=== PATIENT | female | born 1995 | race Caucasian/White ===

== ENCOUNTER 2018-03-15 16:51 | Emergency (ER) | payer OTHER, BC, SELFPAY ==
[2018-03-15 16:51] VITALS: BP 141/78; PULSE 107; RESP 16; TEMP 37.1; O2SAT 97; BMI 26.6
--- NOTE | 2018-03-15 17:18 | ED.DCSUM_ITS ---
- ER Visit Summary Date of Service: 03/15/18 Chief Complaint: Right hand injury History of Present Illness: The patient is a 22 F presenting with right hand injury. Patient states she dropped a paint can on her right hand. This occurred 1 hour prior to arrival. She took ibuprofen at home. She complains of right hand pain. Denies other injury. She is left-handed. Physical Examination: Vitals are stable. Patient is afebrile. Alert no acute distress. HEENT exam is unremarkable. Lungs are clear and equal bilaterally. Heart is regular rate and rhythm. Extremities right hand diffuse tenderness with ecchymosis to the second and third digit. Active full range of motion. Wrist is nontender. Normal cap refill. Skin is warm and dry. No focal neurologic deficit. Remainder of exam is unremarkable. Emergency Department Course and Treatment: Patient is given an ice pack. X-ray of the right hand shows no acute process. She is advised to ice and elevate. Advised to continue NSAIDs for pain. She is put in an aluminum foam splint. Advised return to ED if worsening complaints. Advised follow-up with primary care physician. Disposition: Discharge home Impression: Right hand contusion This note was generated with [employer] dictation software. It may contain incorrect words, spelling, and punctuation that were not noted in review of the chart prior to signing ED Disposition - Plan for ED Patient: Chief Complaint: Upper Extremity Injury Referrals: Skyler Patino MD [Primary Care Provider] -
--- NOTE | 2018-03-15 17:25 | RAD_ITS ---
STUDY: X-RAY - RIGHT HAND REASON FOR EXAM: Female, 22 years old. Trauma TECHNIQUE: 3 view(s) of the hand. COMPARISON: None. FINDINGS: Normal radiocarpal articulation. Normal distal radioulnar joint. Normal visualized carpal bones. Normal carpal articulations Normal carpometacarpal articulation of the thumb. Normal second through fifth carpometacarpal joints. Normal metacarpi. Normal metacarpophalangeal joint of the thumb. Normal interphalangeal joint of the thumb. Normal proximal and distal phalanges of the thumb. Normal metacarpophalangeal joints of the second through fifth fingers. Normal proximal and distal interphalangeal joints of the second through fifth fingers. Normal phalanges of the second through fifth fingers. The soft tissue structures are unremarkable. RAD/Hand Min 3 Views IMPRESSION: Normal x-ray examination of the hand. Electronically Signed: Claude Garcia MD at 17:39 EDT , Service support ,
--- NOTE | 2018-03-15 17:52 | ED.DEP ---
ED Disposition - Plan for ED Patient: Chief Complaint: Upper Extremity Injury Instructions: ED Contusion Upper Ext Referrals: Skyler Patino MD [Primary Care Provider] -
[2018-03-15 18:02] VITALS: BP 114/68; PULSE 72; RESP 18
== END 2018-03-15 18:03 | disposition home or self-care (01) ==
LOC: ED 17:25
PROVIDERS: Emergency Provider Emergency Medicine; Family Provider Family Medicine; PCP Family Medicine
DX: S60.021A Contusion of right index finger without damage to nail, initial encounter (principal); S60.031A Contusion of right middle finger without damage to nail, initial encounter; Z87.891 Personal history of nicotine dependence; Z79.899 Other long term (current) drug therapy; W20.8XXA Other cause of strike by thrown, projected or falling object, initial encounter; Y93.89 Activity, other specified; Y92.009 Unspecified place in unspecified non-institutional (private) residence as the place of occurrence of the external cause; Y99.8 Other external cause status
CPT/HCPCS: 73130; 99283

== ENCOUNTER 2018-04-09 01:59 | Emergency (ER) | payer OTHER, BC, SELFPAY ==
[2018-04-09 02:00] VITALS: BP 129/77; PULSE 100; RESP 16; TEMP 36.6; O2SAT 97; BMI 27.5
--- NOTE | 2018-04-09 02:18 | ED.VISSUMM ---
- ER Visit Summary Date of Service: 04/09/18 Chief Complaint: [] Foot laceration History of Present Illness: The patient is a 22 F [] complaining of multiple linear superficial foot lacerations after inadvertently stepping on a Satinder ornament that shattered. Patient denies the feeling of embedded foreign body however she is unsure at this time. She does admit to alcohol consumption prior to arrival. She is tearful. Does report a history of degenerative disc disease, bipolar disease, anxiety. Physical Examination: [] Afebrile, vital signs stable. 22-year-old female no acute distress. Examination of the right foot reveals multiple long linear superficial lacerations (partial-thickness) to the plantar surface. Several small glasslike foreign bodies consistent with reported history of a Satinder ornament. Neurovascularly intact distally to the affected extremity. Test Results: [] None. Emergency Department Course and Treatment: [] Foot has multiple superficial lacerations however no large or deep lacerations. There were several small glasslike flecks of remnant Satinder ornament that were irrigated away with saline and Shur-Clens. Additional 6 or 7 small pieces were removed with a forceps. Patient tolerated the procedure well. I do not feel that an x-ray was warranted as all these wounds are very superficial. Patient was instructed to clean the area and keep an eye on for possible infection. She will be given a prescription of Keflex to prevent infection for the next several days. She was placed in the bacitracin dressing and a postop shoe instructed to have follow-up with the PCP in the next 3-4 days. Tetanus was updated in the emergency department. Treatment Plan: [] Follow-up with PCP. Outpatient antibiotics. Disposition: [] Discharge, stable. Impression: [] Post superficial partial-thickness foot lacerations, right foot Tetanus update This note was generated with [employer] dictation software. It may contain incorrect words, spelling, and punctuation that were not noted in review of the chart prior to signing ED Disposition - Plan for ED Patient: Chief Complaint: Laceration Referrals: Skyler Patino MD [Primary Care Provider] -
--- NOTE | 2018-04-09 02:21 | ED.DEP ---
ED Disposition - Plan for ED Patient: Disposition: Home or Assisted Living Chief Complaint: Laceration Instructions: ED Laceration Small Superf No Sutr Referrals: Skyler Patino MD [Primary Care Provider] -
[2018-04-09] MEDS: Diphth,Pertuss(Acell),Tet Vac 0.5 ML Vial IM (02:24)
== END 2018-04-09 02:43 | disposition home or self-care (01) ==
PROVIDERS: Emergency Provider Emergency Medicine; Family Provider Family Medicine; PCP Family Medicine
DX: S91.311A Laceration without foreign body, right foot, initial encounter (principal); Z23 Encounter for immunization; F31.9 Bipolar disorder, unspecified; F41.9 Anxiety disorder, unspecified; Z79.899 Other long term (current) drug therapy; W25.XXXA Contact with sharp glass, initial encounter; W45.8XXA Other foreign body or object entering through skin, initial encounter; Y93.01 Activity, walking, marching and hiking; Y92.89 Other specified places as the place of occurrence of the external cause; Y99.8 Other external cause status
CPT/HCPCS: 90471; 90715; 99283

== ENCOUNTER 2018-04-10 11:14 | Emergency (ER) | payer OTHER, BC, SELFPAY ==
[2018-04-10 11:15] VITALS: BP 122/74; PULSE 104; RESP 16; TEMP 37.1; O2SAT 97; BMI 27.5
--- NOTE | 2018-04-10 11:50 | RAD_ITS ---
STUDY: X-RAY - LEFT TIBIA AND FIBULA REASON FOR EXAM: Female, 22 years old. Trauma, pain TECHNIQUE: 2 view(s) of the tibia and fibula were obtained. COMPARISON: Left foot films, same date FINDINGS: Normal visualized tibia. Normal visualized fibula. There is no demonstrated acute fracture. The soft tissue structures are unremarkable. RAD/Tibia & Fibula 2 Views IMPRESSION: Normal x-ray examination of the tibia and fibula. Electronically Signed: Ismael Medley DO at 12:47 EDT Tel , Service support ,
--- NOTE | 2018-04-10 11:50 | RAD_ITS ---
STUDY: X-RAY - LEFT FOOT CLINICAL: Female, 22 years old. Trauma, pain TECHNIQUE: 3 view(s) of the foot. COMPARISON: Left tibia/fibular films, same date FINDINGS: Normal talus, calcaneus, and tarsal bones. Normal visualized subtalar, talonavicular, calcaneocuboid, tarsal and tarsometatarsal articulations. Normal metatarsi. Normal metatarsophalangeal joint of the great toe. Normal tibial and fibular sesamoid bones. Normal interphalangeal joint of the great toe. Normal phalanges of the great toe. Normal second through fifth metatarsophalangeal joints. Normal interphalangeal joints and phalanges of the lesser toes. The soft tissue structures are unremarkable. There is no demonstrated fracture. RAD/Foot min 3 Views IMPRESSION: Normal x-ray examination of the foot. Electronically Signed: Ismael Medley DO at 12:45 EDT Tel , Service support ,
--- NOTE | 2018-04-10 12:58 | ED.DCSUM_ITS ---
- ER Visit Summary Date of Service: 04/10/18 Chief Complaint: Left foot and ankle pain History of Present Illness: The patient is a 22 F who was seen here early yesterday morning for lacerations to the bottom of her right foot after stepping on glass. The wounds were cleansed and dressed. Patient states because she was not able to walk well on her right foot she lost her balance and fell yesterday injuring her left foot and lower leg. She is reportedly seen at [facility] where x-rays were negative. She was given an ankle stirrup splint, Naprosyn, and Sizerock. She was written off work for a week. Patient states the swelling and bruising seemed to be worse and she wanted another opinion as she is concerned it may be broken. Physical Examination: Vital signs are unremarkable. Patient sitting upright in bed no acute distress. Lower extremity examination was scattered bruising of the left lower leg and foot. There is diffuse tenderness. There is mild edema noted only. There are strong distal pulses and normal cap refill. There is no tenderness over the upper leg or hip. The wounds on the bottom of the right foot are clean with no sign of infection. Test Results: Left foot and tib-fib x-rays are obtained and normal per my read. Emergency Department Course and Treatment: Patient is continue the medications as previously prescribed. Shamar wrap is provided along with crutches. She is to continue the Aircast. Treatment Plan: [] Disposition: Discharge Impression: Left foot and ankle sprain This note was generated with [employer] dictation software. It may contain incorrect words, spelling, and punctuation that were not noted in review of the chart prior to signing ED Disposition - Plan for ED Patient: Disposition: Home or Assisted Living Chief Complaint: Lower Extremity Injury Instructions: ED Sprain Ankle W X Ray, ED Sprain Foot Referrals: Skyler Patino MD [Primary Care Provider] - 1 Week if not improving
--- NOTE | 2018-04-10 12:58 | ED.DEP ---
ED Disposition - Plan for ED Patient: Disposition: Home or Assisted Living Chief Complaint: Lower Extremity Injury Instructions: ED Sprain Foot, ED Sprain Ankle W X Ray Referrals: Skyler Patnio MD [Primary Care Provider] - 1 Week if not improving
[2018-04-10 13:15] VITALS: PULSE 97; RESP 16; O2SAT 98
== END 2018-04-10 13:17 | disposition home or self-care (01) ==
PROVIDERS: Emergency Provider Emergency Medicine; Family Provider Family Medicine; PCP Family Medicine
DX: S93.602A Unspecified sprain of left foot, initial encounter (principal); S93.402A Sprain of unspecified ligament of left ankle, initial encounter; F31.9 Bipolar disorder, unspecified; M54.5 Low back pain; Z79.891 Long term (current) use of opiate analgesic; Z79.899 Other long term (current) drug therapy; W18.30XA Fall on same level, unspecified, initial encounter; Y93.89 Activity, other specified; Y92.89 Other specified places as the place of occurrence of the external cause; Y99.8 Other external cause status
CPT/HCPCS: 73590; 73630; 99283

== ENCOUNTER 2018-04-13 20:55 | Emergency (ER) | payer OTHER, BC, SELFPAY ==
[2018-04-13 20:56] VITALS: BP 141/87; PULSE 140; RESP 20; TEMP 36.7; O2SAT 95; BMI 28.3
--- NOTE | 2018-04-13 21:06 | RAD_ITS ---
STUDY: X-RAY - LEFT FOOT CLINICAL: Female, 22 years old. Pain, injury TECHNIQUE: 3 view(s) of the foot. COMPARISON: 04/13/2018 FINDINGS: Normal talus, calcaneus, and tarsal bones. Normal visualized subtalar, talonavicular, calcaneocuboid, tarsal and tarsometatarsal articulations. Normal metatarsi. Normal metatarsophalangeal joint of the great toe. Normal tibial and fibular sesamoid bones. Normal interphalangeal joint of the great toe. Normal phalanges of the great toe. Normal second through fifth metatarsophalangeal joints. Normal interphalangeal joints and phalanges of the lesser toes. The soft tissue structures are unremarkable. RAD/Foot min 3 Views IMPRESSION: Normal x-ray examination of the foot. Electronically Signed: Babak Ralph MD at 21:41 EDT Tel , Service support ,
--- NOTE | 2018-04-13 21:06 | RAD_ITS ---
STUDY: X-RAY - LEFT ANKLE REASON FOR EXAM: Female, 22 years old. Pain, injury TECHNIQUE: 3 view(s) of the ankle. COMPARISON: None. FINDINGS: Normal visualized distal tibia and fibula. Normal medial and lateral malleoli. Normal tibiotalar articulation and ankle mortise. Normal visualized talus and calcaneus. The visualized subtalar, talonavicular, calcaneocuboid and tarsal articulations are normal. The soft tissue structures are unremarkable. RAD/Ankle min 3 Views IMPRESSION: Normal x-ray examination of the ankle. Electronically Signed: Babka Ralph MD at 21:37 EDT Tel , Service support ,
--- NOTE | 2018-04-13 21:51 | ED.VISSUMM ---
- ER Visit Summary Date of Service: 04/13/18 Chief Complaint: [Fall and injury to left foot and ankle] History of Present Illness: The patient is a 22 F [presents to the emergency department with complaint of a fall today ?2. Patient states she initially fell 4 days ago injuring her left foot and ankle and was seen at [facility] where she had x-rays which did not show any fractures. Patient then the following day came to was her hospital had what sounds like repeat x-rays which did not show any fractures. Patient was given a prescription for Alexandria for pain as well as crutches and a walking boot. Patient states that she has had a hard time walking with her crutches and today she was going down the steps with her crutches and fell reinjuring her foot and ankle. Patient cannot put any weight on it. Patient denies loss of consciousness. She denies any neck pain, chest pain, or abdominal pain.] Physical Examination: [HEENT-PERRLA, EOMI. Cranial nerves II through XII grossly intact. TMs clear. Mucous membranes moist. No adenopathy. No C-spine tenderness on palpation Cardiovascular-regular rate and rhythm without murmur or ectopy Lungs-clear to auscultation, chest wall stable without crepitus or subcu emphysema Abdomen-normoactive bowel sounds, soft, nontender, no rebound or rigidity, no peritoneal signs. Extremities-intact ?4, normal range of motion, normal pulses. Left leg-patient has diffuse soft tissue swelling about the left ankle and foot. Patient has ecchymosis and bruising noted. She has diffuse tenderness about the foot and ankle. Patient does not have any pain at the fibular head. Ileus tendon is intact she has a normal Mustafa's test. Test Results: [X-rays of the left foot and ankle obtained showed no fractures.] Emergency Department Course and Treatment: [] Treatment Plan: [Patient to continue with her crutches and her walking boot. Patient has Alexandria at home for pain Disposition: [Discharged home in stable condition.] Impression: [Fall Left foot and ankle sprain This note was generated with [employer] dictation software. It may contain incorrect words, spelling, and punctuation that were not noted in review of the chart prior to signing ED Disposition - Plan for ED Patient: Chief Complaint: Lower Extremity Injury Referrals: Skyler Patino MD [Primary Care Provider] -
--- NOTE | 2018-04-13 21:54 | ED.DCSUM_ITS ---
- ER Visit Summary Date of Service: 04/13/18 Chief Complaint: [Fall and injury to left foot and ankle] History of Present Illness: The patient is a 22 F [presents to the emergency department with complaint of a fall today ?2. Patient states she initially fell 4 days ago injuring her left foot and ankle and was seen at [facility] where she had x-rays which did not show any fractures. Patient then the following day came to was her hospital had what sounds like repeat x-rays which did not show any fractures. Patient was given a prescription for Bernard for pain as well as crutches and a walking boot. Patient states that she has had a hard time walking with her crutches and today she was going down the steps with her crutches and fell reinjuring her foot and ankle. Patient cannot put any weight on it. Patient denies loss of consciousness. She denies any neck pain, chest pain, or abdominal pain.] Physical Examination: [HEENT-PERRLA, EOMI. Cranial nerves II through XII grossly intact. TMs clear. Mucous membranes moist. No adenopathy. No C- spine tenderness on palpation Cardiovascular-regular rate and rhythm without murmur or ectopy Lungs-clear to auscultation, chest wall stable without crepitus or subcu emphysema Abdomen-normoactive bowel sounds, soft, nontender, no rebound or rigidity, no peritoneal signs. Extremities-intact ?4, normal range of motion, normal pulses. Left leg-patient has diffuse soft tissue swelling about the left ankle and foot. Patient has ecchymosis and bruising noted. She has diffuse tenderness about the foot and ankle. Patient does not have any pain at the fibular head. Ileus tendon is intact she has a normal Mustafa's test. Test Results: [X-rays of the left foot and ankle obtained showed no fractures.] Emergency Department Course and Treatment: [] Treatment Plan: [Patient to continue with her crutches and her walking boot. Patient has Bernard at home for pain Disposition: [Discharged home in stable condition.] Impression: [Fall Left foot and ankle sprain This note was generated with [employer] dictation software. It may contain incorrect words, spelling, and punctuation that were not noted in review of the chart prior to signing ED Disposition - Plan for ED Patient: Chief Complaint: Lower Extremity Injury Referrals: Skyler Patino MD [Primary Care Provider] -
--- NOTE | 2018-04-13 21:54 | ED.DEP ---
ED Disposition - Plan for ED Patient: Chief Complaint: Lower Extremity Injury Instructions: ED Sprain Foot, ED Sprain Ankle W X Ray Referrals: Skyler Patino MD [Primary Care Provider] - 3-5 Days
[2018-04-13 22:09] VITALS: PULSE 108; RESP 18; O2SAT 99
--- NOTE | 2018-04-13 22:10 | ED.RN ---
REVIEWED D/C INSTRUCTIONS, FOLLOW UP CARE, AND S/S THAT WOULD WARRANT A RETURN TO THE ED WITH PT. PT VERBALIZED AN UNDERSTANDING AND DENIES FURTHER QUESTIONS FOR THIS RN. PT SKIN P/W/D, RESP EVEN AND UNLABORED, PT A&O X 3, NO DISTRESS NOTED. PT AMBULATED OUT OF ED, GAIT STEADY.
== END 2018-04-13 22:11 | disposition home or self-care (01) ==
PROVIDERS: Emergency Provider Emergency Medicine; Family Provider Family Medicine; PCP Family Medicine
DX: S93.602A Unspecified sprain of left foot, initial encounter (principal); S93.402A Sprain of unspecified ligament of left ankle, initial encounter; W19.XXXA Unspecified fall, initial encounter; Y93.9 Activity, unspecified; Y92.9 Unspecified place or not applicable; F41.9 Anxiety disorder, unspecified; Z79.899 Other long term (current) drug therapy; Z72.0 Tobacco use
CPT/HCPCS: 73610; 73630; 99282

== ENCOUNTER 2018-08-02 00:35 | Emergency (ER) | payer OTHER, BC, SELFPAY ==
[2018-08-02 00:37] VITALS: BP 129/81; PULSE 95; RESP 17; TEMP 36.6; O2SAT 96; BMI 26.6
--- NOTE | 2018-08-02 00:47 | RAD_ITS ---
STUDY: X-RAY - LEFT FOOT CLINICAL: Female, 22 years old. Fifth metatarsal pain. TECHNIQUE: 3 view(s) of the foot. COMPARISON: None. FINDINGS: Normal talus, calcaneus, and tarsal bones. Normal visualized subtalar, talonavicular, calcaneocuboid, tarsal and tarsometatarsal articulations. Normal metatarsi. Normal metatarsophalangeal joint of the great toe. Normal tibial and fibular sesamoid bones. Normal interphalangeal joint of the great toe. Normal phalanges of the great toe. Normal second through fifth metatarsophalangeal joints. Normal interphalangeal joints and phalanges of the lesser toes. The soft tissue structures are unremarkable. RAD/Foot min 3 Views IMPRESSION: Normal x-ray examination of the foot. Electronically Signed: Ramu Shepard MD at 1:53 EDT Tel , Service support ,
--- NOTE | 2018-08-02 00:47 | RAD_ITS ---
STUDY: X-RAY - LEFT ANKLE REASON FOR EXAM: Female, 22 years old. Status post fall. Pain in the lateral malleolar region and fifth metatarsal region. TECHNIQUE: 3 view(s) of the ankle. COMPARISON: X-Ray Ankle 04/13/2018. FINDINGS: Normal visualized distal tibia and fibula. Normal medial and lateral malleoli. Normal tibiotalar articulation and ankle mortise. Normal visualized talus and calcaneus. The visualized subtalar, talonavicular, calcaneocuboid and tarsal articulations are normal. The soft tissue structures are unremarkable. RAD/Ankle min 3 Views IMPRESSION: Normal x-ray examination of the ankle. Electronically Signed: Nba Nuno MD at 2:15 EDT , Service support ,
--- NOTE | 2018-08-02 01:26 | ED.DCSUM_ITS ---
- ER Visit Summary Date of Service: 08/02/18 Chief Complaint: Left ankle injury History of Present Illness: The patient is a 22 F presenting for evaluation secondary to left ankle injury. Patient reports that prior to presentation she suffered a plantar inversion injury of the left ankle. She denies hitting her head or loss consciousness. She was able to bear weight, she denies any weakness paresthesias associated with this. Pain is mainly over the lateral portion of her ankle. She denies any other injuries. Physical Examination: Physical exam unremarkable except for examination of the lower extremity. There is no proximal fibular head tenderness. There is lateral malleolar swelling with tenderness in this area. No medial malleolar swelling. Normal range of motion of the foot and toes. Normal distal pulses. Patient does have some pain over the fifth metatarsal head and the dorsal midfoot. Normal sensation. Test Results: Radiographs of the foot and ankle by my personal review are negative Emergency Department Course and Treatment: Patient presented for evaluation secondary to a ankle injury. X-rays are negative. Patient was recommended on conservative treatment with rest ice elevation and compression. She was provided with an Shamar wrap. Disposition: Discharge Impression: 1. Left ankle sprain This note was generated with [employer] dictation software. It may contain incorrect words, spelling, and punctuation that were not noted in review of the chart prior to signing ED Disposition - Plan for ED Patient: Disposition: Home or Assisted Living Chief Complaint: Lower Extremity Injury Diagnosis: Left ankle sprain Instructions: ED Sprain Ankle No X Ray Prescriptions: Naproxen [Naprosyn] 500 mg PO BID PRN #20 tab Referrals: Skyler Patino MD [Primary Care Provider] - As Needed
== END 2018-08-02 01:39 | disposition home or self-care (01) ==
PROVIDERS: Emergency Provider Emergency Medicine; Family Provider Family Medicine; PCP Family Medicine
DX: S93.402A Sprain of unspecified ligament of left ankle, initial encounter (principal); Z79.899 Other long term (current) drug therapy; X50.1XXA Overexertion from prolonged static or awkward postures, initial encounter; Y93.89 Activity, other specified; Y92.89 Other specified places as the place of occurrence of the external cause; Y99.8 Other external cause status
CPT/HCPCS: 73610; 73630; 99282

== ENCOUNTER 2018-09-07 14:18 | Emergency (ER) | payer OTHER, BC, SELFPAY ==
[2018-09-07 14:19] VITALS: BP 114/73; PULSE 114; RESP 16; TEMP 36.8; O2SAT 98; BMI 25.7
--- NOTE | 2018-09-07 15:04 | EKG12_ITS ---
Test Reason : Blood Pressure : / mmHG Vent. Rate : 076 BPM Atrial Rate : 076 BPM P-R Int : 166 ms QRS Dur : 084 ms QT Int : 388 ms P-R-T Axes : 034 051 035 degrees QTc Int : 436 ms Normal sinus rhythm Normal ECG Confirmed by ANJUM ANAND ([id number]), non linear editor HARI LOCO ([id number]) on 09/12/2018 8:58:55 AM Referred By: JANAE Confirmed By:ANJUM ANAND
[2018-09-07 15:39] LABS: Bacteria 0 SEEN /hpf (None Seen)
[2018-09-07 15:45] LABS: Color, Urine Yellow (Yellow); Glucose, Dipstick Normal (Normal); Ketone-Dipstick 50 mg/dl (Negative); Leukocyte Esterase-Dipstick 25 /ul (Negative); Nitrite-Dipstick Negative (Negative); Occult Blood-Urine 50 /ul (Negative); Protein-Dipstick 30 mg/dl (Negative); Specific Gravity, Urine 1.015 (1.002-1.030); Urine Clarity Sl. Cloudy (Clear); Urine Urobilinogen 4 mg/dl (Normal); Urine pH 6.5 (5.0 - 8.0)
[2018-09-07 15:49] LABS: Absolute Lymphocyte Count 1.09 X10^3/ul (0.83-4.51); Absolute Neutrophil Count 4.5 X10^3/uL (2.0-7.7); Basophil# 0.01 X10^3/uL; Basophil% 0.2 % (0-1); Lymphocyte # 1.09 X10^3/ul (4.0); Lymphocyte % 18.6 % (19-41); Mean Corp Hgb Conc 33.3 g/gl (32-36); Mean Corpuscular Hgb 31.3 pg (27.0-32.0); Mean Corpuscular Volume 93.8 fL (81-99); Mean Platelet Vol. 9.5 fl (6.2-12.0); Monocyte# 0.29 X10^3/uL; Monocyte% 4.9 % (0-10); Neutrophil # 4.47 X10^3/uL (2.7-7.7); Neutrophil % 76.3 % (47-70); Platelet Count 245 K/mm3 (150-450); RBC Distribution Width SD 43.7 fl (35.1-43.9); Red Blood Count 4.48 M/mm3 (4.2-5.4); White Blood Count 5.9 K/mm3 (4.4-11.0)
[2018-09-07 15:56] LABS: POSITIVE COUNT NO; POSITIVE DIFFERENTIAL NO; POSITIVE MORPHOLOGY NO
[2018-09-07 15:58] LABS: Amphetamine Urine VISTA NEGATIVE (<1000 ng/mL); Barbiturate Urine VISTA NEGATIVE (< 200 ng/mL); Benzodiazepine Urine VISTA POSITIVE (< 200 ng/mL); Cocaine Urine VISTA NEGATIVE (< 300 ng/mL); Ecstacy Urine VISTA NEGATIVE (< 500 ng/mL); Methadone Urine VISTA NEGATIVE (< 300 ng/mL); PCP Urine VISTA NEGATIVE (< 25 ng/mL); THC Urine VISTA POSITIVE (< 50 ng/mL); Vista UDS pH Range 6
[2018-09-07 16:11] LABS: AST(SGOT) 13 U/L (15-37); Alanine Aminotransfer ALT/SGPT 25 U/L (13-56); Albumin, Serum 3.8 g/dL (3.2-5.0); Alkaline Phosphatase 69 U/L (45-117); Anion Gap 5 (5-15); BUN 11 mg/dL (7-18); BUN/Creat Ratio 16.3 RATIO (10-20); Calcium,Total 8.7 mg/dL (8.5-10.1); Chloride 107 mmol/L (98-107); Creatinine, Serum 0.68 mg/dL (0.55-1.02); EST Glomerular Filtration Rate 114 mL/min (>60); Est Glom Filt Rate - Afr Amer 138 mL/min (>60); Globulin 3.7 g/dL (2.2-4.2); Glucose 96 mg/dL (74-106); Potassium 3.9 mmol/L (3.5-5.1); Protein, Total 7.5 g/dL (6.4-8.2); Sodium Level 139 mmol/L (136-145); Thyroid Stim Hormone (TSH) 0.08 uIU/mL (0.358-3.74); Urine Bilirubin Dipstick 1 mg/dL (Negative)
[2018-09-07 16:17] LABS: Pregnancy, Serum, hCG Quali. NEGATIVE Negative (0-9 Nonpreg)
[2018-09-07 16:20] LABS: Mucous, Urine 3+ /hpf (<or=2+); Red Blood Cells-Urine 0-5 SEEN /hpf (0-5); Squamous Epithelial Cells - UA 0-5 SEEN /hpf (5-10); White Blood Cells 0-5 SEEN /hpf (0-5)
[2018-09-07 16:21] LABS: Hyaline Cast 0-5 SEEN /lpf (0-5)
[2018-09-07 16:26] LABS: Alcohol, Blood (Medical)-Serum < 3.0 mg/dL
--- NOTE | 2018-09-07 16:29 | ED.DCSUM_ITS ---
- ER Visit Summary Date of Service: 09/07/18 Chief Complaint: Bipolar and suicidal thoughts History of Present Illness: The patient is a 22 F who states that her insurance is not covering her Latuda. She states that she is taking her other medications but the Latuda is her primary bipolar medicine. She states that she is feeling very manic and is has been experiencing some very low lows. She states that she has been in bed for the past 3 days and was developing some suicidal thoughts. 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 She lost her job and took a Percocet that a friend had given her. She denies any other use since then. Physical Examination: Afebrile vital signs are stable Gen: Well-nourished well-developed Head: Normocephalic atraumatic Eyes: Perrl EOMI ENT: TMs clear no rhinorrhea moist mucous membranes Neck: Supple no lymphadenopathy no JVD nontender CVS: Regular rate rhythm no murmurs normal S1-S2 Respiratory: No distress clear to auscultation bilaterally chest nontender Abdomen: Soft nontender nondistended normal bowel sounds no masses Back: Nontender Extremity: Nontender no edema Skin: Normal color no rash Neuro: alert orientated ?3 CN II-XII intact normal strength sensation reflexes g ait cerebellar Psych: Times a rather inappropriate affect and that she smiles really odd times. She does have some pressured speech and seems mildly internally stimulated. Test Results: Tox screen showed opiates THC and benzodiazepines. TSH is 0.08. EKG sinus at a rate of 76. Emergency Department Course and Treatment: Patient was cleared for crisis. They will be up to evaluate the patient and help us make final disposition. Impression: 1. Bipolar disorder This note was generated with [employer] dictation software. It may contain incorrect words, spelling, and punctuation that were not noted in review of the chart prior to signing ED Disposition - Plan for ED Patient: Chief Complaint: Suicidal Referrals: Skyler Patino MD [Primary Care Provider] -
--- NOTE | 2018-09-07 16:30 | ED.RN ---
CRISIS NOTIFIED PT IS HERE; SPOKE WITH DIAZ
[2018-09-07 17:18] VITALS: BP 116/74; PULSE 115; RESP 16; O2SAT 99
[2018-09-07] MEDS: LORazepam 1 MG Tablet PO (17:49)
[2018-09-07 20:00] VITALS: BP 118/76; PULSE 87; RESP 15; O2SAT 99
[2018-09-07 21:10] VITALS: BP 120/76; PULSE 78; RESP 17; O2SAT 98
--- NOTE | 2018-09-07 21:10 | ED.DEP ---
ED Disposition - Plan for ED Patient: Chief Complaint: Suicidal Instructions: ED Depression Referrals: Skyler Patino MD [Primary Care Provider] - Counseling,Center [GROUP OF PHYSICIANS] -
== END 2018-09-07 21:28 | disposition home or self-care (01) ==
LOC: ED 15:08
PROVIDERS: Emergency Provider Emergency Medicine; Family Provider Family Medicine; PCP Family Medicine
DX: F31.9 Bipolar disorder, unspecified (principal); Z79.899 Other long term (current) drug therapy; Z72.0 Tobacco use
CPT/HCPCS: 80053; 80307; 80320; 81001; 84443; 84703; 85025; 93005; 99285; G0480

== ENCOUNTER 2018-12-19 17:47 | Emergency (ER) | payer OTHER, BC, SELFPAY ==
[2018-12-19 17:48] VITALS: BP 149/82; PULSE 113; RESP 18; TEMP 36.8; O2SAT 98; BMI 28.8
== END 2018-12-19 18:46 | disposition left against medical advice (07) ==
LOC: ED 19:33
PROVIDERS: Emergency Provider Emergency Medicine; Family Provider Family Medicine; PCP Family Medicine
DX: O46.91 Antepartum hemorrhage, unspecified, first trimester (principal); Z3A.01 Less than 8 weeks gestation of pregnancy

== ENCOUNTER 2019-01-19 16:09 | Emergency (ER) | payer OTHER, BC, SELFPAY ==
[2019-01-19 16:10] VITALS: BP 162/84; PULSE 108; RESP 16; TEMP 36.2; O2SAT 99; BMI 28.8
--- NOTE | 2019-01-19 16:20 | ED.RN ---
pt and friend ambulate without difficulty out of department after being here 10 minutes. we're checking out and going to [facility]. we aren't waiting
== END 2019-01-19 17:06 | disposition left against medical advice (07) ==
PROVIDERS: Emergency Provider Emergency Medicine; Family Provider Family Medicine; PCP Family Medicine
DX: R11.2 Nausea with vomiting, unspecified (principal)

== ENCOUNTER 2019-01-26 11:00 | Outpatient (CLI) | payer BC, MEDICAID, SELFPAY ==
[2019-01-26 11:37] VITALS: BMI 28.2
[2019-01-26 12:19] LABS: Hematocrit 42.2 % (37-47); Hemoglobin 13.8 g/dl (12.0-15.0); Mean Corp Hgb Conc 32.7 g/gl (32-36); Mean Corpuscular Hgb 30.3 pg (27.0-32.0); Mean Corpuscular Volume 92.5 fL (81-99); Mean Platelet Vol. 9.4 fl (6.2-12.0); Platelet Count 299 K/mm3 (150-450); RBC Distribution Width SD 43.1 fl (35.1-43.9); Red Blood Count 4.56 M/mm3 (4.2-5.4); White Blood Count 13.4 K/mm3 (4.4-11.0)
[2019-01-26 12:21] LABS: Scan Indicated on CBC? Y/N NO
[2019-01-26] MEDS: Famotidine 20mg IV Push Syringe Q24 300 MG IV (12:48)
[2019-01-26 12:59] LABS: ALB/GLOB Ratio 1.1 RATIO (0.9-2.4); AST(SGOT) 13 U/L (15-37); Alanine Aminotransfer ALT/SGPT 24 U/L (13-56); Albumin, Serum 3.9 g/dL (3.2-5.0); Alkaline Phosphatase 57 U/L (45-117); Amylase 65 U/L (25-115); Anion Gap 7 (5-15); BUN 6 mg/dL (7-18); BUN/Creat Ratio 9.7 RATIO (10-20); Chloride 106 mmol/L (98-107); Creatinine, Serum 0.62 mg/dL (0.55-1.02); EST Glomerular Filtration Rate 126 mL/min (>60); Est Glom Filt Rate - Afr Amer 153 mL/min (>60); Estimated Creatinine Clearance 141.14 ml/min; Globulin 3.7 g/dL (2.2-4.2); Glucose 103 mg/dL (74-106); Lipase 62 U/L (73-393); Potassium 3.4 mmol/L (3.5-5.1); Protein, Total 7.6 g/dL (6.4-8.2); Sodium Level 136 mmol/L (136-145); Thyroid Stim Hormone (TSH) 0.15 uIU/mL (0.358-3.74)
[2019-01-26] MEDS: Ondansetron 4 MG/2 ML Vial 8 MG IV (13:00)
[2019-01-26] MEDS: Metoclopramide 10 MG/2 ML Vial IV ×2 (13:08→18:21)
[2019-01-26] MEDS: proCHLORPERazine 10 MG/2 ML Vial IV (16:25)
--- NOTE | 2019-01-26 18:18 | PCM.HP.OB ---
History Date of Admission: 01/26/19 History of this : This is a 23 year-old, G1 @ 11 weeks gestational age presents for hyperemesis. Patient admits she had been smoking marijuana up until about a week and a half ago and that had been helping her nausea. After she stopped that, her nausea and vomiting got progressively worse. She has been in the emergency room twice now for IV fluids. She states she was in [facility] yesterday and got 2 L of fluid, and some antiemetics. She felt better, but then she began vomiting in the car on the way home. She has more than 2 emesis an hour with some dry heaving. Had a 4 pound weight loss during the . She denies any diarrhea or sick contacts. She has had no fevers or chills but she does get some sweats when she has emesis. Morning she presented to the office stating she thrown up more than 20 times already this morning. She had dry heaving and emesis of small amount of fluids in the office during my assessment of her. She denies any vaginal bleeding. She has been taking Phenergan and vitamin B6 at home without improvement of her symptoms. She denies any discrete heartburn. Allergies erythromycin ethylsuccinate [From Pediazole] Allergy (Verified 01/26/19 11:38) Hives sulfisoxazole acetyl [From Pediazole] Allergy (Verified 01/26/19 11:38) Hives Home Medications: Home Medications Aripiprazole [Abilify Maintena] 400 mg IM 01/26/19 Vit No.130/Iron/Folic [ Tablet] 1 each PO 01/26/19 Smoking Status: Current every day smoker Alcohol: None Substance Use Type: Marijuana Number of Fetus(es): 1 Heart Tracin bpm in the office History Past Pregnancies: Past Pregnancies Delivery Date Name GA/Weeks Outcome Route Weight Infant Gender Labor Length Anesthesia Delivery Location Provider FOB Review of Systems Constitutional: Reports: Malaise, Weight Change, Fatigue. Denies: Anorexia, Chills, Fever Eyes: Denies: Blurred vision HEENT: Reports: Head Aches. Denies: Difficulty Swallowing Cardiovascular: Denies: Chest Pain Respiratory: Denies: Cough, Shortness of breath at rest Gastrointestinal: Reports: Abdominal Pain - b/c of nausea only, Vomiting - many times a day. Denies: Diarrhea, Hematemesis, Hematochezia, Nausea Genitourinary: Denies: Dysuria Gynecological: Denies: Breast symptoms, Vaginal bleeding, Vaginal discharge Musculoskeletal: Denies: Joint swelling Skin: Denies: Rash Neurological: Denies: Blurred vision, Slurred speech, Difficulty swallowing Physical Exam General: Cooperative, - - appears ill, pale, dry heaving HEENT: Normocephalic Cardiovascular: Regular rate, Regular Rhythm Lungs: Clear to auscultation, Normal air movement Abdomen: Soft, Non Tender, Non-Distended Extremities:: No edema, Other - skin- dry, no rashes, decreased turgor Assessment/Plan This is a 23 year-old, @ 11 w 1 d w/ hyperemesis, failed outpatient therapy, for 3rd round of IVF Patient is currently sitting up in bed and stating she feels much better and is somewhat hungry. Will advance her to a regular diet, and encouraged her to eat bland, light diet. Trial of po meds. Will send home on regimen of zofran, pepcid and reglan. Decrease IVF now. If she tolerates a regular diet, can consider sending her home later tonight. However, would also be reasonable to keep her and see how she tolerates the oral antiemetics before we send her home. Next step might be considering home IV hydration and/or an antiemetic pump.
[2019-01-26] MEDS: Ondansetron 4 MG/2 ML Vial IV (18:21)
--- NOTE | 2019-01-26 19:03 | PCM.DC ---
- Discharge Diagnoses Current Active Problems: hyperemesis gravidarum without metabolic disturbance 11 weeks high risk primigravida You will use the following diet at home:: Other - eat light, bland food, small meals. Drink your fluids between your meals Your food should be the consistency of: Regular Your liquids should be the consistency of: Regular/Thin Discharge Activity: No Restrictions Return to work on:: 01/29/19 Call your doctor if you observe: Fever of 101 or Higher, - - Persistent nausea or vomiting, increased weight loss, or any other concerns. Allergies/Adverse Reactions: Allergies erythromycin ethylsuccinate [From Pediazole] Allergy (Verified 01/26/19 11:38) Hives sulfisoxazole acetyl [From Pediazole] Allergy (Verified 01/26/19 11:38) Hives Medications to take at Discharge Famotidine [Pepcid] 40 mg PO DAILY #30 tablet 01/26/19 Metoclopramide [Reglan] 10 mg PO TID #90 tablet 01/26/19 Ondansetron [Zofran] 8 mg PO Q8H PRN PRN #90 tablet 01/26/19 RX: Aripiprazole [Abilify Maintena] 400 mg IM 01/26/19 RX: Vit No.130/Iron/Folic [ Tablet] 1 each PO 01/26/19 The following prescriptions were given: Ondansetron [Zofran] 8 mg PO Q8H PRN PRN #90 tablet PRN Reason: Nausea Famotidine [Pepcid] 40 mg PO DAILY #30 tablet Metoclopramide [Reglan] 10 mg PO TID #90 tablet Primary Care Physician: Skyler Patino MD [Primary Care Provider] - Test Results: Test results from this visit will be discussed in further detail at your follow-up appointment, if applicable. Please Follow Up With: Carin Govea MD - [phone] When: In our office within 1-2 weeks, as scheduled, or as needed.
--- NOTE | 2019-01-26 19:06 | DCINST_ITS ---
- Discharge Diagnoses Current Active Problems: hyperemesis gravidarum without metabolic disturbance 11 weeks high risk primigravida You will use the following diet at home:: Other - eat light, bland food, small meals. Drink your fluids between your meals Your food should be the consistency of: Regular Your liquids should be the consistency of: Regular/Thin Discharge Activity: No Restrictions Return to work on:: 01/29/19 Call your doctor if you observe: Fever of 101 or Higher, - - Persistent nausea or vomiting, increased weight loss, or any other concerns. Allergies/Adverse Reactions: Allergies erythromycin ethylsuccinate [From Pediazole] Allergy (Verified 01/26/19 11:38) Hives sulfisoxazole acetyl [From Pediazole] Allergy (Verified 01/26/19 11:38) Hives Medications to take at Discharge Famotidine [Pepcid] 40 mg PO DAILY #30 tablet 01/26/19 Metoclopramide [Reglan] 10 mg PO TID #90 tablet 01/26/19 Ondansetron [Zofran] 8 mg PO Q8H PRN PRN #90 tablet 01/26/19 RX: Aripiprazole [Abilify Maintena] 400 mg IM 01/26/19 RX: Vit No.130/Iron/Folic [ Tablet] 1 each PO 01/26/19 The following prescriptions were given: Ondansetron [Zofran] 8 mg PO Q8H PRN PRN #90 tablet PRN Reason: Nausea Famotidine [Pepcid] 40 mg PO DAILY #30 tablet Metoclopramide [Reglan] 10 mg PO TID #90 tablet Primary Care Physician: Skyler Patino MD [Primary Care Provider] - Test Results: Test results from this visit will be discussed in further detail at your follow- up appointment, if applicable. Please Follow Up With: Carin Govea MD - [phone] When: In our office within 1-2 weeks, as scheduled, or as needed.
[2019-01-26] MEDS: Famotidine 20 MG Tablet PO (21:34)
[2019-01-27] MEDS: Ondansetron 8 MG Tablet PO (01:50)
[2019-01-27] MEDS: Metoclopramide 10 MG Tablet PO (06:42)
== END 2019-01-27 06:50 | disposition home or self-care (01) ==
LOC: WPOUT 11:08 → WP 11:08
PROVIDERS: Family Provider Family Medicine; PCP Family Medicine; Referring Provider Obstetrics & Gynecology; Visit Provider Obstetrics & Gynecology
DX: O21.0 Mild hyperemesis gravidarum (principal); Z3A.11 11 weeks gestation of pregnancy
CPT/HCPCS: 96365; 96366; 96375; 36415; 80053; 82150; 83690; 84443; 85027; 99218; G0378; J2405; J3490

== ENCOUNTER 2019-03-13 09:00 | Emergency (ER) | payer BC, MEDICAID, SELFPAY ==
[2019-03-13 09:01] VITALS: BP 139/89; PULSE 95; RESP 18; TEMP 36.6; O2SAT 100; BMI 28.8
--- NOTE | 2019-03-13 09:20 | ED.DCSUM_ITS ---
History of Present Illness Chief Complaint: Nausea/Vomiting Informant: Patient Onset: Yesterday Narrative: Nausea vomiting since 11 PM last night. G1, P0 17 weeks gestation followed by Dr[address] Govea, denies any abdominal pain. No urinary symptoms. No abnormal vaginal discharge or bleeding. States with retching irritation felt throat irritation, there is small streak of blood. No fevers. She states she has been sick throughout this recently put on a regimen of Phenergan and Zofran rotating every 3 hours. Next appointment is tomorrow. Last seen was a week ago in the office. Reports was admitted a month ago with similar symptoms. Half pack per day smoker. Denies alcohol or any recreational drug use. Prior similar symptoms: Yes Past Medical History - Allergies and Home Meds Allergies/Adverse Reactions: Allergies erythromycin ethylsuccinate [From Pediazole] Allergy (Verified 03/13/19 09:03) Hives sulfisoxazole acetyl [From Pediazole] Allergy (Verified 03/13/19 09:03) Hives Primary Care Physician: Skyler Patino MD [Primary Care Provider] - Smoking Status: Current every day smoker Review of Systems All systems negative except as indicated General: Denies: Chills, Fever, Sweats Eyes: Denies: Visual changes - bilaterally, Diplopia ENT: Denies: Rhinorrhea, Sore throat Cardiovascular: Denies: Chest pain, Palpitations Respiratory: Reports: - Gastrointestinal: Reports: Nausea, Vomiting Genitourinary: Denies: Dysuria, Hematuria, Frequency Musculoskeletal: Denies: Back pain, Extremity Pain Skin: Denies: Rash, Wounds Neurological: Denies: Headache, Weakness, Numbness Physical Exam Vital Signs/Narrative: Vital Signs Temp Pulse Resp BP Pulse Ox 03/13/19 09:01 97.9 F 95 18 139/89 H 100 Inital Vital Signs reviewed: Yes General: Well nourished, Well developed, No Acute Distress Head: Normocephalic, Atraumatic Eyes: Perrl, EOMI ENT: Dry mucous membranes Neck: Supple, Nontender Cardiovascular: Regular rate, Regular rhythm, No murmurs Respiratory: No distress, CTA bilaterally, Chest nontender Abdomen: Soft, Nontender, Nondistended, Normal bowel sounds Back: Nontender, Normal Inspection Extremities: Nontender, No edema Skin: Normal color, No rash Neurological: Alert, Oriented x3, Cranial nerves II-XII grossly intact, Normal Strength, Normal Sensation Psychological: Normal affect, Normal Mood Diagnostic/Tx/Re-eval Abnormal Lab Results 03/13/19 03/13/19 09:25 09:40 Sodium 137 Potassium 3.7 Chloride 108 H Carbon Dioxide 23.0 Anion Gap 6 BUN 6 L Creatinine 0.57 Estim Creat Clear Calc 153.52 Est GFR (MDRD) Af Amer 168 Est GFR (MDRD) Non-Af 139 BUN/Creatinine Ratio 10.5 Glucose 95 Calcium 8.8 Urine Color Yellow Urine Clarity Sl. Cloudy Urine pH 8.0 Ur Specific [place] 1.015 Urine Protein 30 H Urine Glucose (UA) Normal Urine Ketones 5 H Urine Occult Blood Negative Urine Nitrite Negative Urine Bilirubin Negative Urine Urobilinogen 1 H Ur Leukocyte Esterase 100 H Urine RBC 0 SEEN Urine WBC 0-5 SEEN Ur Squamous Epith Cells 0-5 SEEN Urine Bacteria 2+ Urine Mucus 2+ - Medical Decision Making Vital signs stable, bedside ultrasound notes intrauterine heart tones of 146, positive motion. Patient dry mucosal membranes. Concerns for hyperemesis gravidarum, 2 L of fluids ordered. IV Phenergan. Will check electrolytes and urine. 1010: Electrolytes normal. Urinary return small leukocytes and bacteria along with 5 ketones. She is asymptomatic urine, will send for culture. She is 1 L of fluids in, she is feeling better. Will finish a second liter of fluids, will plan on oral challenge. 1148: Patient feeling better tolerating oral fluids. Patient has Phenergan and Zofran at home. She will keep her follow-up tomorrow with OB. ED Disposition - Plan for ED Patient: Disposition: Home or Assisted Living Diagnosis: Hyperemesis gravidarum Instructions: Severe Morning Sickness (Hyperemesis Gravidarum) Referrals: Skyler Patino MD [Primary Care Provider] - Additional Instructions: Keep appointment with OB tomorrow. Try to stop smoking.
[2019-03-13] MEDS: proMETHazine 25 MG/ML Syringe 12.5 MG IV (09:30)
[2019-03-13] MEDS: 0.9% Normal Saline 1,000 ML 1000 ML IV ×2 (09:30→09:36)
[2019-03-13 09:47] LABS: Red Blood Cells-Urine 0 SEEN /hpf (0-5)
[2019-03-13 09:49] LABS: Anion Gap 6 (5-15); BUN 6 mg/dL (7-18); BUN/Creat Ratio 10.5 RATIO (10-20); Calcium,Total 8.8 mg/dL (8.5-10.1); Chloride 108 mmol/L (98-107); Creatinine, Serum 0.57 mg/dL (0.55-1.02); EST Glomerular Filtration Rate 139 mL/min (>60); Est Glom Filt Rate - Afr Amer 168 mL/min (>60); Estimated Creatinine Clearance 153.52 ml/min; Glucose 95 mg/dL (74-106); Potassium 3.7 mmol/L (3.5-5.1); Sodium Level 137 mmol/L (136-145)
[2019-03-13 09:58] LABS: Color, Urine Yellow (Yellow); Glucose, Dipstick Normal (Normal); Ketone-Dipstick 5 mg/dl (Negative); Leukocyte Esterase-Dipstick 100 /ul (Negative); Nitrite-Dipstick Negative (Negative); Occult Blood-Urine Negative /ul (Negative); Protein-Dipstick 30 mg/dl (Negative); Specific Gravity, Urine 1.015 (1.002-1.030); Urine Bilirubin Dipstick Negative (Negative); Urine Clarity Sl. Cloudy (Clear); Urine Urobilinogen 1 mg/dl (Normal)
[2019-03-13 10:05] LABS: Bacteria 2+ /hpf (None Seen); Mucous, Urine 2+ /hpf (<or=2+); Squamous Epithelial Cells - UA 0-5 SEEN /hpf (5-10); White Blood Cells 0-5 SEEN /hpf (0-5)
[2019-03-13] MEDS: Acetaminophen 500 MG Tablet 1000 MG PO (10:45)
[2019-03-13 11:24] VITALS: RESP 18
[2019-03-13 13:24] VITALS: RESP 18
== END 2019-03-13 13:15 | disposition home or self-care (01) ==
PROVIDERS: Emergency Provider Emergency Medicine; Family Provider Family Medicine; PCP Family Medicine
DX: O21.0 Mild hyperemesis gravidarum (principal); O99.332 Smoking (tobacco) complicating pregnancy, second trimester; Z3A.17 17 weeks gestation of pregnancy
CPT/HCPCS: 80048; 81001; 87077; 87086; 87088; 87186; 96361; 96374; 99284; J7030

== ENCOUNTER 2019-06-03 03:08 | Outpatient (CLI) | payer BC, MEDICAID, SELFPAY ==
[2019-06-03 03:37] VITALS: BMI 30.4
[2019-06-03 04:04] LABS: Mucous, Urine 0 SEEN /hpf (<or=2+)
[2019-06-03 04:15] LABS: Glucose, Dipstick Normal (Normal); Leukocyte Esterase-Dipstick 100 /ul (Negative); Nitrite-Dipstick Negative (Negative); Occult Blood-Urine Negative /ul (Negative); Protein-Dipstick 15 mg/dl (Negative); Urine Bilirubin Dipstick Negative (Negative); Urine Urobilinogen Normal (Normal)
[2019-06-03] MEDS: Ondansetron 4 MG/2 ML Vial IV (04:33)
[2019-06-03] MEDS: Lactated Ringers 1,000 ML 999 ML IV (04:33)
[2019-06-03 04:40] LABS: Color, Urine Yellow (Yellow); Urine Clarity Sl Cldy (Clear)
[2019-06-03 04:42] LABS: Ketone-Dipstick 150 mg/dl (Negative); Red Blood Cells-Urine 0-5 SEEN /hpf (0-5); Squamous Epithelial Cells - UA 5-10 SEEN /hpf (5-10); White Blood Cells 5-10 SEEN /hpf (0-5)
[2019-06-03 04:43] LABS: Bacteria 1+ /hpf (None Seen)
[2019-06-03 05:04] LABS: Hematocrit 36.8 % (37-47); Hemoglobin 12.7 g/dL (12.0-15.0); Mean Corp Hgb Conc 34.5 g/dL (32-36); Mean Corpuscular Hgb 31.9 pg (27.0-32.0); Mean Corpuscular Volume 92.5 fL (81-99); Mean Platelet Vol. 9.7 fl (6.2-12.0); Platelet Count 250 K/mm3 (150-450); RBC Distribution Width CV 13.7 % (11.6-14.6); RBC Distribution Width SD 46.5 fl (35.1-43.9); Red Blood Count 3.98 M/mm3 (4.2-5.4)
[2019-06-03 05:05] LABS: ALB/GLOB Ratio 0.7 RATIO (0.9-2.4); AST(SGOT) 17 U/L (15-37); Alanine Aminotransfer ALT/SGPT 30 U/L (13-56); Albumin, Serum 2.9 g/dL (3.2-5.0); Alkaline Phosphatase 107 U/L (45-117); Amylase 81 U/L (25-115); Anion Gap 13 (5-15); BUN 6 mg/dL (7-18); Calcium,Total 8.9 mg/dL (8.5-10.1); Chloride 105 mmol/L (98-107); Creatinine, Serum 0.54 mg/dL (0.55-1.02); EST Glomerular Filtration Rate 146 mL/min (>60); Est Glom Filt Rate - Afr Amer 176 mL/min (>60); Estimated Creatinine Clearance 162.05 ml/min; Globulin 4.1 g/dL (2.2-4.2); Glucose 88 mg/dL (74-106); Lipase 70 U/L (73-393); Potassium 3.2 mmol/L (3.5-5.1); Sodium Level 140 mmol/L (136-145)
[2019-06-03] MEDS: hydrOXYzine PAM 25 MG Capsule 50 MG PO (05:06)
[2019-06-03] MEDS: Lactated Ringers 500 ML 999 ML IV (05:55)
[2019-06-03] MEDS: Metoclopramide 10 MG/2 ML Vial 5 MG IV (06:21)
--- NOTE | 2019-06-03 17:25 | OB.TRI.NOTE ---
- Problem List (1) Nausea and vomiting during Status: Acute (2) Hyperemesis complicating , antepartum Status: Acute History of Present Illness Was patient seen by the physician?: No Reason For Visit: GLENDA Date of Service: 06/03/19 Final ANSHUL: 08/16/19 Gestational age: 29 Weeks and 3 Days History of Present Illness: 23 year old female presented to L&D with complaint of nausea and emesis x 15 times today. Went to [facility] gave and did take her Zofran pump. Started to have nausea with frequent emesis, has not kept much food down in the last 24 hrs. No contractions, vaginal bleeding, or leakage of fluid. Allergies erythromycin ethylsuccinate [From Pediazole] Allergy (Verified 06/03/19 03:40) Hives sulfisoxazole acetyl [From Pediazole] Allergy (Verified 06/03/19 03:40) Hives Laboratory Studies: Laboratory Tests 06/03/19 06/03/19 06/03/19 Range/Units 04:34 04:34 03:19 WBC 15.0 H (4.4-11.0) K/mm3 RBC 3.98 L (4.2-5.4) M/mm3 Hgb 12.7 (12.0-15.0) g/dL Hct 36.8 L (37-47) % MCV 92.5 (81-99) fL MCH 31.9 (27.0-32.0) pg MCHC 34.5 (32-36) g/dL RDW Std Deviation 46.5 H (35.1-43.9) fl RDW Coeff of Georges 13.7 (11.6-14.6) % Plt Count 250 (150-450) K/mm3 MPV 9.7 (6.2-12.0) fl Sodium 140 (136-145) mmol/L Potassium 3.2 L (3.5-5.1) mmol/L Chloride 105 (98-107) mmol/L Carbon Dioxide 22.0 (21.0-32.0) mmol/L Anion Gap 13 (5-15) BUN 6 L (7-18) mg/dL Creatinine 0.54 L (0.55-1.02) mg/dL Estim Creat Clear Calc 162.05 ml/min Est GFR (MDRD) Af Amer 176 (>60) mL/min Est GFR (MDRD) Non-Af 146 (>60) mL/min BUN/Creatinine Ratio 11.0 (10-20) RATIO Glucose 88 (74-106) mg/dL Calcium 8.9 (8.5-10.1) mg/dL Total Bilirubin 0.50 (0.20-1.00) mg/dL AST 17 (15-37) U/L ALT 30 (13-56) U/L Alkaline Phosphatase 107 (45-117) U/L Total Protein 7.0 (6.4-8.2) g/dL Albumin 2.9 L (3.2-5.0) g/dL Globulin 4.1 (2.2-4.2) g/dL Albumin/Globulin Ratio 0.7 L (0.9-2.4) RATIO Amylase 81 (25-115) U/L Lipase 70 L (73-393) U/L Urine Color Yellow (Yellow) Urine Clarity Sl Cldy (Clear) Urine pH 6.0 (5.0 - 8.0) Ur Specific [place] 1.020 (1.002-1.030) Urine Protein 15 H (Negative) mg/dl Urine Glucose (UA) Normal (Normal) mg/dl Urine Ketones 150 H (Negative) mg/dl Urine Occult Blood Negative (Negative) /ul Urine Nitrite Negative (Negative) Urine Bilirubin Negative (Negative) mg/dL Urine Urobilinogen Normal (Normal) mg/dl Ur Leukocyte Esterase 100 H (Negative) /ul Urine RBC 0-5 SEEN (0-5) /hpf Urine WBC 5-10 SEEN (0-5) /hpf Ur Squamous Epith Cells 5-10 SEEN (5-10) /hpf Urine Bacteria 1+ (None Seen) /hpf Urine Mucus 0 SEEN (<or=2+) /hpf NST - FHR Rate Baby A Baseline: 125 Variability:: Moderate Accelerations:: 15 x 15 Decelerations:: Variable NST Reactive:: Yes Uterine Activity:: Irregular Impression/Plan A:Hyperemesis Hypokalemia P: 1) CBC, CMP, amylase and lipase 2) Urine culture to be sent 3) Potassium 3.2. K Dur 40meq PO once 4) UA with elevated ketones. 2 Liters LR IV bolus 3) Zofran 4mg IVP and Reglan 5mg IVP for nausea 4) NST reactive 5) Stable upon discharge, nausea resolved, requesting to be discharge per nursing staff. To follow up outpatient this week.
== END 2019-06-03 07:45 | disposition home or self-care (01) ==
LOC: WPOUT 03:35 → WP 06-04 15:33
PROVIDERS: Advanced Practice Midwife; Family Provider Family Medicine; PCP Family Medicine; Referring Provider Obstetrics & Gynecology; Visit Provider Obstetrics & Gynecology
DX: O21.1 Hyperemesis gravidarum with metabolic disturbance (principal); Z3A.29 29 weeks gestation of pregnancy
CPT/HCPCS: 96361; 96374; 96375; 36415; 59025; 59050; 80053; 81001; 82150; 83690; 85027; 87086; 87088; 94760; 99218; J7120; G0378; J2405

== ENCOUNTER 2019-07-17 17:45 | Outpatient (CLI) | payer BC, MEDICAID, SELFPAY ==
[2019-07-17 18:25] VITALS: BMI 31.7
[2019-07-17 18:35] LABS: Absolute Lymphocyte Count 1.68 X10^3/uL (0.83-4.51); Absolute Neutrophil Count 8.3 X10^3/uL (2.0-7.7); Basophil# 0.02 X10^3/uL; Basophil% 0.2 % (0-1); Eosinophil# 0.13 X10^3/uL; Eosinophils% 1.2 % (0-5); Hematocrit 38.5 % (37-47); Hemoglobin 13.3 g/dL (12.0-15.0); Lymphocyte # 1.68 X10^3/ul (4.0); Lymphocyte % 15.3 % (19-41); Mean Corp Hgb Conc 34.5 g/dL (32-36); Mean Corpuscular Volume 92.8 fL (81-99); Mean Platelet Vol. 9.4 fl (6.2-12.0); Monocyte# 0.74 X10^3/uL; Monocyte% 6.8 % (0-10); NRBC Flagged by Analyzer 0 % (0-5); Neutrophil # 8.33 X10^3/uL (2.7-7.7); Platelet Count 257 K/mm3 (150-450); RBC Distribution Width CV 14.1 % (11.6-14.6); RBC Distribution Width SD 47.8 fl (35.1-43.9); Red Blood Count 4.15 M/mm3 (4.2-5.4)
[2019-07-17 18:46] LABS: Prothrombin Time (Protime)PT. 12.5 SECONDS (11.7-14.9)
[2019-07-17 18:47] LABS: Partial Thromboplast Time 28.7 Seconds (24.1-36.2)
[2019-07-17 18:51] LABS: AST(SGOT) 25 U/L (15-37); Alanine Aminotransfer ALT/SGPT 60 U/L (13-56); Creatinine, Serum 0.56 mg/dL (0.55-1.02); EST Glomerular Filtration Rate 142 mL/min (>60); Est Glom Filt Rate - Afr Amer 172 mL/min (>60); Estimated Creatinine Clearance 156.26 ml/min; Uric Acid 5.1 mg/dL (2.6-6.0)
[2019-07-17 19:03] LABS: AST(SGOT) 26 U/L (15-37); Alanine Aminotransfer ALT/SGPT 60 U/L (13-56); Albumin, Serum 2.7 g/dL (3.2-5.0); Alkaline Phosphatase 185 U/L (45-117); Bilirubin, Direct 0.17 mg/dL (0.00-0.30); Globulin 4.3 g/dL (2.2-4.2)
[2019-07-17 19:06] LABS: Protein, Urine (Random) 41.9 mg/dL (<11.9); Protein:Creat Ratio 197 mg/g CRE (0-200)
[2019-07-17] MEDS: Ursodiol 250 MG Tablet PO (20:07)
--- NOTE | 2019-07-20 21:47 | OB.TRI.NOTE ---
History of Present Illness Reason For Visit: R/O CHOLESTASTIS Date of Service: 07/20/19 Final ANSHUL: 08/16/19 Gestational age: 36 Weeks and 1 Days Allergies erythromycin ethylsuccinate [From Pediazole] Allergy (Verified 06/03/19 03:40) Hives sulfisoxazole acetyl [From Pediazole] Allergy (Verified 07/17/19 18:30) Hives as a baby Laboratory Studies: Laboratory Tests 07/17/19 07/17/19 07/17/19 Range/Units 18:15 18:15 18:15 WBC 11.0 (4.4-11.0) K/mm3 RBC 4.15 L (4.2-5.4) M/mm3 Hgb 13.3 (12.0-15.0) g/dL Hct 38.5 (37-47) % MCV 92.8 (81-99) fL MCH 32.0 (27.0-32.0) pg MCHC 34.5 (32-36) g/dL RDW Std Deviation 47.8 H (35.1-43.9) fl RDW Coeff of Georges 14.1 (11.6-14.6) % Plt Count 257 (150-450) K/mm3 MPV 9.4 (6.2-12.0) fl Immature Gran % (Auto) 0.500 (0.0-0.9) % Neut % (Auto) 76.0 H (47-70) % Lymph % (Auto) 15.3 L (19-41) % [place] % (Auto) 6.8 (0-10) % Eos % (Auto) 1.2 (0-5) % Baso % (Auto) 0.2 (0-1) % Absolute Neuts (auto) 8.3 H (2.0-7.7) X10^3/uL Absolute Lymphs (auto) 1.68 (0.83-4.51) X10^3/uL Nucleated RBC % 0 (0-5) % PT (11.7-14.9) SECONDS INR APTT (24.1-36.2) Seconds Creatinine 0.56 (0.55-1.02) mg/dL Estim Creat Clear Calc 156.26 ml/min Est GFR (MDRD) Af Amer 172 (>60) mL/min Est GFR (MDRD) Non-Af 142 (>60) mL/min Uric Acid 5.1 (2.6-6.0) mg/dL Total Bilirubin 0.40 (0.20-1.00) mg/dL Direct Bilirubin 0.17 (0.00-0.30) mg/dL AST 26 25 (15-37) U/L ALT 60 H 60 H (13-56) U/L Alkaline Phosphatase 185 H (45-117) U/L Total Protein 7.0 (6.4-8.2) g/dL Albumin 2.7 L (3.2-5.0) g/dL Globulin 4.3 H (2.2-4.2) g/dL U Random Total Protein (<11.9) mg/dL Urine Creatinine (NO RANGE EST.) mg/dL Protein/Creatinin Ratio (0-200) mg/g CRE 07/17/19 07/17/19 Range/Units 18:15 18:15 WBC (4.4-11.0) K/mm3 RBC (4.2-5.4) M/mm3 Hgb (12.0-15.0) g/dL Hct (37-47) % MCV (81-99) fL MCH (27.0-32.0) pg MCHC (32-36) g/dL RDW Std Deviation (35.1-43.9) fl RDW Coeff of Georges (11.6-14.6) % Plt Count (150-450) K/mm3 MPV (6.2-12.0) fl Immature Gran % (Auto) (0.0-0.9) % Neut % (Auto) (47-70) % Lymph % (Auto) (19-41) % [place] % (Auto) (0-10) % Eos % (Auto) (0-5) % Baso % (Auto) (0-1) % Absolute Neuts (auto) (2.0-7.7) X10^3/uL Absolute Lymphs (auto) (0.83-4.51) X10^3/uL Nucleated RBC % (0-5) % PT 12.5 (11.7-14.9) SECONDS INR 1.0 APTT 28.7 (24.1-36.2) Seconds Creatinine (0.55-1.02) mg/dL Estim Creat Clear Calc ml/min Est GFR (MDRD) Af Amer (>60) mL/min Est GFR (MDRD) Non-Af (>60) mL/min Uric Acid (2.6-6.0) mg/dL Total Bilirubin (0.20-1.00) mg/dL Direct Bilirubin (0.00-0.30) mg/dL AST (15-37) U/L ALT (13-56) U/L Alkaline Phosphatase (45-117) U/L Total Protein (6.4-8.2) g/dL Albumin (3.2-5.0) g/dL Globulin (2.2-4.2) g/dL U Random Total Protein 41.9 H (<11.9) mg/dL Urine Creatinine 213.00 (NO RANGE EST.) mg/dL Protein/Creatinin Ratio 197 (0-200) mg/g CRE NST - FHR Rate Baby A Baseline: 125 Variability:: Moderate Accelerations:: 15 x 15 Decelerations:: None Uterine Activity:: Irregular Impression/Plan Reactive NST for elevated LFT's in . AST & ALT improved
== END 2019-07-17 20:10 | disposition home or self-care (01) ==
LOC: WPOUT 17:52 → WP 17:53
PROVIDERS: Family Provider Family Medicine; PCP Family Medicine; Visit Provider Obstetrics & Gynecology
DX: O26.893 Other specified pregnancy related conditions, third trimester (principal); R79.89 Other specified abnormal findings of blood chemistry; Z3A.36 36 weeks gestation of pregnancy
CPT/HCPCS: 59025; 59050; 80076; 82565; 82570; 84156; 84450; 84460; 84550; 85025; 85610; 85730; 99218; G0378

== ENCOUNTER 2019-08-03 18:58 | Inpatient (IN) | payer BC, MEDICAID, SELFPAY ==
[2019-08-03] MEDS: 0.9% Normal Saline 100 ML IV.SOLN. IY (19:28)
[2019-08-03 19:35] VITALS: BMI 33.1
[2019-08-03] MEDS: Lactated Ringers 1,000 ML 50 ML IV (20:02)
[2019-08-03 20:23] LABS: Absolute Lymphocyte Count 1.94 X10^3/uL (0.83-4.51); Absolute Neutrophil Count 10.2 X10^3/uL (2.0-7.7); Basophil# 0.03 X10^3/uL; Basophil% 0.2 % (0-1); Eosinophil# 0.08 X10^3/uL; Eosinophils% 0.6 % (0-5); Hematocrit 37.3 % (37-47); Hemoglobin 12.7 g/dL (12.0-15.0); Lymphocyte # 1.94 X10^3/ul (4.0); Lymphocyte % 14.7 % (19-41); Mean Corpuscular Hgb 31.8 pg (27.0-32.0); Mean Corpuscular Volume 93.3 fL (81-99); Monocyte# 0.84 X10^3/uL; Monocyte% 6.4 % (0-10); NRBC Flagged by Analyzer 0 % (0-5); Neutrophil # 10.24 X10^3/uL (2.7-7.7); Neutrophil % 77.4 % (47-70); Platelet Count 234 K/mm3 (150-450); RBC Distribution Width CV 13.9 % (11.6-14.6); RBC Distribution Width SD 47.7 fl (35.1-43.9); White Blood Count 13.2 K/mm3 (4.4-11.0)
[2019-08-03 20:39] LABS: ALB/GLOB Ratio 0.6 RATIO (0.9-2.4); AST(SGOT) 24 U/L (15-37); Alanine Aminotransfer ALT/SGPT 47 U/L (13-56); Albumin, Serum 2.6 g/dL (3.2-5.0); Alkaline Phosphatase 193 U/L (45-117); Anion Gap 7 (5-15); BUN 10 mg/dL (7-18); Calcium,Total 8.6 mg/dL (8.5-10.1); Chloride 109 mmol/L (98-107); Creatinine, Serum 0.59 mg/dL (0.55-1.02); EST Glomerular Filtration Rate 133 mL/min (>60); Est Glom Filt Rate - Afr Amer 160 mL/min (>60); Estimated Creatinine Clearance 148.32 ml/min; Globulin 4.4 g/dL (2.2-4.2); Glucose 85 mg/dL (74-106); Potassium 3.8 mmol/L (3.5-5.1); Sodium Level 137 mmol/L (136-145)
[2019-08-03 21:52] LABS: ALB/GLOB Ratio 0.6 RATIO (0.9-2.4); Globulin 4.2 g/dL (2.2-4.2); Protein, Total 6.8 g/dL (6.4-8.2)
[2019-08-03 22:24] LABS: Amphetamine Urine VISTA NEGATIVE (<1000 ng/mL); Barbiturate Urine VISTA NEGATIVE (< 200 ng/mL); Benzodiazepine Urine VISTA NEGATIVE (< 200 ng/mL); Cocaine Urine VISTA NEGATIVE (< 300 ng/mL); Ecstacy Urine VISTA NEGATIVE (< 500 ng/mL); Methadone Urine VISTA NEGATIVE (< 300 ng/mL); PCP Urine VISTA NEGATIVE (< 25 ng/mL); THC Urine VISTA POSITIVE (< 50 ng/mL); Vista UDS pH Range 6
[2019-08-04] MEDS: Nalbuphine 10 MG/ML Ampul IV ×2 (01:56→05:37)
[2019-08-04] MEDS: Oxytocin 30 units/NS 500 ml 30 UNITS/500 ML IV.SOLN IV (02:00)
[2019-08-04] MEDS: Lactated Ringers 500 ML 999 ML IV (05:35)
[2019-08-04] MEDS: Ondansetron 4 MG/2 ML Vial IV ×2 (05:41→12:00)
[2019-08-04] MEDS: fentaNYL-bupivacaine (epidural) 100 ML BAG EPIDURAL ×2 (07:09→11:23)
[2019-08-04] MEDS: Lactated Ringers 1,000 ML 200 ML IV ×2 (09:21→14:54)
--- NOTE | 2019-08-04 10:02 | PCM.HP.OB ---
History Date of Admission: 01/26/19 Final ANSHUL: 08/16/19 Final ANSHUL Source: [place] <20 weeks Gestational age: 38 Weeks and 2 Days History of this : Gary is a 23-year-old 1 para 0 who is at 38-1/7 weeks gestation upon admission, 38-2/7 weeks gestation today admitted for induction of labor due to mild cholestasis of . She is had some diffuse itching for several weeks, she had some elevated liver enzymes last week. This week her bile acids came back elevated. Itching has been persistent, not significantly worsening. She denies any vaginal bleeding or leaking of fluid. She is had good movement. She had a difficult with negative , back and pelvic pain, and history of bipolar and she had been off her medications. Addition, she is been using marijuana during the despite counseling to stop this. She is smoked cigarettes throughout the as well. Allergies erythromycin ethylsuccinate [From Pediazole] Allergy (Verified 08/03/19 19:41) Hives sulfisoxazole acetyl [From Pediazole] Allergy (Verified 08/03/19 19:41) Hives as a baby Home Medications: Home Medications Vit No.130/Iron/Folic [ Tablet] 1 each PO DAILY 01/26/19 Ondansetron [Zofran] 06/03/19 Oxcarbazepine [Trileptal] 600 mg PO BID 06/03/19 busPIRone [Buspar] 15 mg PO BID 06/03/19 Hydroxyzine Pamoate [Vistaril] 50 mg PO TID PRN PRN 08/03/19 Ursodiol 300 mg PO TID 08/03/19 Smoking Status: Current every day smoker Alcohol: None Substance Use Type: Marijuana Number of Fetus(es): 1 History Past Pregnancies: Past Pregnancies Delivery Date Name GA/Weeks Outcome Route Weight Gender Labor Length Anesthesia Delivery Location Provider FOB Expected Delivery Method: Spontaneous Vaginal Review of Systems Constitutional: Reports: Fatigue. Denies: Chills, Fever, Night Sweats Eyes: Denies: Blurred vision, Double vision HEENT: Denies: Head Aches Cardiovascular: Denies: Chest Pain Respiratory: Denies: Cough, Shortness of Breath Genitourinary: Denies: Dysuria Skin: Reports: Pruritis. 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 Risk benefits alternatives to induction of labor versus expectant management for mild cholestasis were discussed with the patient, questions were answered to her satisfaction she desires induction. Will initiate Casiano and Pitocin induction, artificial rupture membranes if needed. Patient may have epidural, Nubain or nitrous oxide as needed for pain control. Patient has a history of tobacco use and is requesting a nicotine patch. Estimated weight is less than 4500 g clinically, pelvis clinically adequate to expect vaginal delivery. Seizure note: Last night at approximately 1930, Casiano was placed over the stylette into the internal cervical loss and inflated to 30 cc in the usual sterile fashion. Placemen over internal loss was confirmed. Patient and fetus tolerated the procedure well.
[2019-08-04] MEDS: Oxytocin 30 units/NS 500 ml 30 UNITS/500 ML IV.SOLN 334 UNITS IV (16:19)
--- NOTE | 2019-08-04 16:37 | PCM.OPRPT ---
Vaginal Delivery Maternal Presentation: Medically Indicated Induction Method of Induction: Pitocin, Casiano Bulb, Amniotomy Medical Reason for Induction: - - Cholestasis of Amniotic Membrane Rupture Type: Artificial Amniotic Fluid Description: Clear Final ANSHUL: 08/16/19 Final ANSHUL Source: US <20 weeks Gestational age: 38 Weeks and 2 Days Date of Procedure: 08/04/19 Pre-Operative Diagnosis: labor Post-Operative Diagnosis: same Surgery/ Procedure Performed: Spontaneous Vaginal Delivery Type of Anesthesia: Epidural Description of Procedure: A vigorous male was delivered VILMA over intact perineum. The remainder the infant was delivered with maternal pushing and gentle traction only in less than 15 seconds. The Pitocin infusion was initiated for active management of the third stage. The cord was clamped and cut after 1 minute. The infant was attended to by the waiting nursing staff. The placenta was delivered spontaneously and intact. The cervix and vagina were intact. Sponge and needle counts were correct. A vaginal sweep was completed by me. Presentation: VILMA Placental Delivery Description: Spontaneous Placenta Disposition: [facility] Cord Vessel Description: 3 Vessels Cord Entanglement: None Estimated Blood Loss: 300 Infant A gender: Male - Nicola (1 minute): 8 (5 minute): 9 Episiotomy Description: None Laceration: None Medications given after delivery: IV Pitocin Complications: None
[2019-08-04 21:10] VITALS: BP 125/65; PULSE 115; RESP 16; TEMP 36.9; O2SAT 97
[2019-08-04] MEDS: busPIRone 15 MG TABLET PO (22:04)
[2019-08-04] MEDS: OXcarbazepine 300 MG Tablet 600 MG PO (22:04)
[2019-08-04] MEDS: Naproxen 250 MG Tablet 500 MG PO (23:03)
[2019-08-05 00:13] VITALS: BP 122/60; PULSE 105; RESP 16; TEMP 36.6
[2019-08-05 05:05] VITALS: BP 115/66; PULSE 86; RESP 16; TEMP 36.6
[2019-08-05 07:59] VITALS: BP 129/76; PULSE 91; RESP 16; TEMP 36.1; O2SAT 99
[2019-08-05] MEDS: Naproxen 250 MG Tablet 500 MG PO ×2 (08:38→17:05)
[2019-08-05] MEDS: busPIRone 15 MG TABLET PO ×2 (08:38→21:41)
[2019-08-05] MEDS: OXcarbazepine 300 MG Tablet 600 MG PO ×2 (08:39→21:42)
--- NOTE | 2019-08-05 09:30 | PCM.PN.OB ---
Subjective: Pain well controlled. Average lochia. Patient is tearful, feeling very overwhelmed and tired from the breast-feeding. Did not sleep much last night. Wants to stop smoking, but is getting very frustrated and anxious. - Physical Exam General: Alert, Cooperative, - - upset, tearful Vital Signs Temp Pulse Resp BP Pulse Ox 97.0 F L 91 16 129/76 H 99 08/05/19 07:59 08/05/19 07:59 08/05/19 07:59 08/05/19 07:59 08/05/19 07:59 Oxygen Delivery Method Room Air Weight: 98.883 kg Body Mass Index (BMI) 33.1 Intake and Output for Last 24 Hours 08/03/19 08/04/19 08/05/19 23:59 23:59 23:59 Intake Total 4286.43 / 4286.43 Output Total 2600 / 2600 Balance 1686.43 / 1686.43 Medical Necessity - Tobacco Use Smoking Status: Current every day smoker Assessment/Plan All Active Problems Nausea and vomiting during (Acute) Hyperemesis complicating , antepartum (Acute) day #1 status post vaginal delivery. She is working on breast-feeding. Is feeling somewhat overwhelmed and very fatigued, discussed with her importance of rest. Discussed with her that if she feels she needs to rest, it may be in the best interest of her and the to give a bottle occasionally, in order to promote longer-term breast-feeding, rather than get overwhelmed and frustrated and stopped breast-feeding completely. May need to have a huddle today with to discuss this. Offered nicotine patch, will write prescription for this, but patient is feeling that she may start smoking again. Discontinue nicotine patches start smoking. Social service consult is ordered due to history of bipolar disorder.
--- NOTE | 2019-08-05 09:40 | NURSING ---
PATIENT ADMITTED VAPING IN ROOM OVERNIGHT AFTER A VAPING DEVICE WAS FOUND IN ROOM. HOSPITAL POLICY REVIEWED AND PATIENT AGREED TO OBSTAIN FROM CONTINUED USE. PATIENT STATES WHILE CRYING, IS SO MUCH HARDER THAN I THOUGHT IT WOULD BE. I'M SO TIRED AND STRESSED. CAN I BOTTLE FEED AND BREASTFEED? EDUCATION AND DISCUSSION PROVIDED ABOUT [facility]. PRIMARY PHYSICIAN AND PEDIATRICAN AWARE.
[2019-08-05 12:35] VITALS: BP 123/65; PULSE 87; RESP 16; TEMP 36.4; O2SAT 98
[2019-08-05 17:09] VITALS: BP 130/75; PULSE 84; RESP 16; TEMP 36.2; O2SAT 98
--- NOTE | 2019-08-05 17:30 | NURSING ---
DR. AGUIRRE IN ROOM TO DISCUSS INFANT'S TACHYPNEA, LOW BLOOD GLUCOSE, JITTERY BEHAVIOR, AND UPDATED FEEDING PLAN.
[2019-08-05] MEDS: hydrOXYzine PAM 25 MG Capsule 50 MG PO (18:03)
[2019-08-05 19:50] VITALS: BP 128/73; PULSE 85; RESP 17; TEMP 36.2
[2019-08-06 02:00] VITALS: BP 110/63; PULSE 96; RESP 17; TEMP 36.7
[2019-08-06 09:03] VITALS: BP 120/77; PULSE 86; RESP 24; TEMP 36.2; O2SAT 98
--- NOTE | 2019-08-06 09:03 | PCM.PN.OB ---
Subjective: Doing well per patient and nursing staff. Ambulating and taking PO without difficulty. VOiding and passing flatus. Denies any chest pain, SOB, leg pain. Denies any increased vaginal bleeding or clots. Feeling decreased anxiety today, using nicotine patch. Planning D/C home today. - Physical Exam General: Alert, Oriented x3, Cooperative HEENT: Atraumatic, Normocephalic Neck: Trachea Midline Lungs: Clear to auscultation, Normal air movement, No rhonchi, No wheeze Cardiovascular: Regular rate, Regular Rhythm, No murmurs Abdomen: Bowel Sounds Present, Non Tender, Gravid Extremities: No edema Neurological: Deep Tendon Reflexes 2+/4 and Symmetrical Psych/Mental Status: Normal Affect, Appropriate Vital Signs Temp Pulse Resp BP Pulse Ox 98.0 F 96 17 110/63 98 08/06/19 02:00 08/06/19 02:00 08/06/19 02:00 08/06/19 02:00 08/05/19 17:09 Oxygen Delivery Method Room Air Weight: 218 lb Body Mass Index (BMI) 33.1 Intake and Output for Last 24 Hours 08/04/19 08/05/19 08/06/19 23:59 23:59 23:59 Intake Total 4286.43 / 4286.43 Output Total 2600 / 2600 Balance 1686.43 / 1686.43 Medical Necessity - Tobacco Use Smoking Status: Current every day smoker Assessment/Plan All Active Problems Nausea and vomiting during (Acute) Hyperemesis complicating , antepartum (Acute) A:PPD #2 P: 1) Routine discharge instructions reviewed. D/C home today 2) Follow up in 2 weeks and 6 weeks. 3) Rx for Nicotine patch. 4) Has appt with psychiatry in one month for anxiety. Ok to continue buspar and vistaril at this time.
--- NOTE | 2019-08-06 09:07 | DCINST_ITS ---
Discharge Diet: No Restrictions Discharge Activity: Return to Normal Activity, May not drive while taking narcotic pain medications., May Shower, May Take a Tub Bath May resume sexual activity in: 4-6 weeks Additional Activity Instructions:: Nothing in the vagina for 4-6 weeks. You may return to work/school in 6 weeks. Call your doctor if your incision/area has: Continuous Slow Oozing, Sudden Increased Bleeding, Increased Pain/ Swelling, Increased Redness, Foul Smelling Discharge Call your doctor if you observe: Fever of 101 or Higher, Inability to urinate, Inability to have a bowel movement, Using more than one pad per hour, Shortness of breath, Chest pain, Increased palpitations (irregular heartbeat), Calf discomfort Additional Instructions: If you experience any of the following, contact your healthcare provider. * Bleeding that soaks a pad every hour for 2 hours * Fever 100.4 or higher * Unrelieved incision or abdominal pain * Swelling, redness, discharge or bleeding from your incision or episiotomy site * Your incision begins to separate * Problems urinating (including inability to urinate or burning while urinating). * Visual changes * Severe headache * Flu-like symptoms * Pain or redness in one of both of your breasts * Pain, warmth, tenderness or swelling in your legs, especially the calf area * Frequent nausea and vomiting * Symptoms of depression or anxiety If you experience any of the following, call 911 or go to the nearest Emergency Room. * Chest pain * Problems breathing * Seizure activity * Partial or complete paralysis of a body part, slurred speech, weakness or drooping of the face, or a sudden inability to walk or hold your balance Allergies/Adverse Reactions: Allergies erythromycin ethylsuccinate [From Pediazole] Allergy (Verified 08/03/19 19:41) Hives sulfisoxazole acetyl [From Pediazole] Allergy (Verified 08/03/19 19:41) Hives as a baby Medications to take at Discharge Vit No.130/Iron/Folic [ Tablet] 1 each PO DAILY 01/26/19 Oxcarbazepine [Trileptal] 600 mg PO BID 06/03/19 busPIRone [Buspar] 15 mg PO BID 06/03/19 Hydroxyzine Pamoate [Vistaril] 50 mg PO TID PRN PRN 08/03/19 Nicotine [Nicoderm] 14 mg TRANSDERM. DAILY #14 patch 08/06/19 The following prescriptions were given: Nicotine [Nicoderm] 14 mg TRANSDERM. DAILY #14 patch Transmission Status: Received by [id number] Please Follow Up With: Carin Govea MD When: Call to make an appointment with your doctor in 2 weeks and 6 weeks. Primary Care Physician: Skyler Patino MD [Primary Care Provider] - Test Results: Test results from this visit will be discussed in further detail at your follow- up appointment, if applicable.
[2019-08-06] MEDS: OXcarbazepine 300 MG Tablet 600 MG PO (10:07)
[2019-08-06] MEDS: hydrOXYzine PAM 25 MG Capsule 50 MG PO (10:07)
[2019-08-06] MEDS: busPIRone 15 MG TABLET PO (10:08)
--- NOTE | 2019-08-06 14:20 | CASEMGMT ---
ocial Work Assessment Labor and Delivery Unit Date of Referral: 08/05/2019 Time of Referral: 02410; 2147 Referred By: Dr. Estefania Govea; Dr. Annabella Ferrari Date of Intervention: 08/06/2019 Time of Intervention: 1419 Reason for Referral: mental health and substance abuse History obtained from: medical record, mother of baby (MOB) Pauly Tsai, and father of baby (FOB) Attila Ly. *At this personal lines underwriter's request, FOB did leave partway through conversation to allow for some private 1:1 conversation with MOB* Household composition: MOB and FOB live with MOB's great aunt Loreto (age is in the 80's). Intent for baby to live in this home. MOB reports home situation is safe and adequate. Patient's parent/guardian status: MOB is age 24 and FOB age 29 with baby Nicola Ly the first child for both. MOB and FOB report to be involved with each other for the last 1.5 years. unplanned but accepted per MOB and FOB. MOB denies any form of abuse in this relationship. MOB reports she is the one to become more irritated and pick at things, that FOB has learned to walk away from MOB when MOB is in a mood. Medical History: MOB is G1, P0 to 1 after delivering Nicola. care started at 6 weeks gestation and regular thereafter. Chart indicates MOB with half of hearing loss gone by the age of [age] years old. Baby born weighing 7 pounds 5 ounces. Apgars 8 and 9 at 1 and 5 minutes of life. Educational Status: MOB has an associates degree in massotherapy. MOB is able to read, write, and to understand what is read. 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 FOB works at [employer] first shift. Infant Supplies: Report to have crib, bassinet, clothes, diapers, wipes, bottles for baby. Still need to purchase formula but FOB reports ability to do so and plan to go to [place]. Childcare/Caregiver(s): MOB, FOB and family members if MOB returns to work. Transportation: Both parents drive, no reported issues with transportation. Programs/Agencies Involved: MOB has food and medical through [facility]. Has WIC. Active with [facility] for medication management, sees Stone Esparza. Agrees to [facility] referral. Children Services/Legal Issues: No reports of legal or children services history. Behavioral Health Issues: Mental Health History: MOB has history of Bipolar disorder diagnosed at the age of 13. Chart indicates MOB with history of self injury by cutting, last time in 2016. MOB reports has had thoughts of suicide in the past, that when MOB gets upset, often the MOB's first thought is about dying and suicide. MOB reports thoughts are fleeting, no plan or intent, that usually MOB just distracts herself and pushes forward, talks to support system. MOB reports her family and psychiatric provider are fully aware that this is happens. MOB reports since has not had any thoughts of suicide and that having a baby has given MOB more of a meaning, as well as a reason not to dwell on negative thinking patterns. MOB reports at the age of 16 overdosed on antibiotics, told her mother and sought out help. No other attempts at suicide since that one time at the age of 16. MOB does endorse having some anxiety during . MOB reports was prescribed Trileptal, BuSpar, and Vistaril during . MOB reports to cope by talking to support system, music, coloring and drawing. Substance Use History: MOB used marijuana during this , reportedly to help MOB with hyperemesis as this was the only thing helping MOB keep food down and give an appetite. MOB reports the marijuana sometimes helped with anxiety, and at other times fed into the anxiety. Last reported use was on 08-02-19. No reports of alcohol or other illicit substances during this . MOB does endorse history of substance abuse however (Adderall, Percocet, and methamphetamines) for which MOB went to [facility] in [place], [facility] in [place] for IOP, and also to [facility] in [place] for 45 days. MOB reports came back from [place] in August 2018. MOB attended AA/NA meetings for awhile. No longer in any type of drug or alcohol treatment or 12 step program. Family History: MOB's father and a paternal grandfather with history of alcohol abuse. MOB's mother with history of bipolar disorder. Drug Screens: Maternal drugs screens positive for marijuana on 12.21.2018, 05.31.2019, and at time of delivery 9.20.2019. Baby's urine drug screen positive for marijuana and meconium is pending. Family/Social Stressors: Unplanned but accepted , living in great aunts home and while this is a positive, the family indicates this housing could change should the aunt pass away, that then the family will need to find a place to live on their own. Maternal mental health with mood lability during (24 week visit noted that MOB was struggling with mood and anxiety). Maternal substance use of marijuana during , and then reported sobriety from other illicit drugs for about a year (August 2018). MOB voicing worry and concern bout children services involvement and fear that could lose her baby for marijuana usage. Support Systems: FOB, MOB's mom, sister, and other family members. FOB's family lives out of state. MOB reports to feel support system is adequate. Depression/Shaken Baby/Safe Sleeping : Educated MOB and FOB to depression, anxiety, psychosis; risk factors for such, importance of treatment and open communication. Discussed safe sleeping and shaken baby prevention, with importance of setting baby down and walking away for a few minutes should parents become overwhelmed or irritated. ASSESSMENT: Met with MOB and FOB together. Both cooperative and pleasant. FOB agreeable to leave room at the end to allow some one on one time with MOB. MOB appearing open about mental health and substance use history in front of FOB. Both seemed relaxed with each other, being able to comment on the other person's input. Both respectful of each other. MOB cried intermittently during social work visit, but MOB reports the crying has been a frequent thing for MOB since delivery. Mood anxious, eye contact normal. MOB reports to feel good about the baby, to feel connected and looking forward to going home. MOB admits that breast feeding was stressing the MOB, and MOB is leaning to going with formula feeding at home. MOB and FOB report to have baby supplies, stable housing, and support from MOB's family. MOB reports to have a psychiatric appointment in August to assess for issues and evaluate medication regiment. MOB reports intent to stay on psychiatric medications prescribed. MOB reporting intent to abstain from marijuana usage moving forward, as well as plan to continue abstaining from tobacco. MOB voiced concern about children services involvement, worry about children services taking baby away for marijuana. Supportive listening and encouragement given to MOB. Talked with MOB about importance of being honest and working cooperatively with children services. Educated that children services goal is to help parents to have the right resources and support to be able to care for baby safely. MOB and FOB accepting of [facility] referral for additional community support. Safe Plan of Care for related to substance use: MOB reports plan to abstain from marijuana unsafe, as well as any other illicit drug usage. PLAN: MOB and baby to discharge home today. [facility] referral to be made. [facility] Children Services referral to be made due to substance exposed . Information on [facility] housing give, [facility] brochure, general [facility] resources lists, and depression packet given. Will monitor for meconium drug screen results. No other services requested or indicated. -AUDRA Yanes, FOREST RANGER TECHNICIAN
[2019-08-06 14:30] VITALS: BP 129/79; PULSE 104; TEMP 36.3; O2SAT 98
--- NOTE | 2019-08-06 16:36 | CASEMGMT ---
Social Work Labor and Delivery Unit Referral to Karey Mayers at [facility] due to substance exposed infant. Reported maternal and drug screen results. Other risk factors reviewed including maternal mental health. Reported mother of baby (MOB) agreement to [facility] referral. Case will be screened in for investigation. Referral to [facility] via the [facility]'s secure web based referral system this date. Will be monitoring for meconium drug screen results. No other services requested or indicated. Refer to previous social work documentation for details of social work interventions. -HUDSON Yanes, PARI MUTUEL TICKET CASHIER
== END 2019-08-06 16:15 | disposition home or self-care (01) | DRG 805 ==
PROVIDERS: Admitting Provider Obstetrics & Gynecology; Family Provider Family Medicine; PCP Family Medicine; Visit Provider Obstetrics & Gynecology
DX: O26.62 Liver and biliary tract disorders in childbirth (principal); K83.1 Obstruction of bile duct; Z37.0 Single live birth; O99.324 Drug use complicating childbirth; O99.334 Smoking (tobacco) complicating childbirth; F17.210 Nicotine dependence, cigarettes, uncomplicated; F12.90 Cannabis use, unspecified, uncomplicated; Z3A.38 38 weeks gestation of pregnancy; F31.9 Bipolar disorder, unspecified
CPT/HCPCS: 59025; 59050; 80053; 80307; 82248; 84156; 85025; 86850; 86900; 86901; 99218; J7120; G0378; J2405

== ENCOUNTER 2019-10-25 11:01 | Day surgery (SDC) | payer BC, MEDICAID, SELFPAY ==
--- NOTE | 2019-10-16 13:57 | PCM.HP.BLA ---
History and Physical Date of Admission: 10/25/19 HPI: The patient is a 23 year old female presenting for pre-operative visit. She is scheduled for?Hysteroscopy D&C, Mirena insertion, for?AUB, thickened endometrium on?10/25/19. ??Procedure discussed along with risks, benefits and complications. ?Other alternatives discussed for management. Consent form signed??Yes.? PAST MEDICAL HISTORY PAST MEDICAL HISTORY Diagnosis Date ? Bipolar 1 disorder (HCC) ? ? Depression ? ? Hx of degenerative disc disease ? ? PMH - PAST MEDICAL HISTORY OF 07/06/2000 ? Color Vision - Normal ? ? PAST SURGICAL HISTORY PAST SURGICAL HISTORY Procedure Laterality Date ? NONE ? CURRENT MEDICATIONS Current Outpatient Medications Medication Sig Dispense Refill ? ARIPiprazole (ABILIFY) 10 mg tablet TAKE 1 2 (ONE HALF) TABLET BY MOUTH ONCE DAILY FOR 4 DAYS THEN 1 TAB DAILY FOR 10 DAYS THEN 1 1 2 (ONE & ONE HALF) TABS DAILY ? 0 ? lithium carbonate (ESKALITH) 300 mg capsule Take 300 mg by mouth twice daily. ? 0 ? norgestimate 0.25 mg-ethinyl estradiol 35 mcg (SPRINTEC) 0.25-35 mg-mcg per tablet Take 1 tablet by mouth once daily. 1 Package 11 ? OXcarbazepine (TRILEPTAL) 300 mg tablet Take 1 tablet by mouth twice daily. ? ? ? busPIRone (BUSPAR) 15 mg tablet Take 1 tablet by mouth twice daily. ? ? ? No current facility-administered medications for this visit.? ? ALLERGIES:?Pediazole [Erythromycin-Sulfisoxazole]; Effexor [Venlafaxine] ? PERSONAL HISTORY:? SOCIAL HISTORY Social History ? Tobacco Use ? Smoking status: Current Every Day Smoker ? ? Packs/day: 0.50 ? ? Years: 10.00 ? ? Pack years: 5.00 ? ? Types: Cigarettes ? Smokeless tobacco: Never Used Substance Use Topics ? Alcohol use: No ? Drug use: No ? FAMILY HISTORY:? FAMILY HISTORY FAMILY HISTORY Problem Relation Age of Onset ? Cancer Other ?Paternal side ? Alcohol/Drug Other ?Father and Paternal Grandfather ? Hypertension Other ?Maternal side ? Diabetes Other ?Maternal side ? Emphysema Other ?Maternal side ? Asthma Other ?Maternal side ? other (depression) Other ?Maternal side ? Heart Other ?Maternal side ? other (bipolar) Other ?mother ? other (depression) Other ?maternal side ? Depression Mother ?Bipolar ? Osteoporosis Mother ? ? other (sleep apnea) Mother ? ? other (scoliosis) Mother ? ? other (dental issues) Father ? ? Heart Attack Maternal Grandmother ? ? Heart Attack Maternal Grandfather ? ? No Known Problems Paternal Grandmother ? ? Stroke Paternal Grandfather ? ? REVIEW OF SYMPTOMS: GENERAL: denies fevers or chills ENDOCRINOLOGY: has not been on steroids Cardiology : denies palpitations or chest pain Respiratory: denies SOB or cough Hematology: denies history of prolonged bleeding or easy bruising or VTE Allergy: Denies history of personal or family history of allergy to anesthesia ? ? PHYSICAL EXAMINATION: ? VITALS:?not currently . ? GENERAL:??The patient is well nourished, well hydrated in no acute distress. ?, The patient is oriented to time, place, and person. NECK:?Supple. No lynphadenopathy, normal thyroid, no thyromegaly. LUNGS:?Clear to auscultation bilaterally. no wheezes, rhonchi or rales HEART:?Regular rate and rhythm, Normal heart sounds and No murmurs or gallops ? IMPRESSION:?AUB, contraception- desires mirena insertion, thickened endometrium ? PLAN:???The risks/benefits/alternatives and personal involved for the planned?Hysteroscopy with dilation and curettage and Mirena insertion?were reviewed with the patient. Her questions were answered to her satisfaction and she desires to proceed. ?Consent was signed. ?I reviewed with her postop instructions and expectations. ? ? I have reviewed and updated past medical and surgical history, medications and allergies?
[2019-10-25 11:28] LABS: Hematocrit 41.3 % (37-47); Hemoglobin 13.4 g/dL (12.0-15.0); Mean Corp Hgb Conc 32.4 g/dL (32-36); Mean Corpuscular Hgb 30.3 pg (27.0-32.0); Mean Corpuscular Volume 93.4 fL (81-99); Platelet Count 269 K/mm3 (150-450); RBC Distribution Width CV 13.5 % (11.6-14.6); RBC Distribution Width SD 46.3 fl (35.1-43.9); Red Blood Count 4.42 M/mm3 (4.2-5.4); White Blood Count 6.5 K/mm3 (4.4-11.0)
[2019-10-25] MEDS: Acetaminophen 500 MG Tablet 1000 MG PO (11:46)
[2019-10-25] MEDS: Doxycycline 100 MG CAPSULE PO (11:46)
[2019-10-25 11:49] VITALS: BP 115/67; PULSE 80; RESP 16; TEMP 36.5; O2SAT 100; BMI 30.2
[2019-10-25 11:51] LABS: Internal QC Validated? YES +Cl - CLEAR BKGD; Pregnancy, Urine Negative Negative
[2019-10-25] MEDS: Lactated Ringers 1,000 ML 100 ML IV (12:00)
[2019-10-25] MEDS: Ketorolac 30 MG/ML Syringe IV (12:19)
--- NOTE | 2019-10-25 12:40 | EMB_PTH ---
PATIENT: FLORIAN BURCIAGA LOC: [facility] U#:[id number] AGE/SX: 23/F ROOM: RE10/25/[address]: Dr. Carin Govea MD : 1995 BED: DIS: 10/25/2019 SPEC #: [id number] RECD: 10/25/19 14:25 STATUS: FANG JAIME #: [id number] TIFFANIE: 10/25/19 12:[address]: Carin Govea DEPT: SURGICAL PATHOLOGY RECD BY: Gema Love ENTERED: 10/26/19 09:19 SP TYPE: ENDOM BX/C ZO DR: Dr. Skyler Patino MD Tissues: Endometrium, NOS Procedures: Surgery Specimen Level IV HEADER OPERATION: Hysteroscopy, dilation and curettage, placement of Mirena PRE-OP DIAGNOSIS: Abnormal uterine bleeding, thickened endometrium, desires Mirena insertion TISSUE SUBMITTED: Endometrial curettings MICROSCOPIC DIAGNOSIS Endometrial curettings: Secretory endometrium. Fragments of hyalinized tissue with focal calcification, hyalinized and infarcted villi, consistent with retained products of conception. MARIA ESTHER:leila 10/29/19 COMMENT Correlation with clinical findings and appropriate follow up are necessary. Case has been reviewed in consultation with Dr. Doyle who concurs with the above diagnosis. IDC:AM MICROSCOPIC DESCRIPTION Slides are reviewed. GROSS DESCRIPTION Received in fixative is one container labeled with the patient's name and designated endometrial curettings. The specimen consists of multiple irregular fragments of light to dark colón soft tissue that in aggregate measure 5.5 x 2.5 x 0.2 cm. The specimen is totally submitted in two cassettes. / AM:leila 10/26/19 TC:5 CPT: 08615
--- NOTE | 2019-10-25 13:37 | OP.PCM_ITS ---
Report of Operation Date of Procedure: 10/25/19 Pre-Operative Diagnosis: abnormal uterine bleeding, thickened endometrium, IUD insertion Post-Operative Diagnosis: same Surgery/Procedure Performed:: Hysteroscopy, dilation and curettage, with insertion of Mirena intrauterine system Description of Surgical Findings:: Thickened heterogeneous debris in the endometrium, both tubal ostia were noted. Normal appearing cervix and vagina public records officer: alfredo patel Type of Anesthesia:: MAC Anesthesiologist: Marco Antonio Thomas Special Medications: none Specimen's removed: endometrial curettings Drains: none Estimated Blood Loss (mL): 20 Fluids Replaced: 400 cc LR Description of Procedure: The patient was taken to the OR where she was prepped and draped in dorsal lithotomy position. The weighted speculum was placed in the vagina and the anterior lip of the cervix was grasped with a single-tooth tenaculum. A paracervical block was administered with 1% lidocaine with 1-100,000 epinephrine solution. The cervix was dilated serially with Hegar dilators. The 5mm hysteroscope was placed into the uterine cavity and the above findings were noted. Bilateral tubal ostia were identified. The hysteroscope was removed. A gentle sharp curettage was done of the uterine cavity. Moderate amount of heterogeneous debris was removed. Scope was replaced, and ragged normal-appearing endometrium consistent with post D&C was n oted. No other focal abnormalities were present. The instruments were removed from the vagina. The specimen was handed off and sent to pathology. All sponge and needle counts were correct. Vaginal sweep was performed by me. The patient was awakened and taken to the recovery room in stable condition. Hysteroscopic ins: 300cc normal saline Hysteroscopic outs:200cc Findings: Endometrial cavity: Polyps or fibroids noted, heterogeneous debris Cervix: Normal Vagina: Normal Grafts/Implants Used: none - Complications none - Admit VTE Documentation VTE Present on Admission: No VTE Mechan Device Prophylaxis: SCD's VTE Pharm Prophylaxis ordered?: No Reason prophylaxis not ordered:: Procedure Not Indicated
--- NOTE | 2019-10-25 13:37 | PCM.DC.D&C ---
Discharge Diet: No Restrictions Discharge Activity: Return to Normal Activity, May Shower, May Take a Tub Bath - in 2 weeks. Allergies/Adverse Reactions: Allergies erythromycin ethylsuccinate [From Pediazole] Allergy (Verified 10/23/19 13:42) Hives sulfisoxazole acetyl [From Pediazole] Allergy (Verified 10/23/19 13:42) Hives as a baby Medications to take at Discharge Oxcarbazepine [Trileptal] 600 mg PO BID 06/03/19 busPIRone [Buspar] 15 mg PO BID 06/03/19 Hydroxyzine Pamoate [Vistaril] 50 mg PO TID PRN PRN 08/03/19 Aripiprazole [Abilify Maintena] 1 injectable SUBCUT QMONTH 10/23/19 Ibuprofen [Motrin] 600 mg PO Q6H PRN #60 tab 10/25/19 The following prescriptions were given: Ibuprofen [Motrin] 600 mg PO Q6H PRN #60 tab PRN Reason: Pain Transmission Status: Pending to [facility] Primary Care Physician: Skyler Patino MD [Primary Care Provider] - Test Results: Test results from this visit will be discussed in further detail at your follow-up appointment, if applicable. Please Follow Up With: Carin Govea MD - [phone] When: 4-6 weeks or as needed
[2019-10-25 13:40] VITALS: BP 115/67; BP 82/66; PULSE 73; RESP 16; TEMP 36.5; O2SAT 100
[2019-10-25 13:45] VITALS: BP 111/71; BP 115/67; PULSE 77; RESP 16; O2SAT 100
[2019-10-25 13:50] VITALS: BP 115/67; PULSE 73; RESP 16; O2SAT 100
[2019-10-25 13:55] VITALS: BP 109/75; BP 115/67; PULSE 72; RESP 16; TEMP 36.7; O2SAT 100
[2019-10-25] MEDS: HYDROcodone Bitartrate/Apap 5/325 Tablet PO (14:20)
[2019-10-25 14:52] VITALS: BP 115/67
== END 2019-10-25 14:58 | disposition home or self-care (01) ==
LOC: SDC 11:03 → AC 11:04
PROVIDERS: Family Provider Family Medicine; PCP Family Medicine; Referring Provider Obstetrics & Gynecology; Visit Provider Obstetrics & Gynecology
PROC: 0UDB8ZZ Extraction of Endometrium, Via Natural or Artificial Opening Endoscopic (ICD-10-PCS; CPT 58558; principal; 2019-10-25 12:30)
DX: N93.9 Abnormal uterine and vaginal bleeding, unspecified (principal); F31.9 Bipolar disorder, unspecified; F17.210 Nicotine dependence, cigarettes, uncomplicated; Z79.899 Other long term (current) drug therapy
CPT/HCPCS: 58300; 58558; 81025; 85027; 88305; J7120

== ENCOUNTER 2020-01-25 18:18 | Emergency (ER) | payer BC, MEDICAID, SELFPAY ==
[2020-01-25 18:19] VITALS: BP 144/77; PULSE 122; RESP 20; O2SAT 97
[2020-01-25 18:20] VITALS: BP 144/77; PULSE 122; RESP 20; TEMP 36.8; O2SAT 97; BMI 34.1
--- NOTE | 2020-01-25 18:32 | ED.VIS.INJ ---
History of Present Illness Chief Complaint: Laceration Detail of Chief Complaint: Tip left index finger Informant: Patient Onset: Hours - Prior to arrival Mechanism/Context: Incised Quality of Pain: - - Presently no discomfort Location: Tip left index finger under the nail Current Severity: Patient has her finger bandaged. The bandage is removed. There is no active bleeding. There is evidence of a laceration. There is no pain. Worsened by: Initial injury Relieved by: Not applicable Associated Symptoms: Negative for: Parasthesias, Weakness, Loss of function Narrative: Patient is a 24-year-old [id number] woman who was reaching into a drawer. She sustained a laceration tip of the left index finger near the nailbed under her nail. She denies paresthesia, anesthesia motors. She denies loss of function. Her last tetanus was 5 months ago. Prior similar symptoms: No Recent Illness/Hospitalization: No - Past Medical History (1) Nausea and vomiting during Status: Acute Past Medical History - Allergies and Home Meds Allergies/Adverse Reactions: Allergies erythromycin ethylsuccinate [From Pediazole] Allergy (Verified 01/25/20 18:19) Hives sulfisoxazole acetyl [From Pediazole] Allergy (Verified 01/25/20 18:19) Hives as a baby Primary Care Physician: Skyler Patino MD [Primary Care Provider] - Prior records reviewed: Yes Lives: Spouse/ Significant Other, With Family Smoking Status: Current every day smoker Alcohol: None Drugs: None Review of Systems General: Denies: Chills, Fever Musculoskeletal: Denies: Myalgias, Arthralgias, Neck pain, Back pain, Swelling, Extremity Pain Skin: Reports: Wounds. Denies: Rash Neurological: Denies: Weakness, Parasthesia, Numbness Hematologic: Denies: Easy bruising, Easy bleeding Physical Exam Vital Signs/Narrative: Vital Signs Temp Pulse Resp BP Pulse Ox 01/25/20 18: 98.2 F 122 H 20 H 144/77 H 97 01/25/20 18:19 122 H 20 H 144/77 H 97 Inital Vital Signs reviewed: Yes General: Well nourished, Well developed Head: Normocephalic, Atraumatic Eyes: Perrl, EOMI. Negative for: Pale conjunctiva, Scleral icterus Cardiovascular: Regular rate, Regular rhythm Respiratory: No distress Extremeties: There is a laceration which is 6 mm in length that is at the edge of the distal left index finger nailbed under the nail. There is no active bleeding. Cap refill is normal. Sensation is normal. The extensor indices tendon is intact. Flexor maxim is intact. Neurological: Alert, Oriented x3, Normal Strength, Normal Sensation Psychological: Normal affect - Glascow Coma Scale Eye Opening: Spontaneous Motor: Obeys Commands Verbal: Oriented Coma Scale Total: 15 Diagnostic/Tx/Re-eval - Medical Decision Making She was told since the laceration is less than a centimeter there is no active bleeding repair is not indicated. She was informed to repair the injury if it require repair would entail removing the nail. In light of the fact that it is only 5 at most 6 mm in length without active bleeding conservative treatment was undertaken. ED Disposition - Plan for ED Patient: Disposition: Home or Assisted Living Diagnosis: Laceration of index finger of left hand without complication Instructions: LACERATION, Small/superficial, Not sutured Referrals: Skyler Patino MD [Primary Care Provider] - As Needed
== END 2020-01-25 19:00 | disposition home or self-care (01) ==
LOC: ED 18:43
PROVIDERS: Emergency Provider Emergency Medicine; PCP Family Medicine
DX: S61.211A Laceration without foreign body of left index finger without damage to nail, initial encounter (principal); Y28.9XXA Contact with unspecified sharp object, undetermined intent, initial encounter; Y93.89 Activity, other specified; Y92.029 Unspecified place in mobile home as the place of occurrence of the external cause; Y99.8 Other external cause status
CPT/HCPCS: 99282

== ENCOUNTER 2020-05-26 17:36 | Emergency (ER) | payer BC, MEDICAID, SELFPAY ==
[2020-05-26 17:39] VITALS: BP 147/78; PULSE 89; RESP 18; TEMP 36.8; O2SAT 99; BMI 32.5
--- NOTE | 2020-05-26 18:16 | ED.VIS.GEN ---
History of Present Illness Chief Complaint: Nausea/Vomiting Onset: Month(s) - 1 Narrative: 24-year-old female presents with nausea and vomiting x1 month. She states is been intermittent but over the last 5 days it has been worse. The last time she can remember being this nauseous is when she was . She had a Mirena out in April. She is sexually active and does not use protection. Her last menstrual period was May 03. She does not have any vaginal discharge. Denies dysuria. She does states she feels dehydrated. She does admit to smoking marijuana weekly. Denies abdominal pain. She denies diarrhea or constipation. Not had a fever. Prior similar symptoms: Yes Past Medical History - Allergies and Home Meds Allergies/Adverse Reactions: Allergies erythromycin ethylsuccinate [From Pediazole] Allergy (Verified 01/25/20 18:19) Hives sulfisoxazole acetyl [From Pediazole] Allergy (Verified 01/25/20 18:19) Hives as a baby venlafaxine [From Effexor] Adverse Reaction (Verified 05/26/20 17:39) NEEDS FOLLOW-UP headaches Primary Care Physician: Skyler Patino MD [Primary Care Provider] - Prior records reviewed: Yes Smoking Status: Current every day smoker Alcohol: None Drugs: Marijuana Review of Systems General: Denies: Chills, Fever Eyes: Denies: Visual changes - bilaterally, Diplopia ENT: Denies: Rhinorrhea, Sore throat Cardiovascular: Denies: Chest pain, Palpitations Respiratory: Denies: Dyspnea, Cough, Dyspnea on exertion Gastrointestinal: Reports: Nausea, Vomiting. Denies: Abdominal pain, Diarrhea, Constipation Genitourinary: Denies: Dysuria Musculoskeletal: Denies: Myalgias, Arthralgias Skin: Denies: Rash Neurological: Denies: Headache Endocrine: Denies: Polyuria, Polydipsia Physical Exam Vital Signs/Narrative: Vital Signs Temp Pulse Resp BP Pulse Ox 05/26/20 17:39 98.3 F 89 18 147/78 H 99 Inital Vital Signs reviewed: Yes General: Well nourished, Well developed, No Acute Distress Head: Normocephalic Eyes: Perrl, EOMI ENT: Moist mucous membranes Cardiovascular: Regular rate, Regular rhythm Respiratory: No distress, CTA bilaterally Abdomen: Soft, Nontender, Nondistended, Normal bowel sounds Extremities: Nontender Skin: Normal color, No rash, Diaphoresis, Pallor Neurological: Alert, Oriented x3 Psychological: Normal affect ED Disposition - Plan for ED Patient: Disposition: Home or Assisted Living Diagnosis: Vomiting Instructions: ED Nausea Vomiting Adult Prescriptions: Ondansetron [Zofran Odt] 4 mg PO Q8H PRN PRN #10 tab PRN Reason: Nausea Prescription Printed Referrals: Skyler Patino MD [Primary Care Provider] -
[2020-05-26] MEDS: Ondansetron 4 MG/2 ML Vial IV (19:00)
[2020-05-26] MEDS: 0.9% Normal Saline 1,000 ML 1000 ML IV (19:00)
[2020-05-26 19:22] LABS: Absolute Lymphocyte Count 2.24 X10^3/uL (0.83-4.51); Absolute Neutrophil Count 4.1 X10^3/uL (2.0-7.7); Basophil# 0.03 X10^3/uL; Basophil% 0.4 % (0-1); Eosinophils% 1.4 % (0-5); Hematocrit 43.3 % (37-47); Hemoglobin 14.3 g/dL (12.0-15.0); Lymphocyte # 2.24 X10^3/ul (4.0); Lymphocyte % 31.4 % (19-41); Mean Corpuscular Hgb 29.8 pg (27.0-32.0); Mean Corpuscular Volume 90.2 fL (81-99); Mean Platelet Vol. 9.6 fl (6.2-12.0); Monocyte# 0.63 X10^3/uL; Monocyte% 8.8 % (0-10); NRBC Flagged by Analyzer 0 % (0-5); Neutrophil # 4.12 X10^3/uL (2.7-7.7); Neutrophil % 57.9 % (47-70); Platelet Count 346 K/mm3 (150-450); RBC Distribution Width CV 13.3 % (11.6-14.6); RBC Distribution Width SD 43.9 fl (35.1-43.9); White Blood Count 7.1 K/mm3 (4.4-11.0)
[2020-05-26 19:41] LABS: Bacteria 0 SEEN /hpf (None Seen); Mucous, Urine 0 SEEN /hpf (<or=2+); White Blood Cells 0 SEEN /hpf (0-5)
[2020-05-26 19:50] LABS: Anion Gap 6 (5-15); BUN 7 mg/dL (7-18); BUN/Creat Ratio 8.7 RATIO (10-20); Calcium,Total 8.5 mg/dL (8.5-10.1); Chloride 99 mmol/L (98-107); Creatinine, Serum 0.81 mg/dL (0.55-1.02); EST Glomerular Filtration Rate 91 mL/min (>60); Est Glom Filt Rate - Afr Amer 111 mL/min (>60); Glucose 77 mg/dL (74-106); Potassium 4.6 mmol/L (3.5-5.1); Sodium Level 135 mmol/L (136-145)
[2020-05-26 20:34] VITALS: RESP 18
[2020-05-26 20:50] LABS: Internal QC Validated? YES +Cl - CLEAR BKGD; Pregnancy, Urine Negative Negative
[2020-05-26 21:01] LABS: Red Blood Cells-Urine 0-5 SEEN /hpf (0-5); Squamous Epithelial Cells - UA 0-5 SEEN /hpf (5-10)
[2020-05-26 21:04] LABS: Color, Urine Yellow (Yellow); Glucose, Dipstick Normal (Normal); Ketone-Dipstick 5 mg/dl (Negative); Leukocyte Esterase-Dipstick 25 /ul (Negative); Nitrite-Dipstick Negative (Negative); Occult Blood-Urine Negative /ul (Negative); Protein-Dipstick Negative (Negative); Urine Bilirubin Dipstick Negative (Negative); Urine Clarity Clear (Clear); Urine Urobilinogen Normal (Normal)
[2020-05-26 21:21] VITALS: RESP 18
== END 2020-05-26 21:22 | disposition home or self-care (01) ==
PROVIDERS: Emergency Provider Student in an Organized Health Care Education/Training Program; PCP Family Medicine
DX: R11.2 Nausea with vomiting, unspecified (principal); F17.200 Nicotine dependence, unspecified, uncomplicated
CPT/HCPCS: 80048; 81001; 81025; 85025; 96361; 96374; 99283; J7030; A4216; J2405

== ENCOUNTER 2020-06-12 19:42 | Emergency (ER) | payer OTHER, BC, MEDICAID, SELFPAY ==
[2020-06-12 19:42] VITALS: BP 140/97; PULSE 116; RESP 18; TEMP 36.3; O2SAT 97; BMI 33.4
--- NOTE | 2020-06-12 19:55 | RAD_ITS ---
STUDY: X-RAY - RIGHT HAND REASON FOR EXAM: Female, 24 years old. PT HURT HER R HAND ON RAILING BY SWINGING HER ARMS TECHNIQUE: 3 view(s) of the hand. COMPARISON: 03/15/18. FINDINGS: No acute fracture, dislocation or osseous destruction. No significant joint space narrowing. No significant productive changes. No significant soft tissue swelling. IMPRESSION: Normal x-ray examination of the hand. Electronically Signed: Al Gonzáles, at 20:25 EDT Tel , Service support , RAD/Hand Min 3 Views
--- NOTE | 2020-06-12 20:41 | ED.VISSUMM ---
- ER Visit Summary Date of Service: 06/12/20 Chief Complaint: Right hand pain History of Present Illness: The patient is a [address] Patino. She is left-hand dominant. She reports that she hit the back of her right hand on a guardrail as she was swinging her arms. States that she has a sharp pain is 8 out of 10 at worst and 6 out of 10 currently. Is worsened by making a fist. She relieved by rest. She has not taken anything for pain. She denies any paresthesias distally. Physical Examination: Vitals: Stable. Afebrile. General: Well-nourished and well-developed. Head: Normocephalic atraumatic. Neck: Supple, no lymphadenopathy. No JVD. Nontender. Cardiovascular: Regular rate and rhythm. No murmurs. Respiratory: No respiratory distress. Clear to auscultation bilaterally. Abdominal: Soft, nontender, nondistended, normal bowel sounds. No guarding, rebound, or peritoneal signs. Back: Nontender. Extremities: Over the back of her right hand over the fourth and fifth distal metacarpals there is soft tissue swelling and contusion. Is mildly tender to palpation. She is neuro vas intact distally. Skin: Normal color, no rash. Neurologic: Alert and oriented ?3. Cranial nerves II through XII are intact. Normal strength and sensation. Psych: Normal affect. Test Results: Right hand x-ray shows no acute disease. Emergency Department Course and Treatment: Patient was treated with ibuprofen. Treatment Plan: Patient will be discharged with symptomatic care. Use Tylenol and/or ibuprofen for pain. Ice the area. Follow-up with [facility] in 1 week for another exam. Return to the emergency department for any worsening symptoms. Disposition: To home in improved and stable condition. Impression: 1. Right hand contusion. This note was generated with [employer] dictation software. It may contain incorrect words, spelling, and punctuation that were not noted in review of the chart prior to signing ED Disposition - Plan for ED Patient: Disposition: Home or Assisted Living Instructions: ED HAND CONTUSION Referrals: Keren Rubio [GROUP OF PHYSICIANS] - 1 Week
[2020-06-12 21:15] VITALS: RESP 18
== END 2020-06-12 21:15 | disposition home or self-care (01) ==
LOC: ED 20:20
PROVIDERS: Emergency Provider Emergency Medicine; PCP Family Medicine
DX: S60.221A Contusion of right hand, initial encounter (principal); Z72.0 Tobacco use; W22.09XA Striking against other stationary object, initial encounter; Y93.89 Activity, other specified; Y92.89 Other specified places as the place of occurrence of the external cause; Y99.8 Other external cause status
CPT/HCPCS: 73130; 99282

== ENCOUNTER 2020-09-26 19:33 | Emergency (ER) | payer BC, MEDICAID, SELFPAY ==
[2020-09-26 19:34] VITALS: BP 158/91; PULSE 98; RESP 16; TEMP 36.6; O2SAT 98; BMI 31.9
--- NOTE | 2020-09-26 20:14 | ED.DCSUM_ITS ---
History of Present Illness Informant: Patient Narrative: Patient is G2, P1 at approximately [address] Govea from [facility]. She tells me her first she had to have a Zofran pump. She states for the past 3 days she has not been able to keep anything down. She has tried Zofran and Phenergan. She presents at 2000 hrs on Tuesday stating that she had talked to the office a couple days ago I prescribed Zofran and advised that if she was not able to tolerate p.o. he come to emergency. She has not been in contact with them today. <Gary Arnold - Last Filed: 09/26/20 21:54> <Hal Roldan - Last Filed: 09/27/20 02:39> Chief Complaint: Nausea/Vomiting Past Medical History Past Medical History: - - Hyperemesis gravidarum Surgical History: noncontributory Smoking Status: Current every day smoker <Gary Arnold - Last Filed: 09/26/20 21:54> <Hla Rodlan - Last Filed: 09/27/20 02:39> - Allergies and Home Meds Allergies/Adverse Reactions: Allergies erythromycin ethylsuccinate [From Pediazole] Allergy (Verified 09/26/20 19:35) Hives sulfisoxazole acetyl [From Pediazole] Allergy (Verified 09/26/20 19:35) Hives as a baby venlafaxine [From Effexor] Adverse Reaction (Verified 09/26/20 19:35) NEEDS FOLLOW-UP headaches Primary Care Physician: Carin Govea MD [STAFF PHYSICIAN] - Keep Ran appointment Review of Systems General: Denies: Chills, Fever, Sweats Eyes: Denies: Visual changes - bilaterally, Diplopia ENT: Denies: Rhinorrhea, Sore throat Cardiovascular: Denies: Chest pain, Palpitations Respiratory: Denies: Dyspnea, Cough, Dyspnea on exertion Gastrointestinal: Reports: Nausea, Vomiting. Denies: Abdominal pain, Diarrhea, Melena, Hematochezia Genitourinary: Denies: Dysuria, Hematuria, Frequency Musculoskeletal: Denies: Back pain, Extremity Pain Skin: Denies: Rash, Wounds Neurological: Denies: Headache, Weakness, Numbness <Gary Arnold - Last Filed: 09/26/20 21:54> Physical Exam Vital Signs/Narrative: Vital Signs Temp Pulse Resp BP Pulse Ox 09/26/20 19:34 97.8 F 98 16 158/91 H 98 Inital Vital Signs reviewed: Yes General: Well nourished, Well developed, No Acute Distress Head: Normocephalic, Atraumatic Eyes: Perrl, EOMI ENT: Moist mucous membranes, No rhinorrhea Neck: Supple, Nontender Cardiovascular: Regular rate, Regular rhythm, No murmurs Respiratory: No distress, CTA bilaterally, Chest nontender Abdomen: Soft, Nontender, Nondistended, Normal bowel sounds Back: Nontender, Normal Inspection Extremities: Nontender, No edema Skin: Normal color, No rash Neurological: Alert, Oriented x3, Cranial nerves II-XII grossly intact, Normal Strength, Normal Sensation Psychological: Normal affect, Normal Mood <Gary Arnold - Last Filed: 09/26/20 21:54> Vital Signs/Narrative: Vital Signs Temp Pulse Resp BP Pulse Ox 09/26/20 22:00 16 09/26/20 19:34 97.8 F 98 16 158/91 H 98 <JamarHal - Last Filed: 09/27/20 02:39> Diagnostic/Tx/Re-eval - Medical Decision Making Patient will receive 2 L of IV fluids and Phenergan. Urinalysis was obtained. Urinalysis is extremely dark. Patient was vomiting through the first liter and Phenergan so we gave her Reglan. Care the patient will be checked out to the oncoming physician for final disposition. <Gary Arnold - Last Filed: 09/26/20 21:54> Laboratory Results 09/26/20 20:28 Urine Color Yellow Urine Clarity Cloudy Urine pH 6.5 Ur Specific [place] 1.015 Urine Protein 30 H Urine Glucose (UA) Normal Urine Ketones 50 H Urine Occult Blood Negative Urine Nitrite Negative Urine Bilirubin 1 H Urine Urobilinogen 4 H Ur Leukocyte Esterase 25 H Urine RBC 0 SEEN Urine WBC 0-5 SEEN Ur Squamous Epith Cells 0-5 SEEN Urine Bacteria 1+ Hyaline Casts 0-5 SEEN Urine Mucus 2+ - Medical Decision Making Independent history physical was performed. Patient presents with nausea and vomiting. She is first trimester . Urine was remarked for 1+ bacteria without pyuria and negative nitrites. Because she is culture was sent. She did receive a gram of Rocephin. Clinically patient is dehydrated. Vital signs are noted. She was treated with antiemetic. She passed p.o. challenge. [facility]-going instructions and follow-up. <Hal Roldan - Last Filed: 09/27/20 02:39> ED Disposition <Gary Arnold - Last Filed: 09/26/20 21:54> <Hal Roldan - Last Filed: 09/27/20 02:39> - Plan for ED Patient: Disposition: Home or Assisted Living Diagnosis: Nausea and vomiting during Instructions: ED Preg Morning Sickness Referrals: Carin Govea MD [STAFF PHYSICIAN] - Keep Ran appointment
[2020-09-26] MEDS: 0.9% Normal Saline 1,000 ML 1000 ML IV ×2 (20:26→21:34)
[2020-09-26] MEDS: proMETHazine 25 MG/ML Syringe 12.5 MG IV (20:26)
[2020-09-26 20:51] LABS: Red Blood Cells-Urine 0 SEEN /hpf (0-5)
[2020-09-26 20:54] LABS: Color, Urine Yellow (Yellow); Glucose, Dipstick Normal (Normal); Ketone-Dipstick 50 mg/dl (Negative); Leukocyte Esterase-Dipstick 25 /ul (Negative); Nitrite-Dipstick Negative (Negative); Occult Blood-Urine Negative /ul (Negative); Protein-Dipstick 30 mg/dl (Negative); Specific Gravity, Urine 1.015 (1.002-1.030); Urine Clarity Cloudy (Clear); Urine Urobilinogen 4 mg/dl (Normal); Urine pH 6.5 (5.0 - 8.0)
[2020-09-26 21:27] LABS: Urine Bilirubin Dipstick 1 mg/dL (Negative)
[2020-09-26 21:29] LABS: Hyaline Cast 0-5 SEEN /lpf (0-5); Mucous, Urine 2+ /hpf (<or=2+)
[2020-09-26 21:36] LABS: Bacteria 1+ /hpf (None Seen); Squamous Epithelial Cells - UA 0-5 SEEN /hpf (5-10)
[2020-09-26 21:37] LABS: White Blood Cells 0-5 SEEN /hpf (0-5)
[2020-09-26 22:00] VITALS: RESP 16
[2020-09-26] MEDS: Metoclopramide 10 MG/2 ML Vial IV (22:00)
[2020-09-26 23:20] VITALS: BP 140/73; PULSE 81; RESP 16
== END 2020-09-26 23:21 | disposition home or self-care (01) ==
PROVIDERS: Emergency Provider Emergency Medicine; PCP Family Medicine
DX: O21.9 Vomiting of pregnancy, unspecified (principal); O99.331 Smoking (tobacco) complicating pregnancy, first trimester; F17.200 Nicotine dependence, unspecified, uncomplicated; Z3A.09 9 weeks gestation of pregnancy
CPT/HCPCS: 81001; 96361; 96374; 96375; 99283; J7030

== ENCOUNTER 2020-11-07 12:20 | Observation (INO) | payer BC, MEDICAID, SELFPAY ==
[2020-11-07 12:20] VITALS: BP 132/80; PULSE 81; RESP 16; TEMP 36.4; O2SAT 100; BMI 32.8
[2020-11-07] MEDS: Ondansetron 4 MG/2 ML Vial IV ×2 (12:41→16:26)
[2020-11-07] MEDS: 0.9% Normal Saline 1,000 ML 1000 ML IV (12:41)
--- NOTE | 2020-11-07 12:41 | ED.VIS.GEN ---
History of Present Illness Chief Complaint: Nausea/Vomiting Informant: Patient Onset: Weeks Maximum Severity: Mild Narrative: Patient presents with vomiting throughout the 15-week course of her , she is G2, P1 had similar problems with first she ultimately ended up on a Zofran pump that also had limited utility She indicates has had persistent vomiting with spite the use of home Zofran and other meds. She has no head neck chest or abdominal pain no vaginal bleeding, she has had an ultrasound that shows single live IUP she has no urinary history no GI history she indicates she basically has no vomiting problems all except when she is She indicates has been treated multiple times in multiple facilities for the above when outpatient management fails and she indicates that a D10 solution works the best, she has no known history of diabetes, no coronavirus exposures She has persistent intractable vomiting no other complaints Past Medical History - Allergies and Home Meds Allergies/Adverse Reactions: Allergies erythromycin ethylsuccinate [From Pediazole] Allergy (Verified 11/07/20 12:22) Hives sulfisoxazole acetyl [From Pediazole] Allergy (Verified 11/07/20 12:22) Hives as a baby venlafaxine [From Effexor] Adverse Reaction (Verified 11/07/20 12:22) NEEDS FOLLOW-UP headaches Primary Care Physician: Skyler Patino MD [Primary Care Provider] - Past Medical History: - - related vomiting Surgical History: noncontributory Smoking Status: Current every day smoker Review of Systems General: Denies: Chills, Fever, Sweats Eyes: Denies: Visual changes - bilaterally, Diplopia ENT: Denies: Rhinorrhea, Sore throat Cardiovascular: Denies: Chest pain, Palpitations Respiratory: Denies: Dyspnea, Cough, Dyspnea on exertion Gastrointestinal: Reports: Vomiting. Denies: Abdominal pain, Nausea, Diarrhea, Melena, Hematochezia Genitourinary: Denies: Dysuria, Hematuria, Frequency Musculoskeletal: Denies: Back pain, Extremity Pain Skin: Denies: Rash, Wounds Neurological: Denies: Headache, Weakness, Numbness Physical Exam Vital Signs/Narrative: Vital Signs Temp Pulse Resp BP Pulse Ox 11/07/20 12:20 97.5 F L 81 16 132/80 H 100 General: Well nourished, Well developed, No Acute Distress Head: Normocephalic, Atraumatic Eyes: Perrl, EOMI ENT: Moist mucous membranes, No rhinorrhea Neck: Supple, Nontender Cardiovascular: Regular rate, Regular rhythm, No murmurs Respiratory: No distress, CTA bilaterally, Chest nontender Abdomen: Soft, Nontender, Nondistended, Normal bowel sounds Back: Nontender, Normal Inspection Extremities: Nontender, No edema Skin: Normal color, No rash Neurological: Alert, Oriented x3, Cranial nerves II-XII grossly intact, Normal Strength, Normal Sensation Psychological: Normal affect, Normal Mood Diagnostic/Tx/Re-eval - Medical Decision Making She has vomiting of stomach content here no blood her vital signs are unremarkable she is generally no distress her abdomen soft and nontender she denies vaginal bleeding or discharge the rest of her exam is unremarkable She does report that the only thing that helped with this vomiting syndrome during her last was from marijuana which she would require on her own she has not used that recently given all the above will begin management IV fluids will provide her some D10 since indicates itself in the past and proceed from there she is followed by Dr. Govea of [facility] Patient's ED screening evaluation is generally unremarkable her UA does show signs of ketosis specific gravity 1020, she has received IV fluids here the D10 that she requested she is feeling better, she has taken ice chips here we discussed inpatient versus outpatient management she is feeling better she wants to try to go home she would like to follow through outpatient providers and she will discuss further management options with him including a Zofran pump and she understands need to force fluids and return for change in symptoms she has all of her home meds readily available to her Home stable Impression final related vomiting, ED Disposition - Plan for ED Patient: Diagnosis: Hyperemesis complicating , antepartum Instructions: ED Hyperemesis Gravidarum Referrals: Skyler Patino MD [Primary Care Provider] -
[2020-11-07] MEDS: Dextrose 10%-Water 250 ML 40 ML IV (12:56)
[2020-11-07 12:57] LABS: Absolute Lymphocyte Count 0.88 X10^3/uL (0.83-4.51); Absolute Neutrophil Count 9.2 X10^3/uL (2.0-7.7); Basophil# 0.02 X10^3/uL; Basophil% 0.2 % (0-1); Eosinophil# 0.01 X10^3/uL; Eosinophils% 0.1 % (0-5); Hematocrit 44.3 % (37-47); Hemoglobin 14.8 g/dL (12.0-15.0); Lymphocyte # 0.88 X10^3/ul (4.0); Lymphocyte % 8.3 % (19-41); Mean Corp Hgb Conc 33.4 g/dL (32-36); Mean Corpuscular Hgb 30.3 pg (27.0-32.0); Mean Corpuscular Volume 90.6 fL (81-99); Mean Platelet Vol. 9.7 fl (6.2-12.0); Monocyte# 0.31 X10^3/uL; Monocyte% 2.9 % (0-10); NRBC Flagged by Analyzer 0 % (0-5); Neutrophil # 9.21 X10^3/uL (2.7-7.7); Platelet Count 315 K/mm3 (150-450); RBC Distribution Width CV 13.2 % (11.6-14.6); RBC Distribution Width SD 43.8 fl (35.1-43.9); Red Blood Count 4.89 M/mm3 (4.2-5.4); White Blood Count 10.6 K/mm3 (4.4-11.0)
[2020-11-07 13:07] LABS: ALB/GLOB Ratio 0.9 RATIO (0.9-2.4); AST(SGOT) 19 U/L (15-37); Alanine Aminotransfer ALT/SGPT 22 U/L (13-56); Albumin, Serum 3.6 g/dL (3.2-5.0); Alkaline Phosphatase 80 U/L (45-117); Anion Gap 10 (5-15); BUN 6 mg/dL (7-18); BUN/Creat Ratio 11.3 RATIO (10-20); Chloride 108 mmol/L (98-107); Creatinine, Serum 0.53 mg/dL (0.55-1.02); EST Glomerular Filtration Rate 149 mL/min (>60); Est Glom Filt Rate - Afr Amer 180 mL/min (>60); Estimated Creatinine Clearance 162.26 ml/min; Globulin 4.2 g/dL (2.2-4.2); Glucose 112 mg/dL (74-106); Potassium 3.7 mmol/L (3.5-5.1); Protein, Total 7.8 g/dL (6.4-8.2); Sodium Level 138 mmol/L (136-145)
[2020-11-07 13:49] LABS: Color, Urine Yellow (Yellow); Glucose, Dipstick Normal (Normal); Leukocyte Esterase-Dipstick 25 /ul (Negative); Mucous, Urine 0 SEEN /hpf (<or=2+); Nitrite-Dipstick Negative (Negative); Occult Blood-Urine Negative /ul (Negative); Protein-Dipstick 30 mg/dl (Negative); Red Blood Cells-Urine 0 SEEN /hpf (0-5); Specific Gravity, Urine 1.025 (1.002-1.030); Urine Bilirubin Dipstick Negative (Negative); Urine Clarity Sl. Cloudy (Clear); Urine Urobilinogen 1 mg/dl (Normal)
[2020-11-07] MEDS: proMETHazine 25 MG/ML Syringe 12.5 MG IV (13:52)
[2020-11-07 13:55] LABS: Ketone-Dipstick 150 mg/dl (Negative)
[2020-11-07 14:03] LABS: Amorphous Sediment 1+; Bacteria 1+ /hpf (None Seen); Squamous Epithelial Cells - UA 0-5 SEEN /hpf (5-10); White Blood Cells 0-5 SEEN /hpf (0-5)
[2020-11-07] MEDS: 0.9% Normal Saline 1,000 ML 999 ML IV (14:13)
[2020-11-07] MEDS: Metoclopramide 10 MG/2 ML Vial 5 MG IV (15:37)
[2020-11-07] MEDS: DiphenhydrAMINE 50 MG/ML Syringe 12.5 MG IV (15:37)
[2020-11-07 15:42] VITALS: BP 142/80; PULSE 89; RESP 17; O2SAT 99
[2020-11-07 18:33] VITALS: BP 131/75; PULSE 91; RESP 18; TEMP 36.4; O2SAT 98
[2020-11-07 18:53] VITALS: BMI 31.9
[2020-11-07 19:21] VITALS: BP 149/68; PULSE 80; TEMP 37.4; O2SAT 100
[2020-11-07] MEDS: 0.9% Saline Lock 10 ML Syringe IV (19:31)
[2020-11-07] MEDS: proCHLORPERazine 10 MG/2 ML Vial IV (19:31)
--- NOTE | 2020-11-07 22:06 | NURSING ---
Pt decided to leaving AMA. Dr. Govea notified. Pt signed [place] consent [id number]. IV out. Waiting for ride
--- NOTE | 2020-11-07 22:10 | NURSING ---
Pt left unit AMA
--- NOTE | 2020-11-10 07:16 | OB.TRI.HP_ITS ---
History of Present Illness Date of Service: 11/07/20 Was patient seen by the physician?: No Reason For Visit: HYPEREMESIS Date of Service: 11/07/20 Final ANSHUL Source: US <20 weeks Gestational age: 15 weeks Allergies erythromycin ethylsuccinate [From Pediazole] Allergy (Verified 11/07/20 12:22) Hives sulfisoxazole acetyl [From Pediazole] Allergy (Verified 11/07/20 12:22) Hives as a baby venlafaxine [From Effexor] Adverse Reaction (Verified 11/07/20 12:22) NEEDS FOLLOW-UP headaches Laboratory Studies: Laboratory Tests 11/07/20 11/07/20 11/07/20 Range/Units 13:35 12:30 12:30 WBC 10.6 (4.4-11.0) K/mm3 RBC 4.89 (4.2-5.4) M/mm3 Hgb 14.8 (12.0-15.0) g/dL Hct 44.3 (37-47) % MCV 90.6 (81-99) fL MCH 30.3 (27.0-32.0) pg MCHC 33.4 (32-36) g/dL RDW Std Deviation 43.8 (35.1-43.9) fl RDW Coeff of Georges 13.2 (11.6-14.6) % Plt Count 315 (150-450) K/mm3 MPV 9.7 (6.2-12.0) fl Immature Gran % (Auto) 1.500 H (0.0-0.9) % Neut % (Auto) 87.0 H (47-70) % Lymph % (Auto) 8.3 L (19-41) % [place] % (Auto) 2.9 (0-10) % Eos % (Auto) 0.1 (0-5) % Baso % (Auto) 0.2 (0-1) % Absolute Neuts (auto) 9.2 H (2.0-7.7) X10^3/uL Absolute Lymphs (auto) 0.88 (0.83-4.51) X10^3/uL Nucleated RBC % 0 (0-5) % Sodium 138 (136-145) mmol/L Potassium 3.7 (3.5-5.1) mmol/L Chloride 108 H (98-107) mmol/L Carbon Dioxide 20.0 L (21.0-32.0) mmol/L Anion Gap 10 (5-15) BUN 6 L (7-18) mg/dL Creatinine 0.53 L (0.55-1.02) mg/dL Estim Creat Clear Calc 162.26 ml/min Est GFR (MDRD) Af Amer 180 (>60) mL/min Est GFR (MDRD) Non-Af 149 (>60) mL/min BUN/Creatinine Ratio 11.3 (10-20) RATIO Glucose 112 H (74-106) mg/dL Calcium 9.0 (8.5-10.1) mg/dL Total Bilirubin 0.50 (0.20-1.00) mg/dL AST 19 (15-37) U/L ALT 22 (13-56) U/L Alkaline Phosphatase 80 (45-117) U/L Total Protein 7.8 (6.4-8.2) g/dL Albumin 3.6 (3.2-5.0) g/dL Globulin 4.2 (2.2-4.2) g/dL Albumin/Globulin Ratio 0.9 (0.9-2.4) RATIO Urine Color Yellow (Yellow) Urine Clarity Sl. Cloudy (Clear) Urine pH 6.0 (5.0 - 8.0) Ur Specific [place] 1.025 (1.002-1.030) Urine Protein 30 H (Negative) mg/dl Urine Glucose (UA) Normal (Normal) mg/dl Urine Ketones 150 H (Negative) mg/dl Urine Occult Blood Negative (Negative) /ul Urine Nitrite Negative (Negative) Urine Bilirubin Negative (Negative) mg/dL Urine Urobilinogen 1 H (Normal) mg/dl Ur Leukocyte Esterase 25 H (Negative) /ul Urine RBC 0 SEEN (0-5) /hpf Urine WBC 0-5 SEEN (0-5) /hpf Ur Squamous Epith Cells 0-5 SEEN (5-10) /hpf Amorphous Sediment 1+ Urine Bacteria 1+ (None Seen) /hpf Urine Mucus 0 SEEN (<or=2+) /hpf Physical Exam Vitals: Vital Signs Temp Pulse Resp BP Pulse Ox 99.3 F H 80 18 149/68 H 100 11/07/20 19:21 11/07/20 19:21 11/07/20 18:33 11/07/20 19:21 11/07/20 19:21 Impression/Plan 25 YOF direct admitted for 23 hr obs for hyperemesis in a multigravida without metabolic disturbances. After IVF in ED was still having emesis. was brought to L&D for continued IV anitemetics and hydration. Before she was evaluated by me she left against medical advice. Return if needed.
== END 2020-11-07 22:10 | disposition home or self-care (01) ==
LOC: ED 12:48 → WP 21:45
PROVIDERS: Admitting Provider Obstetrics & Gynecology; Emergency Provider Emergency Medicine; PCP Family Medicine; Visit Provider Obstetrics & Gynecology
DX: O21.0 Mild hyperemesis gravidarum (principal); Z3A.15 15 weeks gestation of pregnancy; O99.332 Smoking (tobacco) complicating pregnancy, second trimester; F17.200 Nicotine dependence, unspecified, uncomplicated
CPT/HCPCS: 96361; 96374; 96375; 96376; 80053; 81001; 85025; 87086; 87088; 99284; J7030; A4216; J2405

== ENCOUNTER 2021-01-01 16:03 | Emergency (ER) | payer MEDICAID, SELFPAY ==
[2021-01-01 16:04] VITALS: BP 128/64; PULSE 92; RESP 15; TEMP 36; O2SAT 96
--- NOTE | 2021-01-01 16:27 | ED.VIS.GEN ---
History of Present Illness Chief Complaint: Nausea/Vomiting Informant: Patient Narrative: 25-year-old female 22 weeks (G2, P1) patient of Dr. Govea's presents with nausea and vomiting. She states that her Zofran pump does not seem to be functioning normally. She is also been taking Reglan and Phenergan. She states over the past several days her nausea vomiting seems to be worse so she was concerned about hydration status. She denies any other symptoms. Past Medical History - Allergies and Home Meds Allergies/Adverse Reactions: Allergies erythromycin ethylsuccinate [From Pediazole] Allergy (Verified 01/01/21 16:06) Hives sulfisoxazole acetyl [From Pediazole] Allergy (Verified 01/01/21 16:06) Hives as a baby venlafaxine [From Effexor] Adverse Reaction (Verified 01/01/21 16:06) NEEDS FOLLOW-UP headaches Primary Care Physician: Carin Govea MD [STAFF PHYSICIAN] - Keep Ran appointment Past Medical History: - - Hyperemesis gravidarum Surgical History: noncontributory Lives: With Family Smoking Status: Current every day smoker Drugs: None Review of Systems General: Denies: Chills, Fever, Sweats Eyes: Denies: Visual changes - bilaterally, Diplopia ENT: Denies: Rhinorrhea, Sore throat Cardiovascular: Denies: Chest pain, Palpitations Respiratory: Denies: Dyspnea, Cough, Dyspnea on exertion Gastrointestinal: Reports: Nausea, Vomiting. Denies: Abdominal pain, Diarrhea, Melena, Hematochezia Genitourinary: Denies: Dysuria, Hematuria, Frequency Musculoskeletal: Denies: Back pain, Extremity Pain Skin: Denies: Rash, Wounds Neurological: Denies: Headache, Weakness, Numbness Physical Exam Vital Signs/Narrative: Vital Signs Temp Pulse Resp BP Pulse Ox 01/01/21 16:04 96.8 F L 92 15 128/64 H 96 Inital Vital Signs reviewed: Yes General: Well nourished, Well developed, No Acute Distress Head: Normocephalic, Atraumatic Eyes: Perrl, EOMI ENT: Moist mucous membranes, No rhinorrhea Neck: Supple, Nontender Cardiovascular: Regular rate, Regular rhythm, No murmurs Respiratory: No distress, CTA bilaterally, Chest nontender Abdomen: Soft, Nontender, Nondistended, Normal bowel sounds Back: Nontender, Normal Inspection Extremities: Nontender, No edema Skin: Normal color, No rash Neurological: Alert, Oriented x3, Cranial nerves II-XII grossly intact, Normal Strength, Normal Sensation Psychological: Normal affect, Normal Mood Diagnostic/Tx/Re-eval Laboratory Last Values Urine Color Yellow (Yellow) 01/01/21 18:34 Urine Clarity Clear (Clear) 01/01/21 18:34 Urine pH 7.0 (5.0 - 8.0) 01/01/21 18:34 Ur Specific [place] 1.010 (1.002-1.030) 01/01/21 18:34 Urine Protein Negative mg/dl (Negative) 01/01/21 18:34 Urine Glucose (UA) Normal mg/dl (Normal) 01/01/21 18:34 Urine Ketones 150 mg/dl (Negative) H 01/01/21 18:34 Urine Occult Blood Negative /ul (Negative) 01/01/21 18:34 Urine Nitrite Negative (Negative) 01/01/21 18:34 Urine Bilirubin Negative mg/dL (Negative) 01/01/21 18:34 Urine Urobilinogen Normal mg/dl (Normal) 01/01/21 18:34 Ur Leukocyte Esterase 25 /ul (Negative) H 01/01/21 18:34 Urine RBC 0 SEEN /hpf (0-5) 01/01/21 18:34 Urine WBC 0 SEEN /hpf (0-5) 18 18:34 Ur Squamous Epith Cells 0-5 SEEN /hpf (5-10) 01/01/21 18:34 Urine Bacteria 0 SEEN /hpf (None Seen) 01/01/21 18:34 Urine Mucus 0 SEEN /hpf (<or=2+) 01/01/21 18:34 - Medical Decision Making Received IV fluids and Zofran. Urinalysis was obtained. Should not required redosing with Phenergan. She is feeling better. heart tones show heart rate 154. Patient to be discharged home following up with her doctors. ED Disposition - Plan for ED Patient: Disposition: Home or Assisted Living Diagnosis: Hyperemesis gravidarum Instructions: ED Hyperemesis Gravidarum Referrals: Carin Govea MD [STAFF PHYSICIAN] - Keep Ran appointment
[2021-01-01] MEDS: Ondansetron 4 MG/2 ML Vial IV (17:25)
[2021-01-01 18:38] LABS: Bacteria 0 SEEN /hpf (None Seen); Mucous, Urine 0 SEEN /hpf (<or=2+); Red Blood Cells-Urine 0 SEEN /hpf (0-5); White Blood Cells 0 SEEN /hpf (0-5)
[2021-01-01 18:41] LABS: Color, Urine Yellow (Yellow); Glucose, Dipstick Normal (Normal); Leukocyte Esterase-Dipstick 25 /ul (Negative); Nitrite-Dipstick Negative (Negative); Occult Blood-Urine Negative /ul (Negative); Protein-Dipstick Negative (Negative); Urine Bilirubin Dipstick Negative (Negative); Urine Clarity Clear (Clear); Urine Urobilinogen Normal (Normal)
[2021-01-01 18:42] LABS: Ketone-Dipstick 150 mg/dl (Negative)
[2021-01-01 18:46] LABS: Squamous Epithelial Cells - UA 0-5 SEEN /hpf (5-10)
[2021-01-01 19:10] VITALS: BP 135/81; PULSE 89; RESP 18; O2SAT 98
[2021-01-01] MEDS: proMETHazine 25 MG/ML Syringe 12.5 MG IV (19:18)
== END 2021-01-01 20:20 | disposition home or self-care (01) ==
PROVIDERS: Emergency Provider Emergency Medicine; PCP Family Medicine
DX: O21.0 Mild hyperemesis gravidarum (principal); O99.332 Smoking (tobacco) complicating pregnancy, second trimester; F17.200 Nicotine dependence, unspecified, uncomplicated; Z3A.22 22 weeks gestation of pregnancy; Z79.899 Other long term (current) drug therapy
CPT/HCPCS: 81001; 96361; 96374; 96375; 99284; J7030; A4216; J2405

== ENCOUNTER 2021-04-28 16:32 | Emergency (ER) | payer MEDICAID, SELFPAY ==
[2021-04-28 16:32] VITALS: PULSE 103; RESP 17; TEMP 36.5; O2SAT 100; BMI 26.5
--- NOTE | 2021-04-28 16:52 | EKG12_ITS ---
Test Reason : Blood Pressure : / mmHG Vent. Rate : 073 BPM Atrial Rate : 073 BPM P-R Int : 188 ms QRS Dur : 086 ms QT Int : 398 ms P-R-T Axes : 038 041 042 degrees QTc Int : 438 ms Normal sinus rhythm Normal ECG Confirmed by KENDRICK ALVAREZ, MAEGAN ([id number]), video editor DORITA SIMPSON ([id number]) on 04/30/2021 10:07:13 AM Referred By: NICOLASA Confirmed By:MAEGAN MARKS MD
--- NOTE | 2021-04-28 17:01 | EDS_ITS ---
HPI History of Present Illness Chief Complaint: Overdose Narrative Narrative: 25-year-old female suffering from depression after giving 2 weeks ago. She states that she took 19 Lyrica over the last 24 hours but states she was just trying to treat her depression and she has denying that she is suicidal or homicidal. Apparently while she was sleeping the father of her children came home and saw that she had taken too many of her Lyrica and flushed the rest down the toilet. He is not currently present. She states that she has not any of her other medications more than she is supposed to. She is on baclofen, buspirone, lithium, sertraline, Lyrica, trazodone, oxychlorosene. Patient complains of feeling jittery and depressed. She does state that the father has the children. [facility] Medical History Post depression Home Medications ondansetron 4 mg PO Q8H PRN PRN #10 tab 05/26/20 [Rx Last Taken Unknown] vit 25-peff-nusiv-dha 1 tab PO DAILY 09/26/20 [History Last Taken Unknown] famotidine 20 mg PO TID 11/07/20 [History Last Taken Unknown] baclofen 10 mg PO BID 04/28/21 [History Last Taken Unknown] buspirone 10 mg PO TID 04/28/21 [History Last Taken Unknown] doxepin 25 - 50 mg PO QHS PRN PRN 04/28/21 [History Last Taken Unknown] lithium carbonate 300 mg PO DAILY 04/28/21 [History Last Taken Unknown] lithium carbonate 600 mg PO QHS 04/28/21 [History Last Taken Unknown] oxcarbazepine 600 mg PO BID 04/28/21 [History Last Taken Unknown] pregabalin 150 mg PO BID 04/28/21 [History Last Taken Unknown] sertraline 50 mg PO DAILY 04/28/21 [History Last Taken Unknown] trazodone 50 - 100 mg PO QHS PRN PRN 04/28/21 [History Last Taken Unknown] Allergy/AdvReac Type Severity Reaction Status Date / Time erythromycin ethylsuccinate Allergy Hives Verified 04/28/21 16:40 [From Pediazole] sulfisoxazole acetyl Allergy Hives Verified 04/28/21 16:40 [From Pediazole] venlafaxine [From Effexor] AdvReac NEEDS Verified 04/28/21 16:40 FOLLOW-UP Social History Smoking Status: Current every day smoker tobacco type: cigarettes ROS ROS ED Constitutional Constitutional ED: Reports other Details: Feeling jittery ; Denies chills, fever(s) or sweats Eyes Eyes: Denies blurry vision or change in vision ENT ENT ED: Denies ear pain, rhinorrhea or sore throat Cardiovascular Cardiovascular: Reports racing heartbeat; Denies chest pain or palpitations Respiratory/Chest Respiratory/Chest: Denies cough, dyspnea or sputum Gastrointestinal Gastrointestinal: Denies abdominal pain, constipation, diarrhea or vomiting Genitourinary Genitourinary ED: Denies dysuria, hematuria or urinary frequency Musculoskeletal Musculoskeletal: Denies arthralgias, myalgias or neck pain Integumentary Denies abscess, Abrasions or rash Neurologic Neurologic: Denies headache(s), paresthesias or weakness Psychiatric Psychiatric: Reports depression; Denies anxiety, suicidal ideation or suicidal thoughts Endocrine Endocrinology: Denies polydipsia or polyuria EXAM Physical Exam Const Vital Signs: 04/28/21 16:32 04/28/21 19:20 04/28/21 20:02 Temperature 97.7 F L Temperature Source Temporal Pulse Rate 103 H 68 67 Respiratory Rate 17 19 H 20 H Blood Pressure 128/82 H Blood Pressure Mean 97 Pulse Ox 100 97 99 Oxygen Delivery Method Room Air Room Air Room Air 04/28/21 22:24 04/28/21 23:07 Temperature 97.8 F Temperature Source Temporal Pulse Rate 72 76 Respiratory Rate 16 19 H Blood Pressure 130/85 H 120/73 Blood Pressure Mean 100 88 Pulse Ox 97 99 Oxygen Delivery Method Room Air Room Air Positive well nourished General Appearance ED: NAD; Negative for pallor HEENT Reports moist mucous membranes atraumatic Eyes PERRL and EOMs intact bilaterally General Eye ED: Negative for pale conjunctiva or scleral icterus Lymph Lymphatic: no lymphadenopathy noted and lymphadenopathy Resp normal respiratory effort and clear to auscultation bilaterally Cardio regular rhythm Rate: tachycardic GI soft to palpation, non-tender and non-distended Neuro oriented x3 Sensorium / Orientation: alert Psych mental status grossly normal Mood & Affect: depressed and tearful Skin General Skin Exam: Negative for jaundice or pallor Lesions: no lesions Rashes: no rashes MDM MDM MDM Narrative Medical decision making narrative: Patient presents after taking 19 Lyrica 150 mg over the last 24 hours in order to treat her severe depression. She states that she is not suicidal and does not want to hurt herself or anyone else. Other than feeling depressed and a little jittery she states she otherwise feels fine. Patient was discussed with poison control who recommended watching her for at least 4 hours. They did not recommend giving her any charcoal. Patient has a slight leukocytosis at 13.2 but otherwise her lab work is unremarkable. Salicylates and acetaminophen levels are low. EtOH is 4.0. Urine drug screen is positive for cannabinoids. [place] level is normal. EKG as interpreted by myself is sinus rhythm at 73 bpm without signs of ischemic change. Rapid Covid is negative. Patient's test is positive however she just gave 2 weeks ago and this is positive. patient was seen by social work therapist who was in agreement with me that the patient needs to be pink slipped due to her severe depression and overdose even though she is denying suicidal ideation she has at risk. Her children are safe with their father. Patient is medically cleared at this time. Patient will be admitted to [facility]. Impression: 1. Lyrica overdose 2. depression Lab Data Labs: Laboratory Results - last 24 hr 04/28/21 04/28/21 04/28/21 17:54 17:54 17:54 WBC 13.2 H RBC 4.09 L Hgb 12.1 Hct 37.5 MCV 91.7 MCH 29.6 MCHC 32.3 RDW Std Deviation 46.3 H RDW Coeff of Georges 13.7 Plt Count 458 H MPV 8.5 Immature Gran % (Auto) 0.500 Neut % (Auto) 80.2 H Lymph % (Auto) 15.3 L [place] % (Auto) 3.0 Eos % (Auto) 0.5 Baso % (Auto) 0.5 Absolute Neuts (auto) 10.6 H Absolute Lymphs (auto) 2.02 Nucleated RBC % 0 Sodium 141 Potassium 3.7 Chloride 109 H Carbon Dioxide 25.0 Anion Gap 7 BUN 15 Creatinine 0.67 Estim Creat Clear Calc 128.36 Est GFR (MDRD) Af Amer 136 Est GFR (MDRD) Non-Af 112 BUN/Creatinine Ratio 22.3 H Glucose 89 Calcium 8.8 Serum , Qual Urine Color Urine Clarity Urine pH Ur Specific Anna Urine Protein Urine Glucose (UA) Urine Ketones Urine Occult Blood Urine Nitrite Urine Bilirubin Urine Urobilinogen Ur Leukocyte Esterase Urine RBC Urine WBC Ur Squamous Epith Cells Urine Bacteria Urine Mucus Salicylates 3.8 Urine Opiates Screen Urine Methadone Screen Acetaminophen < 2.0 L Ur Barbiturates Screen Ur Phencyclidine Scrn Ur Amphetamines Screen U Methamphetamin-MDMA U Benzodiazepines Scrn [place] Urine Cocaine Screen U Cannabinoids Screen Ur Drug Screen Comment Ethyl Alcohol 4.0 04/28/21 04/28/21 04/28/21 17:54 17:54 18:05 WBC RBC Hgb Hct MCV MCH MCHC RDW Std Deviation RDW Coeff of Georges Plt Count MPV Immature Gran % (Auto) Neut % (Auto) Lymph % (Auto) [place] % (Auto) Eos % (Auto) Baso % (Auto) Absolute Neuts (auto) Absolute Lymphs (auto) Nucleated RBC % Sodium Potassium Chloride Carbon Dioxide Anion Gap BUN Creatinine Estim Creat Clear Calc Est GFR (MDRD) Af Amer Est GFR (MDRD) Non-Af BUN/Creatinine Ratio Glucose Calcium Serum , Qual POSITIVE H Urine Color Urine Clarity Urine pH Ur Specific Anna Urine Protein Urine Glucose (UA) Urine Ketones Urine Occult Blood Urine Nitrite Urine Bilirubin Urine Urobilinogen Ur Leukocyte Esterase Urine RBC Urine WBC Ur Squamous Epith Cells Urine Bacteria Urine Mucus Salicylates Urine Opiates Screen NEGATIVE Urine Methadone Screen NEGATIVE Acetaminophen Ur Barbiturates Screen NEGATIVE Ur Phencyclidine Scrn NEGATIVE Ur Amphetamines Screen NEGATIVE U Methamphetamin-MDMA NEGATIVE U Benzodiazepines Scrn NEGATIVE [place] 0.60 Urine Cocaine Screen NEGATIVE U Cannabinoids Screen POSITIVE H Ur Drug Screen Comment Ethyl Alcohol 04/28/21 23:20 WBC RBC Hgb Hct MCV MCH MCHC RDW Std Deviation RDW Coeff of Georges Plt Count MPV Immature Gran % (Auto) Neut % (Auto) Lymph % (Auto) [place] % (Auto) Eos % (Auto) Baso % (Auto) Absolute Neuts (auto) Absolute Lymphs (auto) Nucleated RBC % Sodium Potassium Chloride Carbon Dioxide Anion Gap BUN Creatinine Estim Creat Clear Calc Est GFR (MDRD) Af Amer Est GFR (MDRD) Non-Af BUN/Creatinine Ratio Glucose Calcium Serum , Qual Urine Color Yellow Urine Clarity Clear Urine pH 6.5 Ur Specific Anna 1.020 Urine Protein 15 H Urine Glucose (UA) Normal Urine Ketones Negative Urine Occult Blood 150 H Urine Nitrite Negative Urine Bilirubin Negative Urine Urobilinogen Normal Ur Leukocyte Esterase 100 H Urine RBC 5-10 SEEN Urine WBC 5-10 SEEN Ur Squamous Epith Cells 5-10 SEEN Urine Bacteria 0 SEEN Urine Mucus 0 SEEN Salicylates Urine Opiates Screen Urine Methadone Screen Acetaminophen Ur Barbiturates Screen Ur Phencyclidine Scrn Ur Amphetamines Screen U Methamphetamin-MDMA U Benzodiazepines Scrn [place] Urine Cocaine Screen U Cannabinoids Screen Ur Drug Screen Comment Ethyl Alcohol Discharge Plan Triage Chief Complaint: Overdose ED Provider: Martin Telles Dx/Rx/DC Orders Prescriptions: No Action ondansetron 4 MG tablet 4 mg PO Q8H PRN PRN (Reason: Nausea) Qty: 10 RF: 0 vit [id number]-byjgj-dha 1 EACH capsule 1 tab PO DAILY RF: 0 famotidine 20 MG tablet 20 mg PO TID RF: 0 trazodone 50 mg Tablet 50 - 100 mg PO QHS PRN PRN (Reason: Insomnia) RF: 0 doxepin 25 mg Capsule 25 - 50 mg PO QHS PRN PRN (Reason: Insomnia) RF: 0 baclofen 20 mg Tablet 10 mg PO BID RF: 0 lithium carbonate 300 mg Capsule 300 mg PO DAILY RF: 0 buspirone 10 mg Tablet 10 mg PO TID RF: 0 oxcarbazepine 600 mg Tablet 600 mg PO BID RF: 0 lithium carbonate 300 mg Tablet 600 mg PO QHS RF: 0 sertraline 50 mg Tablet 50 mg PO DAILY RF: 0 pregabalin 150 mg Capsule 150 mg PO BID RF: 0 Primary Care Provider: Skyler Patino
--- NOTE | 2021-04-28 17:15 | CM.ED ---
SOCIAL WORK ASSESSMENT Referral Source: Dr. Telles Reason for Consult: Overdose, depression Chief Compliant: Patient presents by squad. Reported patient with overdose on Lyrica. Patient reports had taken 19-20 Lyrica over 24 hours to stop my depression. Patient 2 weeks . Patient with history of depression and per mother who is present in room, patient with history of suicide attempts in the past. Marital/Social History: Single Living Situation: Home with 2 children, Nicola 2 years old and Larry 2 weeks old. Father of children and his mother are home with children. Support/Resources: [facility], [facility] History: None Employment History: unemployed Mental Health Treatment/History: Depression, Anxiety. Patient is treated with medication. Triggers/Stressors: Per significant other/Father of children, he and patient have been in argument due to patient's substance use. Substance Abuse History: Patient with history of substance abuse. Mother reports patient has been abusing Kratom. Risk to Self/Others: Suicidal- Patient denies any suicidal ideation and was not trying to harm self, I just wanted my depression to go away. Homicidal- Patient denies any homicidal ideation. Mental Status Exam: Orientation- A&Ox3 Memory: fair Appearance/General Behavior: disheveled Mood/Affect: depressed, outbursts of crying, anxious Communication Pattern: responds to questions Thought Process: preoccupied- patient crying out for her children and wanting to speak with significant otherSohan General Intellectual Functioning: Average Judgement: poor Insight: lacks insight Assessment: Met with patient and patient's mother in room. Introduced role and reason for referral. Patient crying throughout assessment. Patient reports took 19-20 Lyrica over the last 24 hours to stop my depression. Patient denies suicidal ideation. Patient reports history of depression with first child. Patient reports history of substance abuse and reports use of Kratom while . Collateral information from patient's mother and significant other, Sohan. Per patient's mother, patient with history of suicide attempt in the past. Patient with history of substance abuse and has been to rehab in the past. Mother reports patient was using Kratom while and believes patient has been actively using again. Mother believes patient would benefit from inpatient psych hospitalization. Spoke with patient's significant other, Sohan via phone call. Per Sohan, patient has been sleeping last 2 days and not assisting with children. Sohan reports patient with history of mental health and substance abuse. Sohan reports Children Services involvement and spoke with [facility] worker. Sohan reports patient has been dealing with depression. Sohan states patient's substance abuse has been an issue in their relationship and spoke with patient about this last evening. Plan: Referral to inpatient psych D. Estuardo, KARAN, CORPORATE ETHICS OFFICER
[2021-04-28 18:05] LABS: Absolute Lymphocyte Count 2.02 X10^3/uL (0.83-4.51); Absolute Neutrophil Count 10.6 X10^3/uL (2.0-7.7); Basophil# 0.07 X10^3/uL; Basophil% 0.5 % (0-1); Eosinophil# 0.06 X10^3/uL; Eosinophils% 0.5 % (0-5); Hematocrit 37.5 % (37-47); Hemoglobin 12.1 g/dL (12.0-15.0); Lymphocyte # 2.02 X10^3/ul (0.83-4.51); Lymphocyte % 15.3 % (19-41); Mean Corp Hgb Conc 32.3 g/dL (32-36); Mean Corpuscular Hgb 29.6 pg (27.0-32.0); Mean Corpuscular Volume 91.7 fL (81-99); Mean Platelet Vol. 8.5 fl (6.2-12.0); Monocyte# 0.39 X10^3/uL; NRBC Flagged by Analyzer 0 % (0-5); Neutrophil % 80.2 % (47-70); Platelet Count 458 K/mm3 (150-450); RBC Distribution Width CV 13.7 % (11.6-14.6); RBC Distribution Width SD 46.3 fl (35.1-43.9); Red Blood Count 4.09 M/mm3 (4.2-5.4); White Blood Count 13.2 K/mm3 (4.4-11.0)
[2021-04-28 18:18] LABS: Anion Gap 7 (5-15); BUN 15 mg/dL (7-18); BUN/Creat Ratio 22.3 RATIO (10-20); Calcium,Total 8.8 mg/dL (8.5-10.1); Chloride 109 mmol/L (98-107); Creatinine, Serum 0.67 mg/dL (0.55-1.02); EST Glomerular Filtration Rate 112 mL/min (>60); Est Glom Filt Rate - Afr Amer 136 mL/min (>60); Estimated Creatinine Clearance 128.36 ml/min; Glucose 89 mg/dL (74-106); Potassium 3.7 mmol/L (3.5-5.1); Sodium Level 141 mmol/L (136-145)
[2021-04-28 18:25] LABS: Internal QC Validated? YES +Cl - CLEAR BKGD
[2021-04-28 18:26] LABS: Pregnancy, Serum, hCG Quali. POSITIVE Negative
[2021-04-28 18:27] LABS: Amphetamine Urine VISTA NEGATIVE (<1000 ng/mL); Barbiturate Urine VISTA NEGATIVE (< 200 ng/mL); Benzodiazepine Urine VISTA NEGATIVE (< 200 ng/mL); Cocaine Urine VISTA NEGATIVE (< 300 ng/mL); Ecstacy Urine VISTA NEGATIVE (< 500 ng/mL); Methadone Urine VISTA NEGATIVE (< 300 ng/mL); PCP Urine VISTA NEGATIVE (< 25 ng/mL); THC Urine VISTA POSITIVE (< 50 ng/mL); Vista UDS pH Range 6
--- NOTE | 2021-04-28 18:30 | CM.ED ---
SOCIAL WORK Per Dr. Telles, spoke with Poison Control. Patient to be observed for 4-6 hours. Robby Marte, EXPLORATION ENGINEER, BAND SAW RUNNER
--- NOTE | 2021-04-28 19:18 | CM.ED ---
SOCIAL WORK Spoke with [facility] worker, Yeison Aceves. Updated on patient's status and plan for inpatient psych hospitalization. Yeison reports will follow up tomorrow. Children are safe and cared for by their father-Attila Ly and his mother. Robby Marte, INDEPENDENT LIVING ADVISOR, AREA CLEANER
[2021-04-28 19:20] VITALS: PULSE 68; RESP 19; O2SAT 97
[2021-04-28 19:32] LABS: Acetaminophen (Tylenol) Level < 2.0 ug/mL (10.0-30.0); Salicylate 3.8 mg/dL (2.8-20.0)
[2021-04-28 20:02] VITALS: BP 128/82; PULSE 67; RESP 20; O2SAT 99
--- NOTE | 2021-04-28 20:57 | CM.ED ---
SOCIAL WORK Call to [facility] [place], no beds available. Call to [facility], no beds available. Call to [facility], no beds available. Call to [facility], informed do have beds available, will review referral. Referral faxed at this time. Robby Marte, CLOUD AUTOMATION TESTER, SALES TRAINER
[2021-04-28 22:24] VITALS: BP 130/85; PULSE 72; RESP 16; O2SAT 97
[2021-04-28 23:07] VITALS: BP 120/73; PULSE 76; RESP 19; TEMP 36.6; O2SAT 99
[2021-04-28 23:26] LABS: Bacteria 0 SEEN /hpf (None Seen); Color, Urine Yellow (Yellow); Glucose, Dipstick Normal (Normal); Ketone-Dipstick Negative (Negative); Leukocyte Esterase-Dipstick 100 /ul (Negative); Mucous, Urine 0 SEEN /hpf (<or=2+); Nitrite-Dipstick Negative (Negative); Occult Blood-Urine 150 /ul (Negative); Protein-Dipstick 15 mg/dl (Negative); Urine Bilirubin Dipstick Negative (Negative); Urine Clarity Clear (Clear); Urine Urobilinogen Normal (Normal); Urine pH 6.5 (5.0 - 8.0)
--- NOTE | 2021-04-28 23:36 | CM.ED ---
SOCIAL WORK Patient accepted to [facility] by Dr. Moody to [address] [place] [address]. Nurse to call report to [phone]. License Inspector to set up transport. Robby Marte, INTERNATIONAL MARKETING EXECUTIVE, BUILD TECHNICIAN
[2021-04-28 23:38] LABS: Red Blood Cells-Urine 5-10 SEEN /hpf (0-5); Squamous Epithelial Cells - UA 5-10 SEEN /hpf (5-10); White Blood Cells 5-10 SEEN /hpf (0-5)
--- NOTE | 2021-04-28 23:39 | CM.ED ---
SOCIAL WORK Received permission from patient to update motherSheron on transfer to [facility].
[2021-04-29 00:01] VITALS: BP 117/63; PULSE 82; RESP 16; O2SAT 98
--- NOTE | 2021-04-29 00:02 | ED.RN ---
I have called [phone] 4 times and they are having phone issues and cannot take report. The dental secretary tried to pass along my number for a nurse to call me back but no one called back so I called again and they said they will have another floor call me and take report for this patient
[2021-04-29 01:39] VITALS: RESP 17
[2021-04-29 02:39] VITALS: RESP 15
== END 2021-04-29 03:49 ==
PROVIDERS: Emergency Provider Student in an Organized Health Care Education/Training Program; PCP Family Medicine
DX: O9A.23 Injury, poisoning and certain other consequences of external causes complicating the puerperium (principal); T42.6X2A Poisoning by other antiepileptic and sedative-hypnotic drugs, intentional self-harm, initial encounter; F53.0 Postpartum depression; F17.210 Nicotine dependence, cigarettes, uncomplicated; Z79.899 Other long term (current) drug therapy
CPT/HCPCS: 80048; 80178; 80307; 80329; 81001; 82077; 84703; 85025; 87426; 93005; 96360; 99285; J7030; A4216; G0480

== ENCOUNTER 2021-07-20 10:28 | Emergency (ER) | payer MEDICAID, SELFPAY ==
[2021-07-20 10:29] VITALS: BP 114/66; PULSE 93; RESP 18; TEMP 37.1; O2SAT 95; BMI 30.3
--- NOTE | 2021-07-20 10:45 | EDS_ITS ---
HPI History of Present Illness Chief Complaint: Lower Extremity Injury Informant: patient Narrative Narrative: 25-year-old female states that she fell asleep on the couch last night. At 6 AM she got up to go to sleep in the bed and when she took her first step she felt several cracks and pain in the lateral right ankle. She states that when she got up around 8 she had a lot of swelling laterally. She notes painful plantar flexion and dorsiflexion cleared [facility] Medical History Post depression Home Medications ondansetron 4 mg PO Q8H PRN PRN #10 tab 05/26/20 [Rx Last Taken Unknown] vit 11-icbo-[id number]-dha 1 tab PO DAILY 09/26/20 [History Last Taken Unkno wn] famotidine 20 mg PO TID 11/07/20 [History Last Taken Unknown] baclofen 10 mg PO BID 04/28/21 [History Last Taken Unknown] buspirone 10 mg PO TID 04/28/21 [History Last Taken Unknown] doxepin 25 - 50 mg PO QHS PRN PRN 04/28/21 [History Last Taken Unknown] lithium carbonate 300 mg PO DAILY 04/28/21 [History Last Taken Unknown] lithium carbonate 600 mg PO QHS 04/28/21 [History Last Taken Unknown] oxcarbazepine 600 mg PO BID 04/28/21 [History Last Taken Unknown] pregabalin 150 mg PO BID 04/28/21 [History Last Taken Unknown] sertraline 50 mg PO DAILY 04/28/21 [History Last Taken Unknown] trazodone 50 - 100 mg PO QHS PRN PRN 04/28/21 [History Last Taken Unknown] Allergy/AdvReac Type Severity Reaction Status Date / Time erythromycin ethylsuccinate Allergy Hives Verified 07/20/21 10:33 [From Pediazole] sulfisoxazole acetyl Allergy Hives Verified 07/20/21 10:33 [From Pediazole] venlafaxine [From Effexor] AdvReac NEEDS Verified 07/20/21 10:33 FOLLOW-UP Social History (Updated 07/20/21 @ 10:[address] Gary Arnold DO) Smoking Status: Current every day smoker tobacco type: cigarettes substance use type: does not use ROS ROS ED Constitutional Constitutional ED: Denies chills or weight loss Eyes Eyes: Denies change in vision or diplopia ENT ENT ED: Denies ear pain, rhinorrhea or sore throat Cardiovascular Cardiovascular: Denies chest pain, orthopnea, palpitations or racing heartbeat Respiratory/Chest Respiratory/Chest: Denies cough, dyspnea or orthopnea Gastrointestinal Gastrointestinal: Denies abdominal pain, diarrhea, nausea or vomiting Genitourinary Genitourinary ED: Denies dysuria, hematuria or urinary frequency Musculoskeletal Musculoskeletal: Reports other Details: Right ankle pain ; Denies arthralgias or myalgias Integumentary Denies abscess or rash Neurologic Neurologic: Denies headache(s) or weakness Psychiatric Psychiatric: Denies anxiety, depression, suicidal ideation or suicidal thoughts Endocrine Endocrinology: Denies polydipsia, polyphagia or polyuria Allergic/Immunologic Allergic/Immunologic ED: Denies mouth swelling, tongue swelling or urticaria EXAM Physical Exam Const Vital Signs: 07/20/21 10:29 Temperature 98.7 F Temperature Source Temporal Pulse Rate 93 Respiratory Rate 18 Blood Pressure 114/66 Blood Pressure Mean 82 Pulse Ox 95 Oxygen Delivery Method Room Air Positive well nourished and well developed General Appearance ED: well developed HEENT Reports normocephalic, head/scalp atraumatic and moist mucous membranes Eyes PERRL and EOMs intact bilaterally Neck no lymphadenopathy, supple and no JVD Resp normal respiratory effort and clear to auscultation bilaterally Cardio regular rate, regular rhythm and no murmurs GI normal to inspection, nondistended, normoactive bowel sounds and non-tender Palpation: soft Back/Spine no CVA tenderness and normal ROM Extremity full ROM Extremity Narrative: Patient has swelling over the lateral malleolus. There is associated tenderness. No fibular head tenderness. No fifth metatarsal pain. No medial or posterior malleoli or pain. Painful dorsi and plantar flexion against resistance. General Extremety ED: Negative for edema General Extremity: Negative for edema Neuro oriented x3 and CN's II-XII intact bilaterally Sensorium / Orientation: alert Motor Exam: strength 5/5 throughout Psych mental status grossly normal Mood & Affect: Negative for depressed or tearful Skin no rashes or lesions noted and no wounds MDM MDM MDM Narrative Medical decision making narrative: My interpretation of plain films of the right ankle is no acute fracture. Soft tissue swelling noted. Patient will be treated with an Aircast ice and ibuprofen. Follow-up 10 to 14 days if not improved return if worsening or concerns Discharge Plan Triage Chief Complaint: Lower Extremity Injury ED Provider: Gary Arnold Dx/Rx/DC Orders Clinical Impression: Right ankle sprain Instructions: ED Ankle Sprain (Adult) Prescriptions: No Action ondansetron 4 MG tablet 4 mg PO Q8H PRN PRN (Reason: Nausea) Qty: 10 RF: 0 vit 17-ynvc-kjryj-dha 1 EACH capsule 1 tab PO DAILY RF: 0 famotidine 20 MG tablet 20 mg PO TID RF: 0 trazodone 50 mg Tablet 50 - 100 mg PO QHS PRN PRN (Reason: Insomnia) RF: 0 doxepin 25 mg Capsule 25 - 50 mg PO QHS PRN PRN (Reason: Insomnia) RF: 0 baclofen 20 mg Tablet 10 mg PO BID RF: 0 lithium carbonate 300 mg Capsule 300 mg PO DAILY RF: 0 buspirone 10 mg Tablet 10 mg PO TID RF: 0 oxcarbazepine 600 mg Tablet 600 mg PO BID RF: 0 lithium carbonate 300 mg Tablet 600 mg PO QHS RF: 0 sertraline 50 mg Tablet 50 mg PO DAILY RF: 0 pregabalin 150 mg Capsule 150 mg PO BID RF: 0 Primary Care Provider: Skyler Patino Referrals: Skyler Patino MD [Primary Care Provider] - 10-14 Days if not better Disposition Disposition: Home, Self Care
--- NOTE | 2021-07-20 10:45 | RAD_ITS ---
EXAM: XR RIGHT ANKLE COMPLETE, 3 OR MORE VIEWS : 1995 CLINICAL INDICATION: injury TECHNIQUE: Frontal, lateral and oblique views of the right ankle. This report was created using bookjam report generation technology. COMPARISON: None. FINDINGS: BONES/JOINTS: Unremarkable. No acute fracture. No subluxation. Normal alignment. Preservation of the joint space. No sclerotic or destructive changes observed. SOFT TISSUES: There is soft tissue swelling over the lateral malleolus. No radiopaque foreign body. RAD/Ankle min 3 Views IMPRESSION: Soft tissue swelling with no osseous abnormalities. at 1121 Reported and signed by: Sanford Cedeno MD Electronically Signed: Sanford Cedeno MD at 11:20 EDT Tel , Service support ,
== END 2021-07-20 11:42 | disposition home or self-care (01) ==
LOC: ED 11:16
PROVIDERS: Emergency Provider Emergency Medicine; PCP Family Medicine
DX: S93.401A Sprain of unspecified ligament of right ankle, initial encounter (principal); F17.210 Nicotine dependence, cigarettes, uncomplicated; X58.XXXA Exposure to other specified factors, initial encounter; Y93.84 Activity, sleeping; Y92.008 Other place in unspecified non-institutional (private) residence as the place of occurrence of the external cause; Y99.8 Other external cause status
CPT/HCPCS: 73610; 99282

== ENCOUNTER 2021-12-09 03:23 | Emergency (ER) | payer MEDICAID, SELFPAY ==
[2021-12-09 03:24] VITALS: BP 140/91; PULSE 67; RESP 18; TEMP 36.6; O2SAT 100; BMI 30.2
[2021-12-09] MEDS: Ondansetron 4 MG/2 ML Vial IV ×2 (03:54→05:01)
[2021-12-09] MEDS: 0.9% Normal Saline 1,000 ML 999 ML IV ×2 (03:54→05:01)
[2021-12-09 03:58] LABS: Absolute Lymphocyte Count 1.58 X10^3/uL (0.83-4.51); Basophil# 0.05 X10^3/uL; Basophil% 0.3 % (0-1); Eosinophil# 0.04 X10^3/uL; Eosinophils% 0.3 % (0-5); Hematocrit 43.8 % (37-47); Hemoglobin 14.3 g/dL (12.0-15.0); Lymphocyte # 1.58 X10^3/ul (0.83-4.51); Mean Corp Hgb Conc 32.6 g/dL (32-36); Mean Corpuscular Hgb 28.9 pg (27.0-32.0); Mean Corpuscular Volume 88.5 fL (81-99); Mean Platelet Vol. 9.2 fl (6.2-12.0); Monocyte# 0.65 X10^3/uL; Monocyte% 4.5 % (0-10); NRBC Flagged by Analyzer 0 % (0-5); Neutrophil # 12.03 X10^3/uL (2.7-7.7); Neutrophil % 83.5 % (47-70); Platelet Count 351 K/mm3 (150-450); RBC Distribution Width CV 14.4 % (11.6-14.6); RBC Distribution Width SD 46.1 fl (35.1-43.9); Red Blood Count 4.95 M/mm3 (4.2-5.4); White Blood Count 14.4 K/mm3 (4.4-11.0)
[2021-12-09 04:15] LABS: Internal QC Validated? YES +Cl - CLEAR BKGD; Pregnancy, Serum, hCG Quali. NEGATIVE Negative
--- NOTE | 2021-12-09 04:21 | EDS_ITS ---
HPI History of Present Illness Chief Complaint: Nausea/Vomiting/Diarrhea Narrative Narrative: Patient is a 26-year-old female who states she has had approximately 5 days of nausea vomiting and loose stool. She states her 2 children were sick with similar symptoms prior to her symptoms beginning. She states that her children were tested for Covid as well as RSV and influenza and were negative. She reports her children are now better but she has continued to have symptoms. She states that she has a sensitive stomach and had to have a Zofran pump with . She states she took a home test which was negative but has continued to have bouts of vomiting and secondary to this presents to the hospital for evaluation [facility] Medical History Addiction to drug Alcohol addiction Degenerative disc disease Post depression Sinus tachycardia Home Medications ondansetron 4 mg PO Q8H PRN PRN #10 tab 05/26/20 [Rx Last Taken Unknown] vit 84-ayky-pzvdy-dha 1 tab PO DAILY 09/26/20 [History Last Taken Unknown] famotidine 20 mg PO TID 11/07/20 [History Last Taken Unknown] baclofen 10 mg PO BID 04/28/21 [History Last Taken Unknown] buspirone 10 mg PO TID 04/28/21 [History Last Taken Unknown] doxepin 25 - 50 mg PO QHS PRN PRN 04/28/21 [History Last Taken Unknown] lithium carbonate 300 mg PO DAILY 04/28/21 [History Last Taken Unknown] lithium carbonate 600 mg PO QHS 04/28/21 [History Last Taken Unknown] oxcarbazepine 600 mg PO BID 04/28/21 [History Last Taken Unknown] pregabalin 150 mg PO BID 04/28/21 [History Last Taken Unknown] sertraline 50 mg PO DAILY 04/28/21 [History Last Taken Unknown] trazodone 50 - 100 mg PO QHS PRN PRN 04/28/21 [History Last Taken Unknown] promethazine 25 mg PO TID PRN 7 Days #21 tab 12/09/21 [Rx Last Taken Unknown] Allergy/AdvReac Type Severity Reaction Status Date / Time erythromycin ethylsuccinate Allergy Hives Verified 12/09/21 03:26 [From Pediazole] sulfisoxazole acetyl Allergy Hives Verified 12/09/21 03:26 [From Pediazole] venlafaxine [From Effexor] AdvReac NEEDS Verified 12/09/21 03:26 FOLLOW-UP Social History (Updated 07/20/21 @ 10:[address] Gary Arnold, DO) Smoking Status: Current every day smoker tobacco type: cigarettes and e- cigarettes substance use type: does not use ROS ROS ED Constitutional Constitutional ED: Denies chills or fever(s) ENT ENT ED: Reports sore throat Cardiovascular Cardiovascular: Denies chest pain Respiratory/Chest Respiratory/Chest: Denies cough or dyspnea Gastrointestinal Gastrointestinal: Reports abdominal pain, diarrhea, nausea and vomiting Genitourinary Genitourinary ED: Denies dysuria Musculoskeletal Musculoskeletal: Reports myalgias Integumentary Denies rash Neurologic Neurologic: Denies headache(s) Hematologic/Lymphatic Hematologic/Lymphatic: Denies easy bleeding or easy bruising EXAM Physical Exam Const Vital Signs: 12/09/21 03:24 Temperature 98 F Temperature Source Oral Pulse Rate 67 Respiratory Rate 18 Blood Pressure 140/91 H Blood Pressure Mean 107 Pulse Ox 100 Oxygen Delivery Method Room Air Positive well nourished and well developed General Appearance ED: well developed HEENT Reports dry mucous membranes Mouth ED: Yes dry mucous membranes Mouth: dry mucous membranes Eyes PERRL and EOMs intact bilaterally Neck supple Resp normal respiratory effort and clear to auscultation bilaterally Cardio regular rate and regular rhythm Rate: other Other Details: Radial pulses are +2-4 bilaterally are equal and symmetric GI non-distended GI Narrative: Abdomen is soft and nondistended with hyperactive bowel sounds. There is mild diffuse pain with palpation without voluntary guarding or rigidity. No pulsatile mass Palpation: soft Extremity normal to inspection Neuro oriented x3 and CN's II-XII intact bilaterally Sensorium / Orientation: alert Motor Exam: strength 5/5 throughout Psych mental status grossly normal Skin no rashes or lesions noted MDM MDM MDM Narrative Medical decision making narrative: Patient presented to the ER afebrile. Her abdomen is soft and nonsurgical and her constellation of symptoms are more viral nature. Moreover she reports her 2 children were sick with similar symptoms prior to her developing her symptoms. Therefore this time as she has had 4 to 5 days of nausea and vomiting there is concern for dehydration and acute kidney injury so elected to perform basic laboratory studies. We discussed a possible Covid swab based on her constellation of symptoms but as both of her children tested negative we did not perform the test. The patient's white count came back elevated at 14 but there was no left shift and she is afebrile and therefore I feel this is most likely stress response. Electrolytes showed slightly low potassium at 3.1 which is not clinically significant but otherwise no acute kidney injury or elevation to her liver enzymes or lipase. She was given 2 L of IV fluid 2 doses of Zofran and 1 dose of Phenergan and on ree valuation reported feeling better. We discussed that with her elevated white count we would not be wrong to perform a CT scan. However patient's abdomen remains soft and nonsurgical and she states that as she is feeling better she does not want the CT scan at this time. Therefore the patient will be placed on Phenergan which seems to have controlled her nausea vomiting better than Zofran and she will be discharged as she does not have severe electrolyte derangement or acute kidney injury changes. Patient states she is agreeable with this plan and agrees to return if her symptoms worsen for repeat work-up and possible CT scan Lab Data Attestation: I reviewed the patient's lab results. Labs: Laboratory Results - last 24 hr 12/09/21 12/09/21 12/09/21 03:30 03:30 04:00 WBC 14.4 H RBC 4.95 Hgb 14.3 Hct 43.8 MCV 88.5 MCH 28.9 MCHC 32.6 RDW Std Deviation 46.1 H RDW Coeff of Georges 14.4 Plt Count 351 MPV 9.2 Immature Gran % (Auto) 0.400 Neut % (Auto) 83.5 H Lymph % (Auto) 11.0 L [place] % (Auto) 4.5 Eos % (Auto) 0.3 Baso % (Auto) 0.3 Absolute Neuts (auto) 12.0 H Absolute Lymphs (auto) 1.58 Nucleated RBC % 0 Sodium 139 Potassium 3.1 L Chloride 110 H Carbon Dioxide 20.0 L Anion Gap 9 BUN 11 Creatinine 0.79 Estim Creat Clear Calc 107.90 Est GFR (MDRD) Af Amer 112 Est GFR (MDRD) Non-Af 92 BUN/Creatinine Ratio 13.9 Glucose 136 H Calcium 9.0 Total Bilirubin 0.50 Direct Bilirubin 0.12 AST 19 ALT 26 Alkaline Phosphatase 92 Total Protein 7.7 Albumin 4.0 Globulin 3.7 Lipase 49 L Serum , Qual NEGATIVE Discharge Plan Triage Chief Complaint: Nausea/Vomiting/Diarrhea ED Provider: Carson Lopez Dx/Rx/DC Orders Clinical Impression: Nausea & vomiting, Dehydration Instructions: ED Dehydration (Adult), ED Vomiting (Adult) Prescriptions: New promethazine 25 mg tablet 25 mg PO TID PRN (Reason: nausea and vomiting) 7 Days Qty: 21 RF: 0 No Action ondansetron 4 MG tablet 4 mg PO Q8H PRN PRN (Reason: Nausea) Qty: 10 RF: 0 vit 78-dgfq-mnxnh-dha 1 EACH capsule 1 tab PO DAILY RF: 0 famotidine 20 MG tablet 20 mg PO TID RF: 0 trazodone 50 mg Tablet 50 - 100 mg PO QHS PRN PRN (Reason: Insomnia) RF: 0 doxepin 25 mg Capsule 25 - 50 mg PO QHS PRN PRN (Reason: Insomnia) RF: 0 baclofen 20 mg Tablet 10 mg PO BID RF: 0 lithium carbonate 300 mg Capsule 300 mg PO DAILY RF: 0 buspirone 10 mg Tablet 10 mg PO TID RF: 0 oxcarbazepine 600 mg Tablet 600 mg PO BID RF: 0 lithium carbonate 300 mg Tablet 600 mg PO QHS RF: 0 sertraline 50 mg Tablet 50 mg PO DAILY RF: 0 pregabalin 150 mg Capsule 150 mg PO BID RF: 0 Primary Care Provider: Skyler Patino Referrals: Skyler Patino MD [Primary Care Provider] - Activity Restrictions/Additional Instructions: Please take your medication as directed to help control your nausea and vomiting and try to stay hydrated. Please return to the ER if you have any further concerns or worsening of symptoms Disposition Disposition: Home, Self Care
[2021-12-09 05:09] LABS: AST(SGOT) 19 U/L (15-37); Alanine Aminotransfer ALT/SGPT 26 U/L (13-56); Alkaline Phosphatase 92 U/L (45-117); Anion Gap 9 (5-15); BUN 11 mg/dL (7-18); BUN/Creat Ratio 13.9 RATIO (10-20); Bilirubin, Direct 0.12 mg/dL (0.00-0.30); Chloride 110 mmol/L (98-107); Creatinine, Serum 0.79 mg/dL (0.55-1.02); EST Glomerular Filtration Rate 92 mL/min (>60); Est Glom Filt Rate - Afr Amer 112 mL/min (>60); Globulin 3.7 g/dL (2.2-4.2); Glucose 136 mg/dL (74-106); Lipase 49 U/L (73-393); Potassium 3.1 mmol/L (3.5-5.1); Protein, Total 7.7 g/dL (6.4-8.2); Sodium Level 139 mmol/L (136-145)
[2021-12-09] MEDS: proMETHazine 25 MG/ML Syringe 12.5 MG IV (05:53)
[2021-12-09 06:39] VITALS: RESP 16; O2SAT 98
== END 2021-12-09 06:54 | disposition home or self-care (01) ==
PROVIDERS: Emergency Provider Emergency Medicine; PCP Family Medicine; Visit Provider Emergency Medicine
DX: R11.2 Nausea with vomiting, unspecified (principal); R19.7 Diarrhea, unspecified; E86.0 Dehydration; F17.210 Nicotine dependence, cigarettes, uncomplicated; F17.290 Nicotine dependence, other tobacco product, uncomplicated
CPT/HCPCS: 96374; 96375; 85025; 80048; 83690; 84703; 96376; 96361; 80076; J2405; J7030; A4216

== ENCOUNTER 2021-12-09 13:30 | Inpatient (IN) | payer MEDICAID, SELFPAY ==
[2021-12-09 13:31] VITALS: BP 148/74; PULSE 86; RESP 15; TEMP 36.2; O2SAT 99; BMI 28.8
--- NOTE | 2021-12-09 14:00 | EDS_ITS ---
HPI History of Present Illness Chief Complaint: Substance Abuse Informant: patient Narrative Narrative: Patient arrives here requesting detox from kratom. She states she has been using it for about a year. She uses in a concentrated liquid tablet formulation. She states she takes about 6 of these a day. She states that the recommended dose is only about 5 a day. When she stops using it she gets nausea vomiting diarrhea, increased anxiety, shakiness and mood swings. She is trying to get off of it herself but has had trouble. She also smokes marijuana. She states rarely does she drink alcohol. She used to use meth but has stopped. She does not use opiates. No benzodiazepines. She does not inject any drugs. Her last use was yesterday. She was seen here this morning for nausea vomiting diarrhea and her withdrawal symptoms. But she had talked to the physician who is here about her children having recent symptoms so they treated her with IV hydration and meds. She felt better. Blood work was done. She had slightly high white count but no fever. Her potassium was slightly low. She felt well and wanted to go home. She now states she does not think her symptoms are due to the same virus her children had. They were evidently negative for Covid. She thinks her symptoms are all withdrawal because they only come on when she stops using kratom. [facility] Medical History (Updated 12/09/21 @ 14:[address] Dahiana Arcos, DO) Addiction to drug Alcohol addiction Degenerative disc disease Encounter for IUD insertion Post depression Sinus tachycardia Home Medications baclofen 10 mg PO DAILY 12/09/21 [History Last Taken Unknown] buspirone 15 mg PO TID 12/09/21 [History Last Taken Unknown] divalproex 500 mg PO DAILY 12/09/21 [History Last Taken Unknown] fluoxetine 20 mg PO QHS 12/09/21 [History Last Taken Unknown] pregabalin 50 mg PO TID 12/09/21 [History Last Taken Unknown] quetiapine 25 mg PO BID 12/10/21 [History Last Taken Unknown] Allergy/AdvReac Type Severity Reaction Status Date / Time erythromycin ethylsuccinate Allergy Hives Verified 12/09/21 13:32 [From Pediazole] sulfisoxazole acetyl Allergy Hives Verified 12/09/21 13:32 [From Pediazole] venlafaxine [From Effexor] AdvReac NEEDS Verified 12/09/21 13:32 FOLLOW-UP Social History (Updated 12/09/21 @ 15:[address] Dahiana Arcos DO) Smoking Status: Current every day smoker tobacco type: cigarettes and e- cigarettes alcohol intake: never substance use type: marijuana, crack/cocaine, amphetamines and opiates ROS ROS ED Constitutional Constitutional ED: Reports chills; Denies fever(s) Eyes Eyes: Denies blurry vision ENT ENT ED: Denies rhinorrhea or sore throat Cardiovascular Cardiovascular: Reports palpitations; Denies chest pain Respiratory/Chest Respiratory/Chest: Denies cough or dyspnea Gastrointestinal Gastrointestinal: Reports diarrhea, nausea and vomiting Genitourinary Genitourinary ED: Denies dysuria Musculoskeletal Musculoskeletal: Reports myalgias Integumentary Denies rash Neurologic Neurologic: Denies headache(s), paresthesias or weakness Psychiatric Psychiatric: Reports anxiety Endocrine Endocrinology: Denies polydipsia or polyuria Allergic/Immunologic Allergic/Immunologic ED: Denies mouth swelling or urticaria EXAM Physical Exam Const Vital Signs: 12/09/21 13:31 Temperature 97.2 F L Temperature Source Temporal Pulse Rate 86 Respiratory Rate 15 Blood Pressure 148/74 H Blood Pressure Mean 98 Pulse Ox 99 Oxygen Delivery Method Room Air Positive well nourished and well developed General Appearance ED: well developed; Negative for cyanotic HEENT Reports moist mucous membranes Eyes General Eye ED: Negative for pale conjunctiva or scleral icterus Neck no JVD Resp normal respiratory effort and clear to auscultation bilaterally Effort and Inspection: Negative for pain with movement Auscultation: Negative for rales, rhonchi or wheezes Cardio regular rate and regular rhythm GI normal to inspection, nondistended, normoactive bowel sounds, non-tender and non-distended Palpation: soft Back/Spine no CVA tenderness Extremity General Extremety ED: Negative for edema or tenderness General Extremity: Negative for edema Neuro Sensorium / Orientation: alert Psych Psych Narrative: Patient seems anxious. She is cooperative. She speaks quickly with pressured speech. No real flight of ideas. Not suicidal or homicidal. Skin no rashes or lesions noted MDM MDM MDM Narrative Medical decision making narrative: I discussed case with the hospitalist. She had discussed case with detox physician. Plan will be to bring the patient in. We will give a small dose of Subutex here recommended through detox. I will repeat some of the electrolytes as she did have low potassium this morning. We will get her some fluids. We will also add a lithium level which she is on this. Patient will be admitted. Discharge Plan Dx/Rx/DC Orders Clinical Impression: Desire for detoxification, Nausea vomiting and diarrhea Disposition Disposition: Acute Care Hospital [facility]
--- NOTE | 2021-12-09 14:06 | NURSING ---
DR KARI TAPIA
--- NOTE | 2021-12-09 14:15 | NURSING ---
MED SURG KARI MAXWELL DETOX, NAUSEA, VOMITING, DIARHEA
[2021-12-09] MEDS: 0.9% Normal Saline 1,000 ML 1000 ML IV (14:31)
--- NOTE | 2021-12-09 14:45 | PCM.HP.STD ---
HPI - General General Date of Admission: 12/09/21 Date of Service: 12/09/21 Chief Complaint: Opiate detox HPI Narrative FLORIAN BURCIAGA, is a 26 F who presented to the emergency department [facility] on 12/09/2021 with request for detox from [facility]. She reports that she has been using a substance for approximately 1 year and takes a concentrated liquid tablet formulation. She uses about 6 of them daily with the recommended dose being about 5 daily. She states when she stops using them she gets nausea, vomiting, and diarrhea with increased anxiety, tremulousness and mood swings. She states she is been trying to get off of it herself but has had trouble and that is why she presented to the emergency department. She also smokes marijuana and states she has used meth and cocaine in the past. She denies any other opiates or benzodiazepine use. She denies any alcohol use and has never injected any drugs. Her last Kratom use was yesterday. She presented earlier this morning for similar symptoms of nausea and vomiting and thought initially that it was related to a gastroenteritis but upon reflecting further she thinks it is probably withdrawal. Last evening she was treated with IV fluids and some antiemetics and felt better and therefore wanted to go home. In the emergency department her vital signs are unremarkable. Her CBC from last evening shows a mildly elevated white count at 14.4 with a slight left shift but was otherwise unremarkable. She had a mild hypokalemia with potassium of 3.1. Repeat labs from today are pending. Her liver enzymes were unremarkable. A lipase was obtained both last night and this afternoon with last night's value being 49 and this afternoon's value pending. A serum test was performed and was negative. It is documented on her initial MAR that she utilizes lithium at home the prescribed medication but states that she ran out a long time ago and has not been taking this regularly. In the emergency department she was given 150 mg of Ultram after the case was discussed with Dr. Bean for recommendations for detox and request for admission was made. [facility] Medical History (Updated 12/09/21 @ 14:[address] Dahiana Arcos, DO) Addiction to drug Alcohol addiction Degenerative disc disease Encounter for IUD insertion Post depression Sinus tachycardia Home Medications ondansetron 4 mg PO Q8H PRN PRN #10 tab 07/13/20 [Rx Last Taken Unknown] vit 58-vziz-[id number]-dha 1 tab PO DAILY 09/26/20 [History Last Taken Unknown] famotidine 20 mg PO TID 11/07/20 [History Last Taken Unknown] baclofen 10 mg PO BID 04/28/21 [History Last Taken Unknown] buspirone 10 mg PO TID 04/28/21 [History Last Taken Unknown] doxepin 25 - 50 mg PO QHS PRN PRN 04/28/21 [History Last Taken Unknown] lithium carbonate 300 mg PO DAILY 04/28/21 [History Last Taken Unknown] lithium carbonate 600 mg PO QHS 04/28/21 [History Last Taken Unknown] oxcarbazepine 600 mg PO BID 04/28/21 [History Last Taken Unknown] pregabalin 150 mg PO BID 04/28/21 [History Last Taken Unknown] sertraline 50 mg PO DAILY 04/28/21 [History Last Taken Unknown] trazodone 50 - 100 mg PO QHS PRN PRN 04/28/21 [History Last Taken Unknown] promethazine 25 mg PO TID PRN 7 Days #21 tab 12/09/21 [Rx Last Taken Unknown] Allergy/AdvReac Type Severity Reaction Status Date / Time erythromycin ethylsuccinate Allergy Hives Verified 12/09/21 13:32 [From Pediazole] sulfisoxazole acetyl Allergy Hives Verified 12/09/21 13:32 [From Pediazole] venlafaxine [From Effexor] AdvReac NEEDS Verified 12/09/21 13:32 FOLLOW-UP no significant family history Social History (Updated 12/09/21 @ 15:[address] Dahiana Arcos, DO) Smoking Status: Current every day smoker tobacco type: cigarettes and e-cigarettes alcohol intake: never substance use type: marijuana, crack/cocaine, amphetamines and opiates ROS Constitutional Constitutional: Reports fatigue and malaise; Denies anorexia, change in weight, chills, fever(s), night sweats, weakness or other Eyes Eyes: Denies blurry vision, change in eye color, change in vision, discharge from eye(s), double vision, erythema, eye pain, loss of vision or other ENT HEENT: Reports nasal discharge; Denies abnormal hearing, dysphagia, ear pain, epistaxis, headache(s), hearing loss, nasal congestion, post nasal drip, sinus pressure, sore throat or other Cardiovascular Cardiovascular: Denies chest pain, claudication, dyspnea on exertion, edema, lightheadedness, orthopnea, palpitations, paroxysmal nocturnal dyspnea, rapid heart rate, syncope or other Respiratory/Chest Respiratory/Chest: Denies cough, dyspnea, excessive phlegm production, hemoptysis, productive cough, shortness of breath at rest, shortness of breath with exertion, wheezing or other Gastrointestinal Gastrointestinal: Reports diarrhea, nausea and vomiting; Denies abdominal pain, coffee ground emesis, constipation, dyspepsia, hematemesis, hematochezia, loose stools, melena or other Genitourinary Genitourinary: Denies burning urination, difficulty urinating, dysuria, hematuria, nocturia, urinary frequency, urinary hesitancy, urinary incontinence, urinary urgency or other Musculoskeletal Musculoskeletal: Reports arthralgias and myalgias; Denies back pain, joint pain, joint stiffness, joint swelling, neck pain or other Neurologic Neurologic: Denies abnormal gait, abnormal speech, confusion, disequilibrium, dizziness, focal weakness, headache(s), numbness, paresthesias, seizure-like activity, seizures, syncope, tingling, tremor(s) or other Psychiatric Psychiatric: Reports anxiety and depression; Denies homicidal ideation or suicidal ideation Endocrine Endocrinology: Denies change in body appearance, cold intolerance, excessive sweating, heat intolerance, polydipsia, polyuria or other Hematologic/Lymphatic Hematologic/Lymphatic: Denies anemia, easy bleeding, easy bruising, lymphadenopathy or other Allergic/Immunologic Allergic/Immunologic: Denies rhinitis, hives, eczemia, asthma or other Vital Signs Vital Signs Vital Signs: 12/09/21 13:31 Temperature 97.2 F L Temperature Source Temporal Pulse Rate 86 Respiratory Rate 15 Blood Pressure 148/74 H Blood Pressure Mean 98 Pulse Ox 99 Oxygen Delivery Method Room Air Weight Weight: 86.183 kg Body Mass Index (BMI) 28.8 Physical Exam Const alert, oriented x3, average body habitus, healthy appearing and well nourished Constitutional Narrative: Anxious appearing young white female sitting up in bed, nontoxic, pleasant General Appearance: cooperative HEENT normocephalic, head/scalp atraumatic, hearing grossly normal bilaterally and moist oral mucous membranes Resp normal respiratory effort, no retractions, no use of accessory muscles and clear to auscultation bilaterally Auscultation: Negative for crackles, rales, rhonchi or wheezes Cardio regular rate, regular rhythm, S1 normal heart sound, S2 normal heart sound, no murmurs, no rub, no gallops, no clicks and no JVD GI normal to inspection, nondistended, normoactive bowel sounds, soft to palpation, non-tender and non-distended; Negative for hepatosplenomegaly Extremity no clubbing, cyanosis or edema Peripheral Pulses: Yes pulses 2+ throughout Skin no rashes or lesions noted, no wounds, skin turgor normal, no jaundice, no petechiae and no mottling Skin Narrative: Tattoos but no track bass noted Neuro oriented x3, CN's II-XII intact bilaterally, moves all extremities and no focal motor deficits Sensorium / Orientation: awake and alert Speech: speech normal Motor Exam: strength 5/5 throughout Psych Mood & Affect: anxious Results Lab / Micro Data Attestation: I reviewed the patient's lab results. Result Diagrams: 12/09/21 14:25 12/09/21 14:25 Assessment & Plan Assessment/Plan (1) Hypokalemia: (2) Polysubstance (excluding opioids) dependence: (3) Desire for detoxification: (4) Nausea vomiting and diarrhea: PLAN: Acute opiate -Patient uses Kratom regularly -Has detoxed in the past -Discussed case with Dr. Bean and she recommended initially buprenorphine taper at lower doses but the pharmacy is unable to split the tablets from 2 mg to 1 mg and therefore she recommended an Ultram taper -Ultram 150 mg every 6 hours x24 hours, Ultram 100 mg every 8 hours x24 hours, Ultram 50 mg every 12 hours x24 hours with the likelihood of heavy as needed medication needed -First dose of 150 mg was given the emergency department -Opiate support medications ordered -180 consultation Nausea and vomiting/diarrhea -Suspect related to withdrawal -States she has been getting the symptoms regularly when she stops taking Kratom -As needed medications available -Ultram taper as above -IV fluids -As needed Zofran -Compazine available IV for breakthrough Hypokalemia -Potassium was 3.1 early this morning -Repeat lab is pending -We will order replacement if patient remains hypokalemic on repeat lab to be given later this evening when her nausea is hopefully under better control -Patient would like to avoid IV replacement if possible Anxiety/depression -Patient states she was on lithium but is no longer taking this and has not in a while -Continue home baseline medications Tobacco abuse -Patient admits to smoking approximately 1 pack/day and vapes in between -Nicotine replacement ordered -Recommend cessation DVT prophylaxis -Low risk -Early ambulation protocol CODE STATUS -Full code Charges/Coding Visit Charges Inpatient E&M: 32186 Init Hosp L2
--- NOTE | 2021-12-09 14:52 | CM.ED ---
Social Work Telephone call to One[employer]Marlin Brandt. Marlin updated on patient admission to RAMP program. Marcy Maza MSW, [place]
[2021-12-09] MEDS: traMADol 50 MG Tablet 150 MG PO ×3 (14:53→23:26)
[2021-12-09 14:55] VITALS: BP 120/60; PULSE 67; RESP 16; TEMP 36.6; O2SAT 98
[2021-12-09 15:24] VITALS: BMI 29.6
[2021-12-09 15:44] VITALS: BP 120/80; PULSE 58; RESP 18; TEMP 36.7; O2SAT 100
[2021-12-09 15:48] LABS: Anion Gap 10 (5-15); BUN 10 mg/dL (7-18); BUN/Creat Ratio 16.2 RATIO (10-20); Calcium,Total 9.3 mg/dL (8.5-10.1); Chloride 106 mmol/L (98-107); Creatinine, Serum 0.62 mg/dL (0.55-1.02); EST Glomerular Filtration Rate 123 mL/min (>60); Est Glom Filt Rate - Afr Amer 149 mL/min (>60); Estimated Creatinine Clearance 137.49 ml/min; Glucose 120 mg/dL (74-106); Lipase 38 U/L (73-393); Potassium 3.2 mmol/L (3.5-5.1); Sodium Level 140 mmol/L (136-145)
[2021-12-09 15:59] LABS: Lithium < 0.20 mmol/L (0.60-1.20)
[2021-12-09] MEDS: Lactated Ringers 1,000 ML 100 ML IV (16:03)
[2021-12-09] MEDS: cloNIDine HCl 0.1 MG Tablet PO (16:22)
[2021-12-09] MEDS: Methocarbamol 750 MG Tablet 1500 MG PO (16:22)
[2021-12-09] MEDS: Dicyclomine 10 MG Capsule 20 MG PO (16:22)
[2021-12-09] MEDS: Gabapentin 300 MG Capsule PO (16:22)
[2021-12-09] MEDS: proMETHazine 25 MG Tablet PO (16:22)
--- NOTE | 2021-12-09 17:30 | CM.ED ---
Social Work Called by triage to come to front end manager as CPS is here and wanted to speak with this vp digital marketing social media and crm. This vp digital marketing social media and crm met with workers, Jazz Randle and Maranda Escobar of [facility]. Jazz and Maranda handing this vp digital marketing social media and crm paper work and request for this paperwork to be given to patient as we have custody and this patient may or may not be in the RAMP program at the hospital. It was stated to this vp digital marketing social media and crm that she already knows, she refers to patient. This vp digital marketing social media and crm noting that paperwork does have patient information and name on it. This vp digital marketing social media and crm met with patient in room. Patient remembering this vp digital marketing social media and crm from prior interaction today. This vp digital marketing social media and crm inquired about children services. Patient states I know all about it. Patient reports to have made a report to children services when patient came to ED today as I didn't want their father getting them, he is not a good man. This vp digital marketing social media and crm provided patient with documents stating that [facility] now have custody of patients' children. Patient thanked this vp digital marketing social media and crm and has no further questions. Patient with pleasant and engaged affect throughout conversation. Marcy RUSSO, HU[place]ON
[2021-12-09] MEDS: QUEtiapine 25 MG Tablet PO (17:36)
[2021-12-09] MEDS: Potassium Chloride Oral Tablet 20 MEQ 60 MEQ PO (17:41)
[2021-12-09 20:39] VITALS: BP 126/75; PULSE 71; RESP 18; TEMP 37.4; O2SAT 100
[2021-12-09] MEDS: FLUoxetine 20 MG Capsule PO (20:47)
[2021-12-09] MEDS: busPIRone 5 MG Tablet 10 MG PO (20:48)
[2021-12-09] MEDS: Baclofen 10 MG Tablet PO (20:49)
[2021-12-09] MEDS: Famotidine 20 MG Tablet PO (20:49)
[2021-12-09] MEDS: hydrOXYzine PAM 25 MG Capsule 50 MG PO (21:04)
[2021-12-09] MEDS: Pregabalin 75 MG Capsule 150 MG PO (21:04)
[2021-12-09] MEDS: traZODone 100 MG Tablet PO (23:14)
[2021-12-10 00:30] VITALS: BP 119/72; PULSE 73; RESP 18; TEMP 36.5
[2021-12-10] MEDS: Methocarbamol 750 MG Tablet 1500 MG PO (03:01)
[2021-12-10] MEDS: Gabapentin 300 MG Capsule PO ×3 (03:22→23:59)
[2021-12-10] MEDS: cloNIDine HCl 0.1 MG Tablet PO ×3 (03:22→19:58)
[2021-12-10] MEDS: hydrOXYzine PAM 25 MG Capsule 50 MG PO ×3 (04:16→17:20)
[2021-12-10 04:30] VITALS: BP 121/75; PULSE 71; RESP 18; TEMP 36.9; O2SAT 97
[2021-12-10] MEDS: Famotidine 20 MG Tablet PO ×3 (06:08→21:24)
[2021-12-10] MEDS: traMADol 50 MG Tablet 150 MG PO ×3 (06:08→17:19)
[2021-12-10] MEDS: busPIRone 5 MG Tablet 10 MG PO ×3 (06:09→21:24)
[2021-12-10 06:53] LABS: AST(SGOT) 12 U/L (15-37); Alanine Aminotransfer ALT/SGPT 20 U/L (13-56); Albumin, Serum 3.2 g/dL (3.2-5.0); Alkaline Phosphatase 73 U/L (45-117); Anion Gap 5 (5-15); BUN 8 mg/dL (7-18); BUN/Creat Ratio 12.4 RATIO (10-20); Calcium,Total 8.4 mg/dL (8.5-10.1); Chloride 109 mmol/L (98-107); Creatinine, Serum 0.64 mg/dL (0.55-1.02); EST Glomerular Filtration Rate 117 mL/min (>60); Est Glom Filt Rate - Afr Amer 142 mL/min (>60); Estimated Creatinine Clearance 133.19 ml/min; Globulin 3.2 g/dL (2.2-4.2); Glucose 90 mg/dL (74-106); Magnesium 2.2 mg/dL (1.6-2.6); Potassium 3.5 mmol/L (3.5-5.1); Protein, Total 6.4 g/dL (6.4-8.2); Sodium Level 138 mmol/L (136-145)
--- NOTE | 2021-12-10 07:32 | PCM.PN.HOSP ---
Subjective Subjective Follow-up for substance use disorder. Patient takes Kratom for about 1 year which is kind of herbal pill which Opioid Receptors. She States She Feels Very Talkative, High Energy Mood Absenting. She Takes 6 of Them Daily. Symptoms of anxiety tenuousness nausea aches and pain is better Objective Data Objective Data Vital Signs: Vital Signs Temp Pulse Resp BP Pulse Ox 98.4 F 71 18 121/75 H 97 12/10/21 04:30 12/10/21 04:30 12/10/21 04:30 12/10/21 04:30 12/10/21 04:30 Oxygen Flow Rate (L/min) 99 Oxygen Delivery Method Room Air Weight: 195 lb Body Mass Index (BMI) 29.6 Intake & Output: Intake and Output for Last 24 Hours 12/08/21 12/09/21 12/10/21 23:59 23:59 23:59 Intake Total 1595 / 1815 1020 / 1020 Balance 1595 / 1815 1020 / 1020 Lab / Micro Data Result Diagrams: 12/10/21 05:33 12/10/21 05:33 Labs: Laboratory Results - last 24 hr 12/09/21 14:25: Sodium 140, Potassium 3.2 L, Chloride 106, Carbon Dioxide 24.0, Anion Gap 10, BUN 10, Creatinine 0.62, Estim Creat Clear Calc 137.49, Est GFR (MDRD) Af Amer 149, Est GFR (MDRD) Non-Af 123, BUN/Creatinine Ratio 16.2, Glucose 120 H, Calcium 9.3, Lipase 38 L 12/09/21 14:25: [place] < 0.20 L 12/10/21 05:33: Sodium 138, Potassium 3.5, Chloride 109 H, Carbon Dioxide 24.0, Anion Gap 5, BUN 8, Creatinine 0.64, Estim Creat Clear Calc 133.19, Est GFR (MDRD) Af Amer 142, Est GFR (MDRD) Non-Af 117, BUN/Creatinine Ratio 12.4, Glucose 90, Calcium 8.4 L, Magnesium 2.2, Total Bilirubin 0.60, AST 12 L, ALT 20, Alkaline Phosphatase 73, Total Protein 6.4, Albumin 3.2, Globulin 3.2, Albumin/Globulin Ratio 1.0 Physical Exam Narrative General: Alert, Oriented x3, Cooperative HEENT: Atraumatic, PERRLA, EOMI, Normocephalic Oral: No Gingival or Mucosal Lesions/ Ulcerations Neck: Supple, No JVD, Negative Carotid Bruits Lungs: Air entry equal in bilateral lung bases. No crepitation/rhonchi Cardiovascular: Regular rate, Regular Rhythm, Normal S1, Normal S2, No murmurs Abdomen: Bowel Sounds Present, Soft, Non Tender, Non-Distended : No renal angle tenderness. No suprapubic tenderness. Extremities: No edema, Capillary Refill Less than 3 Seconds Skin: No rashes, No breakdown Musculoskeletal: No Tenderness to Palpation of Joints or Extremities Neurological: Cranial nerves II-XII grossly intact, DTR 2+/4 and Symmetrical, Neuro grossly intact Psych/Mental Status: Talkative.Hyperactive Assessment & Plan Assessment/Plan (1) Hypokalemia: (2) Polysubstance (excluding opioids) dependence: (3) Desire for detoxification: (4) Nausea vomiting and diarrhea: PLAN: Acute substance use withdrawal from Kratom with history of chronic use dependence and tolerance: [facility] discussion with Dr. Bean. She recommended Ultram taper 150 mg with 6-hour for 24 hours, 100 mg 8 hours for 24 hours, 50 mg every 12 hours x24 hours. Other adjunctive medications on opioid withdrawal with a started on as per needed basis. 180 consolidation Nausea and vomiting/diarrhea due to suspect related to withdrawal on symptomatic management with Zofran and Compazine as needed Hypokalemia: Potassium getting replaced. Monitor labs. Replete K3.5. Serum magnesium 2.2. Serum phosphorus 2.6. Anxiety/depression -Patient states she was on lithium but is no longer taking this and has not in a while -Continue home baseline medications Tobacco abuse -Patient admits to smoking approximately 1 pack/day and vapes in between continuously. On nicotine replacement. Nicotine gum as needed added. Advised quitting cigarettes and vaping. DVT prophylaxis -Low risk -Early ambulation protocol CODE STATUS -Full code Charges/Coding Visit Charges Inpatient E&M: 86221 Subs Hosp L2
[2021-12-10 08:05] LABS: Phosphorus 2.6 mg/dL (2.5-4.9)
[2021-12-10 08:30] VITALS: BP 112/66; PULSE 76; RESP 18; TEMP 37; O2SAT 97
[2021-12-10] MEDS: Potassium Chloride Oral Tablet 20 MEQ 40 MEQ PO (09:06)
[2021-12-10] MEDS: Prenatal Vits Tablet 1 TABLET PO (09:07)
[2021-12-10] MEDS: Baclofen 10 MG Tablet PO ×2 (09:07→21:24)
[2021-12-10] MEDS: Divalproex (ER) 500 MG Tablet PO (09:07)
[2021-12-10] MEDS: QUEtiapine 25 MG Tablet PO ×2 (09:07→21:24)
[2021-12-10] MEDS: Pregabalin 75 MG Capsule 150 MG PO ×2 (09:07→21:24)
[2021-12-10] MEDS: Nicotine Polacrilex 2 MG GUM PO ×6 (10:09→23:54)
--- NOTE | 2021-12-10 10:30 | PCS.PANDOC ---
PANDEMIC DOCUMENTATION INITIATED: Date: 06/29/2021 Time: 190
--- NOTE | 2021-12-10 14:14 | ADDICTION ---
This remote mortgage underwriter met with PT to conduct ASAM, MSE, DUDIT assessments and to plan for d/c. PT A+Ox4 and participated actively. All assessments completed and placed in PT's chart. PT plans to f/u with [facility] in [place], [place] for follow-up treatment services. [facility] will provide transportation post d/c from [facility].
--- NOTE | 2021-12-10 15:06 | ADDICTION ---
[facility] will be picking pT up 12/11/21 at 10:30 am.
[2021-12-10] MEDS: proMETHazine 25 MG/ML Syringe 12.5 MG IM (15:17)
[2021-12-10 15:25] VITALS: BP 125/69; PULSE 74; RESP 16; TEMP 37.4; O2SAT 99
[2021-12-10 19:50] VITALS: BP 118/68; PULSE 60; RESP 16; TEMP 36.9; O2SAT 99
[2021-12-10] MEDS: FLUoxetine 20 MG Capsule PO (21:24)
[2021-12-10] MEDS: traMADol 50 MG Tablet 100 MG PO (23:54)
[2021-12-11 02:35] VITALS: BP 114/55; PULSE 71; RESP 16; TEMP 36.6; O2SAT 98
[2021-12-11] MEDS: Nicotine Polacrilex 2 MG GUM PO ×2 (02:35→09:04)
[2021-12-11] MEDS: hydrOXYzine PAM 25 MG Capsule 50 MG PO (05:38)
[2021-12-11] MEDS: traMADol 50 MG Tablet 100 MG PO (05:39)
[2021-12-11] MEDS: Famotidine 20 MG Tablet PO (05:39)
[2021-12-11] MEDS: busPIRone 5 MG Tablet 10 MG PO (05:39)
[2021-12-11] MEDS: Potassium Chloride Oral Tablet 20 MEQ 40 MEQ PO (08:57)
[2021-12-11] MEDS: Divalproex (ER) 500 MG Tablet PO (08:58)
[2021-12-11] MEDS: Baclofen 10 MG Tablet PO (08:58)
[2021-12-11] MEDS: Prenatal Vits Tablet 1 TABLET PO (08:58)
[2021-12-11 09:00] VITALS: BP 128/79; PULSE 74; RESP 16; TEMP 36.6; O2SAT 100
[2021-12-11] MEDS: QUEtiapine 25 MG Tablet PO (09:03)
[2021-12-11] MEDS: Pregabalin 75 MG Capsule 150 MG PO (09:03)
--- NOTE | 2021-12-11 09:26 | PCM.DC ---
Discharge Instructions Diet Discharge Diet: No restrictions Activity Discharge Activity: May Not Drive Dressing / Incision Call your doctor if you observe: Fever of 101 or Higher and Change in Color Follow Up Care Test Results: Test results from this visit will be discussed in further detail at your follow-up appointment, if applicable. Discharge Plan Admission Admit Date/Time: 12/09/21 14:10 Primary Reason for Your Visit: Acute opioid withdrawal Attending Provider: Wenceslao Salomon Primary Care Provider: Skyler Patino Discharge Orders/Prescriptions Prescriptions: Continued divalproex 500 mg tablet extended release 24 hr 500 mg PO DAILY RF: 0 fluoxetine 20 mg capsule 20 mg PO QHS RF: 0 baclofen 10 mg tablet 10 mg PO DAILY RF: 0 buspirone 10 mg tablet 15 mg PO TID RF: 0 pregabalin 50 mg capsule 50 mg PO TID RF: 0 quetiapine 25 mg tablet 25 mg PO BID RF: 0 Referrals / Follow Up: Skyler Patino MD [Primary Care Provider] - Disposition Disposition (needs filled in before D/C Order can be placed): Home, Self Care
--- NOTE | 2021-12-11 09:30 | PCM.DC.SUM ---
Providers Date of Admission: 12/09/21 Date of Discharge: 12/11/21 Primary Care Physician: Dr. Skyler Patino MD Reason For Visit: KRATOM WITHDRAWAL (OPIATE) Diagnosis Discharge Diagnosis (1) Hypokalemia: Status: Acute Code(s): E87.6 - Hypokalemia (2) Polysubstance (excluding opioids) dependence: Status: Acute Code(s): F19.20 - Other psychoactive substance dependence, uncomplicated (3) Desire for detoxification: Status: Acute (4) Nausea vomiting and diarrhea: Status: Acute Code(s): R11.2 - Nausea with vomiting, unspecified; R19.7 - Diarrhea, unspecified Medications at Discharge Home Medications baclofen 10 mg PO DAILY 12/09/21 buspirone 15 mg PO TID 12/09/21 divalproex 500 mg PO DAILY 12/09/21 fluoxetine 20 mg PO QHS 12/09/21 pregabalin 50 mg PO TID 12/09/21 quetiapine 25 mg PO BID 12/10/21 Hospital Course Summary of Care Provided Hospital Course: This 26-year-old patient on kratom for about 1 year which is kind of herbal pill which Opioid Receptors admitted with acute opioid withdrawal syndrome. She States She Feels Very Talkative, High Energy Mood Absenting. She Takes 6 of Them Daily. Symptoms of anxiety tenuousness nausea aches and pain is better Acute substance use withdrawal from Kratom with history of chronic use dependence and tolerance: Patient is being admitted to [facility] floor after discussion with Dr. Bean. She recommended Ultram taper 150 mg with 6-hour for 24 hours, 100 mg 8 hours for 24 hours, 50 mg every 12 hours x24 hours. Other adjunctive medications on opioid withdrawal with a started on as per needed basis. 180 consolidation Nausea and vomiting/diarrhea due to suspect related to withdrawal on symptomatic management with Zofran and Compazine as needed. Patient had 1 dose of 12.5 mg IM Phenergan yesterday for severe anxiety attack and her anxiety was relieved. She is going to inpatient rehab today. Hypokalemia: Potassium getting replaced. Monitor labs. Replete K3.5. Serum magnesium 2.2. Serum phosphorus 2.6. Anxiety/depression -Patient states she was on lithium but is no longer taking this and has not in a while -Continue home baseline medications Tobacco abuse -Patient admits to smoking approximately 1 pack/day and vapes in between continuously. On nicotine replacement. Nicotine gum as needed added. Advised quitting cigarettes and vaping. DVT prophylaxis -Low risk -Early ambulation protocol CODE STATUS -Full code Discharge medication reconciliation done. Discharge follow-up instructions completed. Discharge process discussed with the patient and all questions were answered to patient's satisfaction. Total time spent, exact 35 minutes on discharge meds reconciliation, examination, coordination of care with nurses and ancillary staff, review of imaging and blood test and discussion with the patient on follow-up instructions Physical Exam Narrative The patient had severe anxiety attack in afternoon yesterday and required Phenergan IM. Patient did well and had good sleep. She still has anxiety attacks intermittently. Going for inpatient rehab. General: Alert, Oriented x3, Cooperative HEENT: Atraumatic, PERRLA, EOMI, Normocephalic Oral: No Gingival or Mucosal Lesions/ Ulcerations Neck: Supple, No JVD, Negative Carotid Bruits Lungs: Air entry equal in bilateral lung bases. No crepitation/rhonchi Cardiovascular: Regular rate, Regular Rhythm, Normal S1, Normal S2, No murmurs Abdomen: Bowel Sounds Present, Soft, Non Tender, Non-Distended : No renal angle tenderness. No suprapubic tenderness. Extremities: No edema, Capillary Refill Less than 3 Seconds Skin: No rashes, No breakdown Musculoskeletal: No Tenderness to Palpation of Joints or Extremities Neurological: Cranial nerves II-XII grossly intact, DTR 2+/4 and Symmetrical, Neuro grossly intact Psych/Mental Status: Mood appropriate. Weight / BMI Weight Weight: 195 lb Body Mass Index (BMI) 29.6 ABG / Lab / Microbiology Data Result Diagrams: 12/10/21 05:33 12/10/21 05:33 D/C Instructions Discharge Diet: No restrictions Call your doctor if you observe: Fever of 101 or Higher and Change in Color Meaningful Use Info Meaningful Use Diagnoses (Choose all that apply): None applicable Discharge Plan Admission Admit Date/Time: 12/09/21 14:10 Primary Reason for Your Visit: Acute opioid withdrawal Attending Provider: Wenceslao Salomon Primary Care Provider: Skyler Patino Discharge Orders/Prescriptions Prescriptions: Continued divalproex 500 mg tablet extended release 24 hr 500 mg PO DAILY RF: 0 fluoxetine 20 mg capsule 20 mg PO QHS RF: 0 baclofen 10 mg tablet 10 mg PO DAILY RF: 0 buspirone 10 mg tablet 15 mg PO TID RF: 0 pregabalin 50 mg capsule 50 mg PO TID RF: 0 quetiapine 25 mg tablet 25 mg PO BID RF: 0 Referrals / Follow Up: Skyler Patino MD [Primary Care Provider] - Disposition Disposition (needs filled in before D/C Order can be placed): Home, Self Care Charges/Coding Visit Charges Inpatient E&M: 97884 Disch Hosp
[2021-12-11] MEDS: Gabapentin 300 MG Capsule PO (10:09)
[2021-12-11] MEDS: cloNIDine HCl 0.1 MG Tablet PO (10:09)
== END 2021-12-11 10:49 | disposition home or self-care (01) | DRG 773 ==
LOC: ED 14:15 → MS3 15:01
PROVIDERS: Admitting Provider Internal Medicine; Emergency Provider Emergency Medicine; PCP Family Medicine; Visit Provider Internal Medicine
DX: F11.23 Opioid dependence with withdrawal (principal); E87.6 Hypokalemia; R11.2 Nausea with vomiting, unspecified; F17.210 Nicotine dependence, cigarettes, uncomplicated; R19.7 Diarrhea, unspecified; F41.9 Anxiety disorder, unspecified; F32.A Depression, unspecified; Z79.899 Other long term (current) drug therapy
CPT/HCPCS: 36415; 80048; 80053; 80076; 80178; 83690; 83735; 84100; 84703; 85025; 96361; 96374; 96375; 96376; 99251; 99282; 99284; J7030; J7120; A4216; G0463; J2405

== ENCOUNTER 2022-04-25 15:56 | Emergency (ER) | payer MEDICAID, SELFPAY ==
[2022-04-25 15:56] VITALS: BP 105/92; PULSE 102; RESP 16; TEMP 37.2; O2SAT 95; BMI 28.8
--- NOTE | 2022-04-25 16:10 | EDS_ITS ---
HPI HPI - Psych History of Present Illness Chief Complaint: Suicidal Informant: patient Onset/Context/Timing Onset: Days Timing: Continuous Current Severity: Moderate Maximum Severity: Moderate Associated Symptoms Associated Symptoms - Psych: Positive for Depressed, Suicidal Thoughts, Visual Hallucinations and Auditory Hallucinations Specific plan (suicidal thought): Attempted overdose yesterday. Narrative Narrative: 26-year-old female history of bipolar disorder. States she has been having both visual and auditory hallucinations. She is hearing voices. She said her grandfather's talking to her. She is seeing kids playing. Yesterday she tried to overdose on what she believes was 50 Benadryl. Denies any Tylenol or ibuprofen overdose. She had a history of drug abuse in the past has gone through detox in the past. She has had no recent psychiatric admissions. Prior similar symptoms: Yes Recent Illness/Hospitalization: No PFSH PFSH Medical History Addiction to drug Alcohol addiction Bipolar disorder Degenerative disc disease Desire for detoxification Encounter for IUD insertion Polysubstance (excluding opioids) dependence Post depression Sinus tachycardia Home Medications baclofen 10 mg PO DAILY 12/09/21 [History Last Taken Unknown] buspirone 15 mg PO TID 12/09/21 [History Last Taken Unknown] divalproex 500 mg PO BID 12/09/21 [History Last Taken Unknown] fluoxetine 40 mg PO QHS 12/09/21 [History Last Taken Unknown] quetiapine 100 mg PO DAILY 12/10/21 [History Last Taken Unknown] naltrexone microspheres [Vivitrol] 380 mg IM QMONTH 04/25/22 [History Last Taken Unknown] Allergy/AdvReac Type Severity Reaction Status Date / Time erythromycin ethylsuccinate Allergy Hives Verified 04/25/22 16:00 [From Pediazole] sulfisoxazole acetyl Allergy Hives Verified 04/25/22 16:00 [From Pediazole] venlafaxine [From Effexor] AdvReac NEEDS Verified 04/25/22 16:00 FOLLOW-UP Social History Smoking Status: Current every day smoker tobacco type: cigarettes and e- cigarettes alcohol intake: never substance use type: marijuana, crack/cocaine, amphetamines and opiates ROS ROS ED ROS Narrative Denies recent illness. Review of Systems ROS Unobtainable: Denies due to encephalopathy Constitutional Constitutional ED: Denies fever(s) Eyes Eyes: Denies change in vision ENT ENT ED: Denies ear pain Cardiovascular Cardiovascular: Denies chest pain Respiratory/Chest Respiratory/Chest: Denies dyspnea Gastrointestinal Gastrointestinal: Denies abdominal pain Genitourinary Genitourinary ED: Denies dysuria Musculoskeletal Musculoskeletal: Denies myalgias Integumentary Denies rash Neurologic Neurologic: Denies headache(s) Psychiatric Psychiatric: Denies depression Endocrine Endocrinology: Denies polyuria Hematologic/Lymphatic Hematologic/Lymphatic: Denies easy bruising Allergic/Immunologic Allergic/Immunologic ED: Denies urticaria EXAM Physical Exam Narrative Exam Narrative: 22-year-old female no acute distress. Vital signs are stable afebrile. H EENT exam unremarkable. Neck nontender no lymphadenopathy. Lungs clear to auscultation bilaterally. Heart regular rhythm no murmur. Abdomen soft nontender normal bowel sounds no peritoneal signs. Moving all 4 extremities. Calves are nontender without edema or cords. Neurologically patient is awake and alert with no focal motor deficits. There is no signs of IV drug track bass. There is no self-inflicted wounds. Const Vital Signs: 04/25/22 15:56 Temperature 99.0 F Temperature Source Temporal Pulse Rate 102 H Respiratory Rate 16 Blood Pressure 105/92 H Blood Pressure Mean 96 Pulse Ox 95 Oxygen Delivery Method Room Air Positive well nourished and well developed; Negative for cachectic, contractures or unkempt General Appearance ED: well developed and NAD; Negative for unkempt, cachectic, contractures or pallor Nutritional Appearance: Negative for cachectic HEENT Reports moist mucous membranes normocephalic and atraumatic; Negative for trauma or tenderness Eyes PERRL and EOMs intact bilaterally Neck no lymphadenopathy, supple and no JVD General: Negative for tenderness Resp normal respiratory effort and clear to auscultation bilaterally Auscultation: Negative for rales, rhonchi or wheezes Cardio S1 normal heart sound, S2 normal heart sound and no murmurs Rate: regular rate Rhythm: regular rhythm GI non-tender, non-distended and no masses Auscultation: normoactive bowel sounds Palpation: soft; Negative for tender or guarding Back/Spine no CVA tenderness General Back: Negative for CVA tenderness Cervical Spine: Negative for cervical spine tenderness Thoracic Spine / Upper Back: Negative for thoracic spinal tenderness Extremity normal to inspection General Extremety ED: Negative for edema or tenderness General Extremity: Negative for edema Neuro oriented x3 Sensorium / Orientation: alert, oriented to person, oriented to place and oriented to time; Negative for orientation impaired, confused, lethargic or stuporous Motor Exam: strength 5/5 throughout Psych mental status grossly normal, thought process normal, cooperative, speech normal and activity/motor behavior normal; Negative for denies hallucinations or denies suicidal ideation Appearance: Negative for unkempt Attitude: calm and engaged Activity / Motor Behavior: appropriate eye contact; Negative for restless or mannerisms Speech: normal speech, No incoherent and No excessive Skin General Skin Exam: Negative for jaundice or pallor Lesions: no lesions Rashes: no rashes MDM MDM MDM Narrative Medical decision making narrative: 26-year-old female with a history of bipolar having both visual and auditory hallucinations and attempted overdose yesterday. She will go through an ED mental health evaluation with the appropriate screening labs. And I believe she will need admission to a psychiatric facility. Currently she is calm and cooperative. Repeat exam unchanged at 5:08 PM. Awaiting crisis evaluation. Lab Data Attestation: I reviewed the patient's lab results. Lab results narrative: CBC shows a white count 8. H&H 12.39. Platelets 297. Chemistry normal gap of 5 normal BUN creatinine. Glucose 118. Alcohol negative. test negative. Tox screen negative. Bruising Labs: Laboratory Results - last 24 hr 04/25/22 04/25/22 04/25/22 16:30 16:30 16:30 WBC 8.8 RBC 4.23 Hgb 12.8 Hct 39.1 MCV 92.4 MCH 30.3 MCHC 32.7 RDW Std Deviation 44.6 H RDW Coeff of Georges 13.2 Plt Count 297 MPV 9.5 Immature Gran % (Auto) 0.200 Neut % (Auto) 70.4 H Lymph % (Auto) 18.7 L Crockett % (Auto) 8.7 Eos % (Auto) 1.7 Baso % (Auto) 0.3 Absolute Neuts (auto) 6.2 Absolute Lymphs (auto) 1.64 Nucleated RBC % 0 Sodium 141 Potassium 3.7 Chloride 109 H Carbon Dioxide 27.0 Anion Gap 5 BUN 15 Creatinine 0.83 Estim Creat Clear Calc 102.70 Est GFR (MDRD) Af Amer 106 Est GFR (MDRD) Non-Af 87 BUN/Creatinine Ratio 18.1 Glucose 118 H Calcium 8.9 Serum , Qual Ur Drug Screen Comment Ethyl Alcohol < 3.0 04/25/22 04/25/22 16:30 16:45 WBC RBC Hgb Hct MCV MCH MCHC RDW Std Deviation RDW Coeff of Georges Plt Count MPV Immature Gran % (Auto) Neut % (Auto) Lymph % (Auto) Crockett % (Auto) Eos % (Auto) Baso % (Auto) Absolute Neuts (auto) Absolute Lymphs (auto) Nucleated RBC % Sodium Potassium Chloride Carbon Dioxide Anion Gap BUN Creatinine Estim Creat Clear Calc Est GFR (MDRD) Af Amer Est GFR (MDRD) Non-Af BUN/Creatinine Ratio Glucose Calcium Serum , Qual NEGATIVE Ur Drug Screen Comment Ethyl Alcohol Discharge Plan Triage Chief Complaint: Suicidal ED Provider: Jabier Melara Dx/Rx/DC Orders Clinical Impression: Depression with suicidal ideation, Suicide attempt by drug overdose, Hx of bipolar disorder, History of drug abuse, Hallucinations, visual Prescriptions: No Action divalproex 500 mg tablet extended release 24 hr 500 mg PO BID RF: 0 fluoxetine 20 mg capsule 40 mg PO QHS RF: 0 baclofen 10 mg tablet 10 mg PO DAILY RF: 0 buspirone 10 mg tablet 15 mg PO TID RF: 0 quetiapine 25 mg tablet 100 mg PO DAILY RF: 0 Vivitrol 380 mg Suspension,Extended Rel Recon 380 mg IM QMONTH RF: 0 Primary Care Provider: Skyler Patino Referrals: Skyler Patino MD [Primary Care Provider] - Disposition Disposition: Home, Self Care
[2022-04-25 16:37] LABS: Absolute Lymphocyte Count 1.64 X10^3/uL (0.83-4.51); Absolute Neutrophil Count 6.2 X10^3/uL (2.0-7.7); Basophil# 0.03 X10^3/uL; Basophil% 0.3 % (0-1); Eosinophil# 0.15 X10^3/uL; Eosinophils% 1.7 % (0-5); Hematocrit 39.1 % (37-47); Hemoglobin 12.8 g/dL (12.0-15.0); Lymphocyte # 1.64 X10^3/ul (0.83-4.51); Lymphocyte % 18.7 % (19-41); Mean Corp Hgb Conc 32.7 g/dL (32-36); Mean Corpuscular Hgb 30.3 pg (27.0-32.0); Mean Corpuscular Volume 92.4 fL (81-99); Mean Platelet Vol. 9.5 fl (6.2-12.0); Monocyte# 0.76 X10^3/uL; Monocyte% 8.7 % (0-10); NRBC Flagged by Analyzer 0 % (0-5); Neutrophil # 6.15 X10^3/uL (2.7-7.7); Neutrophil % 70.4 % (47-70); Platelet Count 297 K/mm3 (150-450); RBC Distribution Width CV 13.2 % (11.6-14.6); RBC Distribution Width SD 44.6 fl (35.1-43.9); Red Blood Count 4.23 M/mm3 (4.2-5.4); White Blood Count 8.8 K/mm3 (4.4-11.0)
[2022-04-25 16:42] LABS: Internal QC Validated? YES +Cl - CLEAR BKGD
[2022-04-25 16:48] LABS: Pregnancy, Serum, hCG Quali. NEGATIVE Negative
[2022-04-25 16:49] LABS: Alcohol, Blood (Medical)-Serum < 3.0 mg/dL
[2022-04-25 16:51] LABS: Anion Gap 5 (5-15); BUN 15 mg/dL (7-18); BUN/Creat Ratio 18.1 RATIO (10-20); Calcium,Total 8.9 mg/dL (8.5-10.1); Chloride 109 mmol/L (98-107); Creatinine, Serum 0.83 mg/dL (0.55-1.02); EST Glomerular Filtration Rate 87 mL/min (>60); Est Glom Filt Rate - Afr Amer 106 mL/min (>60); Glucose 118 mg/dL (74-106); Potassium 3.7 mmol/L (3.5-5.1); Sodium Level 141 mmol/L (136-145)
[2022-04-25 17:15] VITALS: RESP 15
[2022-04-25 17:15] LABS: Amphetamine Urine VISTA NEGATIVE (<1000 ng/mL); Barbiturate Urine VISTA NEGATIVE (< 200 ng/mL); Benzodiazepine Urine VISTA NEGATIVE (< 200 ng/mL); Cocaine Urine VISTA NEGATIVE (< 300 ng/mL); Ecstacy Urine VISTA NEGATIVE (< 500 ng/mL); Methadone Urine VISTA NEGATIVE (< 300 ng/mL); PCP Urine VISTA NEGATIVE (< 25 ng/mL); THC Urine VISTA NEGATIVE (< 50 ng/mL); Vista UDS pH Range 6
[2022-04-25 17:24] LABS: Acetaminophen (Tylenol) Level < 2.0 ug/mL (10.0-30.0)
--- NOTE | 2022-04-25 17:29 | NURSING ---
CALLED CRISIS. [facility] WILL BE OVER
--- NOTE | 2022-04-25 18:15 | NURSING ---
HARLEY, CRISIS, HERE
[2022-04-25 20:17] VITALS: BP 117/78; PULSE 90; RESP 13; O2SAT 98
--- NOTE | 2022-04-25 20:46 | ED.RN ---
FAXED PATIENTS PAPER WORK TO [facility] AND [facility] WITH [facility] PRESENT FROM CRISIS
[2022-04-25 21:40] VITALS: RESP 14
[2022-04-25 22:50] VITALS: BP 125/76; PULSE 91; RESP 15; O2SAT 98
--- NOTE | 2022-04-25 22:52 | ED.RN ---
report attempted to courtney echeverria. she was in the middle of her med pass and requested to call back. call back number and eta for transport given. no call back at this time. kitty schreiber rn [id number]
== END 2022-04-25 22:52 ==
PROVIDERS: Emergency Provider Emergency Medicine; PCP Family Medicine; Visit Provider Emergency Medicine
DX: T45.0X2A Poisoning by antiallergic and antiemetic drugs, intentional self-harm, initial encounter (principal); F15.10 Other stimulant abuse, uncomplicated; F11.10 Opioid abuse, uncomplicated; F14.10 Cocaine abuse, uncomplicated; F31.9 Bipolar disorder, unspecified; R44.1 Visual hallucinations; R44.0 Auditory hallucinations; F12.10 Cannabis abuse, uncomplicated; F17.210 Nicotine dependence, cigarettes, uncomplicated; F17.290 Nicotine dependence, other tobacco product, uncomplicated
CPT/HCPCS: 80048; 80307; 80329; 82077; 84703; 85025; 87811; 99285; A4216; G0480

== ENCOUNTER 2022-09-10 21:55 | Observation (INO) | payer MEDICAID, SELFPAY ==
[2022-09-10 21:56] VITALS: BP 157/98; PULSE 153; RESP 20; TEMP 36.3; O2SAT 100; BMI 31.8
--- NOTE | 2022-09-10 22:11 | EX.ED.SAOD ---
HPI History of Present Illness Chief Complaint: Substance Abuse Narrative Narrative: 26-year-old female presenting requesting detox. She states she does not do narcotics or methamphetamine. She states she has a history of use of these things but has been abstaining. She states he is on Vivitrol and does not drink alcohol. She does report that for 4 to 5 weeks she has been taking 100 tabs of 25 mg Benadryl daily. She takes 4-5 stackers with these. She states it makes her feel like she is on methamphetamine. Patient also reports that she did recently take her aunts Valium and reports taking about 15 of these yesterday. Patient states that she has been talking with this Lyrica 50 mg which is prescribed to her however she is taken about 5 of these over the last 3 days. She is in alternating gabapentin 300 mg with these that she stole from her aunt. She states there was 90 in the bottle and she has taken all of these as well. She reports speaking to somebody from the hospital who told her to come in for detox. She is not sure of the name. [facility] Medical History Addiction to drug Alcohol addiction Bipolar disorder Degenerative disc disease Desire for detoxification Encounter for IUD insertion Polysubstance (excluding opioids) dependence Post depression Sinus tachycardia Home Medications baclofen 10 mg tablet 10 mg PO DAILY Check with primary doctor 12/09/21 [History Last Taken Unknown] buspirone 10 mg tablet 15 mg PO TID Check with primary doctor 12/09/21 [History Last Taken Unknown] divalproex 500 mg tablet,extended release 24 hr 500 mg PO BID Check with primary doctor 12/09/21 [History Last Taken Unknown] fluoxetine 20 mg capsule 40 mg PO QHS Check with primary doctor 12/09/21 [History Last Taken Unknown] quetiapine 25 mg tablet 100 mg PO DAILY anxiety 12/10/21 [History Last Taken Unknown] naltrexone microspheres 380 mg intramuscular suspension,extended release (Vivitrol) 380 mg IM QMONTH 04/25/22 [History Last Taken Unknown] Allergy/AdvReac Type Severity Reaction Status Date / Time erythromycin ethylsuccinate Allergy Hives Verified 04/25/22 16:00 [From Pediazole] sulfisoxazole acetyl Allergy Hives Verified 04/25/22 16:00 [From Pediazole] venlafaxine [From Effexor] AdvReac NEEDS Verified 04/25/22 16:00 FOLLOW-UP Family History (Updated 09/10/22 @ 23:[address] Tee Mack DO) Other Drug abuse Social History Smoking Status: Current every day smoker tobacco type: cigarettes and e-cigarettes alcohol intake: never substance use type: marijuana, crack/cocaine, amphetamines and opiates ROS ROS ED Constitutional Constitutional ED: Denies chills or fever(s) Eyes Eyes: Denies change in vision ENT ENT ED: Denies rhinorrhea or sore throat Cardiovascular Cardiovascular: Reports palpitations; Denies chest pain Respiratory/Chest Respiratory/Chest: Denies cough or dyspnea Gastrointestinal Gastrointestinal: Denies abdominal pain, nausea or vomiting Genitourinary Genitourinary ED: Denies dysuria Musculoskeletal Musculoskeletal: Denies arthralgias Integumentary Denies abscess or Abrasions Neurologic Neurologic: Denies headache(s) or paresthesias Psychiatric Psychiatric: Reports anxiety EXAM Physical Exam Const Vital Signs: 09/10/22 21:56 09/10/22 21:56 Temperature 97.3 F L 97.3 F L Temperature Source Temporal Temporal Pulse Rate 153 H 153 H Respiratory Rate 20 H 20 H Blood Pressure 157/98 H 157/98 H Blood Pressure Mean 117 117 Pulse Ox 100 100 Oxygen Delivery Method Room Air Room Air Positive well nourished General Appearance ED: NAD; Negative for pallor HEENT Reports moist mucous membranes atraumatic and trauma Eyes PERRL and EOMs intact bilaterally General Eye ED: Negative for pale conjunctiva Neck no lymphadenopathy and supple Resp normal respiratory effort and clear to auscultation bilaterally Auscultation: Negative for rales, rhonchi or wheezes Cardio regular rhythm Rate: tachycardic GI Palpation: Negative for tender or guarding Neuro oriented x3 and CN's II-XII intact bilaterally Sensorium / Orientation: alert Motor Exam: strength 5/5 throughout Psych mental status grossly normal and thought process normal Skin General Skin Exam: Negative for jaundice or pallor MDM MDM MDM Narrative Medical decision making narrative: Patient presenting requesting detox from multiple medications which were described in the HPI. Significantly tachycardic at 153 on arrival. I obtained an EKG which shows a sinus tachycardia with a ventricular rate of 135 bpm without sign of ischemic change or dysrhythmia. CT interval 144 ms, QRS duration 82 ms, QTC 441 ms. Patient was ordered a liter of normal saline. Although she takes a significant amount of Benadryl reportedly she does not look like she has anticholinergic syndrome. Patient with significant history of drug abuse and urine drug screen will be ordered. Blood work is also ordered. I spoke with poison control who stated that there is no specific treatment except for monitoring. They felt that she could possibly be discharged after 8 hours postingestion at that point she would be cleared from the drug use standpoint however they did state that if she needed to be washed for symptomatic control especially since she has significant tachycardia that would not be unreasonable. They recommended checking salicylates and acetaminophen as well which was ordered. I discussed this with the hospitalist who felt it was reasonable to admit the patient for observation but also agreed there is no specific detox plan for her medication use/overuse. Patient will be admitted for observation. Thus far her liver function tests are normal. Renal function electrolytes are normal. EtOH negative. Urine drug screen positive for benzodiazepines which he admits to taking. Serum test is negative. The rest of her lab work to be followed on the medical floor. Impression: 1. Drug abuse 2. Tachycardia Lab Data Attestation: I reviewed the patient's lab results. Labs: Laboratory Results - last 24 hr 09/10/22 09/10/22 09/10/22 22:20 22:35 22:35 Sodium 138 Potassium 3.6 Chloride 105 Carbon Dioxide 26.0 Anion Gap 7 BUN 10 Creatinine 0.91 Estim Creat Clear Calc 93.68 Est GFR (MDRD) Af Amer 95 Est GFR (MDRD) Non-Af 78 BUN/Creatinine Ratio 11.0 Glucose 84 Calcium 9.6 Total Bilirubin 0.30 Direct Bilirubin 0.13 AST 22 ALT 53 Alkaline Phosphatase 75 Total Protein 7.9 Albumin 4.8 Globulin 3.1 Serum , Qual Urine Opiates Screen NEGATIVE Urine Methadone Screen NEGATIVE Ur Barbiturates Screen NEGATIVE Ur Phencyclidine Scrn NEGATIVE Ur Amphetamines Screen NEGATIVE MDMA (Ecstasy) Screen NEGATIVE U Benzodiazepines Scrn POSITIVE H Urine Cocaine Screen NEGATIVE U Cannabinoids Screen NEGATIVE Ur Drug Screen Comment Ethyl Alcohol 7.0 09/10/22 22:35 Sodium Potassium Chloride Carbon Dioxide Anion Gap BUN Creatinine Estim Creat Clear Calc Est GFR (MDRD) Af Amer Est GFR (MDRD) Non-Af BUN/Creatinine Ratio Glucose Calcium Total Bilirubin Direct Bilirubin AST ALT Alkaline Phosphatase Total Protein Albumin Globulin Serum , Qual NEGATIVE Urine Opiates Screen Urine Methadone Screen Ur Barbiturates Screen Ur Phencyclidine Scrn Ur Amphetamines Screen MDMA (Ecstasy) Screen U Benzodiazepines Scrn Urine Cocaine Screen U Cannabinoids Screen Ur Drug Screen Comment Ethyl Alcohol Discharge Plan Triage Chief Complaint: Substance Abuse ED Provider: Martin Telles Dx/Rx/DC Orders Prescriptions: No Action divalproex 500 mg tablet extended release 24 hr 500 mg PO BID fluoxetine 20 mg capsule 40 mg PO QHS baclofen 10 mg tablet 10 mg PO DAILY Label Comments: TAKE 1 TABLET BY MOUTH ONCE DAILY buspirone 10 mg tablet 15 mg PO TID Label Comments: 20 mg Oral Twice A Day quetiapine 25 mg tablet 100 mg PO DAILY Label Comments: TAKE 1 TABLET BY MOUTH TWICE DAILY NEEDED FOR ANXIETY OR AGGRESSION Vivitrol 380 mg Suspension,Extended Rel Recon 380 mg IM QMONTH Primary Care Provider: Skyler Patino Referrals: Skyler Patino MD [Primary Care Provider] -
--- NOTE | 2022-09-10 22:15 | EKG12_ITS ---
Test Reason : DYSRHYTHMIA Blood Pressure : / mmHG Vent. Rate : 135 BPM Atrial Rate : 135 BPM P-R Int : 144 ms QRS Dur : 082 ms QT Int : 294 ms P-R-T Axes : 066 041 005 degrees QTc Int : 441 ms Sinus tachycardia Otherwise normal ECG Confirmed by PATRICIA ALVAREZ, KESHAV ([id number]), supervising editor news reel CHAD RAMIREZ ([id number]) on 09/11/2022 9:27:34 AM Referred By: NICOLASA Confirmed By:KESHAV GOMEZ MD
[2022-09-10 22:59] LABS: Amphetamine Urine VISTA NEGATIVE (<1000 ng/mL); Barbiturate Urine VISTA NEGATIVE (< 200 ng/mL); Benzodiazepine Urine VISTA POSITIVE (< 200 ng/mL); Cocaine Urine VISTA NEGATIVE (< 300 ng/mL); Ecstacy Urine VISTA NEGATIVE (< 500 ng/mL); Methadone Urine VISTA NEGATIVE (< 300 ng/mL); PCP Urine VISTA NEGATIVE (< 25 ng/mL); THC Urine VISTA NEGATIVE (< 50 ng/mL); Vista UDS pH Range 4
[2022-09-10 23:00] LABS: Internal QC Validated? YES +Cl - CLEAR BKGD; Pregnancy, Serum, hCG Quali. NEGATIVE Negative
--- NOTE | 2022-09-10 23:03 | HP.PCM.HOS_ITS ---
[facility] - General General Date of Service: 09/10/22 Chief Complaint: Requesting treatment for drug abuse [facility] Narrative FLORIAN BURCIAGA, is a 26 F who presents Requesting treatment for drug abuse. Patient is not using narcotics, illicit substances or alcohol. She has, however, taking 100 tablets of 25 mg of diphenhydramine and also taking around 5 Stacker3 (basically caffeine pills). She uses combo to get her high as it feels like how she felt when she was using methamphetamines. She has been doing this combination for weeks now. She also reports taking her aunts Valium with a past few days and taking roughly 15 tablets. Previously, was not taking Valium before that. Had also been taking Lyrica about 5 tablets over the past few days and gabapentin that she took from her aunt. She was advised to come to the hospital because the amount of medications that she was taking and to see about facilitating a treatment program when she is medically ready for discharge. In the emergency room, patient was noted to be tachycardic in the 130s to 150s. Patient does feel palpitations but denies any chest pain. Just feels very anxious and overwhelmed at this time. [facility] Medical History Addiction to drug Alcohol addiction Bipolar disorder Degenerative disc disease Desire for detoxification Encounter for IUD insertion Polysubstance (excluding opioids) dependence Post depression Sinus tachycardia Home Medications baclofen 10 mg tablet 10 mg PO DAILY Check with primary doctor 12/09/21 [History Last Taken Unknown] buspirone 10 mg tablet 15 mg PO TID Check with primary doctor 12/09/21 [History Last Taken Unknown] divalproex 500 mg tablet,extended release 24 hr 500 mg PO BID Check with primary doctor 12/09/21 [History Last Taken Unknown] fluoxetine 20 mg capsule 40 mg PO QHS Check with primary doctor 12/09/21 [History Last Taken Unknown] quetiapine 25 mg tablet 100 mg PO DAILY anxiety 12/10/21 [History Last Taken Unknown] naltrexone microspheres 380 mg intramuscular suspension,extended release (Vivitrol) 380 mg IM QMONTH 04/25/22 [History Last Taken Unknown] Allergy/AdvReac Type Severity Reaction Status Date / Time erythromycin ethylsuccinate Allergy Hives Verified 04/25/22 16:00 [From Pediazole] sulfisoxazole acetyl Allergy Hives Verified 04/25/22 16:00 [From Pediazole] venlafaxine [From Effexor] AdvReac NEEDS Verified 04/25/22 16:00 FOLLOW-UP Family History (Updated 09/10/22 @ 23:[address] Tee Mack, ) Other Drug abuse Social History Smoking Status: Current every day smoker tobacco type: cigarettes and e- cigarettes alcohol intake: never substance use type: marijuana, crack/cocaine, amphetamines and opiates ROS ROS Narrative No chest pain. No shortness of breath. All review of systems were negative except as mentioned above in the history of present illness and the other review of systems. Vital Signs Vital Signs Vital Signs: 09/10/22 21:56 09/10/22 21:56 Temperature 36.3 C L 36.3 C L Temperature Source Temporal Temporal Pulse Rate 153 H 153 H Respiratory Rate 20 H 20 H Blood Pressure 157/98 H 157/98 H Blood Pressure Mean 117 117 Pulse Ox 100 100 Oxygen Delivery Method Room Air Room Air Weight Weight: 95.1 kg Body Mass Index (BMI) 31.8 Physical Exam Const alert and no apparent distress HEENT normocephalic, head/scalp atraumatic, hearing grossly normal bilaterally and moist oral mucous membranes Eyes PERRL Resp normal respiratory effort, no retractions, no use of accessory muscles and clear to auscultation bilaterally Cardio Cardio Narrative: Tachycardic. Irregular. No murmurs gallops or rubs GI normal to inspection, nondistended, normoactive bowel sounds, soft to palpation, non-tender and non-distended Extremity normal to inspection Neuro moves all extremities Psych affect normal Results Lab / Micro Data Result Diagrams: 09/10/22 22:35 09/10/22 22:35 Labs: Laboratory Results - last 24 hr 09/10/22 22:20: Urine Opiates Screen NEGATIVE, Urine Methadone Screen NEGATIVE, Ur Barbiturates Screen NEGATIVE, Ur Phencyclidine Scrn NEGATIVE, Ur Amphetamines Screen NEGATIVE, MDMA (Ecstasy) Screen NEGATIVE, U Benzodiazepines Scrn POSITIVE H, Urine Cocaine Screen NEGATIVE, U Cannabinoids Screen NEGATIVE, Ur Drug Screen Comment 09/10/22 22:35: Serum , Qual NEGATIVE Assessment & Plan Assessment/Plan (1) Drug abuse: PLAN: Patient is stable and will unlikely go through acute drug withdrawal with her use of diphenhydramine and caffeine. Though she may develop caffeine headaches withdrawal. If she does experience caffeine withdrawal headaches neck be treated with acetaminophen. If she does have any current side effects of diphenhydramine withdrawal could be urticaria and if she does develop that then I would recommend not treating her with diphenhydramine but with prednisone. Jackson Yanes from [facility] called while I was in the room and I actually spoke with her. She said that Nicolás will see her tomorrow and work on getting a residential program for her. The patient is medically ready she could potentially go to a residential program as early as tomorrow. Appears the patient has impulse issues with her using large quantities of legal medications but also stealing from her aunt. I feel that residential program would be the most appropriate for her to maintain sobriety. (2) Tachycardia: PLAN: I do not feel the patient has anticholinergic poisoning despite the large quantities of diphenhydramine that she uses. I do not feel that physical Kimberli is necessary at this point. Though I do feel her tachycardia is probably all attributable to the copious amounts of diphenhydramine but also large quantities of caffeine that she is taking, too. Plan for now, is supportive management with IV fluids and monitor her on telemetry. PLAN: Plan Bipolar disorder: Continue with divalproex. Quetiapine has been previously been discontinued VTE prophylaxis: Not indicated given current observation status. Charges/Coding Visit Charges OBSV E&M: 74097 Initial observation care L3
[2022-09-10 23:06] LABS: AST(SGOT) 22 U/L (15-37); Alanine Aminotransfer ALT/SGPT 53 U/L (13-56); Albumin, Serum 4.8 g/dL (3.2-5.0); Alkaline Phosphatase 75 U/L (45-117); Anion Gap 7 (5-15); BUN 10 mg/dL (7-18); Bilirubin, Direct 0.13 mg/dL (0.00-0.30); Calcium,Total 9.6 mg/dL (8.5-10.1); Chloride 105 mmol/L (98-107); Creatinine, Serum 0.91 mg/dL (0.55-1.02); EST Glomerular Filtration Rate 78 mL/min (>60); Est Glom Filt Rate - Afr Amer 95 mL/min (>60); Estimated Creatinine Clearance 93.68 ml/min; Globulin 3.1 g/dL (2.2-4.2); Glucose 84 mg/dL (74-106); Potassium 3.6 mmol/L (3.5-5.1); Protein, Total 7.9 g/dL (6.4-8.2); Sodium Level 138 mmol/L (136-145)
[2022-09-10 23:15] LABS: Valproic Acid (Depakene) Level < 3 ug/mL (50-100)
[2022-09-10 23:16] VITALS: BP 135/70; PULSE 119; RESP 16; TEMP 36.8; O2SAT 100
[2022-09-10 23:22] LABS: Absolute Lymphocyte Count 1.95 X10^3/uL (0.83-4.51); Absolute Neutrophil Count 9.4 X10^3/uL (2.0-7.7); Basophil# 0.05 X10^3/uL; Basophil% 0.4 % (0-1); Eosinophil# 0.01 X10^3/uL; Eosinophils% 0.1 % (0-5); Hematocrit 39.7 % (37-47); Hemoglobin 13.4 g/dL (12.0-15.0); Lymphocyte # 1.95 X10^3/ul (0.83-4.51); Lymphocyte % 15.6 % (19-41); Mean Corp Hgb Conc 33.8 g/dL (32-36); Mean Corpuscular Hgb 30.5 pg (27.0-32.0); Mean Corpuscular Volume 90.4 fL (81-99); Monocyte# 0.97 X10^3/uL; Monocyte% 7.7 % (0-10); NRBC Flagged by Analyzer 0 % (0-5); Neutrophil # 9.42 X10^3/uL (2.7-7.7); Neutrophil % 75.2 % (47-70); Platelet Count 310 K/mm3 (150-450); RBC Distribution Width CV 13.4 % (11.6-14.6); RBC Distribution Width SD 44.3 fl (35.1-43.9); Red Blood Count 4.39 M/mm3 (4.2-5.4); White Blood Count 12.5 K/mm3 (4.4-11.0)
[2022-09-10 23:36] LABS: Acetaminophen (Tylenol) Level < 2.0 ug/mL (10.0-30.0); Salicylate < 1.7 mg/dL (2.8-20.0)
[2022-09-11] VITALS (7 sets, daily range): BP systolic 102–136; BP diastolic 54–85; PULSE 80–109; RESP 16–18; TEMP 36.5–36.8; O2SAT 96–100; BMI 31.3
[2022-09-11] MEDS: 0.9% Normal Saline 1,000 ML 200 ML IV ×2 (00:23→05:17)
[2022-09-11] MEDS: 0.9% Saline Lock 10 ML Syringe IV (00:25)
[2022-09-11] MEDS: MELATONIN 3 MG TABLET PO (02:12)
[2022-09-11] MEDS: busPIRone 15 MG TABLET PO (05:24)
[2022-09-11] MEDS: Divalproex (ER) 500 MG Tablet PO (11:18)
[2022-09-11] MEDS: Propranolol 40 MG Tablet PO (11:18)
[2022-09-11] MEDS: FLU VACC QS2022-23(6MOS UP)/PF 60 MCG/0.5 ML SYRINGE IM (11:19)
--- NOTE | 2022-09-11 12:00 | ADDICTION ---
This SW met with the client to complete assessments and discuss her reasons for admission and her discharge plans. She admits she was using substances out of control, despite being engaged in outpatient [facility] treatment. She is living in an environment with limited accountability and is requesting residential treatment again. The plan now would be to get her back to residential at [facility].
--- NOTE | 2022-09-11 12:06 | DS.PCM_ITS ---
Providers Date of Admission: 09/10/22 Date of Discharge: 09/11/22 Primary Care Physician: Dr. Skyler Pation MD Reason For Visit: TACHYCARDIA, DRUG ABUSE Diagnosis Discharge Diagnosis (1) Drug abuse: Status: Acute Code(s): F19.10 - Other psychoactive substance abuse, uncomplicated (2) Tachycardia: Status: Acute Code(s): R00.0 - Tachycardia, unspecified Plan 1. Polydrug abuse #2 tachycardia-etiology unclear #3 bipolar disorder Medications at Discharge Home Medications buspirone 10 mg tablet 20 mg PO TID Check with primary doctor 12/09/21 divalproex 500 mg tablet,extended release 24 hr 1,000 mg PO QHS Check with primary doctor 12/09/21 naltrexone microspheres 380 mg intramuscular suspension,extended release (Vivitrol) 380 mg IM QMONTH 04/25/22 aripiprazole 20 mg tablet (Abilify) 20 mg PO QHS depression 09/10/22 hydroxyzine pamoate 50 mg capsule (Vistaril) 50 mg PO TID 09/10/22 prazosin 5 mg capsule 5 mg PO QHS 09/10/22 pregabalin 50 mg capsule (Lyrica) 50 mg PO TID 09/10/22 propranolol 40 mg tablet 40 mg PO BID 09/10/22 vortioxetine 10 mg tablet (Trintellix) 5 mg PO QHS bipolar 09/10/22 Hospital Course Operations None Procedures None Summary of Care Provided Minutes Spent on Discharge: 30 Hospital Course: 6-year-old white female was seen in the emergency room at [facility], she complained of polysubstance abuse-she stated she was taking approx imately 100 Benadryl 25 mg tablets per day because it made her high she also took some of her family members Valium's. Patient has a history of bipolar disorder and past history of drug abuse. 180 was contacted while the patient was in the emergency room, it was requested that she be placed into observation status for placement in an inpatient detox facility, patient was placed in observation status on MedSurg 3, she had been noted to be tachycardic in the emergency room but this resolved spontaneously. Patient was kept on her home medications. On 09/11/2022, patient was seen and examined: On examination she appeared in good health and spirits, she does not appear to be in any distress. Vital signs as documented. Skin warm and dry and without overt rashes. Neck without JVD, thyroid appears normal, trachea is midline, neck is supple. Lungs clear, normal air movement was noted. Heart exam notable for regular rhythm, normal sounds and absence of murmurs, rubs or gallops. Abdomen unremarkable and without evidence of organomegaly, masses, or abdominal aortic enlargement, bowel sounds are present in all 4 quadrants, no abdominal tenderness was noted. Extremities nonedematous, no cyanosis was noted, no clubbing was noted. Neuro: Cranial nerves II through XII are grossly intact, no focal motor deficits were noted, sensation to light touch and pinprick is intact, motor exam 5/5 t hroughout. Psych: Patient is alert and oriented x3, she does not appear anxious or depressed, she does not appear agitated. Patient appears stable for discharge on 09/11/2022, she was to go to an in patient detox program. Weight / BMI Weight Weight: 93.5 kg Body Mass Index (BMI) 31.3 ABG / Lab / Microbiology Data Result Diagrams: 09/10/22 22:35 09/10/22 22:35 Laboratory: Laboratory Results - last 24 hr 09/10/22 22:20: Urine Opiates Screen NEGATIVE, Urine Methadone Screen NEGATIVE, Ur Barbiturates Screen NEGATIVE, Ur Phencyclidine Scrn NEGATIVE, Ur Amphetamines Screen NEGATIVE, MDMA (Ecstasy) Screen NEGATIVE, U Benzodiazepines Scrn POSITIVE H, Urine Cocaine Screen NEGATIVE, U Cannabinoids Screen NEGATIVE, Ur Drug Screen Comment 09/10/22 22:35: WBC 12.5 H, RBC 4.39, Hgb 13.4, Hct 39.7, MCV 90.4, MCH 30.5, MCHC 33.8, RDW Std Deviation 44.3 H, RDW Coeff of Georges 13.4, Plt Count 310, MPV 9.0, Immature Gran % (Auto) 1.000 H, Neut % (Auto) 75.2 H, Lymph % (Auto) 15.6 L , [place] % (Auto) 7.7, Eos % (Auto) 0.1, Baso % (Auto) 0.4, Absolute Neuts (auto) 9.4 H, Absolute Lymphs (auto) 1.95, Nucleated RBC % 0 09/10/22 22:35: Sodium 138, Potassium 3.6, Chloride 105, Carbon Dioxide 26.0, An ion Gap 7, BUN 10, Creatinine 0.91, Estim Creat Clear Calc 93.68, Est GFR (MDRD) Af Amer 95, Est GFR (MDRD) Non-Af 78, BUN/Creatinine Ratio 11.0, Glucose 84, Calcium 9.6, Total Bilirubin 0.30, Direct Bilirubin 0.13, AST 22, ALT 53, Alkaline Phosphatase 75, Total Protein 7.9, Albumin 4.8, Globulin 3.1 09/10/22 22:35: Ethyl Alcohol 7.0 09/10/22 22:35: Serum , Qual NEGATIVE 09/10/22 22:35: Valproic Acid < 3 L 09/10/22 22:35: Salicylates < 1.7 L, Acetaminophen < 2.0 L D/C Instructions Discharge Diet: No restrictions Weight Bearing Status: Full weight bearing Meaningful Use Info Meaningful Use Diagnoses (Choose all that apply): None applicable Discharge Plan Admission Admit Date/Time: 09/10/22 22:58 Primary Reason for Your Visit: benadryl abuse Attending Provider: Glenn Madison Primary Care Provider: Skyler Patino Consulting Providers: Tee Mack ; Yue Walsh Instructions Additional Instructions / Restrictions: follow up with 180 Discharge Orders/Prescriptions Prescriptions: Continued divalproex 500 mg tablet extended release 24 hr 1,000 mg PO QHS buspirone 10 mg tablet 20 mg PO TID Label Comments: 20 mg Oral Twice A Day Vivitrol 380 mg Suspension,Extended Rel Recon 380 mg IM QMONTH hydroxyzine pamoate [Vistaril] 50 mg Capsule 50 mg PO TID prazosin 5 mg Capsule 5 mg PO QHS propranolol 40 mg Tablet 40 mg PO BID aripiprazole [Abilify] 20 mg tablet 20 mg PO QHS pregabalin [Lyrica] 50 mg Capsule 50 mg PO TID Trintellix 10 mg Tablet 5 mg PO QHS Rx Instructions: 5mg x3 nights, then take 10mg *Med recently prescribed, pt has not started taking yet Referrals / Follow Up: Skyler Patino MD [Primary Care Provider] - Disposition Disposition (needs filled in before D/C Order can be placed): Home, Self Care Charges/Coding Visit Charges OBSV E&M: 10786 Observation care discharge
--- NOTE | 2022-09-11 12:34 | ADDICTION ---
Pt. decided to go home first to pack belongings, spend time with children, and help her aunt set up food delivery before she admits to residential. She was advised of the risks of waiting but still only wanted to go home first. She was medically cleared to discharge around 12:30p and was requested to follow up with [facility] on 09/13/22 for residential admission.
== END 2022-09-11 12:52 | disposition home or self-care (01) ==
LOC: ED 22:39 → MS3 23:22
PROVIDERS: Emergency Provider Student in an Organized Health Care Education/Training Program; PCP Family Medicine; Visit Provider Internal Medicine
DX: F19.20 Other psychoactive substance dependence, uncomplicated (principal); F13.20 Sedative, hypnotic or anxiolytic dependence, uncomplicated; F10.21 Alcohol dependence, in remission; F11.21 Opioid dependence, in remission; F15.21 Other stimulant dependence, in remission; F31.9 Bipolar disorder, unspecified; R00.0 Tachycardia, unspecified; F12.90 Cannabis use, unspecified, uncomplicated; F17.290 Nicotine dependence, other tobacco product, uncomplicated; F17.210 Nicotine dependence, cigarettes, uncomplicated; Z79.899 Other long term (current) drug therapy; Z23 Encounter for immunization
CPT/HCPCS: 90686; 80048; 80076; 80164; 80307; 80329; 82077; 84703; 85025; 93005; 96360; 96361; 99218; 99284; J7030; A4216; G0378; G0480

== ENCOUNTER 2022-09-13 12:27 | Emergency (ER) | payer MEDICAID, SELFPAY ==
[2022-09-13 12:28] VITALS: BP 134/74; PULSE 132; RESP 16; TEMP 36.6; O2SAT 100; BMI 31.3
--- NOTE | 2022-09-13 13:31 | NURSING ---
Patient has counselor at [facility]. Pt states she uses meth but has not used in a while. Patient states she was not trying to kill herself. Patient states taking a bunch of Benadryl can induce a high similar to meth. I was trying to not feel anything. Patients counselor, Silvia at bedside stating patient needs to be medically cleared in ordered to be admitted back to [facility]. Patient is calm and cooperative at this time. Call light placed in reach. No further requests at this time.
--- NOTE | 2022-09-13 13:49 | EKG12_ITS ---
Test Reason : Blood Pressure : / mmHG Vent. Rate : 104 BPM Atrial Rate : 104 BPM P-R Int : 152 ms QRS Dur : 078 ms QT Int : 376 ms P-R-T Axes : 059 041 075 degrees QTc Int : 494 ms Sinus tachycardia Otherwise normal ECG Confirmed by PATRICIA ALVAREZ, KESHAV ([id number]), newspaper or periodical editor DORITA SIMPSON ([id number]) on 09/15/2022 9:25:12 AM Referred By: CLIFFORD Confirmed By:KESHAV GOMEZ MD
[2022-09-13 14:00] VITALS: RESP 18; O2SAT 99
[2022-09-13 14:02] LABS: Absolute Lymphocyte Count 1.41 X10^3/uL (0.83-4.51); Absolute Neutrophil Count 6.1 X10^3/uL (2.0-7.7); Basophil# 0.02 X10^3/uL; Basophil% 0.2 % (0-1); Eosinophil# 0.05 X10^3/uL; Eosinophils% 0.6 % (0-5); Hemoglobin 12.9 g/dL (12.0-15.0); Lymphocyte # 1.41 X10^3/ul (0.83-4.51); Lymphocyte % 17.4 % (19-41); Mean Corp Hgb Conc 33.1 g/dL (32-36); Mean Corpuscular Hgb 30.3 pg (27.0-32.0); Mean Corpuscular Volume 91.5 fL (81-99); Monocyte# 0.53 X10^3/uL; Monocyte% 6.6 % (0-10); NRBC Flagged by Analyzer 0 % (0-5); Neutrophil # 6.06 X10^3/uL (2.7-7.7); Platelet Count 259 K/mm3 (150-450); RBC Distribution Width CV 13.9 % (11.6-14.6); Red Blood Count 4.26 M/mm3 (4.2-5.4); White Blood Count 8.1 K/mm3 (4.4-11.0)
[2022-09-13 14:11] LABS: Bacteria 0 SEEN /hpf (None Seen); Mucous, Urine 0 SEEN /hpf (<or=2+); Red Blood Cells-Urine 0 SEEN /hpf (0-5)
[2022-09-13 14:13] LABS: Color, Urine Yellow (Yellow); Glucose, Dipstick Normal (Normal); Ketone-Dipstick 5 mg/dl (Negative); Leukocyte Esterase-Dipstick 25 /ul (Negative); Nitrite-Dipstick Negative (Negative); Occult Blood-Urine Negative /ul (Negative); Protein-Dipstick 15 mg/dl (Negative); Specific Gravity, Urine 1.025 (1.002-1.030); Urine Bilirubin Dipstick Negative (Negative); Urine Urobilinogen Normal (Normal)
[2022-09-13 14:15] LABS: Urine Clarity Clear (Clear)
[2022-09-13 14:16] LABS: Squamous Epithelial Cells - UA 0-5 SEEN /hpf (5-10); White Blood Cells 5-10 SEEN /hpf (0-5)
[2022-09-13 14:17] LABS: Internal QC Validated? YES +Cl - CLEAR BKGD; Pregnancy, Urine Negative Negative
[2022-09-13 14:20] LABS: ALB/GLOB Ratio 1.2 RATIO (0.9-2.4); AST(SGOT) 23 U/L (15-37); Alanine Aminotransfer ALT/SGPT 51 U/L (13-56); Alkaline Phosphatase 73 U/L (45-117); Anion Gap 5 (5-15); BUN 13 mg/dL (7-18); BUN/Creat Ratio 16.1 RATIO (10-20); Calcium,Total 8.6 mg/dL (8.5-10.1); Chloride 109 mmol/L (98-107); Creatinine, Serum 0.81 mg/dL (0.55-1.02); EST Glomerular Filtration Rate 90 mL/min (>60); Est Glom Filt Rate - Afr Amer 109 mL/min (>60); Estimated Creatinine Clearance 105.24 ml/min; Globulin 3.3 g/dL (2.2-4.2); Glucose 111 mg/dL (74-106); Potassium 3.9 mmol/L (3.5-5.1); Protein, Total 7.3 g/dL (6.4-8.2); Sodium Level 140 mmol/L (136-145)
--- NOTE | 2022-09-13 14:32 | EX.ED.DYSGE1 ---
HPI History of Present Illness Chief Complaint: Overdose Informant: patient Narrative Narrative: Patient presenting for medical clearance after an intentional overdose but not to harm herself. At 1030 this morning, several hours prior to evaluation, she took #12 diphenhydramine 25 mg tablets. 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 She has been in and out of residential rehab recently, and she admits that she talks herself into taking pills such as Benadryl because it is legal and will not be harmful to her. She used to take Benadryl daily in order to feel high because it makes her accelerated. She actually presented here in the past for detox because of this, but was denied it because it is not a physically dependent medication and/or dangerous to discontinue. She wants to go back into outpatient rehab today and presents with staff from [facility] to get medically cleared for this purpose. The only physical symptoms she has right now is feeling her heart beating fast. She denies any coingestants today. [facility] Medical History Addiction to drug Alcohol addiction Bipolar disorder Degenerative disc disease Desire for detoxification Encounter for IUD insertion Polysubstance (excluding opioids) dependence Post depression Sinus tachycardia Home Medications buspirone 10 mg tablet 20 mg PO TID Check with primary doctor 12/09/21 [History Last Taken Unknown] divalproex 500 mg tablet,extended release 24 hr 1,000 mg PO QHS Check with primary doctor 12/09/21 [History Last Taken Unknown] naltrexone microspheres 380 mg intramuscular suspension,extended release (Vivitrol) 380 mg IM QMONTH 04/25/22 [History Last Taken Unknown] aripiprazole 20 mg tablet (Abilify) 20 mg PO QHS depression 09/10/22 [History Last Taken Unknown] hydroxyzine pamoate 50 mg capsule (Vistaril) 50 mg PO TID 09/10/22 [History Last Taken Unknown] prazosin 5 mg capsule 5 mg PO QHS 09/10/22 [History Last Taken Unknown] pregabalin 50 mg capsule (Lyrica) 50 mg PO TID 09/10/22 [History Last Taken Unknown] propranolol 40 mg tablet 40 mg PO BID 09/10/22 [History Last Taken Unknown] vortioxetine 10 mg tablet (Trintellix) 5 mg PO QHS bipolar 09/10/22 [History Last Taken Unknown] Allergy/AdvReac Type Severity Reaction Status Date / Time erythromycin ethylsuccinate Allergy Hives Verified 09/13/22 12:27 [From Pediazole] sulfisoxazole acetyl Allergy Hives Verified 09/13/22 12:27 [From Pediazole] venlafaxine [From Effexor] AdvReac Headaches Verified 09/13/22 12:27 Family History (Updated 09/10/22 @ 23:[address] Tee Mack DO) Other Drug abuse Social History Smoking Status: Current every day smoker tobacco type: cigarettes and e-cigarettes alcohol intake: never substance use type: marijuana, crack/cocaine, amphetamines and opiates ROS ROS ED Constitutional Constitutional ED: Denies chills or fever(s) Eyes Eyes: Denies change in vision or diplopia ENT ENT ED: Denies rhinorrhea or sore throat Cardiovascular Cardiovascular: Reports racing heartbeat; Denies chest pain Respiratory/Chest Respiratory/Chest: Denies cough or dyspnea Gastrointestinal Gastrointestinal: Denies abdominal pain, diarrhea, nausea or vomiting Genitourinary Genitourinary ED: Denies dysuria or hematuria Musculoskeletal Musculoskeletal: Denies back pain or neck pain Integumentary Denies abscess or rash Neurologic Neurologic: Denies headache(s), paresthesias or weakness Psychiatric Psychiatric: Reports anxiety; Denies suicidal thoughts EXAM Physical Exam Const Vital Signs: 09/13/22 12:28 09/13/22 14:00 09/13/22 14:44 Temperature 97.8 F Temperature Source Temporal Pulse Rate 132 H 92 Respiratory Rate 16 18 14 Blood Pressure 134/74 H 122/75 H Blood Pressure Mean 94 90 Pulse Ox 100 99 98 Oxygen Delivery Method Room Air Room Air Room Air Positive well nourished and well developed General Appearance ED: well developed and NAD HEENT Reports moist mucous membranes normocephalic and atraumatic Eyes PERRL and EOMs intact bilaterally Neck full ROM and supple Resp normal respiratory effort and clear to auscultation bilaterally Cardio regular rate, regular rhythm and no murmurs Rate: tachycardic GI non-tender and non-distended Auscultation: normoactive bowel sounds Palpation: soft Back/Spine no CVA tenderness General Back: other FROM Extremity normal to inspection General Extremety ED: Negative for edema, pulses abnormal or tenderness General Extremity: Negative for edema or pulses abnormal Neuro oriented x3, CN's II-XII intact bilaterally and no sensory deficits noted Sensorium / Orientation: awake and alert Motor Exam: strength 5/5 throughout Psych mental status grossly normal Psych Narrative: Insightful. Reasonable and cooperative. No pressured speech. No suicidal or homicidal ideation. No hallucinations or delusions. Skin no rashes or lesions noted and no wounds MDM MDM MDM Narrative Medical decision making narrative: With observation, the patient's heart rate is come down to the 90s, her other vital signs are normal. She feels better. She took 300 mg of diphenhydramine, and I found no coingestants with ancillary testing. Discussed with poison control, they recommend no further observation or testing and are comfortable with her being discharged medically cleared, which I can to clear her from a full clinical standpoint as well. Lab Data Attestation: I reviewed the patient's lab results. Labs: Laboratory Results - last 24 hr 09/13/22 09/13/22 09/13/22 13:56 13:56 13:56 WBC 8.1 RBC 4.26 Hgb 12.9 Hct 39.0 MCV 91.5 MCH 30.3 MCHC 33.1 RDW Std Deviation 47.0 H RDW Coeff of Georges 13.9 Plt Count 259 MPV 9.0 Immature Gran % (Auto) 0.200 Neut % (Auto) 75.0 H Lymph % (Auto) 17.4 L [place] % (Auto) 6.6 Eos % (Auto) 0.6 Baso % (Auto) 0.2 Absolute Neuts (auto) 6.1 Absolute Lymphs (auto) 1.41 Nucleated RBC % 0 Sodium 140 Potassium 3.9 Chloride 109 H Carbon Dioxide 26.0 Anion Gap 5 BUN 13 Creatinine 0.81 Estim Creat Clear Calc 105.24 Est GFR (MDRD) Af Amer 109 Est GFR (MDRD) Non-Af 90 BUN/Creatinine Ratio 16.1 Glucose 111 H Calcium 8.6 Total Bilirubin 0.30 AST 23 ALT 51 Alkaline Phosphatase 73 Total Protein 7.3 Albumin 4.0 Globulin 3.3 Albumin/Globulin Ratio 1.2 Urine Color Urine Clarity Urine pH Ur Specific [place] Urine Protein Urine Glucose (UA) Urine Ketones Urine Occult Blood Urine Nitrite Urine Bilirubin Urine Urobilinogen Ur Leukocyte Esterase Urine RBC Urine WBC Ur Squamous Epith Cells Urine Bacteria Urine Mucus Urine Test Salicylates < 1.7 L Acetaminophen < 2.0 L Ur Drug Screen Comment Ethyl Alcohol 09/13/22 09/13/22 09/13/22 13:56 13:56 13:59 WBC RBC Hgb Hct MCV MCH MCHC RDW Std Deviation RDW Coeff of Georges Plt Count MPV Immature Gran % (Auto) Neut % (Auto) Lymph % (Auto) [place] % (Auto) Eos % (Auto) Baso % (Auto) Absolute Neuts (auto) Absolute Lymphs (auto) Nucleated RBC % Sodium Potassium Chloride Carbon Dioxide Anion Gap BUN Creatinine Estim Creat Clear Calc Est GFR (MDRD) Af Amer Est GFR (MDRD) Non-Af BUN/Creatinine Ratio Glucose Calcium Total Bilirubin AST ALT Alkaline Phosphatase Total Protein Albumin Globulin Albumin/Globulin Ratio Urine Color Yellow Urine Clarity Clear Urine pH 6.0 Ur Specific [place] 1.025 Urine Protein 15 H Urine Glucose (UA) Normal Urine Ketones 5 H Urine Occult Blood Negative Urine Nitrite Negative Urine Bilirubin Negative Urine Urobilinogen Normal Ur Leukocyte Esterase 25 H Urine RBC 0 SEEN Urine WBC 5-10 SEEN Ur Squamous Epith Cells 0-5 SEEN Urine Bacteria 0 SEEN Urine Mucus 0 SEEN Urine Test Negative Salicylates Acetaminophen Ur Drug Screen Comment Ethyl Alcohol < 3.0 Rhythm Strip Rhythm Strip: Sinus Tach Rate: 115 Ectopy: None EKG Initial EKG: Attestation: I personally reviewed and interpreted this EKG as follows: Interpretation: No Acute Injury Pattern and Sinus Tachycardia (104) Comments: Otherwise normal including intervals Discharge Plan Triage Chief Complaint: Overdose ED Provider: Elvis Tovar Dx/Rx/DC Orders Clinical Impression: Purposeful non-suicidal drug overdose, Drug abuse Instructions: ED Drug Abuse Prescriptions: No Action divalproex 500 mg tablet extended release 24 hr 1,000 mg PO QHS buspirone 10 mg tablet 20 mg PO TID Label Comments: 20 mg Oral Twice A Day Vivitrol 380 mg Suspension,Extended Rel Recon 380 mg IM QMONTH hydroxyzine pamoate [Vistaril] 50 mg Capsule 50 mg PO TID prazosin 5 mg Capsule 5 mg PO QHS propranolol 40 mg Tablet 40 mg PO BID aripiprazole [Abilify] 20 mg tablet 20 mg PO QHS pregabalin [Lyrica] 50 mg Capsule 50 mg PO TID Trintellix 10 mg Tablet 5 mg PO QHS Rx Instructions: 5mg x3 nights, then take 10mg *Med recently prescribed, pt has not started taking yet Primary Care Provider: Skyler Patino Referrals: Skyler Patino MD [Primary Care Provider] - [facility] [Non-Staff] - As soon as possible Disposition Disposition: Home, Self Care
--- NOTE | 2022-09-13 14:34 | CM.ED ---
SANGITA Note SANGITA met with patient and her peer support from [facility]. Patient gave verbal consent to speak to her in the presence of peer support. Patient confirmed that her plan is to [facility] Patient's children are safe with their father and he is appropriate to care for the children. Patient denied SI/HI and denied that taking the benedryl overdose was a suicide attempt. Patient was bright, reactive and engaging with this commercial real estate underwriter. SANGITA spoke to MD Tovar who indicated that this commercial real estate underwriter did not need to do MH assessment. Sheron ZHU
[2022-09-13 14:44] VITALS: BP 122/75; PULSE 92; RESP 14; O2SAT 98
[2022-09-13 14:50] LABS: Salicylate < 1.7 mg/dL (2.8-20.0)
[2022-09-13 14:51] LABS: Acetaminophen (Tylenol) Level < 2.0 ug/mL (10.0-30.0)
[2022-09-13 14:52] LABS: Alcohol, Blood (Medical)-Serum < 3.0 mg/dL
[2022-09-13 15:02] LABS: Amphetamine Urine VISTA NEGATIVE (<1000 ng/mL); Barbiturate Urine VISTA NEGATIVE (< 200 ng/mL); Benzodiazepine Urine VISTA POSITIVE (< 200 ng/mL); Cocaine Urine VISTA NEGATIVE (< 300 ng/mL); Ecstacy Urine VISTA NEGATIVE (< 500 ng/mL); Methadone Urine VISTA NEGATIVE (< 300 ng/mL); PCP Urine VISTA NEGATIVE (< 25 ng/mL); THC Urine VISTA NEGATIVE (< 50 ng/mL); Vista UDS pH Range 6
== END 2022-09-13 15:07 | disposition home or self-care (01) ==
PROVIDERS: Emergency Provider Emergency Medicine; PCP Family Medicine; Visit Provider Emergency Medicine
DX: T45.0X1A Poisoning by antiallergic and antiemetic drugs, accidental (unintentional), initial encounter (principal); F17.210 Nicotine dependence, cigarettes, uncomplicated; F17.290 Nicotine dependence, other tobacco product, uncomplicated; F41.9 Anxiety disorder, unspecified
CPT/HCPCS: 80053; 80307; 80329; 81001; 81025; 82077; 85025; 93005; 99283; G0480

== ENCOUNTER 2022-11-22 21:47 | Emergency (ER) | payer MEDICAID, SELFPAY ==
[2022-11-22 21:49] VITALS: BP 100/81; PULSE 95; RESP 18; TEMP 36.1; O2SAT 97; BMI 33.0
--- NOTE | 2022-11-22 22:43 | EDS_ITS ---
HPI History of Present Illness Chief Complaint: Substance Abuse Informant: patient Onset/Context/Timing Onset: Today Context: Gradual Onset (after ingesting drugs around 18 hrs [employer]) Timing: Continuous Quality: hallucinations Current Severity: Moderate Maximum Severity: Moderate Worsened by: nothing Relieved by: nothing Narrative Narrative: Patient presents for hallucinations. She states she will see something out of the corner of her eye that was a shadow but when she turns her head there is nothing there. Other times she hears somebody saying something to her in my own voice and then again she turns to see who it is and there is no one there. She states this is really contributing to her already-present anxiety. She admits to using substances about 4 AM this morning and has been having hallucinations ever since that. She states she believes it was a combination of diphenhydramine, baclofen, and hydroxyzine. These pills belonged to her and and were on her nightstand, she admits to taking them while she was sleeping. The rest of her aunts pills are locked up but she had access to these and states she is regretful and should have done it, she is currently in rehab in transition between residential which she just got out of, and outpatient therapy at [facility]. She states she saw the pills and this time the temptation to take them was too great, as a way to de-stress since yesterday she found out that she lost full custody of her children. She denies any suicidality or thoughts of suicidality even when she took the pills earlier today. She denies any recent physical symptoms such as dysuria, cough, dyspnea, GI symptoms, headache, vision change, focal neurologic deficits. States she feels very anxious especially due to the hallucinations which she is aware are not real. [facility] Medical History Addiction to drug Alcohol addiction Bipolar disorder Degenerative disc disease Desire for detoxification Encounter for IUD insertion Polysubstance (excluding opioids) dependence Post depression Sinus tachycardia Home Medications buspirone 10 mg tablet 20 mg PO TID Check with primary doctor 12/09/21 [History Last Taken Unknown] divalproex 500 mg tablet,extended release 24 hr 1,000 mg PO QHS Check with primary doctor 12/09/21 [History Last Taken Unknown] naltrexone microspheres 380 mg intramuscular suspension,extended release (Vivitrol) 380 mg IM QMONTH 04/25/22 [History Last Taken Unknown] aripiprazole 20 mg tablet (Abilify) 20 mg PO QHS depression 09/10/22 [History Last Taken Unknown] hydroxyzine pamoate 50 mg capsule (Vistaril) 50 mg PO TID 09/10/22 [History Last Taken Unknown] prazosin 5 mg capsule 5 mg PO QHS 09/10/22 [History Last Taken Unknown] pregabalin 50 mg capsule (Lyrica) 50 mg PO TID 09/10/22 [History Last Taken Unknown] propranolol 40 mg tablet 40 mg PO BID 09/10/22 [History Last Taken Unknown] vortioxetine 10 mg tablet (Trintellix) 5 mg PO QHS bipolar 09/10/22 [History Last Taken Unknown] Allergy/AdvReac Type Severity Reaction Status Date / Time erythromycin ethylsuccinate Allergy Hives Verified 11/22/22 23:46 [From Pediazole] sulfisoxazole acetyl Allergy Hives Verified 11/22/22 23:46 [From Pediazole] venlafaxine [From Effexor] AdvReac Headaches Verified 11/22/22 23:46 Family History (Updated 09/10/22 @ 23:[address] Tee Mack DO) Other Drug abuse Social History Smoking Status: Current every day smoker tobacco type: cigarettes and e-cigar ettes alcohol intake: never substance use type: marijuana, crack/cocaine, amphetamines and opiates ROS ROS ED Constitutional Constitutional ED: Denies chills or fever(s) Eyes Eyes: Denies change in vision or diplopia ENT ENT ED: Denies rhinorrhea or sore throat Cardiovascular Cardiovascular: Denies chest pain or palpitations Respiratory/Chest Respiratory/Chest: Denies cough or dyspnea Gastrointestinal Gastrointestinal: Denies abdominal pain, diarrhea, nausea or vomiting Genitourinary Genitourinary ED: Denies dysuria or hematuria Musculoskeletal Musculoskeletal: Denies back pain or neck pain Integumentary Denies abscess or rash Neurologic Neurologic: Denies headache(s), paresthesias or weakness Psychiatric Psychiatric: Reports as per HPI, anxiety and hallucinations; Denies suicidal ideation or suicidal thoughts EXAM Physical Exam Const Vital Signs: 11/22/22 21:49 11/23/22 01:00 Temperature 97 F L Temperature Source Temporal Pulse Rate 95 Respiratory Rate 18 16 Blood Pressure 100/81 H Blood Pressure Mean 87 Pulse Ox 97 Oxygen Delivery Method Room Air Positive well nourished and well developed General Appearance ED: well developed and NAD HEENT Reports moist mucous membranes normocephalic and atraumatic Eyes PERRL and EOMs intact bilaterally Neck full ROM and supple Resp normal respiratory effort and clear to auscultation bilaterally Cardio regular rate, regular rhythm and no murmurs GI non-tender and non-distended Auscultation: normoactive bowel sounds Palpation: soft Back/Spine no CVA tenderness General Back: other FROM Extremity normal to inspection General Extremety ED: Negative for edema, pulses abnormal or tenderness General Extremity: Negative for edema or pulses abnormal Neuro oriented x3, CN's II-XII intact bilaterally and no sensory deficits noted Sensorium / Orientation: awake and alert Motor Exam: strength 5/5 throughout Psych thought process normal, denies homicidal ideation and denies suicidal ideation Psych Narrative: mild psychomotor agitation Mood & Affect: anxious Skin no rashes or lesions noted and no wounds MDM MDM MDM Narrative Medical decision making narrative: Patient is insightful. At 1 point she turns her head and looks behind her as if she had a hallucination and then realizes that it is not reality. She admits that she has an addiction problem and is trying to be do by going to rehab, she currently has a safe place to stay her aunts house, however she admits that her aunt left some pills out of her locked boxes, making it easier for her to feel her addiction. She was interested in going to a retirement if available, however at the hour the patient presents which is late at night, we are not able to get her to any shelters, we checked. The plan is to give the patient an injection of Ativan to help calm her down and get some sleep which she has also been having trouble with, and observe her here until her aunt can pick her up, while simultaneously having a discussion with her and about locking up all pills while this patient is staying with her. Discussed with nursing. By the time nursing went to administer her Ativan, she no longer has psychomotor agitation and severe anxiety, but was snoring and sleeping. Therefore the medication was held. They discussed with multiple family members, all of them refused to come get her and refused to allow her to stay with them. Therefore, patient was placed in observation status at 2330 on 11/22/22, and will be allowed to sleep here tonight and let go in the morning when shelters are open. 11/23/22 0300: Patient woke up, she is ambulatory, she appears much better and feels much better and is without any objective hallucinating. She unfortunately is very upset to discover that none of her family will help her tonight. I advised the patient she was welcome to stay here until 7 AM when she could then get into the shelters, she understands that but wants to leave anyway and take her chances, we did tell her that the shelters typically do not allow new people in after a certain time. Patient wants to be discharged anyway, so discharge papers given. Discharge Plan Triage Chief Complaint: Substance Abuse ED Provider: Elvis Tovar Dx/Rx/DC Orders Clinical Impression: Drug induced hallucinations, Drug abuse Instructions: Addiction Recovery Counseling Prescriptions: No Action divalproex 500 mg tablet extended release 24 hr 1,000 mg PO QHS buspirone 10 mg tablet 20 mg PO TID Label Comments: 20 mg Oral Twice A Day Vivitrol 380 mg Suspension,Extended Rel Recon 380 mg IM QMONTH hydroxyzine pamoate [Vistaril] 50 mg Capsule 50 mg PO TID prazosin 5 mg Capsule 5 mg PO QHS propranolol 40 mg Tablet 40 mg PO BID aripiprazole [Abilify] 20 mg tablet 20 mg PO QHS pregabalin [Lyrica] 50 mg Capsule 50 mg PO TID Trintellix 10 mg Tablet 5 mg PO QHS Rx Instructions: 5mg x3 nights, then take 10mg *Med recently prescribed, pt has not started taking yet Primary Care Provider: Skyler Patino Referrals: Skyler Patino MD [Primary Care Provider] - [facility] [Non-Staff] - As soon as possible Disposition Disposition: Home, Self Care
--- NOTE | 2022-11-22 23:41 | ED.RN ---
AUNT COLLEEN IS NOT WILLING TO ALLOW PT TO COME TO HER HOUSE, STATES IT'S NOT A SAFE SITUATION ANYMORE WITH HER HERE. AUNT FURTHER STATES THAT MOTHER, SISTER AND SPOUSE ARE ALSO UNWILLING TO LET PT LIVE WITH THEM. UPDATED.
--- NOTE | 2022-11-22 23:48 | ED.RN ---
AUNT COLLEEN'S PHONE NUMBER [phone], MOTHER SHOULD BE PRIMARY CONTACT PER AUNT BUT IS HARD OF HEARING. OK TO CALL AUNT FOR TO GIVE UPDATES.
--- NOTE | 2022-11-23 00:14 | ED.RN ---
ATIVAN HELD AT THIS TIME, PT DROWSY, RESTING QUIETLY WITH NO SIGNS OF DISTRESS.
[2022-11-23 01:00] VITALS: RESP 16
== END 2022-11-23 03:08 | disposition home or self-care (01) ==
PROVIDERS: Emergency Provider Emergency Medicine; PCP Family Medicine; Visit Provider Emergency Medicine
DX: F19.151 Other psychoactive substance abuse with psychoactive substance-induced psychotic disorder with hallucinations (principal)
CPT/HCPCS: 99282

== ENCOUNTER 2024-02-01 10:14 | Emergency (ER) | payer MEDICAID, SELFPAY ==
[2024-02-01 10:15] VITALS: BP 131/87; PULSE 103; PULSE 117; RESP 16; TEMP 35.8; O2SAT 100; BMI 30.4
--- NOTE | 2024-02-01 10:23 | EDS_ITS ---
HPI History of Present Illness Chief Complaint: Nausea/Vomiting Informant: patient Onset/Context/Timing Onset: Yesterday Context: Sudden Onset Timing: Continuous and Waxes and wanes Quality: Cramping Location: Epigastric area Worsened by: Activity, eating Relieved by: Nothing Narrative Narrative: Patient presents with nausea and vomiting that began yesterday. Patient states that she started having nausea and vomiting while she was at work yesterday. Patient states it was her first day on her new job. Patient states that she still had nausea and vomiting today. Patient states she was having some blood streaks in her emesis. Patient states her emesis is mainly stomach contents. Patient denies any coffee-ground emesis. Patient is also admits to some diarrhea. Patient denies any melena or hematochezia. Patient states she has pain over her epigastric area. Patient describes it as cramping. Patient states it is worse with any attempts at eating and with activity. Patient states she took a dose of Phenergan that a friend gave her. Patient states she is starting to feel better. Patient does admit to smoking marijuana. [facility] Medical History Addiction to drug Alcohol addiction Bipolar disorder Degenerative disc disease Desire for detoxification Encounter for IUD insertion Polysubstance (excluding opioids) dependence Post depression Sinus tachycardia Home Medications buspirone 10 mg tablet 20 mg PO TID Check with primary doctor 12/09/21 [History Last Taken Unknown] divalproex 500 mg tablet,extended release 24 hr 1,000 mg PO QHS Check with primary doctor 12/09/21 [History Last Taken Unknown] naltrexone microspheres 380 mg intramuscular suspension,extended release (Vivitrol) 380 mg IM QMONTH 04/25/22 [History Last Taken Unknown] aripiprazole 20 mg tablet (Abilify) 20 mg PO QHS depression 09/10/22 [History Last Taken Unknown] hydroxyzine pamoate 50 mg capsule (Vistaril) 50 mg PO TID 09/10/22 [History Last Taken Unknown] prazosin 5 mg capsule 5 mg PO QHS 09/10/22 [History Last Taken Unknown] pregabalin 50 mg capsule (Lyrica) 50 mg PO TID 09/10/22 [History Last Taken Unknown] propranolol 40 mg tablet 40 mg PO BID 09/10/22 [History Last Taken Unknown] vortioxetine 10 mg tablet (Trintellix) 5 mg PO QHS bipolar 09/10/22 [History Last Taken Unknown] promethazine 25 mg rectal suppository (Promethegan) 25 mg RECTAL Q6H PRN PRN Nausea ##6 02/01/24 [Rx Last Taken Unknown] Allergy/AdvReac Type Severity Reaction Status Date / Time erythromycin ethylsuccinate Allergy Hives Verified 02/01/24 10:19 [From Pediazole] sulfisoxazole acetyl Allergy Hives Verified 02/01/24 10:19 [From Pediazole] venlafaxine [From Effexor] AdvReac Headaches Verified 02/01/24 10:19 Family History (Updated 09/10/22 @ 23:[address] Tee Mack DO) Other Drug abuse Social History Smoking Status: Current every day smoker tobacco type: cigarettes and e- cigarettes alcohol intake: never substance use type: marijuana, crack/cocaine, amphetamines and opiates ROS ROS ED Constitutional Constitutional ED: Reports sweats; Denies chills or fever(s) Eyes Eyes: Denies blurry vision or change in vision ENT ENT ED: Denies rhinorrhea or sore throat Cardiovascular Cardiovascular: Denies chest pain or palpitations Respiratory/Chest Respiratory/Chest: Denies cough or dyspnea Gastrointestinal Gastrointestinal: Reports abdominal pain, diarrhea, nausea and vomiting; Denies melena Genitourinary Genitourinary ED: Denies dysuria or hematuria Musculoskeletal Musculoskeletal: Denies back pain or neck pain Integumentary Denies abscess or rash Neurologic Neurologic: Denies headache(s) or weakness Psychiatric Psychiatric: Reports depression Allergic/Immunologic Allergic/Immunologic ED: Denies mouth swelling or urticaria EXAM Physical Exam Const Vital Signs: 02/01/24 10:15 02/01/24 10:15 02/01/24 12:15 Temperature 96.5 F L 96.5 F L 98.6 F Temperature Source Temporal Temporal Oral Pulse Rate 117 H 103 H 74 Respiratory Rate 16 16 14 Blood Pressure 131/87 H 131/87 H 120/87 H Blood Pressure Mean 101 101 98 Pulse Ox 100 100 98 Oxygen Delivery Method Room Air Room Air Room Air Positive well nourished and well developed General Appearance ED: well developed and NAD HEENT Reports moist mucous membranes Neck supple and no JVD Resp normal respiratory effort and clear to auscultation bilaterally Cardio regular rhythm Rate: tachycardic GI non-distended Palpation: soft and tender epigastric; Negative for guarding or rebound tenderness present Neuro oriented x3, CN's II-XII intact bilaterally and no sensory deficits noted Sensorium / Orientation: alert Motor Exam: strength 5/5 throughout MDM MDM MDM Narrative Medical decision making narrative: Differential diagnosis includes , gastroenteritis, viral illness, dehydration, urinary tract infection, pancreatitis, cholecystitis, cholelit hiasis, gastritis, peptic ulcer disease, and duodenal ulcer. CBC will be obtained to assess for leukocytosis and anemia. Comprehensive metabolic profile will be obtained to assess for electrolyte abnormality, hepatic function, and renal function. Lipase will be obtained to assess for pancreatitis. Urinalysis will be obtained to assess for urinary tract infection and hematuria. Serum hCG will be obtained to assess for . Lab Data Attestation: I reviewed the patient's lab results. Lab results narrative: CBC was reviewed and was within normal limits. Comprehensive metabolic profile was reviewed. Potassium was low at 2.9. The remainder is within normal limits. Lipase was reviewed and was normal at 21. Urinalysis was reviewed. There are positive nitrates. Leukocyte esterase was 100. There is 0-5 white blood cells. There are 0-5 epithelial cells. There is 3+ bacteria. Labs: Laboratory Results - last 24 hr 02/01/24 02/01/24 10:49 10:57 WBC 5.3 RBC 4.42 Hgb 13.5 Hct 39.3 MCV 88.9 MCH 30.5 MCHC 34.4 RDW Std Deviation 43.0 RDW Coeff of Georges 13.2 Plt Count 244 MPV 9.7 Immature Gran % (Auto) 0.200 Neut % (Auto) 65.7 Lymph % (Auto) 26.8 [place] % (Auto) 6.1 Eos % (Auto) 0.8 Baso % (Auto) 0.4 Absolute Neuts (auto) 3.5 Absolute Lymphs (auto) 1.41 Nucleated RBC % 0 Sodium 141 Potassium 2.9 L Chloride 110 H Carbon Dioxide 25.0 Anion Gap 6 BUN 8 Creatinine 0.74 Estim Creat Clear Calc 132.15 Est GFR (MDRD) Af Amer 120 Est GFR (MDRD) Non-Af 99 BUN/Creatinine Ratio 10.9 Glucose 103 Calcium 9.2 Total Bilirubin 0.40 AST 20 ALT 34 Alkaline Phosphatase 63 Total Protein 7.2 Albumin 4.0 Globulin 3.2 Albumin/Globulin Ratio 1.2 Lipase 21 Serum , Qual NEGATIVE Urine Color Yellow Urine Clarity Cloudy Urine pH 6.0 Ur Specific [place] 1.025 Urine Protein 30 H Urine Glucose (UA) Normal Urine Ketones 15 H Urine Occult Blood 25 H Urine Nitrite Positive H Urine Bilirubin 1 H Urine Urobilinogen 4 H Ur Leukocyte Esterase 100 H Urine RBC 0-5 SEEN Urine WBC 0-5 SEEN Ur Squamous Epith Cells 0-5 SEEN Urine Bacteria 3+ Urine Mucus 2+ Treatment and Re-Evaluation :: Patient was given IV fluids. Since the patient is not actively vomiting and she states she feels better after taking Phenergan, I do not feel she needs any further antiemetics at this time. Patient is feeling better on reevaluation. Patient was able to keep ice chips down. Patient was given a dose of oral potassium. Patient was also given a dose of IV potassium. Patient was instructed to follow-up with her primary care physician in 5 to 7 days. Patient was given a prescription for Phenergan suppositories. Patient was instructed to start with a bland diet and advance as tolerated. Patient understood and was agreeable with the plan. All questions were answered. Discharge Plan Triage Chief Complaint: Nausea/Vomiting ED Provider: Tee Page Dx/Rx/DC Orders Clinical Impression: Nausea and vomiting, Hypokalemia Instructions: ED Vomiting (Adult) Prescriptions: New promethazine [Promethegan] 25 mg suppository 25 mg RECTAL Q6H PRN PRN (Reason: Nausea) Qty: 6 0RF No Action divalproex 500 mg tablet extended release 24 hr 1,000 mg PO QHS buspirone 10 mg tablet 20 mg PO TID Patient Comments: 20 mg Oral Twice A Day Vivitrol 380 mg Suspension,Extended Rel Recon 380 mg IM QMONTH hydroxyzine pamoate [Vistaril] 50 mg Capsule 50 mg PO TID prazosin 5 mg Capsule 5 mg PO QHS propranolol 40 mg Tablet 40 mg PO BID aripiprazole [Abilify] 20 mg tablet 20 mg PO QHS pregabalin [Lyrica] 50 mg Capsule 50 mg PO TID Trintellix 10 mg Tablet 5 mg PO QHS Rx Instructions: 5mg x3 nights, then take 10mg *Med recently prescribed, pt has not started taking yet Primary Care Provider: Skyler Patino Referrals: Skyler Patino MD [Primary Care Provider] - 3-5 Days Disposition Disposition: Home, Self Care
[2024-02-01] MEDS: 0.9% Normal Saline (1000mL) 1,000 ML 1000 ML IV (10:49)
[2024-02-01 10:57] LABS: Absolute Lymphocyte Count 1.41 X10^3/uL (0.83-4.51); Absolute Neutrophil Count 3.5 X10^3/uL (2.0-7.7); Basophil# 0.02 X10^3/uL; Basophil% 0.4 % (0-1); Eosinophil# 0.04 X10^3/uL; Eosinophils% 0.8 % (0-5); Hematocrit 39.3 % (37-47); Hemoglobin 13.5 g/dL (12.0-15.0); Lymphocyte # 1.41 X10^3/ul (0.83-4.51); Lymphocyte % 26.8 % (19-41); Mean Corp Hgb Conc 34.4 g/dL (32-36); Mean Corpuscular Hgb 30.5 pg (27.0-32.0); Mean Corpuscular Volume 88.9 fL (81-99); Mean Platelet Vol. 9.7 fl (6.2-12.0); Monocyte# 0.32 X10^3/uL; Monocyte% 6.1 % (0-10); NRBC Flagged by Analyzer 0 % (0-5); Neutrophil # 3.47 X10^3/uL (2.7-7.7); Neutrophil % 65.7 % (47-70); Platelet Count 244 K/mm3 (150-450); RBC Distribution Width CV 13.2 % (11.6-14.6); Red Blood Count 4.42 M/mm3 (4.2-5.4); White Blood Count 5.3 K/mm3 (4.4-11.0)
[2024-02-01 11:05] LABS: Internal QC Validated? YES +Cl - CLEAR BKGD; Pregnancy, Serum, hCG Quali. NEGATIVE Negative
[2024-02-01 11:06] LABS: Record Kit Lot#, Serum Preg. HCG0000718086
[2024-02-01 11:08] LABS: Color, Urine Yellow (Yellow); Glucose, Dipstick Normal (Normal); Ketone-Dipstick 15 mg/dl (Negative); Leukocyte Esterase-Dipstick 100 /ul (Negative); Nitrite-Dipstick Positive (Negative); Occult Blood-Urine 25 /ul (Negative); Protein-Dipstick 30 mg/dl (Negative); Specific Gravity, Urine 1.025 (1.002-1.030); Urine Clarity Cloudy (Clear); Urine Urobilinogen 4 mg/dl (Normal)
[2024-02-01 11:09] LABS: Urine Bilirubin Dipstick 1 mg/dL (Negative)
[2024-02-01 11:13] LABS: ALB/GLOB Ratio 1.2 RATIO (0.9-2.4); AST(SGOT) 20 U/L (15-37); Alanine Aminotransfer ALT/SGPT 34 U/L (13-56); Alkaline Phosphatase 63 U/L (45-117); Anion Gap 6 (5-15); BUN 8 mg/dL (7-18); BUN/Creat Ratio 10.9 RATIO (10-20); Calcium,Total 9.2 mg/dL (8.5-10.1); Chloride 110 mmol/L (98-107); Creatinine, Serum 0.74 mg/dL (0.55-1.02); EST Glomerular Filtration Rate 99 mL/min (>60); Est Glom Filt Rate - Afr Amer 120 mL/min (>60); Estimated Creatinine Clearance 132.15 ml/min; Globulin 3.2 g/dL (2.2-4.2); Glucose 103 mg/dL (74-106); Lipase 21 U/L (13-75); Potassium 2.9 mmol/L (3.5-5.1); Protein, Total 7.2 g/dL (6.4-8.2); Sodium Level 141 mmol/L (136-145)
[2024-02-01 11:25] LABS: Bacteria 3+ /hpf (None Seen); Mucous, Urine 2+ /hpf (<or=2+); Red Blood Cells-Urine 0-5 SEEN /hpf (0-5); Squamous Epithelial Cells - UA 0-5 SEEN /hpf (5-10); White Blood Cells 0-5 SEEN /hpf (0-5)
[2024-02-01 12:15] VITALS: BP 120/87; PULSE 74; RESP 14; TEMP 37; O2SAT 98
[2024-02-01] MEDS: Potassium Chloride Oral Tablet 20 MEQ 40 MEQ PO (12:42)
[2024-02-01] MEDS: Potassium Chloride 10mEq/100mL 10 MEQ/100 ML IV.SOLN. 100 MEQ IV BOLUS (12:42)
[2024-02-01 13:45] VITALS: BP 117/8; PULSE 80; RESP 20; TEMP 36.6; O2SAT 99
== END 2024-02-01 13:46 | disposition home or self-care (01) ==
PROVIDERS: Emergency Provider Emergency Medicine; PCP Family Medicine; Visit Provider Emergency Medicine
DX: R11.2 Nausea with vomiting, unspecified (principal); E87.6 Hypokalemia; R19.7 Diarrhea, unspecified; F17.210 Nicotine dependence, cigarettes, uncomplicated; F17.290 Nicotine dependence, other tobacco product, uncomplicated; F32.A Depression, unspecified
CPT/HCPCS: 80053; 81001; 83690; 84703; 85025; 87086; 87088; 96361; 96365; 99283; J7030

== ENCOUNTER 2024-03-04 10:46 | Emergency (ER) | payer MEDICAID, SELFPAY ==
[2024-03-04 10:47] VITALS: BP 140/94; PULSE 94; RESP 16; TEMP 36.6; O2SAT 100; BMI 27.4
--- NOTE | 2024-03-04 11:24 | EX.ED.DYSGE1 ---
HPI <NICA Reeder - Last Filed: 03/04/24 14:29> History of Present Illness Chief Complaint: Nausea/Vomiting Narrative Narrative: 28-year-old female states she has recurrent vomiting issues. 2 days ago she used cocaine and drink alcohol for the first time in a while and states since then she has been nauseous and vomiting. She cannot keep down any fluids. She also has generalized abdominal pain. No bladder or bowel changes. She smokes marijuana daily. She has Zofran at home but it did not help. Due to the ongoing vomiting issues Dr. Segovia has referred her to GI but she has not been seen yet. She has no abdominal surgical history. PFSH <NICA Reeder - Last Filed: 03/04/24 14:29> [facility] Medical History Addiction to drug Alcohol addiction Bipolar disorder Degenerative disc disease Desire for detoxification Encounter for IUD insertion Polysubstance (excluding opioids) dependence Post depression Sinus tachycardia Home Medications buspirone 10 mg tablet 20 mg PO TID Check with primary doctor 12/09/21 [History Last Taken Unknown] divalproex 500 mg tablet,extended release 24 hr 1,000 mg PO QHS Check with primary doctor 12/09/21 [History Last Taken Unknown] naltrexone microspheres 380 mg intramuscular suspension,extended release (Vivitrol) 380 mg IM QMONTH 04/25/22 [History Last Taken Unknown] aripiprazole 20 mg tablet (Abilify) 20 mg PO QHS depression 09/10/22 [History Last Taken Unknown] hydroxyzine pamoate 50 mg capsule (Vistaril) 50 mg PO TID 09/10/22 [History Last Taken Unknown] prazosin 5 mg capsule 5 mg PO QHS 09/10/22 [History Last Taken Unknown] pregabalin 50 mg capsule (Lyrica) 50 mg PO TID 09/10/22 [History Last Taken Unknown] propranolol 40 mg tablet 40 mg PO BID 09/10/22 [History Last Taken Unknown] vortioxetine 10 mg tablet (Trintellix) 5 mg PO QHS bipolar 09/10/22 [History Last Taken Unknown] promethazine 25 mg rectal suppository (Promethegan) 25 mg RECTAL Q6H PRN PRN Nausea ##6 02/01/24 [Rx Last Taken Unknown] promethazine 25 mg rectal suppository 25 mg NJ Q6H PRN nausea and vomiting #12 ea 03/04/24 [Rx Last Taken Unknown] Allergy/AdvReac Type Severity Reaction Status Date / Time erythromycin ethylsuccinate Allergy Hives Verified 03/04/24 10:48 [From Pediazole] sulfisoxazole acetyl Allergy Hives Verified 03/04/24 10:48 [From Pediazole] venlafaxine [From Effexor] AdvReac Headaches Verified 03/04/24 10:48 Family History (Updated 09/10/22 @ 23:[address] Tee Mack, ) Other Drug abuse Social History Smoking Status: Current every day smoker tobacco type: cigarettes and e-cigarettes alcohol intake: never substance use type: marijuana, crack/cocaine, amphetamines and opiates ROS <NICA Reeder - Last Filed: 03/04/24 14:29> ROS ED ROS Narrative Constitutional: Negative for fever, chills, malaise. CVS: Negative for chest pain. Respiratory: Negative for shortness of breath. GI: Positive for abdominal pain, nausea, vomiting. Negative for hematemesis, melena, hematochezia. : Negative for dysuria. EXAM <NICA Reeder - Last Filed: 03/04/24 14:29> Physical Exam Narrative Exam Narrative: CONST: Patient sitting in no acute distress. EYES: Normal inspection. ENT: Normal inspection, dry mucous membranes. NECK: Normal inspection. RESP: No respiratory distress, CTAB. CVS: Regular rate and rhythm, no murmur, no gallop. ABD: Soft with generalized tenderness, no guarding or rebound, nondistended, no hepatosplenomegaly. SKIN: Color normal, no rash, warm, dry, intact. EXTREMITIES: Normal appearance, no pedal edema. NEURO: Alert and answering questions appropriately. PSYCH: Normal affect. Const Vital Signs: 03/04/24 10:47 03/04/24 12:46 Temperature 98 F 97.7 F L Temperature Source Temporal Temporal Pulse Rate 94 100 Respiratory Rate 16 17 Blood Pressure 140/94 H 114/68 Blood Pressure Mean 109 83 Pulse Ox 100 100 Oxygen Delivery Method Room Air Room Air <Dr. Elvis Tovar MD - Last Filed: 03/04/24 12:16> Physical Exam Const Vital Signs: 03/04/24 10:47 03/04/24 12:46 Temperature 98 F 97.7 F L Temperature Source Temporal Temporal Pulse Rate 94 100 Respiratory Rate 16 17 Blood Pressure 140/94 H 114/68 Blood Pressure Mean 109 83 Pulse Ox 100 100 Oxygen Delivery Method Room Air Room Air MDM <NICA Reeder - Last Filed: 03/04/24 14:29> [facility] Narrative Medical decision making narrative: Differential: Cannabis hyperemesis syndrome, GERD, PUD, pancreatitis, gallbladder etiology Patient presented with nausea vomiting and generalized abdominal pain x 2 days. History of daily marijuana use and some ongoing vomiting issues on Zofran at home. She appears well and nontoxic and is afebrile and hemodynamically stable. She has no clinical signs of dehydration. Abdomen is soft with generalized tenderness. CBC and CMP show no major abnormalities or SINA. test is negative. After IV fluids and Haldol she still complains of nausea although is not vomiting. She was treated with a dose of IV Zofran and then subsequently p.o. Phenergan. She is kept down a glass of water and cuate gael in the ED. She states he has Zofran ODT at home and would like another options I prescribed Phenergan suppositories as a backup. She will follow-up with her primary care doctor and she is supposed to arrange GI follow-up. She was discharged in stable condition. Lab Data Attestation: I reviewed the patient's lab results. Labs: Laboratory Results - last 24 hr 03/04/24 11:35 WBC 10.1 RBC 4.67 Hgb 14.4 Hct 42.2 MCV 90.4 MCH 30.8 MCHC 34.1 RDW Std Deviation 45.7 H RDW Coeff of Georges 13.6 Plt Count 321 MPV 9.9 Immature Gran % (Auto) 0.200 Neut % (Auto) 89.9 H Lymph % (Auto) 8.0 L Loving % (Auto) 1.8 Eos % (Auto) 0.0 Baso % (Auto) 0.1 Absolute Neuts (auto) 9.1 H Absolute Lymphs (auto) 0.81 L Nucleated RBC % 0 Sodium 138 Potassium 3.4 L Chloride 103 Carbon Dioxide 21.0 Anion Gap 14 BUN 10 Creatinine 0.60 Estim Creat Clear Calc 155.26 Est GFR (MDRD) Af Amer 151 Est GFR (MDRD) Non-Af 125 BUN/Creatinine Ratio 16.6 Glucose 128 H Calcium 9.6 Total Bilirubin 0.80 AST 19 ALT 26 Alkaline Phosphatase 77 Total Protein 8.1 Albumin 4.4 Globulin 3.7 Albumin/Globulin Ratio 1.2 Lipase 14 Serum , Qual NEGATIVE <Dr. Elvis Tovar MD - Last Filed: 03/04/24 12:16> [facility] Lab Data Labs: Laboratory Results - last 24 hr 03/04/24 11:35 WBC 10.1 RBC 4.67 Hgb 14.4 Hct 42.2 MCV 90.4 MCH 30.8 MCHC 34.1 RDW Std Deviation 45.7 H RDW Coeff of Georges 13.6 Plt Count 321 MPV 9.9 Immature Gran % (Auto) 0.200 Neut % (Auto) 89.9 H Lymph % (Auto) 8.0 L Loving % (Auto) 1.8 Eos % (Auto) 0.0 Baso % (Auto) 0.1 Absolute Neuts (auto) 9.1 H Absolute Lymphs (auto) 0.81 L Nucleated RBC % 0 Sodium 138 Potassium 3.4 L Chloride 103 Carbon Dioxide 21.0 Anion Gap 14 BUN 10 Creatinine 0.60 Estim Creat Clear Calc 155.26 Est GFR (MDRD) Af Amer 151 Est GFR (MDRD) Non-Af 125 BUN/Creatinine Ratio 16.6 Glucose 128 H Calcium 9.6 Total Bilirubin 0.80 AST 19 ALT 26 Alkaline Phosphatase 77 Total Protein 8.1 Albumin 4.4 Globulin 3.7 Albumin/Globulin Ratio 1.2 Lipase 14 Serum , Qual NEGATIVE Additional Tests and Interventions Additional Tests or Interventions: I have personally performed a face to face assessment of the patient and have reviewed the JESSIE Note. I performed a substantive portion of the visit including all aspects of the following. My ramos findings include: History is significant nausea and vomiting that she describes as more prominent symptoms and abdominal discomfort for the past 2 days, unknown exact timing/contacts but she has been doing drugs and smoking marijuana. No fevers or chills. No blood in her stool or emesis. Exam is anxious. Abdomen fairly benign, diffuse mild tenderness without guarding or rebound tenderness. Hyperactive bowel sounds present. No distention. No tachycardia. Oral mucous membranes moist. Medical Decison Making will obtain labs but this sounds more like a functional issue than an organic. Will treat her symptoms and hydrate with IV fluids. Will reeval. Other additions or changes: [None] Discharge Plan Triage Chief Complaint: Nausea/Vomiting ED Midlevel Provider: Serena Chi ED Provider: Elvis Tovar Dx/Rx/DC Orders Clinical Impression: Nausea and vomiting, Polysubstance abuse Instructions: ED Vomiting (Adult) Prescriptions: New promethazine 25 mg suppository 25 mg NJ Q6H PRN (Reason: nausea and vomiting) Qty: 12 0RF No Action divalproex 500 mg tablet extended release 24 hr 1,000 mg PO QHS buspirone 10 mg tablet 20 mg PO TID Patient Comments: 20 mg Oral Twice A Day Vivitrol 380 mg Suspension,Extended Rel Recon 380 mg IM QMONTH hydroxyzine pamoate [Vistaril] 50 mg Capsule 50 mg PO TID prazosin 5 mg Capsule 5 mg PO QHS propranolol 40 mg Tablet 40 mg PO BID aripiprazole [Abilify] 20 mg tablet 20 mg PO QHS pregabalin [Lyrica] 50 mg Capsule 50 mg PO TID Trintellix 10 mg Tablet 5 mg PO QHS Rx Instructions: 5mg x3 nights, then take 10mg *Med recently prescribed, pt has not started taking yet promethazine [Promethegan] 25 mg suppository 25 mg RECTAL Q6H PRN PRN (Reason: Nausea) Qty: 6 0RF Primary Care Provider: Skyler Patino Referrals: Skyler Patino MD [Primary Care Provider] - Activity Restrictions/Additional Instructions: You can take Zofran at home or if this does not work you can try the prescribed Phenergan suppositories. I recommend you follow-up with your PCP and the GI specialist as scheduled. Disposition Disposition: Home, Self Care
[2024-03-04] MEDS: 0.9% Normal Saline (1000mL) 1,000 ML 999 ML IV (11:37)
[2024-03-04] MEDS: Haloperidol Lactate 5 MG/ML Vial 2 MG IV (11:37)
--- NOTE | 2024-03-04 11:43 | ED.RN ---
This RN witnessed the patient putting her finger down her throat to gag herself. The patient stated it hurts so bad . This RN told the patient to stop and that I was drawing up meds for her at this time. This RN also noted a marijuana odor and asked the patient not to smoke or vape in the room. The patient agreed that she would not smoke or vape in the room.
[2024-03-04 11:49] LABS: Absolute Lymphocyte Count 0.81 X10^3/uL (0.83-4.51); Absolute Neutrophil Count 9.1 X10^3/uL (2.0-7.7); Basophil# 0.01 X10^3/uL; Basophil% 0.1 % (0-1); Hematocrit 42.2 % (37-47); Hemoglobin 14.4 g/dL (12.0-15.0); Lymphocyte # 0.81 X10^3/ul (0.83-4.51); Mean Corp Hgb Conc 34.1 g/dL (32-36); Mean Corpuscular Hgb 30.8 pg (27.0-32.0); Mean Corpuscular Volume 90.4 fL (81-99); Mean Platelet Vol. 9.9 fl (6.2-12.0); Monocyte# 0.18 X10^3/uL; Monocyte% 1.8 % (0-10); NRBC Flagged by Analyzer 0 % (0-5); Neutrophil # 9.09 X10^3/uL (2.7-7.7); Neutrophil % 89.9 % (47-70); Platelet Count 321 K/mm3 (150-450); RBC Distribution Width CV 13.6 % (11.6-14.6); RBC Distribution Width SD 45.7 fl (35.1-43.9); Red Blood Count 4.67 M/mm3 (4.2-5.4); White Blood Count 10.1 K/mm3 (4.4-11.0)
[2024-03-04] MEDS: Ondansetron 4 MG/2 ML Vial IV (12:04)
[2024-03-04 12:19] LABS: Internal QC Validated? YES +Cl - CLEAR BKGD; Pregnancy, Serum, hCG Quali. NEGATIVE Negative
[2024-03-04 12:22] LABS: ALB/GLOB Ratio 1.2 RATIO (0.9-2.4); AST(SGOT) 19 U/L (15-37); Alanine Aminotransfer ALT/SGPT 26 U/L (13-56); Albumin, Serum 4.4 g/dL (3.2-5.0); Alkaline Phosphatase 77 U/L (45-117); Anion Gap 14 (5-15); BUN 10 mg/dL (7-18); BUN/Creat Ratio 16.6 RATIO (10-20); Calcium,Total 9.6 mg/dL (8.5-10.1); Chloride 103 mmol/L (98-107); EST Glomerular Filtration Rate 125 mL/min (>60); Est Glom Filt Rate - Afr Amer 151 mL/min (>60); Estimated Creatinine Clearance 155.26 ml/min; Globulin 3.7 g/dL (2.2-4.2); Glucose 128 mg/dL (74-106); Lipase 14 U/L (13-75); Potassium 3.4 mmol/L (3.5-5.1); Protein, Total 8.1 g/dL (6.4-8.2); Sodium Level 138 mmol/L (136-145)
[2024-03-04 12:46] VITALS: BP 114/68; PULSE 100; RESP 17; TEMP 36.5; O2SAT 100
[2024-03-04] MEDS: proMETHazine 25 MG Tablet 12.5 MG PO (13:49)
[2024-03-04 14:29] VITALS: BP 120/78; PULSE 66; RESP 19; TEMP 36.7; O2SAT 96
== END 2024-03-04 14:31 | disposition home or self-care (01) ==
PROVIDERS: Physician Assistant; Emergency Provider Emergency Medicine; PCP Family Medicine; Visit Provider Emergency Medicine
DX: R11.2 Nausea with vomiting, unspecified (principal); F19.19 Other psychoactive substance abuse with unspecified psychoactive substance-induced disorder; R10.84 Generalized abdominal pain; F17.210 Nicotine dependence, cigarettes, uncomplicated; F17.290 Nicotine dependence, other tobacco product, uncomplicated
CPT/HCPCS: 80053; 83690; 84703; 85025; 96361; 96374; 96375; 99283; J7030; J2405

== ENCOUNTER 2024-03-30 18:25 | Emergency (ER) | payer MEDICAID, SELFPAY ==
[2024-03-30 18:25] VITALS: BP 148/103; PULSE 106; RESP 16; TEMP 36.6; O2SAT 97; BMI 26.9
--- NOTE | 2024-03-30 18:43 | EDS_ITS ---
HPI <CHASITY Caro - Last Filed: 03/30/24 19:58> History of Present Illness Chief Complaint: Substance Abuse Narrative Narrative: 28-year-old female with history of anxiety, depression, multiple years of drug abuse presents to the emergency department for detox from alcohol. Patient states that she has been through detox several times. Patient states that she was doing well at the beginning of the year of 2023. Patient states that she was allowed to see her children more, however this brought more pressure and more depression. Patient states she has now using kratom as well as alcohol daily she also smokes marijuana. Her last drink was roughly 3 to 4 hours ago, she states she took 3 shots of pink vodka. Patient states that she gets shaky, nausea and vomiting. She is here for evaluation. [facility] <CHASITY Caro - Last Filed: 03/30/24 19:58> [facility] Medical History Bipolar disorder Encounter for IUD insertion Polysubstance (excluding opioids) dependence Desire for detoxification Addiction to drug Alcohol addiction Degenerative disc disease Sinus tachycardia Post depression Home Medications ?Medication ?Instructions ?Recorded ?Last Taken ?Type lorazepam 0.5 mg tablet 0.5 mg PO DAILY PRN anxiety 03/30/24 03/30/24 History sertraline 100 mg tablet 100 mg PO DAILY 03/30/24 03/30/24 History trazodone 50 mg tablet 50 - 100 mg PO QHS PRN sleep 03/30/24 03/30/24 History Allergy/AdvReac Type Severity Reaction Status Date / Time erythromycin ethylsuccinate Allergy Hives Verified 03/30/24 18:27 (From Pediazole) sulfisoxazole acetyl (From Allergy Hives Verified 03/30/24 18:27 Pediazole) venlafaxine (From Effexor) AdvReac Headaches Verified 03/30/24 18:27 Family History Other Drug abuse Social History Smoking Status: Current every day smoker tobacco type: cigarettes and e- cigarettes alcohol intake: never substance use type: marijuana, crack/cocaine, amphetamines and opiates ROS <OSMIN CaroC - Last Filed: 03/30/24 19:58> ROS ED ROS Narrative Constitutional: Negative for fever, weight loss, weakness. Positive for chills Eyes: Negative for vision loss, vision change, double vision ENT: Negative for any sore throat, ear pain, congestion Cardiovascular: Negative for any chest pain, tightness, palpitations Respiratory: Negative for any cough, sputum production, hemoptysis, dyspnea, dyspnea on exertion, orthopnea Gastrointestinal: Negative for any abdominal pain, diarrhea, constipation, blood in stool, blood. Positive for nausea and vomiting : Negative for any urinary frequency, dysuria, retention, blood in urine Muscle skeletal: Negative for any neck pain, back pain Neurological: Negative for any headache, syncope, dizziness Skin: Negative for any rashes, itching, abrasions, lacerations Psychiatric: Negative for any depression, anxiety, stress, suicidal ideation, homicidal ideation Hematologic: Negative for any excessive bruising, easy bleeding EXAM <CHASITY Caro - Last Filed: 03/30/24 19:58> Physical Exam Narrative Exam Narrative: Vital signs reviewed. Patient alert x 4, acting appropriate. HEET: Head normocephalic atraumatic, TMs clear bilaterally. Posterior pharynx is clear, moist mucous membranes. Nares clear bilaterally. Neck: Supple with no lymphadenopathy or tenderness. No signs of meningismus. Cardiac: Regular rate and rhythm no murmurs gallops or rubs, equal peripheral pulses bilaterally. Respiratory: Lungs clear to auscultation bilaterally. No chest tenderness. Abdomen: Soft, nontender, nondistended. No abdominal bruit or pulsatile masses. No hepatosplenomegaly Extremities: No peripheral edema, no signs of gross trauma or deformity. Active full range of motion of all extremities. Neuro: Cranial nerves II through XII intact, no focal neurological deficits. Skin: Clean dry and intact with no rash, purpura, petechiae, vesicles or pustules. Backs/flank: No CVA tenderness, no midline spinal tenderness, no deformity. Psych: Normal mood and affect. No SI, HI or acute psychosis. Const Vital Signs: 03/30/24 18:25 03/30/24 19:34 Temperature 97.8 F 98.1 F Temperature Source Temporal Pulse Rate 106 H 97 Respiratory Rate 16 16 Blood Pressure 148/103 H 147/100 H Blood Pressure Mean 118 115 Pulse Ox 97 99 Oxygen Delivery Method Room Air <Dr. Martin Telles DO - Last Filed: 03/30/24 20:03> Physical Exam Const Vital Signs: 03/30/24 18:25 03/30/24 19:34 Temperature 97.8 F 98.1 F Temperature Source Temporal Pulse Rate 106 H 97 Respiratory Rate 16 16 Blood Pressure 148/103 H 147/100 H Blood Pressure Mean 118 115 Pulse Ox 97 99 Oxygen Delivery Method Room Air MDM <OSMIN CaroC - Last Filed: 03/30/24 19:58> [facility] Lab Data Labs: Laboratory Results - last 24 hr 03/30/24 18:55 WBC 8.5 RBC 4.60 Hgb 13.9 Hct 42.2 MCV 91.7 MCH 30.2 MCHC 32.9 RDW Std Deviation 47.5 H RDW Coeff of Georges 14.1 Plt Count 329 MPV 9.6 Immature Gran % (Auto) 0.400 Neut % (Auto) 70.2 H Lymph % (Auto) 23.3 Duval % (Auto) 5.2 Eos % (Auto) 0.4 Baso % (Auto) 0.5 Absolute Neuts (auto) 6.0 Absolute Lymphs (auto) 1.98 Nucleated RBC % 0 Sodium 137 Potassium 3.6 Chloride 107 Carbon Dioxide 24.0 Anion Gap 6 BUN 8 Creatinine 0.61 Estim Creat Clear Calc 151.55 Est GFR (MDRD) Af Amer 149 Est GFR (MDRD) Non-Af 123 BUN/Creatinine Ratio 13.1 Glucose 91 Calcium 9.4 Serum , Qual NEGATIVE Urine Opiates Screen NEGATIVE Urine Methadone Screen NEGATIVE Ur Barbiturates Screen NEGATIVE Ur Phencyclidine Scrn NEGATIVE Ur Amphetamines Screen NEGATIVE MDMA (Ecstasy) Screen NEGATIVE U Benzodiazepines Scrn NEGATIVE Urine Cocaine Screen NEGATIVE U Cannabinoids Screen POSITIVE H Ur Drug Screen Comment Ethyl Alcohol 6.0 Treatment and Re-Evaluation :: Differential diagnosis includes however is not limited to: Alcohol abuse, alcohol withdrawal, depression, kratom withdrawal Patient appears to be in no obvious respiratory distress, patient's vital signs are stable. Patient presents to the emergency department for detox from alcohol and kratom. Patient states she has been in multiple rehab facilities. Patient states that she has been drinking for the last 2 to 3 months. Last drink was today. Patient received basic laboratory values. Including 's serum hCG. Patient denies use of any heroin, cocaine, she is positive for using marijuana, alcohol as well as kratom. Patient states that she is feeling generalized shakiness, nausea as well as nervousness. CBC was unremarkable. Patient's chemistries were unremarkable, patient's toxicology screen shows positive for marijuana, patient's alcohol was 6.0. At this time, did speak to the hospitalist, the hospitalist will admit the patient as observation status. Patient stable for admission. <Dr. Martin Telles, DO - Last Filed: 03/30/24 20:03> [facility] MDM Narrative Medical decision making narrative: Differential diagnosis includes however is not limited to: Alcohol abuse, alcohol withdrawal, depression, kratom withdrawal Patient appears to be in no obvious respiratory distress, patient's vital signs are stable. Patient presents to the emergency department for detox from alcohol and kratom. Patient states she has been in multiple rehab facilities. Patient states that she has been drinking for the last 2 to 3 months. Last drink was today. Patient received basic laboratory values. Including 's serum hCG. Patient denies use of any heroin, cocaine, she is positive for using marijuana, alcohol as well as kratom. Patient states that she is feeling generalized shakiness, nausea as well as nervousness. CBC was unremarkable. Patient's chemistries were unremarkable, patient's toxicology screen shows positive for marijuana, patient's alcohol was 6.0. At this time, did speak to the hospitalist, the hospitalist will admit the patient as observation status. Patient stable for admission. This patient was seen with a PA/HOSPITAL INSURANCE REPRESENTATIVE Individually assessed they patient including history and physical. I have reviewed everything on the chart that is available and agree with the documentation provided by the PA/HOSPITAL INSURANCE REPRESENTATIVE including discussion about the assessment, treatment plan, discussion, and return precautions. Patient presenting with concern for EtOH withdrawal. She is also using kratom. Differential as above. Patient medically stable. She states he is detoxed in many places. She states she just fell off the wagon. Screening lab work is not abnormal. He is positive for cannabinoids. Discussed with hospitalist for admission. Lab Data Labs: Laboratory Results - last 24 hr 03/30/24 18:55 WBC 8.5 RBC 4.60 Hgb 13.9 Hct 42.2 MCV 91.7 MCH 30.2 MCHC 32.9 RDW Std Deviation 47.5 H RDW Coeff of Georges 14.1 Plt Count 329 MPV 9.6 Immature Gran % (Auto) 0.400 Neut % (Auto) 70.2 H Lymph % (Auto) 23.3 Duval % (Auto) 5.2 Eos % (Auto) 0.4 Baso % (Auto) 0.5 Absolute Neuts (auto) 6.0 Absolute Lymphs (auto) 1.98 Nucleated RBC % 0 Sodium 137 Potassium 3.6 Chloride 107 Carbon Dioxide 24.0 Anion Gap 6 BUN 8 Creatinine 0.61 Estim Creat Clear Calc 151.55 Est GFR (MDRD) Af Amer 149 Est GFR (MDRD) Non-Af 123 BUN/Creatinine Ratio 13.1 Glucose 91 Calcium 9.4 Serum , Qual NEGATIVE Urine Opiates Screen NEGATIVE Urine Methadone Screen NEGATIVE Ur Barbiturates Screen NEGATIVE Ur Phencyclidine Scrn NEGATIVE Ur Amphetamines Screen NEGATIVE MDMA (Ecstasy) Screen NEGATIVE U Benzodiazepines Scrn NEGATIVE Urine Cocaine Screen NEGATIVE U Cannabinoids Screen POSITIVE H Ur Drug Screen Comment Ethyl Alcohol 6.0 Discharge Plan Dx/Rx/DC Orders Clinical Impression: Depression, Alcohol abuse Disposition Disposition: Acute Care Hospital [facility]
[2024-03-30 19:09] LABS: Absolute Lymphocyte Count 1.98 X10^3/uL (0.83-4.51); Basophil# 0.04 X10^3/uL; Basophil% 0.5 % (0-1); Eosinophil# 0.03 X10^3/uL; Eosinophils% 0.4 % (0-5); Hematocrit 42.2 % (37-47); Hemoglobin 13.9 g/dL (12.0-15.0); Lymphocyte # 1.98 X10^3/ul (0.83-4.51); Lymphocyte % 23.3 % (19-41); Mean Corp Hgb Conc 32.9 g/dL (32-36); Mean Corpuscular Hgb 30.2 pg (27.0-32.0); Mean Corpuscular Volume 91.7 fL (81-99); Mean Platelet Vol. 9.6 fl (6.2-12.0); Monocyte# 0.44 X10^3/uL; Monocyte% 5.2 % (0-10); NRBC Flagged by Analyzer 0 % (0-5); Neutrophil # 5.99 X10^3/uL (2.7-7.7); Neutrophil % 70.2 % (47-70); Platelet Count 329 K/mm3 (150-450); RBC Distribution Width CV 14.1 % (11.6-14.6); RBC Distribution Width SD 47.5 fl (35.1-43.9); White Blood Count 8.5 K/mm3 (4.4-11.0)
[2024-03-30 19:21] LABS: Amphetamine Urine VISTA NEGATIVE (<1000 ng/mL); Barbiturate Urine VISTA NEGATIVE (< 200 ng/mL); Benzodiazepine Urine VISTA NEGATIVE (< 200 ng/mL); Cocaine Urine VISTA NEGATIVE (< 300 ng/mL); Ecstacy Urine VISTA NEGATIVE (< 500 ng/mL); Methadone Urine VISTA NEGATIVE (< 300 ng/mL); PCP Urine VISTA NEGATIVE (< 25 ng/mL); THC Urine VISTA POSITIVE (< 50 ng/mL); Vista UDS pH Range 6
[2024-03-30 19:22] LABS: Anion Gap 6 (5-15); BUN 8 mg/dL (7-18); BUN/Creat Ratio 13.1 RATIO (10-20); Calcium,Total 9.4 mg/dL (8.5-10.1); Chloride 107 mmol/L (98-107); Creatinine, Serum 0.61 mg/dL (0.55-1.02); EST Glomerular Filtration Rate 123 mL/min (>60); Est Glom Filt Rate - Afr Amer 149 mL/min (>60); Estimated Creatinine Clearance 151.55 ml/min; Glucose 91 mg/dL (74-106); Potassium 3.6 mmol/L (3.5-5.1); Sodium Level 137 mmol/L (136-145)
[2024-03-30 19:25] LABS: Internal QC Validated? YES +Cl - CLEAR BKGD; Pregnancy, Serum, hCG Quali. NEGATIVE Negative; Record Kit Lot#, Serum Preg. 718089
[2024-03-30 19:34] VITALS: BP 147/100; PULSE 97; RESP 16; TEMP 36.7; O2SAT 99
--- NOTE | 2024-03-30 19:54 | PCM.HP.STD ---
[facility] - General General Date of Service: 03/30/24 Chief Complaint: requesting treatment for Kratom and alcohol withdrawal. HPI Narrative FLORIAN BURCIAGA, is a 28 F who presents seeking treatment for kratom and alcohol withdrawal. Patient last consumption of alcohol was this morning. Patient drinks these pink lady of vodka has not had 3 shots this morning. States that she drinks about 15 shots daily. States that she uses kratom daily. Says she was speaking with her boss and wanted to get clean. She says that she reached out to 1 ED who directed her here to the hospital. In the emergency room, her workup was unremarkable. Her alcohol level is only 6. Patient has remained comfortable here. [facility] Medical History Bipolar disorder Encounter for IUD insertion Polysubstance (excluding opioids) dependence Desire for detoxification Addiction to drug Alcohol addiction Degenerative disc disease Sinus tachycardia Post depression Home Medications ?Medication ?Instructions ?Recorded ?Last Taken ?Type lorazepam 0.5 mg tablet 0.5 mg PO DAILY PRN anxiety 03/30/24 03/30/24 History sertraline 100 mg tablet 100 mg PO DAILY 03/30/24 03/30/24 History trazodone 50 mg tablet 50 - 100 mg PO QHS PRN sleep 03/30/24 03/30/24 History Allergy/AdvReac Type Severity Reaction Status Date / Time erythromycin ethylsuccinate Allergy Hives Verified 03/30/24 18:27 (From Pediazole) sulfisoxazole acetyl (From Allergy Hives Verified 03/30/24 18:27 Pediazole) venlafaxine (From Effexor) AdvReac Headaches Verified 03/30/24 18:27 Family History Other Drug abuse Social History Smoking Status: Current every day smoker tobacco type: cigarettes and e-cigarettes alcohol intake: never substance use type: marijuana, crack/cocaine, amphetamines and opiates ROS ROS Narrative Feels crappy. Has lost 50 pounds recently. Does not have much of an appetite. All review of systems were negative except as mentioned above in the history of present illness and the other review of systems. Vital Signs Vital Signs Vital Signs: 03/30/24 18:25 03/30/24 19:34 Temperature 36.6 C 36.7 C Temperature Source Temporal Pulse Rate 106 H 97 Respiratory Rate 16 16 Blood Pressure 148/103 H 147/100 H Blood Pressure Mean 118 115 Pulse Ox 97 99 Oxygen Delivery Method Room Air Weight Weight: 80.513 kg Body Mass Index (BMI) 26.9 Physical Exam Const alert and no apparent distress Constitutional Narrative: In bed. No distress. Comfortable. HEENT normocephalic and head/scalp atraumatic Resp normal respiratory effort, no retractions, no use of accessory muscles and clear to auscultation bilaterally Cardio regular rate, regular rhythm, S1 normal heart sound and S2 normal heart sound GI normal to inspection, nondistended, normoactive bowel sounds, soft to palpation, non-tender and non-distended Extremity normal to inspection Neuro moves all extremities Sensorium / Orientation: awake and alert Psych affect normal Results Lab / Micro Data 03/30/24 18:55 03/30/24 18:55 Labs: Laboratory Results - last 24 hr 03/30/24 18:55: WBC 8.5, RBC 4.60, Hgb 13.9, Hct 42.2, MCV 91.7, MCH 30.2, MCHC 32.9, RDW Std Deviation 47.5 H, RDW Coeff of Georges 14.1, Plt Count 329, MPV 9.6, Immature Gran % (Auto) 0.400, Neut % (Auto) 70.2 H, Lymph % (Auto) 23.3, [place] % (Auto) 5.2, Eos % (Auto) 0.4, Baso % (Auto) 0.5, Absolute Neuts (auto) 6.0, Absolute Lymphs (auto) 1.98, Nucleated RBC % 0, Sodium 137, Potassium 3.6, Chloride 107, Carbon Dioxide 24.0, Anion Gap 6, BUN 8, Creatinine 0.61, Estim Creat Clear Calc 151.55, Est GFR (MDRD) Af Amer 149, Est GFR (MDRD) Non-Af 123, BUN/Creatinine Ratio 13.1, Glucose 91, Calcium 9.4, Serum , Qual NEGATIVE, Urine Opiates Screen NEGATIVE, Urine Methadone Screen NEGATIVE, Ur Barbiturates Screen NEGATIVE, Ur Phencyclidine Scrn NEGATIVE, Ur Amphetamines Screen NEGATIVE, MDMA (Ecstasy) Screen NEGATIVE, U Benzodiazepines Scrn NEGATIVE, Urine Cocaine Screen NEGATIVE, U Cannabinoids Screen POSITIVE H, Ur Drug Screen Comment , Ethyl Alcohol 6.0 Assessment & Plan Assessment/Plan (1) Drug abuse: PLAN: Plan Drug and alcohol abuse Patient states that she uses kratom daily and feels that she is going through withdrawal with that. Also states that she drinks 15 shots per day and her last consumption was sometime this morning. Came here after discussing with her boss at work that she is going to get treatment. She said that she reached out to 1 ED who directed her here. Currently, the patient appears very well comfortable. Does not appear to be under any acute withdrawal. I discussed this with the patient and I told her that we can bring her into the hospital but I would just plan to monitor her. Told her I do not have plans for treating her kratom or alcohol withdrawal at this point in time does not appear that she is going through any acute withdrawal at this time. Of note, there is no randomized trial to recommend specific treatment for kratom though there is some review article suggesting similar treatment to opiates. So patient does seem to be going through some acute opiate withdrawal from having kratom, may consider buprenorphine taper. And different alcohol withdrawal standpoint patient appears to be pretty comfortable having not drank since this morning she is appears to be comfortable. However on thiamine and folate. No taper at this time. Patient does take it daily lorazepam 0.5 mg as needed. I will continue that just for anxiety. Patient had a 10-day supply filled on seventh. Patient does not take this chronically and would not require a long-term treatment plan for benzodiazepine withdrawal. Tobacco abuse: Nicotine patch VTE prophylaxis: Low risk given current observation status and therefore not indicated. Charges/Coding Visit Charges Inpatient E&M: 09565 Init Hosp L2
--- NOTE | 2024-03-30 20:04 | ED.RN ---
Pt requests IV to be removed, states she wants to leave since Dr. Mack told her I can't treat you for detox, there is nothing I can give you for your symptoms. Removed IV.
--- NOTE | 2024-03-30 20:08 | ED.RN ---
Pt requesting nurse to pt rooms. This pt upset and stating she wanted to leave. Pt stating she would call 180 in the AM. Pt expressing that the doc that talked to her made her feel like there was nothing the hospital could not do for her that she could not do for herself at home. IV out. Pt refusing Vitals to be taken again stating I just want out of this place and to not take a bed up here. Pt took belongings and was calling sister as she was walking out. Charge nurse and Dr. Park updated.
== END 2024-03-30 20:13 | disposition left against medical advice (07) ==
PROVIDERS: Nurse Practitioner; Emergency Provider Student in an Organized Health Care Education/Training Program; PCP Family Medicine; Visit Provider Student in an Organized Health Care Education/Training Program
DX: Z53.29 Procedure and treatment not carried out because of patient's decision for other reasons (principal); F19.20 Other psychoactive substance dependence, uncomplicated; F41.9 Anxiety disorder, unspecified; F32.A Depression, unspecified; F17.210 Nicotine dependence, cigarettes, uncomplicated; F17.290 Nicotine dependence, other tobacco product, uncomplicated; F10.10 Alcohol abuse, uncomplicated
CPT/HCPCS: 80048; 80307; 80320; 84703; 85025; 99282; A4216; G0480

== ENCOUNTER 2024-06-16 11:23 | Observation (INO) | payer MEDICAID, SELFPAY ==
[2024-06-16] VITALS (8 sets, daily range): BP systolic 89–128; BP diastolic 46–86; PULSE 68–87; RESP 15–23; TEMP 36.3–36.8; O2SAT 97–100; BMI 27.3; BMI 24.6
--- NOTE | 2024-06-16 11:51 | EX.ED.DYSGE1 ---
HPI History of Present Illness Chief Complaint: Nausea/Vomiting Detail of Chief Complaint: Nausea and vomiting Informant: patient Narrative Narrative: Patient presents with nausea and vomiting that started today. Patient states that she abuses kratom as well as marijuana. She also has abused alcohol in the past. She last drank last evening. She last used kratom last night. She smokes marijuana daily. She complains of severe nausea and vomiting today. Denies fevers. Denies feeling suicidal or homicidal but states she cannot go on like this and feels like she needs detox. [facility] Medical History Bipolar disorder Encounter for IUD insertion Polysubstance (excluding opioids) dependence Desire for detoxification Addiction to drug Alcohol addiction Degenerative disc disease Sinus tachycardia Post depression Home Medications ?Medication ?Instructions ?Recorded ?Last Taken ?Type lorazepam 0.5 mg tablet 0.5 mg PO DAILY PRN anxiety 03/30/24 03/30/24 History sertraline 100 mg tablet 100 mg PO DAILY 03/30/24 03/30/24 History trazodone 50 mg tablet 50 - 100 mg PO QHS PRN sleep 03/30/24 03/30/24 History Allergy/AdvReac Type Severity Reaction Status Date / Time erythromycin ethylsuccinate Allergy Hives Verified 06/16/24 11:25 (From Pediazole) sulfisoxazole acetyl (From Allergy Hives Verified 06/16/24 11:25 Pediazole) venlafaxine (From Effexor) AdvReac Headaches Verified 06/16/24 11:25 Family History Other Drug abuse Social History Smoking Status: Current every day smoker tobacco type: cigarettes and e-cigarettes alcohol intake: never substance use type: marijuana, crack/cocaine, amphetamines and opiates ROS ROS ED ROS Narrative Illicit drug use Review of Systems ROS Unobtainable: other Constitutional Constitutional ED: Reports lethargy; Denies chills, fever(s), sweats or weight loss Eyes Eyes: Denies blurry vision, change in vision or diplopia ENT ENT ED: Denies rhinorrhea or sore throat Cardiovascular Cardiovascular: Denies chest pain, orthopnea or racing heartbeat Respiratory/Chest Respiratory/Chest: Denies cough, dyspnea, dyspnea on exertion, orthopnea or sputum Gastrointestinal Gastrointestinal: Reports nausea and vomiting; Denies abdominal pain or diarrhea Genitourinary Genitourinary ED: Denies dysuria, hematuria or urinary frequency Musculoskeletal Musculoskeletal: Denies arthralgias, back pain, myalgias or neck pain Integumentary Denies abscess, Abrasions or rash Neurologic Neurologic: Denies headache(s) or weakness Psychiatric Psychiatric: Denies anxiety, depression or suicidal thoughts Endocrine Endocrinology: Denies polydipsia, polyphagia or polyuria Hematologic/Lymphatic Hematologic/Lymphatic: Denies easy bleeding, easy bruising or lymphadenopathy Allergic/Immunologic Allergic/Immunologic ED: Denies mouth swelling, tongue swelling or urticaria EXAM Physical Exam Const Vital Signs: 06/16/24 11:25 06/16/24 12:24 Temperature 97.6 F L Temperature Source Temporal Pulse Rate 78 79 Respiratory Rate 15 18 Blood Pressure 128/86 H 99/54 L Blood Pressure Mean 100 69 Pulse Ox 100 100 Oxygen Delivery Method Room Air Room Air Positive well nourished and well developed General Appearance ED: well developed and NAD HEENT Reports TM's clear and moist mucous membranes normocephalic and atraumatic; Negative for trauma or tenderness Tympanic Membrane ED: Yes TM's clear Eyes PERRL and EOMs intact bilaterally General Eye ED: Negative for pale conjunctiva or scleral icterus Neck no lymphadenopathy, supple and no JVD General: Negative for tenderness Chest Wall inspection of chest normal and palpation of chest normal Chest: Negative for tenderness Resp normal respiratory effort and clear to auscultation bilaterally Effort and Inspection: Negative for respiratory distress or pain with movement Auscultation: Negative for rhonchi, wheezes or diminished lung sounds Cardio regular rate, regular rhythm, S1 normal heart sound, S2 normal heart sound and no murmurs Peripheral Pulses: pulses 2+ throughout GI normal to inspection, nondistended, normoactive bowel sounds, soft to palpation, non-tender, non-distended and no masses Back/Spine no CVA tenderness and no thoracic nor lumbar tenderness Extremity normal to inspection General Extremety ED: Negative for edema General Extremity: Negative for edema Neuro oriented x3, CN's II-XII intact bilaterally, no sensory deficits noted and gait normal Sensorium / Orientation: awake, alert, oriented to person, oriented to place and oriented to time Motor Exam: strength 5/5 throughout and strength abnormal Psych mental status grossly normal Skin no rashes or lesions noted and no wounds MDM MDM MDM Narrative Medical decision making narrative: Patient presents to the emergency department requesting detox from kratom as well as marijuana and alcohol. Patient states that she uses kratom by doing oral shots of this. Patient also drinks alcohol relatively regularly and her last drink was last night. She smokes daily marijuana. IV line established. She was medicated with Ativan and Reglan IV. CBC with differential count of 8.7 hemoglobin 13.9 and platelet count of 351. Chemistries unremarkable. BUN 15 and creatinine 1.06. Alcohol was 4.0. hCG was negative. LFTs were normal. Talk screen pending. This point we discussed case with hospitalist to evaluate patient for admission. She tells me she has had detox here before for this. She has been seen by Dr. Bean in the past. Lab Data Attestation: I reviewed the patient's lab results. Labs: Laboratory Results - last 24 hr 06/16/24 06/16/24 06/16/24 11:40 12:00 12:10 WBC 8.7 RBC 4.66 Hgb 13.9 Hct 42.5 MCV 91.2 MCH 29.8 MCHC 32.7 RDW Std Deviation 43.3 RDW Coeff of Georges 13.1 Plt Count 351 MPV 9.4 Immature Gran % (Auto) 0.300 Neut % (Auto) 63.0 Lymph % (Auto) 26.2 [place] % (Auto) 8.6 Eos % (Auto) 1.3 Baso % (Auto) 0.6 Absolute Neuts (auto) 5.5 Absolute Lymphs (auto) 2.29 Nucleated RBC % 0 Sodium 138 Potassium 3.3 L Chloride 104 Carbon Dioxide 25.0 Anion Gap 9 BUN 15 Creatinine 1.06 H Est GFR (MDRD) Af Amer 79 Est GFR (MDRD) Non-Af 65 BUN/Creatinine Ratio 14.2 Glucose 95 Calcium 9.7 Total Bilirubin 0.90 AST 20 ALT 21 Alkaline Phosphatase 74 Total Protein 8.1 Albumin 4.0 Globulin 4.1 Albumin/Globulin Ratio 1.0 Serum , Qual NEGATIVE Ethyl Alcohol 4.0 Discharge Plan Triage Chief Complaint: Nausea/Vomiting Other Complaint: Substance Abuse ED Provider: Lena Magaña Dx/Rx/DC Orders Clinical Impression: Drug abuse, Intractable nausea and vomiting, Desire for detoxification Prescriptions: No Action lorazepam 0.5 mg tablet 0.5 mg PO DAILY PRN (Reason: anxiety) trazodone 50 mg tablet 50 - 100 mg PO QHS PRN (Reason: sleep) sertraline 100 mg tablet 100 mg PO DAILY Primary Care Provider: Skyler Ptaino Referrals: Skyler Patino MD [Primary Care Provider] - Print Language: Austrian Disposition Disposition: Acute Care Hospital [facility]
[2024-06-16 11:59] LABS: Absolute Lymphocyte Count 2.29 X10^3/uL (0.83-4.51); Absolute Neutrophil Count 5.5 X10^3/uL (2.0-7.7); Basophil# 0.05 X10^3/uL; Basophil% 0.6 % (0-1); Eosinophil# 0.11 X10^3/uL; Eosinophils% 1.3 % (0-5); Hematocrit 42.5 % (37-47); Hemoglobin 13.9 g/dL (12.0-15.0); Lymphocyte # 2.29 X10^3/ul (0.83-4.51); Lymphocyte % 26.2 % (19-41); Mean Corp Hgb Conc 32.7 g/dL (32-36); Mean Corpuscular Hgb 29.8 pg (27.0-32.0); Mean Corpuscular Volume 91.2 fL (81-99); Mean Platelet Vol. 9.4 fl (6.2-12.0); Monocyte# 0.75 X10^3/uL; Monocyte% 8.6 % (0-10); NRBC Flagged by Analyzer 0 % (0-5); Neutrophil # 5.51 X10^3/uL (2.7-7.7); Platelet Count 351 K/mm3 (150-450); RBC Distribution Width CV 13.1 % (11.6-14.6); RBC Distribution Width SD 43.3 fl (35.1-43.9); Red Blood Count 4.66 M/mm3 (4.2-5.4); White Blood Count 8.7 K/mm3 (4.4-11.0)
[2024-06-16 12:14] LABS: AST(SGOT) 20 U/L (15-37); Alanine Aminotransfer ALT/SGPT 21 U/L (13-56); Alkaline Phosphatase 74 U/L (45-117); Anion Gap 9 (5-15); BUN 15 mg/dL (7-18); BUN/Creat Ratio 14.2 RATIO (10-20); Calcium,Total 9.7 mg/dL (8.5-10.1); Chloride 104 mmol/L (98-107); Creatinine, Serum 1.06 mg/dL (0.55-1.02); EST Glomerular Filtration Rate 65 mL/min (>60); Est Glom Filt Rate - Afr Amer 79 mL/min (>60); Globulin 4.1 g/dL (2.2-4.2); Glucose 95 mg/dL (74-106); Potassium 3.3 mmol/L (3.5-5.1); Protein, Total 8.1 g/dL (6.4-8.2); Sodium Level 138 mmol/L (136-145)
[2024-06-16] MEDS: LORazepam 2 MG/ML Syringe 1 MG IV (12:19)
[2024-06-16] MEDS: Metoclopramide 10 MG/2 ML Vial IV (12:19)
[2024-06-16] MEDS: 0.9% Normal Saline (1000mL) 1,000 ML 1000 ML IV (12:19)
[2024-06-16 12:22] LABS: Internal QC Validated? YES +Cl - CLEAR BKGD; Pregnancy, Serum, hCG Quali. NEGATIVE Negative
--- NOTE | 2024-06-16 12:46 | PCM.HP.STD ---
HPI - General General Date of Admission: 06/16/24 Date of Service: 06/16/24 Chief Complaint: Nausea and vomiting HPI Narrative FLORIAN BURCIAGA, is a 28 F with history of polysubstance dependence with multiple admissions who presented with nausea and vomiting. Patient reports use of kratom as well as alcohol. Her last use was on the night prior to admission in addition to marijuana. Presented to the emergency department with a desire to undergo detoxification. Patient admitted to regular nursing floor for subsequent management [facility] Medical History (Updated 06/16/24 @ 12:[address] Delroy Alas MD) Bipolar disorder Encounter for IUD insertion Polysubstance (excluding opioids) dependence Desire for detoxification Addiction to drug Alcohol addiction Degenerative disc disease Sinus tachycardia Post depression Home Medications ?Medication ?Instructions ?Recorded ?Last Taken ?Type lorazepam 0.5 mg tablet 0.5 mg PO DAILY PRN anxiety 03/30/24 03/30/24 History sertraline 100 mg tablet 100 mg PO DAILY 03/30/24 03/30/24 History trazodone 50 mg tablet 50 - 100 mg PO QHS PRN sleep 03/30/24 03/30/24 History clonidine HCl 0.1 mg tablet 0.1 mg PO 06/16/24 Unknown History Allergy/AdvReac Type Severity Reaction Status Date / Time erythromycin ethylsuccinate Allergy Hives Verified 06/16/24 11:25 (From Pediazole) sulfisoxazole acetyl (From Allergy Hives Verified 06/16/24 11:25 Pediazole) venlafaxine (From Effexor) AdvReac Headaches Verified 06/16/24 11:25 Family History Other Drug abuse Social History Smoking Status: Current every day smoker tobacco type: cigarettes and e-cigarettes alcohol intake: never substance use type: marijuana, crack/cocaine, amphetamines and opiates ROS ROS Narrative GENERAL: denies fever, chills, night sweats, weight loss, anorexia HEENT: denies headache, sinus congestion, or drainage, dysphagia RESPIRATORY: denies cough, sputum production, shortness of breath, CARDIAC: denies chest pain, palpitations, orthopnea, PND GASTROINTESTINAL: nausea, vomiting, GENITOURINARY: denies dysuria, urgency, frequency, heamaturia EXTREMITY: denies swelling MUSCULOSKELETAL: denies current joint pain or tenderness NEUROLOGIC: denies focal numbness, weakness, tingling HEMATOLOGIC: denies easy bruising and/or hemorrhage INTEGUMENT: denies rashes PSYCHIATRIC: denies suicidal or homicidal ideation Vital Signs Vital Signs Vital Signs: 06/16/24 11:25 06/16/24 12:24 Temperature 97.6 F L Temperature Source Temporal Pulse Rate 78 79 Respiratory Rate 15 18 Blood Pressure 128/86 H 99/54 L Blood Pressure Mean 100 69 Pulse Ox 100 100 Oxygen Delivery Method Room Air Room Air Weight Weight: 81.511 kg Body Mass Index (BMI) 27.3 Physical Exam Narrative GENERAL: Patient appears ill looking HEENT: Atraumatic; normocephalic EYES; Anicteric, Normal Conjunctiva NECK; supple, normal thyroid, RESPIRATORY: Diminished to auscultation CARDIOVASCULAR: Regular S1 S2, GI: soft, normoactive bowel sounds, : No Renal angle tenderness; EXTREMITIES: No edema, no clubbing, MUSCULOSKELETAL: no muscle wasting NEURO: Awake; no lateralizing signs. SKIN: No Rash PSYCH; Flat affect Results Lab / Micro Data 06/16/24 11:40 06/16/24 11:40 Labs: Laboratory Results - last 24 hr 06/16/24 11:40: WBC 8.7, RBC 4.66, Hgb 13.9, Hct 42.5, MCV 91.2, MCH 29.8, MCHC 32.7, RDW Std Deviation 43.3, RDW Coeff of Georges 13.1, Plt Count 351, MPV 9.4, Immature Gran % (Auto) 0.300, Neut % (Auto) 63.0, Lymph % (Auto) 26.2, [place] % (Auto) 8.6, Eos % (Auto) 1.3, Baso % (Auto) 0.6, Absolute Neuts (auto) 5.5, Absolute Lymphs (auto) 2.29, Nucleated RBC % 0, Sodium 138, Potassium 3.3 L, Chloride 104, Carbon Dioxide 25.0, Anion Gap 9, BUN 15, Creatinine 1.06 H, Est GFR (MDRD) Af Amer 79, Est GFR (MDRD) Non-Af 65, BUN/Creatinine Ratio 14.2, Glucose 95, Calcium 9.7, Total Bilirubin 0.90, AST 20, ALT 21, Alkaline Phosphatase 74, Total Protein 8.1, Albumin 4.0, Globulin 4.1, Albumin/Globulin Ratio 1.0 06/16/24 12:00: Ethyl Alcohol 4.0 06/16/24 12:10: Serum , Qual NEGATIVE Assessment & Plan Assessment/Plan (1) Desire for detoxification: (2) Intractable nausea and vomiting: (3) Alcohol addiction: PLAN: Plan Patient is a 28-year-old female with history of polysubstance dependence presenting with nausea and vomiting 1. Acute alcohol withdrawal - Patient has been admitted for treatment with lorazepam taper in addition to adjuvant medications including gabapentin, Bentyl, hydroxyzine and clonidine as needed for alcohol withdrawal symptoms. Patient was also placed on thiamine and folic acid Consultation placed to 180 counseling services 2. Polysubstance dependence ? Including kratom. (Apparently withdrawals in a similar fashion to opiate). Patient has been placed on lorazepam taper 3. Depression with anxiety ? Patient is on SSRI, continue 4. Tobacco dependence - Counseled on cessation, offered nicotine patch for tobacco cravings 5. DVT prophylaxis ? Low risk to encourage early ambulation Time spent in the patient's overall evaluation,decision-making process, review of diagnostic data, adjustment of management, discussion with other providers, nursing nursing and ancillary staff involved in patient's care documentation, 55 Minutes Charges/Coding Visit Charges Inpatient E&M: 97501 Init Hosp L2
--- NOTE | 2024-06-16 13:11 | NURSING ---
MED SURG KITTOE REQUEST FOR DETOX, ILLCIT DRUG USE, HX OF ALCOHOL ABUSE, VOMITING
--- NOTE | 2024-06-16 13:20 | CM.ED ---
Social Work: Date of referral: 06/16/24 Reason for referral: Alcohol withdrawal Referred by: Social Work Identification adult day care worker met briefly with patient who requested that visit be postponed until she's able to try and get some sleep. Patient stated now that she's not feeling as sick she would like to be able to sleep for a little bit and would have someone turn on her room light when she's awake and ready to talk. Jazz Casas, RETURN CLERK, COOKIE PADDER
[2024-06-16] MEDS: Ondansetron 4 MG/2 ML Vial IV (13:31)
--- NOTE | 2024-06-16 14:50 | CASEMGMT ---
Addendum entered by Mallorie Amor 06/16/24 15:39: Social Work SW spoke from [facility], explained the situation. She states will document everything but at this point there is not anything to warrant [facility] involvement. SW let pt know, encouraged her to follow up w/[facility] should she have concerns about the children's safety. SW also encouraged her to use the legal resources available to pt at [facility]. Pt states understanding. SW will follow up w/pt Tuesday for resources as pt is listed as self pay and SDOH also triggered for resources. HUDSON Alvarez Original Note: Social Work store consultant asked SW to check in w/pt, she is crying in the room, worried about her children. SW met w/pt in room in regard to her concerns. Pt states that her children's father, Attila Ly, has custody of their two children Nicola( 08/04/2019) and Thor( 04/16/2021). Pt states has visitation 3 hours per week w/her children. She states Attila continually threatens to move with the children and that she will never see them again. She states got a car for him to use with the children, he told her she should get a car for the kids. However nobody was making the payments and the car got repossessed. She states Attila takes her paychecks. She is still sleeping w/Attila in an effort to see her children, she describes it that if she sleeps w/him he will let her see them. She tells SW he was recently arrested, the children were left at that time w/his girlfriend Valeria Brand(who is with his child she says). Pt is worried about the welfare of her children and isn't sure what to do. She is agreeable to have SW call [facility]. She tells SANGITA Aiken's birthday is [birth year]1989, and he lives in the [facility] in [place]. She has his number on her phone but it is locked up at present as pt is here for the [facility] program. SW inquired why she decided to come in today for treatment, she states she doesn't feel good, everything is crashing around her and she knew she needed to get help. She has a history of depression and anxiety, has been on Zoloft and has seen a psychiatrist but is not keeping up w/it. SW offered support to pt. SW called the industrial economics professormail caller for [facility] through the Police dispatch, awaiting a call back. HDUSON Alvarez
[2024-06-16] MEDS: Lactated Ringers 1,000 ML 125 ML IV (15:12)
[2024-06-16] MEDS: LORazepam 1 MG Tablet 2 MG PO ×2 (15:12→21:51)
[2024-06-16] MEDS: Acetaminophen 500 MG Tablet PO (20:28)
[2024-06-16] MEDS: Dicyclomine 10 MG Capsule 20 MG PO (20:29)
[2024-06-16] MEDS: hydrOXYzine PAM 25 MG Capsule 50 MG PO (20:29)
[2024-06-16] MEDS: traZODone 100 MG Tablet PO (21:51)
[2024-06-17 02:22] VITALS: BP 104/46; PULSE 77; RESP 18; TEMP 36.7; O2SAT 99
[2024-06-17] MEDS: LORazepam 1 MG Tablet 2 MG PO ×4 (02:23→15:37)
[2024-06-17 06:00] VITALS: BP 102/54; PULSE 89; RESP 18; TEMP 36.7; O2SAT 99
--- NOTE | 2024-06-17 07:39 | PCM.PN.HOSP ---
Reason for Visit Reason for Visit: Diagnoses Alcohol dependence, uncomplicated (06/16/24) Nausea with vomiting, unspecified (06/16/24) Subjective Subjective Patient seen complains of feeling sick. Objective Data Objective Data Vital Signs: Vital Signs Temp Pulse Resp BP Pulse Ox O2 Del Method 98.0 F 89 18 102/54 L 99 Room Air 06/17/24 06:00 06/17/24 06:00 06/17/24 06:00 06/17/24 06:00 06/17/24 06:00 06/17/24 06:00 Oxygen Delivery Method Room Air Weight: 73.6 kg Body Mass Index (BMI) 24.6 Intake & Output: Intake and Output for Last 24 Hours 06/15/24 06/16/24 06/17/24 23:59 23:59 23:59 Intake Total 1400 / 1800 1999 Balance 1400 / 1800 1999 Lab / Micro Data 06/16/24 11:40 06/16/24 11:40 Labs: Laboratory Results - last 24 hr 06/16/24 11:40: WBC 8.7, RBC 4.66, Hgb 13.9, Hct 42.5, MCV 91.2, MCH 29.8, MCHC 32.7, RDW Std Deviation 43.3, RDW Coeff of Georges 13.1, Plt Count 351, MPV 9.4, Immature Gran % (Auto) 0.300, Neut % (Auto) 63.0, Lymph % (Auto) 26.2, [place] % (Auto) 8.6, Eos % (Auto) 1.3, Baso % (Auto) 0.6, Absolute Neuts (auto) 5.5, Absolute Lymphs (auto) 2.29, Nucleated RBC % 0, Sodium 138, Potassium 3.3 L, Chloride 104, Carbon Dioxide 25.0, Anion Gap 9, BUN 15, Creatinine 1.06 H, Est GFR (MDRD) Af Amer 79, Est GFR (MDRD) Non-Af 65, BUN/Creatinine Ratio 14.2, Glucose 95, Calcium 9.7, Total Bilirubin 0.90, AST 20, ALT 21, Alkaline Phosphatase 74, Total Protein 8.1, Albumin 4.0, Globulin 4.1, Albumin/Globulin Ratio 1.0 06/16/24 12:00: Ethyl Alcohol 4.0 06/16/24 12:10: Serum , Qual NEGATIVE Physical Exam Narrative GENERAL: Patient appears ill looking HEENT: Atraumatic; normocephalic EYES; Anicteric, Normal Conjunctiva NECK; supple, normal thyroid, RESPIRATORY: Diminished to auscultation CARDIOVASCULAR: Regular S1 S2, GI: soft, normoactive bowel sounds, : No Renal angle tenderness; EXTREMITIES: No edema, no clubbing, MUSCULOSKELETAL: no muscle wasting NEURO: Awake; no lateralizing signs. SKIN: No Rash PSYCH; Flat affect Assessment & Plan Assessment/Plan (1) Desire for detoxification: (2) Intractable nausea and vomiting: (3) Alcohol addiction: PLAN: Plan Patient is a 28-year-old female with history of polysubstance dependence presenting with nausea and vomiting 1. Acute alcohol withdrawal - Patient has been admitted for treatment with lorazepam taper in addition to adjuvant medications including gabapentin, Bentyl, hydroxyzine and clonidine as needed for alcohol withdrawal symptoms. Patient was also placed on thiamine and folic acid Consultation placed to 180 counseling services ? 06/17/2024. Patient has tolerated the lorazepam taper well so far 2. Polysubstance dependence ? Including kratom. (Apparently withdrawals in a similar fashion to opiate). Patient has been placed on lorazepam taper 3. Depression with anxiety ? Patient is on SSRI, continue 4. Tobacco dependence - Counseled on cessation, offered nicotine patch for tobacco cravings 5. DVT prophylaxis ? Low risk to encourage early ambulation Time spent in the patient's overall evaluation,decision-making process, review of diagnostic data, adjustment of management, discussion with other providers, nursing nursing and ancillary staff involved in patient's care documentation, 36 minutes Charges/Coding Visit Charges Inpatient E&M: 76716 Subs Hosp L2
[2024-06-17] MEDS: Thiamine Hydrochloride 100 MG Tablet PO (10:52)
[2024-06-17] MEDS: Folic Acid 1 MG Tablet PO (10:52)
[2024-06-17] MEDS: Sertraline 100 MG Tablet PO (10:52)
[2024-06-17 10:58] VITALS: BP 99/50; PULSE 77; RESP 18; TEMP 36.8; O2SAT 97
[2024-06-17] MEDS: hydrOXYzine PAM 25 MG Capsule 50 MG PO (15:57)
[2024-06-17 16:04] VITALS: BP 94/72; PULSE 77; RESP 18; O2SAT 98
--- NOTE | 2024-06-18 07:15 | PCM.DC.SUM ---
Providers Date of Admission: 06/16/24 Date of Discharge: 06/17/24 Primary Care Physician: Dr. Skyler Patino MD Reason For Visit: ALCOHOL WITHDRAWAL Diagnosis Discharge Diagnosis (1) Desire for detoxification: Status: Acute (2) Intractable nausea and vomiting: Status: Acute Code(s): R11.2 - Nausea with vomiting, unspecified (3) Alcohol addiction: Status: Acute Code(s): F10.20 - Alcohol dependence, uncomplicated Plan Patient is a 28-year-old female with history of polysubstance dependence presenting with nausea and vomiting 1. Acute alcohol withdrawal - Patient has been admitted for treatment with lorazepam taper in addition to adjuvant medications including gabapentin, Bentyl, hydroxyzine and clonidine as needed for alcohol withdrawal symptoms. Patient was also placed on thiamine and folic acid Consultation placed to [facility] counseling services ? 06/17/2024. Patient has tolerated the lorazepam taper well so far ? Patient left AGAINST MEDICAL ADVICE 2. Polysubstance dependence ? Including kratom. (Apparently withdrawals in a similar fashion to opiate). Patient has been placed on lorazepam taper 3. Depression with anxiety ? Patient is on SSRI, continue 4. Tobacco dependence - Counseled on cessation, offered nicotine patch for tobacco cravings 5. DVT prophylaxis ? Low risk to encourage early ambulation Time spent in the patient's overall evaluation,decision-making process, review of diagnostic data, adjustment of management, discussion with other providers, nursing nursing and ancillary staff involved in patient's care documentation, 36 minutes Medications at Discharge Home Medications lorazepam 0.5 mg tablet 0.5 mg PO DAILY PRN anxiety 03/30/24 sertraline 100 mg tablet 150 mg PO DAILY anxiety and depression 03/30/24 trazodone 50 mg tablet 50 - 100 mg PO QHS PRN sleep 03/30/24 clonidine HCl 0.1 mg tablet 0.1 mg PO DAILY withdraw 06/16/24 Weight / BMI Weight Weight: 73.6 kg Body Mass Index (BMI) 24.6 ABG / Lab / Microbiology Data 06/16/24 11:40 06/16/24 11:40 Meaningful Use Info Meaningful Use Meaningful Use Diagnoses (Choose all that apply): None applicable Ischemic Stroke Statin Dosing Therapy Reference: STATIN DOSE THERAPY REFERENCE: * Patients > 75 years receive moderate or high dose statin therapy. * Patients 75 years or YOUNGER should receive HIGH intensity statin dose unless contraindicated. You will be required to document reason for non-treatment if statin daily dose does not meet guidelines. HIGH DOSE STATIN THERAPY DAILY Atorvastatin > than or = to 40 mg Rosuvastatin > than or = to 20 mg Amlodipine + Atorvastatin > than or = to 2.5/40 mg Ezetimibe + Simvastatin 10/80 mg Simvastatin 80mg Discharge Plan Admission Admit Date/Time: 06/16/24 12:46 Attending Provider: Delroy Alas Primary Care Provider: Skyler Patino Discharge Orders/Prescriptions Prescriptions: No Action lorazepam 0.5 mg tablet 0.5 mg PO DAILY PRN (Reason: anxiety) trazodone 50 mg tablet 50 - 100 mg PO QHS PRN (Reason: sleep) sertraline 100 mg tablet 150 mg PO DAILY clonidine HCl 0.1 mg tablet 0.1 mg PO DAILY Referrals / Follow Up: Skyler Patino MD [Primary Care Provider] - Disposition Disposition (needs filled in before D/C Order can be placed): Against Medical Advice Charges/Coding Visit Charges Inpatient E&M: 73180 Disch Hosp
== END 2024-06-17 17:41 | disposition left against medical advice (07) | DRG 894 ==
LOC: ED 12:49 → MS3 13:05
PROVIDERS: Admitting Provider Internal Medicine; Emergency Provider Emergency Medicine; PCP Family Medicine; Visit Provider Internal Medicine
DX: F10.239 Alcohol dependence with withdrawal, unspecified (principal); F19.20 Other psychoactive substance dependence, uncomplicated; F31.9 Bipolar disorder, unspecified; F12.10 Cannabis abuse, uncomplicated; R11.2 Nausea with vomiting, unspecified; F41.8 Other specified anxiety disorders; F17.210 Nicotine dependence, cigarettes, uncomplicated; Y90.0 Blood alcohol level of less than 20 mg/100 ml; Z79.899 Other long term (current) drug therapy
CPT/HCPCS: 80053; 82077; 84703; 85025; 96361; 96374; 96375; 97802; 99221; 99285; A4216; G0378; J2405

== ENCOUNTER 2024-06-18 08:57 | Observation (INO) | payer MEDICAID, SELFPAY ==
[2024-06-18 08:57] VITALS: BP 132/98; PULSE 102; RESP 19; TEMP 36.1; O2SAT 100; BMI 25.8
--- NOTE | 2024-06-18 09:16 | EDS_ITS ---
HPI History of Present Illness Chief Complaint: Substance Abuse Detail of Chief Complaint: Requesting detox. Recently left AMA within the last 1 to 2 days. Informant: patient Onset/Context/Timing Onset: Month(s) Context: Gradual Onset Timing: Continuous Current Severity: Mild Maximum Severity: Mild Associated Symptoms Associated Symptoms: Positive for vomiting* Narrative Narrative: 28-year-old female history of bipolar alcohol and drug abuse. She uses kratom. Patient was just admitted for detox left 1 to 2 days ago AGAINST MEDICAL ADVICE. She realizes that was around and doing his home readmitted. She has a long history of drug and alcohol abuse. Currently is from her and children. Currently is living in a woman senior care. Prior similar symptoms: Yes Recent Illness/Hospitalization: Yes PFSH PFSH Medical History Bipolar disorder Encounter for IUD insertion Polysubstance (excluding opioids) dependence Desire for detoxification Addiction to drug Alcohol addiction Degenerative disc disease Sinus tachycardia Post depression Home Medications ?Medication ?Instructions ?Recorded ?Last Taken ?Type lorazepam 0.5 mg tablet 0.5 mg PO DAILY PRN anxiety 03/30/24 03/30/24 History sertraline 100 mg tablet 150 mg PO DAILY anxiety and 03/30/24 06/16/24 History depression trazodone 50 mg tablet 50 - 100 mg PO QHS PRN sleep 03/30/24 03/30/24 History clonidine HCl 0.1 mg tablet 0.1 mg PO DAILY withdraw 06/16/24 Unknown History Allergy/AdvReac Type Severity Reaction Status Date / Time erythromycin ethylsuccinate Allergy Hives Verified 06/16/24 11:25 (From Pediazole) sulfisoxazole acetyl (From Allergy Hives Verified 06/16/24 11:25 Pediazole) venlafaxine (From Effexor) AdvReac Headaches Verified 06/16/24 11:25 Family History Other Drug abuse Social History Smoking Status: Current every day smoker tobacco type: cigarettes and e- cigarettes alcohol intake: never substance use type: marijuana, crack/cocaine, amphetamines and opiates ROS ROS ED ROS Narrative Nausea and vomiting. Constitutional Constitutional ED: Denies chills or fever(s) Eyes Eyes: Denies blurry vision ENT ENT ED: Denies ear pain Cardiovascular Cardiovascular: Denies chest pain Respiratory/Chest Respiratory/Chest: Denies cough Gastrointestinal Gastrointestinal: Reports nausea and vomiting; Denies abdominal pain, constipation, diarrhea or melena Genitourinary Genitourinary ED: Denies dysuria Musculoskeletal Musculoskeletal: Denies arthralgias Integumentary Denies abscess Neurologic Neurologic: Denies headache(s) Psychiatric Psychiatric: Denies anxiety Endocrine Endocrinology: Denies cold intolerance Hematologic/Lymphatic Hematologic/Lymphatic: Denies easy bleeding Allergic/Immunologic Allergic/Immunologic ED: Denies mouth swelling, tongue swelling or urticaria EXAM Physical Exam Narrative Exam Narrative: 38-year-old female no acute distress. Vital signs stable afebrile. H EENT exam unremarkable atraumatic. Mytrex membranes. Neck nontender. No lymphadenopathy. Lungs clear to auscultation. Heart regular rhythm rate about 100 no murmur. Chest wall ribs nontender. Abdomen soft nontender. Moving all 4 extremities. Old abrasion healing on her right knee. Normal range of motion. No deformity. Normal strength. Back nontender. Neurologically she is awake alert no focal motor deficits. Answering questions and following commands. Const Vital Signs: 06/18/24 08:57 Temperature 97.0 F L Temperature Source Temporal Pulse Rate 102 H Respiratory Rate 19 H Blood Pressure 132/98 H Blood Pressure Mean 109 Pulse Ox 100 Oxygen Delivery Method Room Air Positive well nourished and well developed; Negative for obese, cachectic, contractures or unkempt General Appearance ED: well developed and NAD; Negative for unkempt, cachectic, contractures or pallor Nutritional Appearance: Negative for cachectic or obese HEENT Reports moist mucous membranes; Denies dry mucous membranes atraumatic; Negative for trauma or tenderness Mouth ED: No dry mucous membranes Mouth: No dry mucous membranes Eyes PERRL and EOMs intact bilaterally General Eye ED: Negative for pale conjunctiva, scleral icterus or other Neck no lymphadenopathy, supple and no JVD Thyroid: Negative for tender Lymph Lymphatic: no lymphadenopathy noted; Negative for other Chest Wall inspection of chest normal and palpation of chest normal Chest: Negative for other Resp normal respiratory effort and clear to auscultation bilaterally Effort and Inspection: Negative for retractions Auscultation: Negative for rales, rhonchi, wheezes or diminished lung sounds Cardio regular rate, regular rhythm, S1 normal heart sound, S2 normal heart sound and no murmurs Rate: Negative for bradycardia or tachycardic Rhythm: Negative for abnormal rhythm Bruits: Negative for other GI soft to palpation, non-tender, non-distended and no masses Inspection: Negative for abdominal distention Palpation: Negative for tender, guarding, rigid or mass Back/Spine no CVA tenderness General Back: Negative for CVA tenderness Cervical Spine: Negative for cervical spine tenderness Thoracic Spine / Upper Back: Negative for thoracic spinal tenderness Lumbar Spine / Lower Back: Negative for lumbar spinal tenderness Coccyx: Negative for swelling Extremity General Extremety ED: Negative for edema or tenderness General Extremity: Negative for edema Neuro oriented x3 and CN's II-XII intact bilaterally Sensorium / Orientation: alert, oriented to person, oriented to place and oriented to time; Negative for confused, lethargic or stuporous Speech: speech normal Motor Exam: strength 5/5 throughout Psych mental status grossly normal and thought process normal Appearance: Negative for unkempt Attitude: No belligerent, No agitated, No aggressive and No hostile Mood & Affect: Negative for depressed, anxious or tearful Skin General Skin Exam: Negative for jaundice or pallor Lesions: no lesions Rashes: no rashes Trauma: Negative for abrasion or laceration MDM MDM MDM Narrative Medical decision making narrative: 28-year-old female history of drug and alcohol abuse. Was actually admitted and left AGAINST MEDICAL ADVICE a day or 2 ago and was requesting readmission. I will speak to the hospitalist to see if they will readmit her. I did review her recent labs. Patient will be readmitted. She just had lab work done but not doing any new labs today. Patient doing well on repeat exam. She was given p.o. Zofran for nausea. IV was placed by nursing. History & Record Review Discussion w/independent historian: Patient Additional record(s) reviewed:: Prior inpatient record, Prior outpatient record and Prior ED visit Discharge Plan Dx/Rx/DC Orders Clinical Impression: Alcohol addiction, Drug abuse, Desire for detoxification Disposition Disposition: Acute Care [facility]
--- NOTE | 2024-06-18 09:26 | HP.PCM.HOS_ITS ---
HPI - General General Date of Admission: 06/18/24 Date of Service: 06/18/24 Chief Complaint: Desire for detoxification HPI Narrative FLORIAN BURCIAGA, is a 28 F who presents with desire for detoxification. Patient has history of polysubstance dependence. Was admitted 2 days prior signed out AGAINST MEDICAL ADVICE after the day of hospitalization. Patient presented back to the emergency department regretting her decision. On further questioning she admitted to smoking marijuana and using kratom following her AMA discharge. Patient readmitted to regular nursing floor for management of her symptoms [facility] Medical History Bipolar disorder Encounter for IUD insertion Polysubstance (excluding opioids) dependence Desire for detoxification Addiction to drug Alcohol addiction Degenerative disc disease Sinus tachycardia Post depression Home Medications ?Medication ?Instructions ?Recorded ?Last Taken ?Type lorazepam 0.5 mg tablet 0.5 mg PO DAILY PRN anxiety 03/30/24 03/30/24 History sertraline 100 mg tablet 150 mg PO DAILY anxiety and 03/30/24 06/16/24 History depression trazodone 50 mg tablet 50 - 100 mg PO QHS PRN sleep 03/30/24 03/30/24 History clonidine HCl 0.1 mg tablet 0.1 mg PO DAILY withdraw 06/16/24 Unknown History Allergy/AdvReac Type Severity Reaction Status Date / Time erythromycin ethylsuccinate Allergy Hives Verified 06/16/24 11:25 (From Pediazole) sulfisoxazole acetyl (From Allergy Hives Verified 06/16/24 11:25 Pediazole) venlafaxine (From Effexor) AdvReac Headaches Verified 06/16/24 11:25 Family History Other Drug abuse Social History Smoking Status: Current every day smoker tobacco type: cigarettes and e- cigarettes alcohol intake: never substance use type: marijuana, crack/cocaine, amphetamines and opiates ROS ROS Narrative GENERAL: denies fever, chills, night sweats, weight loss, anorexia HEENT: denies headache, sinus congestion, or drainage, dysphagia RESPIRATORY: denies cough, sputum production, shortness of breath, CARDIAC: denies chest pain, palpitations, orthopnea, PND GASTROINTESTINAL: Nausea and vomiting GENITOURINARY: denies dysuria, urgency, frequency, heamaturia EXTREMITY: denies swelling MUSCULOSKELETAL: denies current joint pain or tenderness NEUROLOGIC: denies focal numbness, weakness, tingling HEMATOLOGIC: denies easy bruising and/or hemorrhage INTEGUMENT: denies rashes PSYCHIATRIC: denies suicidal or homicidal ideation Vital Signs Vital Signs Vital Signs: 06/18/24 08:57 Temperature 97.0 F L Temperature Source Temporal Pulse Rate 102 H Respiratory Rate 19 H Blood Pressure 132/98 H Blood Pressure Mean 109 Pulse Ox 100 Oxygen Delivery Method Room Air Weight Weight: 77.111 kg Body Mass Index (BMI) 25.8 Physical Exam Narrative GENERAL: cooperative HEENT: Atraumatic; normocephalic EYES; Anicteric, Normal Conjunctiva NECK; supple, normal thyroid, RESPIRATORY: Diminished to auscultation CARDIOVASCULAR: Regular S1 S2, GI: soft, normoactive bowel sounds, : No Renal angle tenderness; EXTREMITIES: No edema, no clubbing, MUSCULOSKELETAL: no muscle wasting NEURO: Awake; no lateralizing signs. SKIN: No Rash PSYCH; Flat affect Assessment & Plan Assessment/Plan (1) Alcohol addiction: PLAN: Plan Patient is a 28-year-old female with history of polysubstance dependence presenting with nausea and vomiting 1. Acute alcohol withdrawal - Patient has been admitted for treatment with lorazepam taper in addition to adjuvant medications including gabapentin, Bentyl, hydroxyzine and clonidine as needed for alcohol withdrawal symptoms. Patient was also placed on thiamine and folic acid Consultation placed to [facility] counseling services. Patient did sign out AMA during her previous admission. She was counseled on the need to be compliant with the program 2. Polysubstance dependence ? Including kratom. (Apparently withdrawals in a similar fashion to opiate). Patient has been placed on lorazepam taper 3. Depression with anxiety ? Patient is on SSRI, continue 4. Tobacco dependence - Counseled on cessation, offered nicotine patch for tobacco cravings 5. DVT prophylaxis ? Low risk to encourage early ambulation Time spent in the patient's overall evaluation,decision-making process, review of diagnostic data, adjustment of management, discussion with other providers, nursing nursing and ancillary staff involved in patient's care documentation, 55 minutes Charges/Coding Visit Charges Inpatient E&M: 11777 Init Hosp L2
[2024-06-18] MEDS: Ondansetron ODT 4 MG Tablet PO (10:27)
[2024-06-18 10:29] VITALS: BP 124/64; PULSE 71; RESP 18; TEMP 36.7; O2SAT 100; BMI 25.8
[2024-06-18 10:31] VITALS: BP 147/97; PULSE 100; RESP 20; TEMP 35.9; O2SAT 98
[2024-06-18] MEDS: LORazepam 1 MG Tablet PO ×4 (11:52→23:01)
[2024-06-18] MEDS: cloNIDine HCl 0.1 MG Tablet PO (11:53)
--- NOTE | 2024-06-18 12:00 | NURSING ---
pt continues with wrything about bed and asking for nausea meds still. pt throws back covers and pacing. back to bed when directed. meds given with one sip water. informed that [facility] would be seeing shavonne to plan for inpatient rehab and stated, good. im too nauseated to talkemesis obs to floor and to sheets. pt told that needs to vomit in emesis bags provided. appologetic but still continues to gagg
[2024-06-18 14:00] VITALS: BP 107/62; PULSE 72; RESP 16; TEMP 36.9; O2SAT 100
[2024-06-18] MEDS: Ondansetron 8 MG Tablet PO ×2 (14:24→23:01)
[2024-06-18] MEDS: Sertraline 100 MG Tablet 150 MG PO (14:24)
--- NOTE | 2024-06-18 15:11 | CHAPLAIN ---
Type of Pastoral Visit ___ Initial Visit ___ Follow-up Visit ___ On-call Visit ___ General Patient Visit ___ Spiritual Assessment ___ Family Conference ___ Bereavement ___ Rapid Response ___ Code Blue ___ Other (describe below) Pastoral Care Referral From ___ Patient ___ Family ___ Nurse ___ Physician ___ [employer] ___ Molder Offbearer ___ Other (describe below) Sacrament/Intervention ___ Active listening ___ Anointing ___ Christian ___ Bereavement ___ Communion ___ Rama exploration ___ ___ Life review ___ Prayer ___ Reconciliation ___ Sacrament of Sick ___ Supportive presence ___ Wedding ___ Other (describe below) Pastoral Comments patient declines a visit at this time as I am too sick to talk; gave patient a green bag to assist her and offered support as desired
[2024-06-18] MEDS: Gabapentin 300 MG Capsule PO (16:03)
[2024-06-18] MEDS: Dicyclomine 10 MG Capsule 20 MG PO (16:03)
[2024-06-18 18:00] VITALS: BP 112/67; PULSE 59; RESP 16; TEMP 36.8; O2SAT 100
[2024-06-18] MEDS: proMETHazine 25 MG/ML Syringe 12.5 MG IM (18:27)
[2024-06-18] MEDS: LORazepam 2 MG/ML Syringe 0.5 MG IV (21:44)
[2024-06-18] MEDS: 0.9% Saline Lock 10 ML Syringe IV (21:45)
[2024-06-18 22:00] VITALS: BP 91/73; PULSE 80; RESP 18; TEMP 36.8; O2SAT 100
[2024-06-18] MEDS: traZODone 100 MG Tablet PO (23:01)
[2024-06-18] MEDS: hydrOXYzine PAM 25 MG Capsule 50 MG PO (23:01)
[2024-06-19 02:00] VITALS: BP 116/70; PULSE 70; RESP 16; TEMP 37.1; O2SAT 100
[2024-06-19] MEDS: LORazepam 1 MG Tablet PO ×5 (02:58→22:45)
[2024-06-19] MEDS: Ondansetron 8 MG Tablet PO ×2 (07:18→16:49)
[2024-06-19 09:33] VITALS: BP 122/67; PULSE 78; RESP 16; TEMP 36.8; O2SAT 97
[2024-06-19] MEDS: Folic Acid 1 MG Tablet PO (09:45)
[2024-06-19] MEDS: Thiamine Hydrochloride 100 MG Tablet PO (09:45)
[2024-06-19] MEDS: Sertraline 100 MG Tablet 150 MG PO (09:45)
[2024-06-19] MEDS: cloNIDine HCl 0.1 MG Tablet PO (09:46)
[2024-06-19] MEDS: Dicyclomine 10 MG Capsule 20 MG PO ×2 (09:46→18:03)
--- NOTE | 2024-06-19 11:37 | PN_ITS ---
Subjective Subjective Patient seen and examined. She complains of nausea. Review of systems is otherwise negative. She has remained hemodynamically stable. Objective Data Objective Data Vital Signs: Vital Signs Temp Pulse Resp BP Pulse Ox O2 Del Method 98.3 F 78 16 122/67 H 97 Room Air 06/19/24 09:33 06/19/24 09:33 06/19/24 09:33 06/19/24 09:33 06/19/24 09:33 06/19/24 09:33 Oxygen Delivery Method Room Air Weight: 169 lb 15.622 oz Body Mass Index (BMI) 25.8 Intake & Output: Intake and Output for Last 24 Hours 06/17/24 06/18/24 06/19/24 23:59 23:59 23:59 Intake Total 50 / 50 Output Total 350 / 350 Balance -300 / -300 Physical Exam Const alert and oriented x3 Constitutional Narrative: mildly anxious General Appearance: cooperative and well developed HEENT normocephalic, head/scalp atraumatic, moist oral mucous membranes and oropharynx normal Eyes PERRL and EOMs intact bilaterally Neck no lymphadenopathy, supple and no JVD Lymph Lymphatic: no lymphadenopathy noted and no lymphedema noted Resp normal respiratory effort, normal air movement and clear to auscultation bilaterally Cardio regular rate, regular rhythm, S1 normal heart sound, S2 normal heart sound and no murmurs GI normal to inspection, nondistended, normoactive bowel sounds, soft to palpation, non-tender and non-distended Extremity normal capillary refill, no clubbing, cyanosis or edema and no calf tenderness General Extremity: no tenderness to palpation of joints or extremities Skin General Skin Exam: no breakdown Neuro CN's II-XII intact bilaterally, no focal motor deficits, no sensory deficits noted and deep tendon reflexes 2+ bilaterally Motor Exam: strength 5/5 throughout and general weakness Psych thought process normal, cooperative and affect normal Appearance: appropriate Assessment & Plan Assessment/Plan (1) Alcohol addiction: PLAN: Plan #Acute alcohol withdrawal * on alcohol withdrawal protocol with phenobarbital * on thiamine, folic acid and multivite. * adjunctive meds for symptomatic relief. * Monitor CIWA score #Polysubstance abuse: Also uses quad home which apparently causes withdrawal and is more efficient to opiates. Currently on lorazepam taper #Anxiety with depression: on sertraline. #Nicotine dependence: Counseled to quit. Nicotine patch 21 mg daily DVT prophylaxis: Low risk. Encourage ambulation. Charges/Coding Visit Charges Inpatient E&M: 27212 Subs Hosp L2
--- NOTE | 2024-06-19 12:25 | ADDICTION ---
Addendum entered by Marlin Yanes 06/20/24 10:36: Due to patient report of symptoms, pt will be picked up to go to residential tx unless unable to be medically discharged. Original Note: This mortgage or loan underwriter met with PT to conduct ASAM, MSE, AUDIT, DUDIT assessments and to plan for d/c. PT A+Ox4 and participated actively. All assessments completed. PT plans to f/u with [facility] at [facility] for follow-up in patient treatment services on Tuesday. [facility] will transport to treatment.
[2024-06-19 15:08] VITALS: BP 102/68; PULSE 43; RESP 14; TEMP 36.7; O2SAT 98
[2024-06-19 15:58] VITALS: BP 119/82; PULSE 57; RESP 14; O2SAT 98
[2024-06-19] MEDS: Gabapentin 300 MG Capsule PO (16:48)
[2024-06-19] MEDS: Senna Tablet 2 TABLET PO (16:48)
[2024-06-19] MEDS: 0.9% Saline Lock 10 ML Syringe IV (18:03)
[2024-06-19] MEDS: 0.9% Normal Saline (1000mL) 1,000 ML 125 ML IV (18:04)
[2024-06-19] MEDS: proMETHazine 25 MG/ML Syringe 12.5 MG IM (19:03)
[2024-06-19] MEDS: hydrOXYzine PAM 25 MG Capsule 50 MG PO (20:21)
[2024-06-19 20:24] VITALS: BP 126/78; PULSE 71; RESP 16; TEMP 36.8; O2SAT 100
[2024-06-19] MEDS: traZODone 100 MG Tablet PO (20:27)
[2024-06-20] VITALS (10 sets, daily range): BP systolic 111–150; BP diastolic 68–102; PULSE 64–81; RESP 14–18; TEMP 36.6–37.6; O2SAT 95–100; BMI 25.8
[2024-06-20] MEDS: Gabapentin 300 MG Capsule PO ×3 (00:24→23:44)
[2024-06-20] MEDS: proMETHazine 25 MG/ML Syringe 12.5 MG IM ×2 (00:25→18:11)
[2024-06-20] MEDS: 0.9% Normal Saline (1000mL) 1,000 ML 125 ML IV (02:18)
[2024-06-20] MEDS: LORazepam 1 MG Tablet PO ×5 (02:57→23:43)
[2024-06-20] MEDS: hydrOXYzine PAM 25 MG Capsule 50 MG PO ×4 (02:57→22:12)
[2024-06-20] MEDS: Ondansetron 8 MG Tablet PO ×2 (02:57→22:12)
[2024-06-20] MEDS: Dicyclomine 10 MG Capsule 20 MG PO ×3 (07:24→23:44)
[2024-06-20 09:53] LABS: Internal QC Validated? YES +Cl - CLEAR BKGD; Pregnancy, Urine Negative Negative; Record Kit Lot#,Urine Preg HCG0000772476
[2024-06-20 11:34] LABS: Amphetamine Urine VISTA NEGATIVE (<1000 ng/mL); Barbiturate Urine VISTA NEGATIVE (< 200 ng/mL); Benzodiazepine Urine VISTA NEGATIVE (< 200 ng/mL); Cocaine Urine VISTA NEGATIVE (< 300 ng/mL); Ecstacy Urine VISTA NEGATIVE (< 500 ng/mL); Methadone Urine VISTA NEGATIVE (< 300 ng/mL); PCP Urine VISTA NEGATIVE (< 25 ng/mL); THC Urine VISTA POSITIVE (< 50 ng/mL); Vista UDS pH Range 6
--- NOTE | 2024-06-20 11:45 | EGD_PTH ---
PATIENT: FLORIAN BURCIAGA LOC: MS3 U#:[id number] AGE/SX: 28/F ROOM: ID325 RE06/18/[address]: Dr. Magalie Collazo MD : 1995 BED: 1 DIS: 06/21/2024 SPEC #: [id number] RECD: 06/20/24 13:08 STATUS: FANG REQ #: [id number] TIFFANIE: 06/20/24 11:[address]: Everardo Hickman DEPT: SURGICAL PATHOLOGY RECD BY: Idris Phillips ENTERED: 06/20/24 13:38 SP TYPE: EGD BIOPSY OTHR DR: MD Dr. Magalie Reyna MD Dr. William Lago, MD Tissues: Esophagus, NOS Procedures: Special Stain Group I Surgery Specimen Level IV GMS Stain (control) Comments: @ Ordering doctor for SSI edited from to @ by ALEJANDRO at 06/21/24 1129 @ Ordering doctor for SUIV edited from to @ by ALEJANDRO at 06/21/24 1129 @ Ordering doctor for GMS edited from to @ by ALEJANDRO at 06/21/24 1129 @ Submitting doctor edited from to @ by ALEJANDRO at 06/21/24 1129 HEADER OPERATION: EGD with biopsies PRE-OP DIAGNOSIS: Nausea and vomiting TISSUE SUBMITTED: Random esophagus biopsy MICROSCOPIC DIAGNOSIS Esophagus, random biopsy: Focal acute inflammation. Negative for fungal organisms. See comment. Samra 06/21/2024 COMMENT GMS stain with matched control was used in the evaluation of this case. MICROSCOPIC DESCRIPTION Slides are reviewed. GROSS DESCRIPTION Received in fixative is one container labeled with the patient's name and designated Random esophagus biopsy. The specimen consists of multiple irregular fragments of light colón soft tissue that in aggregate measure 0.8 x 0.5 x 0.1 cm. The specimen is totally submitted in one cassette. MARIA ESTHER/ 06/20/2024 TC:2 CPT:21156,35097
--- NOTE | 2024-06-20 11:52 | PCM.PRE.AN2 ---
ASA Classification* ASA Classification ASA Classification: 3 (Patient has a history of alcohol. And is under withdrawal precautions.) Assessment & Plan Anesthesia* Anesthesia Assessment Anesthesia Assessment: Discussed sedation and/or anesthesia options, risks, benefits, and alternatives with patient/parents/legal guardian/POA. Questions invited. The patient/parents/legal guardian/POA seems to understand and agrees to proceed with anesthesia plan. Reviewed the physical assessment, medical history, allergy history and patient home medications list prior to surgery/procedure/anesthetic and documented any changes. Performed airway and anesthesia risk assessments. Anesthesia Type Anesthesia Type: MAC History Source History Obtained from:: Patient and Chart Anesthesia Focused Assessment* Temperature: 97.8 F Pulse Rate: 64 Blood Pressure: 123/70 Respiratory Rate: 14 Pulse Ox: 96 Oxygen Delivery Method: Room Air Airway Assessment Mouth opens: >3 cm Mallampati Score: I Teeth Condition: Chipped/Broken (Multiple chipped teeth. Poor dentition.) Neck Range of motion (ROM): Full ROM Focused Labs Anesthesia Preop lab: CBC WBC 8.7 K/mm3 (4.4-11.0) 06/16/24 11:40 RBC 4.66 M/mm3 (4.2-5.4) 06/16/24 11:40 Hgb 13.9 g/dL (12.0-15.0) 06/16/24 11:40 Hct 42.5 % (37-47) 06/16/24 11:40 Plt Count 351 K/mm3 (150-450) 06/16/24 11:40 CHEMISTRY Potassium 3.3 mmol/L (3.5-5.1) L 06/16/24 11:40 Sodium 138 mmol/L (136-145) 06/16/24 11:40 Magnesium 2.2 mg/dL (1.6-2.6) 12/10/21 05:33 Phosphorus 2.6 mg/dL (2.5-4.9) 12/10/21 05:33 BUN 15 mg/dL (7-18) 06/16/24 11:40 Creatinine 1.06 mg/dL (0.55-1.02) H 06/16/24 11:40 Glucose 95 mg/dL (74-106) 06/16/24 11:40 TSH 0.15 uIU/mL (0.358-3.74) L 01/26/19 12:10 COAG PT 12.5 SECONDS (11.7-14.9) 07/17/19 18:15 Urine Test Negative Negative 06/20/24 09:32 Pre-Assessment Diagnosis/Proposed Procedure Planned Operative Procedure(s): Esophagogastroduodenoscopy. Anesthesia History Anesthesia History - methods time analyst: Anesthesia History - methods time analyst Hx Hospitalization No 01/01/21 16:57 Any Problems With Anesthesia No 10/23/19 13:44 Cholinesterase deficiency No 10/23/19 13:44 You/Your Family Experience No 10/23/19 13:44 fever (hyperthermia) with Relationship Recent Exposure to Contagious No 10/25/19 11:44 Disease Does patient have nerve stimulator Patient instructed to have device shut off --Does patient have Pacemaker No 06/20/24 11:13 or ICD? When Was Last Pacemaker Check QUESTION #4 FULL TEXT: You/Your Family Experience fever (hyperthermia) with Anesthesia Last Oral Intake Last Oral intake: Last Oral Intake NPO since 00:00 06/20/24 11:13 Meds taken in AM with sips of Yes 06/20/24 11:13 water? Meds patient instructed to take am of surgery PONV PONV - methods time analyst: PONV - methods time analyst Female HX of Motion Sickness HX of N/V After Surgery Non-Smoker Duration of Surgery greater than 60 minutes Number of Risk Factors PONV Score Height & Weight Height & Weight: Anesthesia: Height & Weight Height 5 ft 8 in 06/20/24 11:13 Weight: 77.1 kg 06/20/24 11:13 Body Mass Index (BMI) 25.8 06/20/24 11:13 Respiratory Assessment Respiratory Assessment - methods time analyst: Respiratory Tract Infection Hx - methods time analyst Hx Respiratory Tract Infection No 10/23/19 13:44 STOP Sleep Apnea STOP Sleep Apnea - methods time analyst: STOP Sleep Apnea - methods time analyst Hx Hypertension No 06/18/24 10:29 Hx Sleep Apnea No 06/18/24 10:29 CPAP BIPAP Do you snore loudly (louder No 06/18/24 10:29 than talking or can be heard Do you often feel tired/ No 06/18/24 10:29 fatigued/ sleepy during daytime? Has anyone observed you stop No 06/18/24 10:29 breathing during sleep? STOP Results Negative 06/18/24 10:29 QUESTION #5 FULL TEXT : Do you snore loudly (louder than talking or can be heard through closed doors)? Tobacco Use History Tobacco Use History - methods time analyst: Tobacco Use History - methods time analyst Tobacco Use Smoking Status Current every day smoker 06/18/24 12:57 Hx Tobacco Use Yes 06/18/24 10:29 Years Smoking Packs Smoked per Day Smoking Cessation Date was within the last 15 years Hx Smoking Cessation Date Hx Smoking Cessation Counseling Any additional information?: Yes Tobacco Use: Vapor Hematologic Medial History Hematologic Hx - methods time analyst: Hematologic Medical Hx - ward clerk Hx of Blood Transfusion No 06/18/24 10:29 Hx of Transfusion in last 3 No 06/18/24 10:29 Months Date of Last Transfusion (if within last 3 months) Ever experience any problems No 06/18/24 10:29 with transfusion(s)? Specify any problems Hx of Preganancy in last 3 No 06/18/24 10:29 Months Nurse Filling Out Transfusion [facility]AGGERTY 06/18/24 10:29 & Questions: Date: 06/18/24 06/18/24 10:29 Time: 11:32 06/18/24 10:29 Patient unable to answer at this time (ie. confused, unrespo /Reproduction History /Reproductive History - methods time analyst: /Reproductive Hx- methods time analyst Hx Now No 06/18/24 10:29 Gestational Age (in weeks): EDC: Hx Hx Para Hx Section SAB No 06/18/24 10:29 Active Medications Active Medications: Current Medications Generic Name Dose Route Start Last Admin Trade Name Freq PRN Reason Stop Dose Admin Acetaminophen 500 mg 06/18/24 10:43 Acetaminophen 500 Mg Tablet PO Q4H PRN PRN Pain 1-10 or Temp > 100.4 F Al Hydrox/Mg Hydrox/Simethicone 30 ml 06/18/24 10:43 Mag /Aluminum/Simeth Wch Udc 30 Ml Oral.Susp PO Q6H PRN PRN dyspesia Clonidine 0.1 mg 06/18/24 10:43 06/20/24 11:18 Clonidine Hcl 0.1 Mg Tablet PO Not Given DAILY RITU Protocol Dicyclomine HCl 20 mg 06/18/24 10:43 06/20/24 07:24 Dicyclomine 10 Mg Capsule PO 20 mg Q6H PRN PRN Administration abdominal discomfort Folic Acid 1 mg 06/19/24 08:00 06/20/24 09:36 Folic Acid 1 Mg Tablet PO Not Given DAILY@0800 RITU Gabapentin 300 mg 06/18/24 10:43 06/20/24 00:24 Gabapentin 300 Mg Capsule PO 300 mg Q8H PRN PRN Administration moderate to severe anxiety Hydroxyzine Pamoate 50 mg 06/18/24 10:43 06/20/24 07:25 Hydroxyzine Polina 25 Mg Capsule PO 50 mg Q4H PRN PRN Administration mild anxiety Loperamide HCl 2 mg 06/18/24 10:43 Loperamide 2 Mg Capsule PO Q4H PRN PRN Loose Stools Lorazepam 1 mg 06/18/24 10:43 06/20/24 11:19 Lorazepam 1 Mg Tablet PO 06/22/24 18:42 Not Given Q4H RITU Taper Nicotine 21 mg 06/18/24 10:43 06/19/24 15:32 Nicotine 21 Mg Patch TD Not Given DAILY RITU Ondansetron HCl 8 mg 06/18/24 10:43 06/20/24 02:57 Ondansetron 8 Mg Tablet PO 8 mg Q8H PRN PRN Administration NAUSEA Promethazine HCl 12.5 mg 06/18/24 17:15 06/20/24 00:25 Promethazine 25 Mg/Ml Syringe IM 12.5 mg Q4H PRN PRN Administration NAUSEA/VOMITING Senna 2 tablet 06/18/24 10:43 06/19/24 16:48 Senna Tablet PO 2 tablet QHS PRN Administration Constipation Sertraline HCl 150 mg 06/18/24 10:43 06/20/24 11:19 Sertraline 100 Mg Tablet PO Not Given DAILY RITU Sodium Chloride 10 - 40 ml 06/18/24 10:32 06/19/24 18:03 0.9% Saline Lock 10 Ml Syringe IV 10 ml UD PRN Administration SALINE FLUSH Thiamine HCl 100 mg 06/19/24 08:00 06/20/24 09:36 Thiamine Hydrochloride 100 Mg Tablet [facility] Traz[facility] 100 mg 06/18/24 10:43 06/19/24 20:27 Trazodone 100 Mg Tablet PO 100 mg QHS PRN Administration [facility] Medical History Bipolar disorder Encounter for IUD insertion Polysubstance (excluding opioids) dependence Desire for detoxification Addiction to drug Alcohol addiction Degenerative disc disease Sinus tachycardia Post depression Home Medications ?Medication ?Instructions ?Recorded ?Last Taken ?Type lorazepam 0.5 mg tablet 0.5 mg PO DAILY PRN anxiety 03/30/24 03/30/24 History sertraline 100 mg tablet 150 mg PO DAILY anxiety and 03/30/24 06/16/24 History depression trazodone 50 mg tablet 50 - 100 mg PO QHS PRN sleep 03/30/24 03/30/24 History clonidine HCl 0.1 mg tablet 0.1 mg PO DAILY withdraw 06/16/24 Unknown History Allergy/AdvReac Type Severity Reaction Status Date / Time erythromycin ethylsuccinate Allergy Hives Verified 06/16/24 11:25 (From Pediazole) sulfisoxazole acetyl (From Allergy Hives Verified 06/16/24 11:25 Pediazole) venlafaxine (From Effexor) AdvReac Headaches Verified 06/16/24 11:25 Family History Other Drug abuse no surgical history (Patient had a dilatation curettage. No problems with anesthesia.) Social History Smoking Status: Current every day smoker tobacco type: cigarettes and e-cigarettes alcohol intake: never substance use type: marijuana, crack/cocaine, amphetamines and opiates Review of Systems (Anesthesia) ROS Narrative System reviewed and no additional complaints, except as documented.
[2024-06-20] MEDS: Lactated Ringers 1,000 ML 15 ML IV (12:15)
--- NOTE | 2024-06-20 13:03 | CON.PCM.GI_ITS ---
HPI Consult Data Date of Consult: 06/20/24 HPI Narrative Reason for Consultation: Intractable nausea vomiting HPI Narrative: FLORIAN BURCIAGA, is a 28 F who presented with desire for detoxification. Patient has history of polysubstance dependence. Was admitted 2 days prior signed out AGAINST MEDICAL ADVICE after the day of hospitalization. Patient presented back to the emergency department regretting her decision. On further questioning she admitted to smoking marijuana and using kratom following her AMA discharge. Patient readmitted to regular nursing floor for management of her symptoms. I was called to see her because of persistent nausea and vomiting. There is suspicion of marijuana hyperemesis and possible bulimia. [facility] Medical History Bipolar disorder Encounter for IUD insertion Polysubstance (excluding opioids) dependence Desire for detoxification Addiction to drug Alcohol addiction Degenerative disc disease Sinus tachycardia Post depression Home Medications ?Medication ?Instructions ?Recorded ?Last Taken ?Type lorazepam 0.5 mg tablet 0.5 mg PO DAILY PRN anxiety 03/30/24 03/30/24 History sertraline 100 mg tablet 150 mg PO DAILY anxiety and 03/30/24 06/16/24 History depression trazodone 50 mg tablet 50 - 100 mg PO QHS PRN sleep 03/30/24 03/30/24 History clonidine HCl 0.1 mg tablet 0.1 mg PO DAILY withdraw 06/16/24 Unknown History Allergy/AdvReac Type Severity Reaction Status Date / Time erythromycin ethylsuccinate Allergy Hives Verified 06/16/24 11:25 (From Pediazole) sulfisoxazole acetyl (From Allergy Hives Verified 06/16/24 11:25 Pediazole) venlafaxine (From Effexor) AdvReac Headaches Verified 06/16/24 11:25 Family History Other Drug abuse Surgical History no surgical history Social History Smoking Status: Current every day smoker tobacco type: cigarettes and e- cigarettes alcohol intake: never substance use type: marijuana, crack/cocaine, amphetamines and opiates ROS ROS Narrative GENERAL: denies fever, chills, night sweats, weight loss, anorexia HEENT: denies headache, sinus congestion, or drainage, dysphagia RESPIRATORY: denies cough, sputum production, shortness of breath, CARDIAC: denies chest pain, palpitations, orthopnea, PND GASTROINTESTINAL: Nausea and vomiting GENITOURINARY: denies dysuria, urgency, frequency, heamaturia EXTREMITY: denies swelling MUSCULOSKELETAL: denies current joint pain or tenderness NEUROLOGIC: denies focal numbness, weakness, tingling HEMATOLOGIC: denies easy bruising and/or hemorrhage INTEGUMENT: denies rashes PSYCHIATRIC: denies suicidal or homicidal ideation Physical Exam Const alert and oriented x3 Constitutional Narrative: mildly anxious General Appearance: cooperative and well developed HEENT normocephalic, head/scalp atraumatic, moist oral mucous membranes and oropharynx normal Eyes PERRL and EOMs intact bilaterally Neck no lymphadenopathy, supple and no JVD Lymph Lymphatic: no lymphadenopathy noted and no lymphedema noted Resp normal respiratory effort, normal air movement and clear to auscultation bilaterally Cardio regular rate, regular rhythm, S1 normal heart sound, S2 normal heart sound and no murmurs GI normal to inspection, nondistended, normoactive bowel sounds, soft to palpation, non-tender and non-distended Extremity normal capillary refill, no clubbing, cyanosis or edema and no calf tenderness General Extremity: no tenderness to palpation of joints or extremities Skin General Skin Exam: no breakdown Neuro CN's II-XII intact bilaterally, no focal motor deficits, no sensory deficits noted and deep tendon reflexes 2+ bilaterally Motor Exam: strength 5/5 throughout and general weakness Psych thought process normal, cooperative and affect normal Appearance: appropriate Lab / Micro Data Labs: Laboratory Results - last 24 hr 06/20/24 09:32: Urine Test Negative, Urine Opiates Screen NEGATIVE, Urine Methadone Screen NEGATIVE, Ur Barbiturates Screen NEGATIVE, Ur Phencyclidine Scrn NEGATIVE, Ur Amphetamines Screen NEGATIVE, MDMA (Ecstasy) Screen NEGATIVE, U Benzodiazepines Scrn NEGATIVE, Urine Cocaine Screen NEGATIVE, U Cannabinoids Screen POSITIVE H, Ur Drug Screen Comment Assessment & Plan Assessment/Plan (1) Drug abuse: (2) Intractable nausea and vomiting: PLAN: Plan 28-year-old with drug and alcohol abuse and persistent nausea vomiting * Patient states that she uses kratom daily and feels that she is going through withdrawal with that. Also states that she drinks 15 shots per day and her last consumption was a couple days ago. * Currently, she is still having nausea vomiting. We will perform an upper endoscopy to evaluate upper GI tract. Charges/Coding Visit Charges Inpatient E&M: 89526 Init Hosp L3
--- NOTE | 2024-06-20 13:11 | PCM.POST.ANE ---
Anesthesia: Postop Eval I Current Vital Signs Temperature: 97.9 F Pulse Rate: 76 Blood Pressure: 135/87 Respiratory Rate: 18 Pulse Ox: 98 Oxygen Delivery Method: Room Air Assessment Airway patent: Yes Spontaneous unlabored respirations: Yes Mental status: Awake nausea: No Vomiting: No Anesthesia Complication: No Fluid Hydration Crystalloid volume administer (ml): 400 Total IV fluid infused: 400 Progress Note Anesthesia document: Postop Eval 1 completed: Yes
--- NOTE | 2024-06-20 13:13 | OP.EGD_ITS ---
Patient Name: Pauly Tsai Procedure Date: 06/20/2024 12:23 PM Date of : 1995 Age: 28 Procedure: Upper GI endoscopy Indications: Dyspepsia Providers: Everardo Hickman DO Medicines: Monitored Anesthesia Care Patient Profile: This is a 28 year old female. Refer to note in patient chart for documentation of history and physical. Patient has symptoms. The symptoms first began 05,. Complications: No immediate complications. Procedure: Pre-Anesthesia Assessment: - Prior to the procedure, a History and Physical was performed, and patient medications and allergies were reviewed. The patient is competent. The risks and benefits of the procedure and the sedation options and risks were discussed with the patient. All questions were answered and informed consent was obtained. Patient identification and proposed procedure were verified by the physician in the pre-procedure area. Mental Status Examination: alert and oriented. Airway Examination: normal oropharyngeal airway and neck mobility. Respiratory Examination: clear to auscultation. CV Examination: normal. Prophylactic Antibiotics: The patient does not require prophylactic antibiotics. Prior Anticoagulants: The patient has taken no anticoagulant or antiplatelet agents. ASA Grade Assessment: II - A patient with mild systemic disease. After reviewing the risks and benefits, the patient was deemed in satisfactory condition to undergo the procedure. The anesthesia plan was to use monitored anesthesia care (MAC). Immediately prior to administration of medications, the patient was re-assessed for adequacy to receive sedatives. The heart rate, respiratory rate, oxygen saturations, blood pressure, adequacy of pulmonary ventilation, and response to care were monitored throughout the procedure. The physical status of the patient was re-assessed after the procedure. After obtaining informed consent, the endoscope was passed under direct vision. Throughout the procedure, the patient's blood pressure, pulse, and oxygen saturations were monitored continuously. The gastroscope was introduced through the mouth, and advanced to the second part of duodenum. The upper GI endoscopy was accomplished without difficulty. The patient tolerated the procedure well. Scope In: 12:55:25 PM Scope Out: 12:59:04 PM Total Procedure Duration Time 0 hours 3 minutes 39 seconds Findings: LA Grade B (one or more mucosal breaks greater than 5 mm, not extending between the tops of two mucosal folds) esophagitis with no bleeding was found 34 to 40 cm from the incisors. Biopsies were taken with a cold forceps for histology. Verification of patient identification for the specimen was done. Estimated blood loss was minimal. Bilious fluid was found in the gastric body. The second portion of the duodenum was normal. Impression: - LA Grade B erosive esophagitis with no bleeding. Biopsied. - Bilious gastric fluid. - Normal second portion of the duodenum. Recommendation: - Return patient to [facility] for ongoing care. - Resume previous diet. - Use Protonix (pantoprazole) 40 mg PO BID for 12 weeks. - Scopolamine patch 1.5 mg every 72 hours - Compazine 25 mg per rectum as needed nausea every 12 hours - Continue present medications. Procedure Code(s): --- Professional --- 81504, Esophagogastroduodenoscopy, flexible, transoral; with biopsy, single or multiple CPT copyright 2021 [employer]. All rights reserved. The codes documented in this report are preliminary and upon building insulation installer review may be revised to meet current compliance requirements. Everardo Hickman DO 06/20/2024 1:13:30 PM This report has been signed electronically. Number of Addenda: 0 Note Initiated On: 06/20/2024 12:23 PM
--- NOTE | 2024-06-20 13:13 | OP.CCLET_ITS ---
06/20/2024 Skyler Patino Re : Upper GI endoscopy procedure for Pauly Tsai Dear [place] This procedure was performed on Thursday, June 20, 2024. My impressions and recommendations are as follows: Impressions : - LA Grade B erosive esophagitis with no bleeding. Biopsied. - Bilious gastric fluid. - Normal second portion of the duodenum. Recommendations : - Return patient to [facility] for ongoing care. - Resume previous diet. - Use Protonix (pantoprazole) 40 mg PO BID for 12 weeks. - Scopolamine patch 1.5 mg every 72 hours - Compazine 25 mg per rectum as needed nausea every 12 hours - Continue present medications. My findings are described in the full procedure note, which is enclosed. If I can be of further assistance, please feel free to contact me at . Sincerely, Everardo Hickman, 06/20/2024 1:13:30 PM This report has been signed electronically.
--- NOTE | 2024-06-20 13:29 | PN_ITS ---
Subjective Subjective Patient seen and examined. She complains of symptoms and nausea and vomiting. He admits to cannabinoid use. Review of systems otherwise negative. Objective Data Objective Data Vital Signs: Vital Signs Temp Pulse Resp BP Pulse Ox O2 Del Method 99.6 F H 76 16 129/90 H 98 Room Air 06/20/24 13:23 06/20/24 13:23 06/20/24 13:23 06/20/24 13:23 06/20/24 13:23 06/20/24 13:23 Oxygen Delivery Method Room Air Weight: 169 lb 15.622 oz Body Mass Index (BMI) 25.8 Intake & Output: Intake and Output for Last 24 Hours 06/18/24 06/19/24 06/20/24 23:59 23:59 23:59 Intake Total 50 / 50 1999 Output Total 350 / 350 Balance -300 / -300 1999 Lab / Micro Data Labs: Laboratory Results - last 24 hr 06/20/24 09:32: Urine Test Negative, Urine Opiates Screen NEGATIVE, Urine Methadone Screen NEGATIVE, Ur Barbiturates Screen NEGATIVE, Ur Phencyclidine Scrn NEGATIVE, Ur Amphetamines Screen NEGATIVE, MDMA (Ecstasy) Screen NEGATIVE, U Benzodiazepines Scrn NEGATIVE, Urine Cocaine Screen NEGATIVE, U Cannabinoids Screen POSITIVE H, Ur Drug Screen Comment Physical Exam Const alert and oriented x3 Constitutional Narrative: mildly anxious General Appearance: cooperative and well developed HEENT normocephalic, head/scalp atraumatic, moist oral mucous membranes and oropharynx normal Eyes PERRL and EOMs intact bilaterally Neck no lymphadenopathy, supple and no JVD Lymph Lymphatic: no lymphadenopathy noted and no lymphedema noted Resp normal respiratory effort, normal air movement and clear to auscultation bilaterally Cardio regular rate, regular rhythm, S1 normal heart sound, S2 normal heart sound and no murmurs GI normal to inspection, nondistended, normoactive bowel sounds, soft to palpation, non-tender and non-distended Extremity normal capillary refill, no clubbing, cyanosis or edema and no calf tenderness General Extremity: no tenderness to palpation of joints or extremities Skin General Skin Exam: no breakdown Neuro CN's II-XII intact bilaterally, no focal motor deficits, no sensory deficits noted and deep tendon reflexes 2+ bilaterally Motor Exam: strength 5/5 throughout and general weakness Psych thought process normal, cooperative and affect normal Appearance: appropriate Assessment & Plan Assessment/Plan (1) Alcohol addiction: PLAN: Plan #Acute alcohol withdrawal * on alcohol withdrawal protocol with phenobarbital * on thiamine, folic acid and multivite. * adjunctive meds for symptomatic relief. * Monitor CIWA score #Intractable nausea and vomiting * Patient complaining of intractable nausea and vomiting. * She admits to daily cannabinoid use. Counseled that his symptoms are likely to cannabis hyperemesis syndrome. * Gastroenterology consulted * Patient for EGD today per GI. * urine tox positive for cannabinoids * #Polysubstance abuse: Also uses quad home which apparently causes withdrawal and is more efficient to opiates. Currently on lorazepam taper #Anxiety with depression: on sertraline. #Nicotine dependence: Counseled to quit. Nicotine patch 21 mg daily DVT prophylaxis: Low risk. Encourage ambulation. Charges/Coding Visit Charges Inpatient E&M: 36257 Subs Hosp L2
--- NOTE | 2024-06-20 13:51 | PCM.POSTANE2 ---
Anesthesia Postop Eval I Sum Postop Eval Completion status Anesthesia document: Postop Eval 1 completed: Yes Anesthesia Postop Eval I Summary Anesthesia Postop Eval I Summary: Anesthesia Postop Eval I: Assessment Summary Airway patent Yes 06/20/24 13:13 [email or web address] Spontaneous unlabored Yes 06/20/24 13:13 [email or web address] respirations Mental status Awake 06/20/24 13:13 [email or web address] nausea No 06/20/24 13:13 [email or web address] Vomiting No 06/20/24 13:13 [email or web address] Anesthesia Postop Eval I: Fluid Summary Crystalloid volume administer 400 06/20/24 13:13 [email or web address] (ml) Colloids volume administered ( ml) Blood Product volume administered (ml) Total IV fluid infused 400 06/20/24 13:13 [email or web address] Anesthesia Postop Eval I: Summary Notes Anesthesia Complication No 06/20/24 13:13 [email or web address] Anesthesia Complication Comment: Post-operative progress note Anesthesia: Postop Eval II Evaluation Mental status: Awake Pain Level: 0 nausea: No Vomiting: No Complications Anesthesia Complication: No
[2024-06-20] MEDS: cloNIDine HCl 0.1 MG Tablet PO (14:40)
[2024-06-20] MEDS: Sertraline 100 MG Tablet 150 MG PO (14:41)
[2024-06-20] MEDS: 0.9% Saline Lock 10 ML Syringe IV (14:42)
[2024-06-20] MEDS: Pantoprazole Sodium 40 MG Tablet PO ×2 (15:08→19:48)
[2024-06-20] MEDS: Scopolamine 1mg/72hr Patch 1 PATCH TD (15:08)
[2024-06-20] MEDS: proCHLORPERazine 25 MG Suppos. RC (15:08)
[2024-06-20] MEDS: Senna Tablet 2 TABLET PO (18:11)
[2024-06-20] MEDS: Mag /Aluminum/Simeth WCH UDC 30 ML ORAL.SUSP PO (18:19)
[2024-06-20] MEDS: traZODone 100 MG Tablet PO (19:48)
[2024-06-21] MEDS: hydrOXYzine PAM 25 MG Capsule 50 MG PO (03:25)
[2024-06-21 03:31] VITALS: BP 110/69; PULSE 71; RESP 16; TEMP 37.1; O2SAT 98
[2024-06-21] MEDS: LORazepam 1 MG Tablet PO (06:26)
[2024-06-21] MEDS: Dicyclomine 10 MG Capsule 20 MG PO (06:26)
[2024-06-21 08:45] VITALS: BP 106/58; PULSE 51; RESP 18; TEMP 36.9; O2SAT 100
[2024-06-21] MEDS: Pantoprazole Sodium 40 MG Tablet PO (08:51)
[2024-06-21] MEDS: Thiamine Hydrochloride 100 MG Tablet PO (08:52)
[2024-06-21] MEDS: Folic Acid 1 MG Tablet PO (08:52)
--- NOTE | 2024-06-21 09:59 | DCINST_ITS ---
Discharge Instructions Diet Discharge Diet: Low fat / Low cholesterol Activity Discharge Activity: Return to Normal Activity Weight Bearing Status: Weight bearing as tolerated Dressing / Incision Call your doctor if you observe: Fever of 101 or Higher, Shortness of breath, Dizziness, Swelling in the ankles and Chest pain Follow Up Care Test Results: Test results from this visit will be discussed in further detail at your follow- up appointment, if applicable. Discharge Plan Admission Admit Date/Time: 06/18/24 09:24 Primary Reason for Your Visit: acute alcohol withdrawal Attending Provider: Magalie Collazo Primary Care Provider: Skyler Patino Consulting Providers: Delroy Alas Instructions Patient Instructions: Alcohol Withdrawal: What to Expect Discharge Orders/Prescriptions Prescriptions: Continued lorazepam 0.5 mg tablet 0.5 mg PO DAILY PRN (Reason: anxiety) trazodone 50 mg tablet 50 - 100 mg PO QHS PRN (Reason: sleep) sertraline 100 mg tablet 150 mg PO DAILY clonidine HCl 0.1 mg tablet 0.1 mg PO DAILY Referrals / Follow Up: Skyler Patino MD [Primary Care Provider] - Within 1 Week Disposition Disposition (needs filled in before D/C Order can be placed): Home, Self Care
[2024-06-21 10:00] VITALS: BP 110/60; PULSE 55; RESP 18; TEMP 36.6; O2SAT 99
--- NOTE | 2024-06-21 10:00 | DS.PCM_ITS ---
Providers Date of Admission: 06/18/24 Date of Discharge: 06/21/24 Primary Care Physician: Dr. Skyler Patino MD Consultations 06/20/24 07:36 Consult: Gastroenterology Routine Consulting Provider: [facility] Reason for Consult: cannabinoid hyperemesis syndrome EMERGENT Consult: No Notified: Yes Date Notified: 06/20/24 Time Notified: 07:36 Method of Notification: Text Reason For Visit: POLYSUBSTANCE DEPENDENCE Diagnosis Discharge Diagnosis (1) Alcohol addiction: Status: Acute Code(s): F10.20 - Alcohol dependence, uncomplicated Plan #Acute alcohol withdrawal * on alcohol withdrawal protocol with phenobarbital * on thiamine, folic acid and multivite. * adjunctive meds for symptomatic relief. * Monitor CIWA score #Intractable nausea and vomiting * Patient complaining of intractable nausea and vomiting. * She admits to daily cannabinoid use. Counseled that his symptoms are likely to cannabis hyperemesis syndrome. * Gastroenterology consulted * Patient for EGD today per GI. * urine tox positive for cannabinoids * #Polysubstance abuse: Also uses quad home which apparently causes withdrawal and is more efficient to opiates. Currently on lorazepam taper #Anxiety with depression: on sertraline. #Nicotine dependence: Counseled to quit. Nicotine patch 21 mg daily DVT prophylaxis: Low risk. Encourage ambulation. Medications at Discharge Home Medications lorazepam 0.5 mg tablet 0.5 mg PO DAILY PRN anxiety 03/30/24 sertraline 100 mg tablet 150 mg PO DAILY anxiety and depression 03/30/24 trazodone 50 mg tablet 50 - 100 mg PO QHS PRN sleep 03/30/24 clonidine HCl 0.1 mg tablet 0.1 mg PO DAILY withdraw 06/16/24 pantoprazole 40 mg tablet,delayed release 40 mg PO DAILY #60 tabs 06/21/24 prochlorperazine 25 mg rectal suppository (Compazine) 25 mg PA BID PRN nausea and vomiting #12 ea 06/21/24 scopolamine base 1 mg over 3 days transdermal patch 1 patch transdermal Q72H PRN nausea and vomiting #4 ea 06/21/24 Hospital Course Operations None Procedures EGD Summary of Care Provided Minutes Spent on Discharge: 55 Hospital Course: Patient is a 28-year-old female with a past medical history as outlined was admitted through the ED 06/18/2024 for acute alcohol and polysubstance withdrawal and a desire for detoxification. She had been admitted 2 days prior to this admission for the same problem and signed out AGAINST MEDICAL ADVICE. However she said she came back to the ED because she regretted her decision. She smokes marijuana and also used kratom and also used alcohol. She was admitted and managed for acute alcohol withdrawal as well as polysubstance withdrawal. She was started on alcohol withdrawal protocol as well as lorazepam taper for the kratom. She was also placed on thiamine, folic acid and Multi-Tristen. Hospital course was complicated by patient having incessant nausea and vomiting. She did admit to cannabinoid use and she was also diagnosed with cannabinoid hyperemesis syndrome. GI was consulted and patient had EGD which showed esophagitis. She was discharged to an substance abuse program in facility on 06/21/2024. She is follow-up with her primary care doctor within 1 to 2 weeks. She was given a prescription for p.o. pantoprazole 40 mg twice daily for 3 months as well as rectal Compazine 25 mg twice daily as needed for nausea and scopolamine patch 1.5 mg every 72 hours for intractable nausea and vomiting. Patient seen and examined prior to discharge. She had no active complaints and had an uneventful night. Review of systems otherwise negative. Labs and vitals reviewed. Home medication reviewed and reconciled. Physical Exam Const alert and oriented x3 Constitutional Narrative: mildly anxious General Appearance: cooperative and well developed HEENT normocephalic, head/scalp atraumatic, hearing grossly normal bilaterally, moist oral mucous membranes and oropharynx normal Mouth: oral and palatal mucosa normal Eyes PERRL and EOMs intact bilaterally Neck no lymphadenopathy, supple and no JVD Lymph Lymphatic: no lymphadenopathy noted and no lymphedema noted Resp normal respiratory effort, normal air movement and clear to auscultation bilaterally Cardio regular rate, regular rhythm, S1 normal heart sound, S2 normal heart sound and no murmurs GI normal to inspection, nondistended, normoactive bowel sounds, soft to palpation, non-tender and non-distended Extremity normal capillary refill, no clubbing, cyanosis or edema and no calf tenderness General Extremity: no tenderness to palpation of joints or extremities Skin General Skin Exam: no breakdown Neuro oriented x3, CN's II-XII intact bilaterally, moves all extremities, no focal motor deficits, no sensory deficits noted and deep tendon reflexes 2+ bilaterally Sensorium / Orientation: awake and alert Motor Exam: strength 5/5 throughout and general weakness Psych thought process normal, cooperative and affect normal Appearance: appropriate Weight / BMI Weight Weight: 169 lb 15.622 oz Body Mass Index (BMI) 25.8 ABG / Lab / Microbiology Data Laboratory: Laboratory Results - last 24 hr 06/20/24 09:32: Urine Opiates Screen NEGATIVE, Urine Methadone Screen NEGATIVE, Ur Barbiturates Screen NEGATIVE, Ur Phencyclidine Scrn NEGATIVE, Ur Amphetamines Screen NEGATIVE, MDMA (Ecstasy) Screen NEGATIVE, U Benzodiazepines Scrn NEGATIVE, Urine Cocaine Screen NEGATIVE, U Cannabinoids Screen POSITIVE H D/C Instructions Discharge Diet: Low fat / Low cholesterol Discharge Activity: Return to Normal Activity Weight Bearing Status: Weight bearing as tolerated Call your doctor if you observe: Fever of 101 or Higher, Shortness of breath, Dizziness, Swelling in the ankles and Chest pain Meaningful Use Info Meaningful Use Meaningful Use Diagnoses (Choose all that apply): None applicable Ischemic Stroke Statin Dosing Therapy Reference: STATIN DOSE THERAPY REFERENCE: * Patients > 75 years receive moderate or high dose statin therapy. * Patients 75 years or YOUNGER should receive HIGH intensity statin dose unless contraindicated. You will be required to document reason for non-treatment if statin daily dose does not meet guidelines. HIGH DOSE STATIN THERAPY DAILY Atorvastatin > than or = to 40 mg Rosuvastatin > than or = to 20 mg Amlodipine + Atorvastatin > than or = to 2.5/40 mg Ezetimibe + Simvastatin 10/80 mg Simvastatin 80mg Discharge Plan Admission Admit Date/Time: 06/18/24 09:24 Primary Reason for Your Visit: acute alcohol withdrawal Attending Provider: Magalie Collazo Primary Care Provider: Skyler Patino Consulting Providers: Delroy Alas Instructions Patient Instructions: Alcohol Withdrawal: What to Expect Discharge Orders/Prescriptions Prescriptions: New pantoprazole 40 mg tablet,delayed release (DR/EC) 40 mg PO DAILY Qty: 60 2RF prochlorperazine [Compazine] 25 mg suppository 25 mg PA BID PRN (Reason: nausea and vomiting) Qty: 12 1RF scopolamine base 1 mg over 3 days patch 3 day 1 patch transdermal Q72H PRN (Reason: nausea and vomiting) Qty: 4 0RF Continued lorazepam 0.5 mg tablet 0.5 mg PO DAILY PRN (Reason: anxiety) trazodone 50 mg tablet 50 - 100 mg PO QHS PRN (Reason: sleep) sertraline 100 mg tablet 150 mg PO DAILY clonidine HCl 0.1 mg tablet 0.1 mg PO DAILY Referrals / Follow Up: Skyler Patino MD [Primary Care Provider] - Within 1 Week Disposition Disposition (needs filled in before D/C Order can be placed): Home, Self Care Charges/Coding Visit Charges Inpatient E&M: 79703 Disch Hosp >30min
--- NOTE | 2024-06-21 10:15 | PHA.DC.MR.R ---
Pharmacy IN Med Reconciliation Pharmacy Service has performed discharge medication reconciliation for this patient. The patient's discharge medication list was reviewed for discrepancies and discrepancies were resolved. Medications at Discharge Home Medications lorazepam 0.5 mg tablet 0.5 mg PO DAILY PRN anxiety 03/30/24 sertraline 100 mg tablet 150 mg PO DAILY anxiety and depression 03/30/24 trazodone 50 mg tablet 50 - 100 mg PO QHS PRN sleep 03/30/24 clonidine HCl 0.1 mg tablet 0.1 mg PO DAILY withdraw 06/16/24
--- NOTE | 2024-06-21 11:11 | CHAPLAIN ---
Type of Pastoral Visit ___ Initial Visit ___ Follow-up Visit _x__ On-call Visit ___ General Patient Visit ___ Spiritual Assessment ___ Family Conference ___ Bereavement ___ Rapid Response ___ Code Blue ___ Other (describe below) Pastoral Care Referral From _x__ Patient ___ Family ___ Nurse ___ Physician ___ Thimble Press Operator ___ Fitness Trainer ___ Other (describe below) Sacrament/Intervention ___ Active listening ___ Anointing ___ Taoism ___ Bereavement ___ Communion ___ Rama exploration ___ ___ Life review ___ Prayer ___ Reconciliation ___ Sacrament of Sick ___ Supportive presence ___ Wedding ___ Other (describe below) Pastoral Comments Electronic Field Service Engineer Professor Of Apologetics Glenn Marino responded to request made approximately 6:30 p.m. on 06/20/24 to see this patient; per report of volunteer clinical nurse manager the patient had questions of spiritual concern and asked for reading material of episcopalian nature; per report of volunteer clinical nurse manager the patient was tearful and anxious but he provided prayer and calming presence along with responses to her questions
[2024-06-21] MEDS: Mag /Aluminum/Simeth WCH UDC 30 ML ORAL.SUSP PO (11:53)
--- NOTE | 2024-06-21 13:34 | CHAPLAIN ---
Type of Pastoral Visit ___ Initial Visit _x__ Follow-up Visit ___ On-call Visit ___ General Patient Visit ___ Spiritual Assessment ___ Family Conference ___ Bereavement ___ Rapid Response ___ Code Blue ___ Other (describe below) Pastoral Care Referral From _x__ Patient ___ Family ___ Nurse ___ Physician ___ Subcontracts Manager ___ Online Journalist ___ Other (describe below) Sacrament/Intervention _x__ Active listening ___ Anointing ___ Christian ___ Bereavement ___ Communion ___ Rama exploration ___ ___ Life review ___ Prayer ___ Reconciliation ___ Sacrament of Sick _x__ Supportive presence ___ Wedding ___ Other (describe below) Pastoral Comments patient requested this visit through her RN; when came to the room the patient says that she wanted to speak to the density control puncher, asked about receiving something to read in addition to the Bible; pt expresses her concerns for her ill feelings and about the custody of her children; pt acknowledges that she needs to have a better situation and health; pt expresses desire to continue the conversation but at a later time today due to still feeling sick; agreed to come back and to bring items for reading; when leaving the room however 180 staff was present to move her from the hospital; went to get uatsdin booklets and brought them back to the patient; pt expresses thanks for that as she is getting ready to be discharged; further intervention will not be possible today
== END 2024-06-21 12:06 | disposition home or self-care (01) | DRG 775 ==
LOC: ED 09:35 → MS3 06-19 07:13
PROVIDERS: Internal Medicine Gastroenterology; Admitting Provider Internal Medicine; Emergency Provider Emergency Medicine; PCP Family Medicine; Visit Provider Student in an Organized Health Care Education/Training Program
PROC: 0DJ08ZZ Inspection of Upper Intestinal Tract, Via Natural or Artificial Opening Endoscopic (ICD-10-PCS; CPT 43235; principal; 2024-06-20 11:40)
DX: F10.139 Alcohol abuse with withdrawal, unspecified (principal); F12.988 Cannabis use, unspecified with other cannabis-induced disorder; F19.19 Other psychoactive substance abuse with unspecified psychoactive substance-induced disorder; F31.9 Bipolar disorder, unspecified; K20.90 Esophagitis, unspecified without bleeding; F17.210 Nicotine dependence, cigarettes, uncomplicated; R11.2 Nausea with vomiting, unspecified; F17.290 Nicotine dependence, other tobacco product, uncomplicated; F41.8 Other specified anxiety disorders; Z79.899 Other long term (current) drug therapy
CPT/HCPCS: 43239; 80307; 81025; 88305; 88312; 96361; 96372; 96374; 99221; 99284; 99406; A4216; G0378; J2405

== ENCOUNTER 2024-06-23 04:20 | Emergency (ER) | payer SELFPAY ==
[2024-06-23 04:21] VITALS: BP 136/100; PULSE 75; RESP 16; TEMP 35.9; O2SAT 99; BMI 24.4
[2024-06-23] MEDS: Ondansetron 4 MG/2 ML Vial IV (05:04)
[2024-06-23] MEDS: 0.9% Normal Saline (1000mL) 1,000 ML 999 ML IV (05:04)
[2024-06-23 05:09] LABS: Absolute Lymphocyte Count 3.39 X10^3/uL (0.83-4.51); Absolute Neutrophil Count 5.9 X10^3/uL (2.0-7.7); Basophil# 0.07 X10^3/uL; Basophil% 0.7 % (0-1); Eosinophil# 0.08 X10^3/uL; Eosinophils% 0.8 % (0-5); Hematocrit 40.5 % (37-47); Hemoglobin 13.8 g/dL (12.0-15.0); Lymphocyte # 3.39 X10^3/ul (0.83-4.51); Lymphocyte % 32.9 % (19-41); Mean Corp Hgb Conc 34.1 g/dL (32-36); Mean Corpuscular Hgb 29.6 pg (27.0-32.0); Mean Corpuscular Volume 86.7 fL (81-99); Monocyte# 0.84 X10^3/uL; Monocyte% 8.2 % (0-10); NRBC Flagged by Analyzer 0 % (0-5); Neutrophil # 5.89 X10^3/uL (2.7-7.7); Neutrophil % 57.1 % (47-70); Platelet Count 321 K/mm3 (150-450); RBC Distribution Width CV 12.5 % (11.6-14.6); RBC Distribution Width SD 39.4 fl (35.1-43.9); Red Blood Count 4.67 M/mm3 (4.2-5.4); White Blood Count 10.3 K/mm3 (4.4-11.0)
[2024-06-23 05:24] LABS: Internal QC Validated? YES +Cl - CLEAR BKGD; Pregnancy, Serum, hCG Quali. NEGATIVE Negative; Record Kit Lot#, Serum Preg. 772476
[2024-06-23 05:29] LABS: AST(SGOT) 18 U/L (15-37); Alanine Aminotransfer ALT/SGPT 27 U/L (13-56); Albumin, Serum 3.8 g/dL (3.2-5.0); Alkaline Phosphatase 63 U/L (45-117); Anion Gap 7 (5-15); BUN 20 mg/dL (7-18); BUN/Creat Ratio 24.2 RATIO (10-20); Bilirubin, Direct 0.16 mg/dL (0.00-0.30); Calcium,Total 8.9 mg/dL (8.5-10.1); Chloride 105 mmol/L (98-107); Creatinine, Serum 0.83 mg/dL (0.55-1.02); EST Glomerular Filtration Rate 86 mL/min (>60); Est Glom Filt Rate - Afr Amer 105 mL/min (>60); Estimated Creatinine Clearance 100.89 ml/min; Globulin 3.3 g/dL (2.2-4.2); Glucose 107 mg/dL (74-106); Lipase 48 U/L (13-75); Magnesium 2.2 mg/dL (1.6-2.6); Potassium 2.9 mmol/L (3.5-5.1); Protein, Total 7.1 g/dL (6.4-8.2); Sodium Level 138 mmol/L (136-145)
[2024-06-23] MEDS: DiphenhydrAMINE 50 MG, ChlorproMAZINE IM 25 MG in 0.9% Normal Saline (100mL Bag) 100 ML 204 MG IV (06:04)
[2024-06-23 06:08] LABS: Amphetamine Urine VISTA NEGATIVE (<1000 ng/mL); Barbiturate Urine VISTA NEGATIVE (< 200 ng/mL); Benzodiazepine Urine VISTA POSITIVE (< 200 ng/mL); Cocaine Urine VISTA NEGATIVE (< 300 ng/mL); Ecstacy Urine VISTA POSITIVE (< 500 ng/mL); Methadone Urine VISTA NEGATIVE (< 300 ng/mL); PCP Urine VISTA NEGATIVE (< 25 ng/mL); THC Urine VISTA POSITIVE (< 50 ng/mL); Vista UDS pH Range 5
[2024-06-23] MEDS: Potassium Chloride Oral Tablet 20 MEQ 40 MEQ PO (06:35)
[2024-06-23] MEDS: cloNIDine HCl 0.1 MG Tablet PO (06:36)
--- NOTE | 2024-06-23 06:44 | EDS_ITS ---
HPI History of Present Illness Chief Complaint: Substance Abuse Informant: patient Narrative Narrative: Patient is a 28-year-old female with past medical history of cyclic vomiting as well as alcohol addiction/abuse and drug abuse. She was recently admitted to [facility] for detox and then sent to a rehab center. She states she is not receiving her medications at the rehab center and in the last 48 hours has had sensation of shaking chills with bouts of nausea and vomiting. She states that she cannot hold anything down and this concerns her especially as she is not receiving her medications and therefore she comes in for evaluation [facility] Medical History Bipolar disorder Encounter for IUD insertion Polysubstance (excluding opioids) dependence Desire for detoxification Addiction to drug Alcohol addiction Degenerative disc disease Sinus tachycardia Post depression Home Medications ?Medication ?Instructions ?Recorded ?Last Taken ?Type lorazepam 0.5 mg tablet 0.5 mg PO DAILY PRN anxiety 03/30/24 03/30/24 History sertraline 100 mg tablet 150 mg PO DAILY anxiety and 03/30/24 06/16/24 History depression trazodone 50 mg tablet 50 - 100 mg PO QHS PRN sleep 03/30/24 03/30/24 History clonidine HCl 0.1 mg tablet 0.1 mg PO DAILY withdraw 06/16/24 Unknown History pantoprazole 40 mg tablet,delayed 40 mg PO DAILY #60 tabs 06/21/24 Unknown Rx release prochlorperazine 25 mg rectal 25 mg [place] BID PRN nausea and 06/21/24 Unknown Rx suppository (Compazine) vomiting #12 ea scopolamine base 1 mg over 3 days 1 patch transdermal Q72H PRN 06/21/24 Unknown Rx transdermal patch nausea and vomiting #4 ea Allergy/AdvReac Type Severity Reaction Status Date / Time erythromycin ethylsuccinate Allergy Hives Verified 06/23/24 04:20 (From Pediazole) sulfisoxazole acetyl (From Allergy Hives Verified 06/23/24 04:20 Pediazole) venlafaxine (From Effexor) AdvReac Headaches Verified 06/23/24 04:20 Family History Other Drug abuse Social History Smoking Status: Current every day smoker tobacco type: cigarettes and e- cigarettes alcohol intake: never substance use type: marijuana, crack/cocaine, amphetamines and opiates ROS ROS ED Constitutional Constitutional ED: Reports chills and subjective; Denies fever(s) ENT ENT ED: Denies sore throat Cardiovascular Cardiovascular: Reports palpitations; Denies chest pain Respiratory/Chest Respiratory/Chest: Denies cough or dyspnea Gastrointestinal Gastrointestinal: Reports abdominal pain, nausea and vomiting; Denies diarrhea Genitourinary Genitourinary ED: Denies dysuria Musculoskeletal Musculoskeletal: Reports myalgias Integumentary Denies rash Neurologic Neurologic: Denies headache(s) Psychiatric Psychiatric: Reports anxiety Hematologic/Lymphatic Hematologic/Lymphatic: Denies easy bleeding or easy bruising EXAM Physical Exam Const Vital Signs: 06/23/24 04:21 Temperature 96.7 F L Temperature Source Temporal Pulse Rate 75 Respiratory Rate 16 Blood Pressure 136/100 H Blood Pressure Mean 112 Pulse Ox 99 Positive well nourished and well developed General Appearance ED: well developed; Negative for pallor HEENT Reports dry mucous membranes HEENT Narrative: Mucous membranes are dry and tacky No tongue or lip swelling no oral lesions no airway edema or compromise No secondary changes to suggest infection of the posterior pharynx Mouth ED: Yes dry mucous membranes Mouth: dry mucous membranes Eyes EOMs intact bilaterally Eyes Narrative: Pupils are dilated and slightly sluggish to respond to light Neck supple Neck Narrative: No nuchal rigidity or meningeal signs noted Resp normal respiratory effort and clear to auscultation bilaterally Cardio regular rate and regular rhythm Rate: other Other Details: Heart is regular rate and rhythm without murmurs rubs or gallops Radial and carotid pulses are equal and symmetric GI non-distended GI Narrative: Abdomen is soft and nondistended with hyperactive bowel sounds. No voluntary guarding or rigidity or pulsatile mass. There is mild diffuse pain with palpation Auscultation: hyperactive bowel sounds Palpation: soft Extremity normal to inspection Neuro oriented x3, CN's II-XII intact bilaterally and no sensory deficits noted Sensorium / Orientation: alert Motor Exam: strength 5/5 throughout Psych Psych Narrative: Patient has a nervous/anxious affect Skin no rashes or lesions noted Skin Narrative: Skin turgor slightly increased General Skin Exam: Negative for jaundice or pallor MDM MDM MDM Narrative Medical decision making narrative: Patient arrived to the ER hypertensive but otherwise with stable vitals. She reported she was not receiving her home medications as prescribed upon her discharge. With concern she could have acute kidney injury biliary colic versus acute cholecystitis versus pancreatitis versus complication versus potential withdrawal a basic workup was ordered. Labs showed no clinically significant findings other than her potassium being slightly low at 2.9. Patient was given IV fluids and Zofran as well as Thorazine and Benadryl and after this reported feeling much better. She was given clonidine and oral potassium replacement secondary to her history of opioid abuse/withdrawal and her hypokalemia. However at this time her symptoms have improved with treatment her labs reveal only mild hypokalemia without signs of pancreatitis acute infection acute kidney injury or clinically significant electrolyte abnormality. Therefore there is no need for readmission and patient is otherwise safe for d ischarge History & Record Review Discussion w/independent historian: Patient Lab Data Attestation: I reviewed the patient's lab results. Labs: Laboratory Results - last 24 hr 06/23/24 06/23/24 05:02 05:45 WBC 10.3 RBC 4.67 Hgb 13.8 Hct 40.5 MCV 86.7 MCH 29.6 MCHC 34.1 RDW Std Deviation 39.4 RDW Coeff of Georges 12.5 Plt Count 321 MPV 10.0 Immature Gran % (Auto) 0.300 Neut % (Auto) 57.1 Lymph % (Auto) 32.9 Benzie % (Auto) 8.2 Eos % (Auto) 0.8 Baso % (Auto) 0.7 Absolute Neuts (auto) 5.9 Absolute Lymphs (auto) 3.39 Nucleated RBC % 0 Sodium 138 Potassium 2.9 L Chloride 105 Carbon Dioxide 26.0 Anion Gap 7 BUN 20 H Creatinine 0.83 Estim Creat Clear Calc 100.89 Est GFR (MDRD) Af Amer 105 Est GFR (MDRD) Non-Af 86 BUN/Creatinine Ratio 24.2 H Glucose 107 H Calcium 8.9 Magnesium 2.2 Total Bilirubin 0.60 Direct Bilirubin 0.16 AST 18 ALT 27 Alkaline Phosphatase 63 Total Protein 7.1 Albumin 3.8 Globulin 3.3 Lipase 48 Serum , Qual NEGATIVE Urine Opiates Screen NEGATIVE Urine Methadone Screen NEGATIVE Ur Barbiturates Screen NEGATIVE Ur Phencyclidine Scrn NEGATIVE Ur Amphetamines Screen NEGATIVE MDMA (Ecstasy) Screen POSITIVE H U Benzodiazepines Scrn POSITIVE H Urine Cocaine Screen NEGATIVE U Cannabinoids Screen POSITIVE H Ur Drug Screen Comment Discharge Plan Triage Chief Complaint: Substance Abuse ED Provider: Carson Lopez Dx/Rx/DC Orders Clinical Impression: Nausea & vomiting, Mild dehydration, Acute hypokalemia, Drug abuse, Alcohol addiction Instructions: ED Dehydration (Adult), ED Vomiting (Adult) Prescriptions: No Action pantoprazole 40 mg tablet,delayed release (DR/EC) 40 mg PO DAILY Qty: 60 2RF prochlorperazine [Compazine] 25 mg suppository 25 mg [place] BID PRN (Reason: nausea and vomiting) Qty: 12 1RF scopolamine base 1 mg over 3 days patch 3 day 1 patch transdermal Q72H PRN (Reason: nausea and vomiting) Qty: 4 0RF lorazepam 0.5 mg tablet 0.5 mg PO DAILY PRN (Reason: anxiety) trazodone 50 mg tablet 50 - 100 mg PO QHS PRN (Reason: sleep) sertraline 100 mg tablet 150 mg PO DAILY clonidine HCl 0.1 mg tablet 0.1 mg PO DAILY Primary Care Provider: Skyler Patino Referrals: Skyler Patino MD [Primary Care Provider] - Activity Restrictions/Additional Instructions: You need to take the home medications that were prescribed after your discharge from the hospital. This will help control your symptoms of nausea and vomiting. Please return to the ER should you have any further concerns Print Language: Italian Disposition Disposition: Home, Self Care
[2024-06-23 07:31] VITALS: BP 129/89; PULSE 80; RESP 16; O2SAT 99
[2024-06-23 08:23] VITALS: BP 127/87; PULSE 87; RESP 16; TEMP 36.6; O2SAT 99
== END 2024-06-23 08:24 | disposition home or self-care (01) ==
PROVIDERS: Emergency Provider Emergency Medicine; PCP Family Medicine; Visit Provider Emergency Medicine
DX: R11.2 Nausea with vomiting, unspecified (principal); F19.20 Other psychoactive substance dependence, uncomplicated; F10.20 Alcohol dependence, uncomplicated; E87.6 Hypokalemia; F41.9 Anxiety disorder, unspecified; F17.210 Nicotine dependence, cigarettes, uncomplicated; F17.290 Nicotine dependence, other tobacco product, uncomplicated
CPT/HCPCS: 80048; 80076; 80307; 83690; 83735; 84703; 85025; 96361; 96365; 96375; 99283; J7030; J7050; A4216; J2405

== ENCOUNTER 2024-06-27 23:34 | Emergency (ER) | payer MEDICAID, SELFPAY ==
[2024-06-27 23:35] VITALS: BP 121/74; PULSE 90; RESP 16; TEMP 37; O2SAT 98; BMI 23.1
--- NOTE | 2024-06-28 00:10 | CT_ITS ---
EXAM: CT CERVICAL SPINE WITHOUT INTRAVENOUS CONTRAST CLINICAL INDICATION: pain TECHNIQUE: Helically acquired images were obtained of the cervical spine without intravenous contrast. 2D reformatted images were reviewed. This CT exam was performed using one or more of the following dose reduction techniques: automated exposure control, adjustment of the mA and/or kV according to patient size, and/or use of iterative reconstruction technique. RADIATION DOSE: CTDIvol = 14.84 mGy, DLP = 280.75 mGy-cm COMPARISON: No relevant prior studies available. FINDINGS: VERTEBRAE: Unremarkable. No fracture. No traumatic subluxation. No discrete lytic or blastic abnormality. Normal alignment. Normal craniocervical junction and cervicothoracic junction. DISCS/SPINAL CANAL/NEURAL FORAMINA: Degenerative changes of the intervertebral discs. No critical stenosis. SOFT TISSUES: Unremarkable. No prevertebral soft tissue swelling. LYMPH NODES: Unremarkable. No cervical adenopathy. LUNG APICES: Unremarkable as visualized. Clear. CT/Spine Cervical without Contras IMPRESSION: 1. No acute injuries identified involving the cervical spine. 2. Degenerative changes. Electronically Signed: Ravinder Villanueva MD at 1:17 EDT ,
--- NOTE | 2024-06-28 00:10 | CT_ITS ---
EXAM: CT HEAD WITHOUT INTRAVENOUS CONTRAST CLINICAL INDICATION: head injury TECHNIQUE: Multiple axial images were obtained of the head without intravenous contrast. This CT exam was performed using one or more of the following dose reduction techniques: automated exposure control, adjustment of the mA and/or kV according to patient size, and/or use of iterative reconstruction technique. RADIATION DOSE: CTDIvol = 44.99 mGy, DLP = 779.24 mGy-cm COMPARISON: No relevant prior studies available. FINDINGS: BRAIN AND EXTRA-AXIAL SPACES: Unremarkable. No intra- or extra-axial hemorrhage. No evidence of acute infarct. No intracranial mass or mass effect. There is preservation of the wilson/white matter interface. Posterior fossa structures are unremarkable. Ventricles are appropriate for age. No hydrocephalus. Basal cisterns are patent. BONES/JOINTS: Unremarkable. No discrete lytic or blastic abnormalities. SOFT TISSUES: Left parietal scalp swelling. SINUSES: Unremarkable as visualized. Clear. MASTOID AIR CELLS: Unremarkable. Clear. ORBITS: Visualized globes, extraocular muscles, optic nerves and retrobulbar fat appear unremarkable. CT/Brain/Head without Contrast IMPRESSION: 1. No acute intracranial injury. 2. Left parietal scalp swelling. No skull fracture. Electronically Signed: Ravinder Villanueva MD at 1:15 EDT ,
[2024-06-28] MEDS: 0.9% Normal Saline (1000mL) 1,000 ML 999 ML IV (00:30)
[2024-06-28] MEDS: DiphenhydrAMINE 25 MG, ChlorproMAZINE IM 50 MG in 0.9% Normal Saline (250mL Bag) 250 ML 252.5 MG IV (00:30)
[2024-06-28 00:33] LABS: Absolute Lymphocyte Count 3.24 X10^3/uL (0.83-4.51); Absolute Neutrophil Count 7.5 X10^3/uL (2.0-7.7); Basophil# 0.08 X10^3/uL; Basophil% 0.7 % (0-1); Eosinophil# 0.03 X10^3/uL; Eosinophils% 0.3 % (0-5); Hematocrit 42.2 % (37-47); Hemoglobin 13.6 g/dL (12.0-15.0); Lymphocyte # 3.24 X10^3/ul (0.83-4.51); Lymphocyte % 27.7 % (19-41); Mean Corp Hgb Conc 32.2 g/dL (32-36); Mean Corpuscular Hgb 29.6 pg (27.0-32.0); Mean Corpuscular Volume 91.9 fL (81-99); Mean Platelet Vol. 10.7 fl (6.2-12.0); Monocyte# 0.84 X10^3/uL; Monocyte% 7.2 % (0-10); NRBC Flagged by Analyzer 0 % (0-5); Neutrophil # 7.45 X10^3/uL (2.7-7.7); Neutrophil % 63.8 % (47-70); Platelet Count 289 K/mm3 (150-450); RBC Distribution Width CV 12.8 % (11.6-14.6); RBC Distribution Width SD 42.7 fl (35.1-43.9); Red Blood Count 4.59 M/mm3 (4.2-5.4); White Blood Count 11.7 K/mm3 (4.4-11.0)
[2024-06-28 00:56] LABS: Anion Gap 15 (5-15); BUN 19 mg/dL (7-18); BUN/Creat Ratio 27.3 RATIO (10-20); Calcium,Total 9.4 mg/dL (8.5-10.1); Chloride 106 mmol/L (98-107); EST Glomerular Filtration Rate 105 mL/min (>60); Est Glom Filt Rate - Afr Amer 128 mL/min (>60); Estimated Creatinine Clearance 119.62 ml/min; Glucose 94 mg/dL (74-106); Potassium 3.1 mmol/L (3.5-5.1); Sodium Level 136 mmol/L (136-145)
[2024-06-28] MEDS: Acetaminophen 500 MG Tablet 1000 MG PO (01:35)
--- NOTE | 2024-06-28 01:54 | EDS_ITS ---
HPI History of Present Illness Chief Complaint: Head Injury Informant: patient Narrative Narrative: Patient is a 28-year-old female with past medical history of alcohol and drug abuse as well as cyclic vomiting syndrome. She states that she has been having difficulty keeping food and fluid down and today stood up and felt lightheaded/dizzy and fell backwards striking her head. She states she sustained a laceration and has had a headache and therefore comes in for evaluation [facility] Medical History Bipolar disorder Encounter for IUD insertion Polysubstance (excluding opioids) dependence Desire for detoxification Addiction to drug Alcohol addiction Degenerative disc disease Sinus tachycardia Post depression Home Medications ?Medication ?Instructions ?Recorded ?Last Taken ?Type lorazepam 0.5 mg tablet 0.5 mg PO DAILY PRN anxiety 03/30/24 03/30/24 History sertraline 100 mg tablet 150 mg PO DAILY anxiety and 03/30/24 06/16/24 History depression trazodone 50 mg tablet 50 - 100 mg PO QHS PRN sleep 03/30/24 03/30/24 History clonidine HCl 0.1 mg tablet 0.1 mg PO DAILY withdraw 06/16/24 Unknown History pantoprazole 40 mg tablet,delayed 40 mg PO DAILY #60 tabs 06/21/24 Unknown Rx release prochlorperazine 25 mg rectal 25 mg [place] BID PRN nausea and 06/21/24 Unknown Rx suppository (Compazine) vomiting #12 ea scopolamine base 1 mg over 3 days 1 patch transdermal Q72H PRN 06/21/24 Unknown Rx transdermal patch nausea and vomiting #4 ea Allergy/AdvReac Type Severity Reaction Status Date / Time erythromycin ethylsuccinate Allergy Hives Verified 06/23/24 04:20 (From Pediazole) sulfisoxazole acetyl (From Allergy Hives Verified 06/23/24 04:20 Pediazole) venlafaxine (From Effexor) AdvReac Headaches Verified 06/23/24 04:20 Family History Other Drug abuse Social History Smoking Status: Current every day smoker tobacco type: cigarettes and e- cigarettes alcohol intake: never substance use type: marijuana, crack/cocaine, amphetamines and opiates ROS ROS ED Constitutional Constitutional ED: Denies chills or fever(s) Eyes Eyes: Denies blurry vision or change in vision ENT ENT ED: Denies sore throat Cardiovascular Cardiovascular: Reports racing heartbeat and other Details: Positive lightheadedness/syncope ; Denies chest pain Respiratory/Chest Respiratory/Chest: Denies cough or dyspnea Gastrointestinal Gastrointestinal: Reports nausea and vomiting; Denies abdominal pain or diarrhea Genitourinary Genitourinary ED: Denies dysuria or hematuria Musculoskeletal Musculoskeletal: Denies back pain or neck pain Integumentary Reports Abrasions Neurologic Neurologic: Reports headache(s) Hematologic/Lymphatic Hematologic/Lymphatic: Denies easy bleeding or easy bruising EXAM Physical Exam Const Vital Signs: 06/27/24 23:35 Temperature 98.6 F Temperature Source Oral Pulse Rate 90 Respiratory Rate 16 Blood Pressure 121/74 H Blood Pressure Mean 89 Pulse Ox 98 Positive well nourished and well developed General Appearance ED: well developed HEENT HEENT Narrative: Patient has a 2 x 2 hematoma over top the midportion of the occipital scalp consistent with history of head injury. In the center of this there is a superficial/epidermal layer abrasion with dried blood but no active bleeding. Otherwise no signs of depressed or basilar skull fracture Eyes PERRL and EOMs intact bilaterally General Eye ED: Negative for scleral icterus Neck supple Neck Narrative: No bony deformity or step-off of the cervical spine no midline tenderness to palpation Chest Wall palpation of chest normal Chest Narrative: No bony deformity or crepitance noted Resp normal respiratory effort and clear to auscultation bilaterally Cardio regular rate and regular rhythm GI normal to inspection, nondistended, normoactive bowel sounds, non-tender, non- distended and no masses Auscultation: normoactive bowel sounds Palpation: soft Back/Spine Back/Spine Narrative: No bony deformity or step-off of the thoracic or lumbar spine no midline tenderness to palpation Extremity normal to inspection Extremity Narrative: Pelvis is stable there is no shortening or external rotation of either lower extremity Patient is able to move all extremities without difficulty Neuro oriented x3, CN's II-XII intact bilaterally and no sensory deficits noted Sensorium / Orientation: alert Motor Exam: strength 5/5 throughout Psych mental status grossly normal Skin Skin Narrative: Hematoma superficial abrasion to the occipital portion of the scalp as documented above General Skin Exam: Negative for jaundice MDM MDM MDM Narrative Medical decision making narrative: Patient arrived to the ER with stable vitals and a nonfocal neuroexam. She reported that she felt lightheaded/dizzy and passed out after standing up which would correlate with orthostatic syncope. She also reports that she has not been eating or drinking well and does have a history of cyclic vomiting syndrome therefore there is concern for acute kidney injury versus electrolyte abnormality there is also concern for acute blood loss anemia and with a head injury to the occipital section there is concern for skull fracture versus traumatic subdural or subarachnoid hemorrhage. Secondary to this basic blood work was obtained as well as a head and cervical spine CT. imaging revealed no signs of acute trauma and lab work showed hypokalemia with a potassium of 3.1 but this is not clinically significant. After receiving IV fluids Thorazine and Benadryl patient had improvement/resolution of symptoms and as she can ambulate without syncope or lightheadedness there is no need for further workup or admission and she is otherwise safe for discharge Lab Data Attestation: I reviewed the patient's lab results. Labs: Laboratory Results - last 24 hr 06/28/24 00:22 WBC 11.7 H RBC 4.59 Hgb 13.6 Hct 42.2 MCV 91.9 D MCH 29.6 MCHC 32.2 D RDW Std Deviation 42.7 RDW Coeff of Georges 12.8 Plt Count 289 MPV 10.7 Immature Gran % (Auto) 0.300 Neut % (Auto) 63.8 Lymph % (Auto) 27.7 Citrus % (Auto) 7.2 Eos % (Auto) 0.3 Baso % (Auto) 0.7 Absolute Neuts (auto) 7.5 Absolute Lymphs (auto) 3.24 Nucleated RBC % 0 Sodium 136 Potassium 3.1 L Chloride 106 Carbon Dioxide 15.0 L Anion Gap 15 BUN 19 H Creatinine 0.70 Estim Creat Clear Calc 119.62 Est GFR (MDRD) Af Amer 128 Est GFR (MDRD) Non-Af 105 BUN/Creatinine Ratio 27.3 H Glucose 94 Calcium 9.4 Radiography Diagnostic Testing: Clinical Impression(s) from Imaging Studies Brain CT 06/28/24 00:10 IMPRESSION: 1. No acute intracranial injury. 2. Left parietal scalp swelling. No skull fracture. Electronically Signed: Ravinder Villanueva MD at 1:15 EDT , Cervical Spine CT 06/28/24 00:10 IMPRESSION: 1. No acute injuries identified involving the cervical spine. 2. Degenerative changes. Electronically Signed: Ravinder Villanueva MD at 1:17 EDT , Discharge Plan Triage Chief Complaint: Head Injury ED Provider: Carson Lopez Dx/Rx/DC Orders Clinical Impression: Orthostatic syncope, Hematoma of occipital region of scalp, Closed head injury, Hypokalemia Instructions: ED Head Injury (Adult), ED Hematoma, ED Hypotension, Orthostatic Prescriptions: No Action pantoprazole 40 mg tablet,delayed release (DR/EC) 40 mg PO DAILY Qty: 60 2RF prochlorperazine [Compazine] 25 mg suppository 25 mg [place] BID PRN (Reason: nausea and vomiting) Qty: 12 1RF scopolamine base 1 mg over 3 days patch 3 day 1 patch transdermal Q72H PRN (Reason: nausea and vomiting) Qty: 4 0RF lorazepam 0.5 mg tablet 0.5 mg PO DAILY PRN (Reason: anxiety) trazodone 50 mg tablet 50 - 100 mg PO QHS PRN (Reason: sleep) sertraline 100 mg tablet 150 mg PO DAILY clonidine HCl 0.1 mg tablet 0.1 mg PO DAILY Primary Care Provider: Skyler Patino Referrals: Skyler Patino MD [Primary Care Provider] - Print Language: Faroese Disposition Disposition: Home, Self Care Discharge Date/Time: 06/28/24 02:27
[2024-06-28 02:08] VITALS: BP 132/74; PULSE 87; RESP 16; TEMP 36.6; O2SAT 99
== END 2024-06-28 02:27 | disposition home or self-care (01) ==
PROVIDERS: Emergency Provider Emergency Medicine; PCP Family Medicine; Visit Provider Emergency Medicine
DX: R55 Syncope and collapse (principal); E87.6 Hypokalemia; S00.03XA Contusion of scalp, initial encounter; F12.90 Cannabis use, unspecified, uncomplicated; F17.210 Nicotine dependence, cigarettes, uncomplicated; F17.290 Nicotine dependence, other tobacco product, uncomplicated; W19.XXXA Unspecified fall, initial encounter
CPT/HCPCS: 70450; 72125; 80048; 85025; 96365; 99282; J7030; A4216

== ENCOUNTER → 2024-08-22 | Outpatient (CLI) | payer MEDICAID, SELFPAY ==
[2024-08-22 17:57] LABS: HIV - WCH Non-Reactive (Nonreactive); Hepatitis B Surface Antibody Non-Reactive; Hepatitis B Surface Antigen Non-Reactive (Nonreactive); Hepatitis C Antibody Non-Reactive (Nonreactive); Syphilis Antibodies Non-reactive
[2024-08-24 06:10] LABS: Hepatitis B Core Ab Total Negative (Negative)
== END | disposition home or self-care (01) ==
LOC: VSLAB 13:36
PROVIDERS: PCP Nurse Practitioner Family; Visit Provider Nurse Practitioner Family
DX: Z11.3 Encounter for screening for infections with a predominantly sexual mode of transmission (principal)
CPT/HCPCS: 36415; 86703; 86704; 86706; 86780; 86803; 87340

== ENCOUNTER 2024-11-10 17:57 | Emergency (ER) | payer MEDICAID, SELFPAY ==
[2024-11-10 17:58] VITALS: BP 150/74; PULSE 98; RESP 18; TEMP 36.9; O2SAT 100
--- NOTE | 2024-11-10 21:06 | EX.ED.DYSGE1 ---
HPI <NICA Garcia - Last Filed: 11/10/24 21:29> History of Present Illness Chief Complaint: Ear Problem Narrative Narrative: Patient presenting today with concerns for infection to her right external ear. She reports a red bump that has gotten larger over the past 24 hours, she first noticed the bump a few days ago. She denies any fevers or chills. She reports a previous history of alcohol and drug abuse but reports that she has been sober for about 4 months. [facility] <NICA Garcia - Last Filed: 11/10/24 21:29> [facility] Medical History Bipolar disorder Encounter for IUD insertion Polysubstance (excluding opioids) dependence Desire for detoxification Addiction to drug Alcohol addiction Degenerative disc disease Sinus tachycardia Post depression Home Medications ?Medication ?Instructions ?Recorded ?Last Taken ?Type lorazepam 0.5 mg tablet 0.5 mg PO DAILY PRN anxiety 03/30/24 03/30/24 History sertraline 100 mg tablet 150 mg PO DAILY anxiety and 03/30/24 06/16/24 History depression trazodone 50 mg tablet 50 - 100 mg PO QHS PRN sleep 03/30/24 03/30/24 History clonidine HCl 0.1 mg tablet 0.1 mg PO DAILY withdraw 06/16/24 Unknown History pantoprazole 40 mg tablet,delayed 40 mg PO DAILY #60 tabs 06/21/24 Unknown Rx release prochlorperazine 25 mg rectal 25 mg [place] BID PRN nausea and 06/21/24 Unknown Rx suppository (Compazine) vomiting #12 ea scopolamine base 1 mg over 3 days 1 patch transdermal Q72H PRN 06/21/24 Unknown Rx transdermal patch nausea and vomiting #4 ea doxycycline hyclate 100 mg capsule 100 mg PO BID #10 caps 11/10/24 Unknown Rx Allergy/AdvReac Type Severity Reaction Status Date / Time erythromycin ethylsuccinate Allergy Hives Verified 11/10/24 17:58 (From Pediazole) sulfisoxazole acetyl (From Allergy Hives Verified 11/10/24 17:58 Pediazole) venlafaxine (From Effexor) AdvReac Headaches Verified 11/10/24 17:58 Family History Other Drug abuse Social History Smoking Status: Current every day smoker tobacco type: cigarettes and e-cigarettes alcohol intake: never substance use type: marijuana, crack/cocaine, amphetamines and opiates ROS <NICA Garcia - Last Filed: 11/10/24 21:29> ROS ED Constitutional Constitutional ED: Denies chills or fever(s) Cardiovascular Cardiovascular: Denies chest pain Respiratory/Chest Respiratory/Chest: Denies dyspnea Gastrointestinal Gastrointestinal: Denies abdominal pain, nausea or vomiting Musculoskeletal Musculoskeletal: Denies arthralgias or myalgias Integumentary Reports abscess Neurologic Neurologic: Denies weakness EXAM <NICA Garcia - Last Filed: 11/10/24 21:29> Physical Exam Const Vital Signs: 11/10/24 17:58 11/10/24 21:23 Temperature 98.4 F 97.8 F Temperature Source Oral Pulse Rate 98 75 Respiratory Rate 18 18 Blood Pressure 150/74 H Blood Pressure Mean 99 Pulse Ox 100 97 Oxygen Delivery Method Room Air Positive well nourished, well developed and no apparent distress General Appearance ED: well developed HEENT Reports normocephalic, head/scalp atraumatic and TM's clear HEENT Narrative: Bilateral EACs clear. Small fluctuant abscess to the right external pinna. Tympanic Membrane ED: Yes TM's clear bilateral Mouth ED: Yes moist mucous membranes normal Eyes PERRL and EOMs intact bilaterally Neck full ROM and supple Chest Wall inspection of chest normal Resp normal respiratory effort and clear to auscultation bilaterally Cardio regular rate and regular rhythm Back/Spine normal ROM and normal to inspection Extremity normal to inspection and full ROM Neuro oriented x3, CN's II-XII intact bilaterally, moves all extremities, no focal motor deficits and no sensory deficits noted Sensorium / Orientation: awake and alert Psych mental status grossly normal and thought process normal Skin Skin Narrative: Aside from small abscess to the right ear, no rashes or lesions noted. <Dr. Tee Page, - Last Filed: 11/11/24 00:39> Physical Exam Const Vital Signs: 11/10/24 17:58 11/10/24 21:23 Temperature 98.4 F 97.8 F Temperature Source Oral Pulse Rate 98 75 Respiratory Rate 18 18 Blood Pressure 150/74 H Blood Pressure Mean 99 Pulse Ox 100 97 Oxygen Delivery Method Room Air [facility] <NICA Garcia - Last Filed: 11/10/24 21:29> [facility] Narrative Medical decision making narrative: Patient presenting today with a small fluctuant abscess to the right pinna that started as a small bump a few days ago and worsened over the last 24 hours. She is well-appearing and in no acute distress. She is afebrile. I did offer to anesthetize the area with lidocaine but she declined and reported that she would rather I just I&D it. The area was cleaned with chlorhexidine. I made a small incision with a #11 blade and copious amounts of purulent discharge was expelled from the wound. The area was then further cleaned with chlorhexidine. Patient started on doxycycline with first dose here. Warm compresses were recommended, recommended she follow-up with her PCP. Patient discharged home in stable condition. <Dr. Tee Page DO - Last Filed: 11/11/24 00:39> [facility] Treatment and Re-Evaluation :: I have personally performed a face to face assessment of the patient and have reviewed the JESSIE Note. I performed a substantive portion of the visit including all aspects of the following. My ramos findings include: History: Patient presents with pain and swelling to her right ear that has been getting worse over the past 3 days. Patient states it is gradually getting worse. Patient states it is constant. Patient describes it as sharp. Patient states it is over the external right ear. Patient states it is worse with palpation. Patient denies any fevers or chills. Patient denies any hearing changes. Exam: Vital signs are stable. Patient is afebrile. Patient is in no acute distress. There is edema, erythema, and tenderness over the superior aspect of the right external ear. There is no swelling of the ear canal. There is a fluctuant area on the external surface of the right ear. There is no active discharge or drainage noted. Neck is supple. Trachea is midline. There is no JVD noted. Oral mucosa is pink and moist. Oropharynx is clear. Medical Decision Making: Patient was advised that there is a local abscess. Incision and drainage was performed by the JESSIE under my supervision. There is a moderate amount of purulent drainage expressed. Patient felt better after this. Patient was given a dose of doxycycline here. Patient was given a prescription for doxycycline. Patient was instructed to use warm compresses to the area. Patient was instructed to follow-up with her primary care physician in 5 to 7 days. Patient was instructed return if worse in any way. Patient understood and was agreeable with the plan. All questions were answered. Discharge Plan Triage Chief Complaint: Ear Problem ED Midlevel Provider: Cami Aiken ED Provider: Tee Page Dx/Rx/DC Orders Clinical Impression: Abscess Instructions: ED Abscess Incision And Drainage Prescriptions: New doxycycline hyclate 100 mg capsule 100 mg PO BID Qty: 10 0RF No Action pantoprazole 40 mg tablet,delayed release (DR/EC) 40 mg PO DAILY Qty: 60 2RF prochlorperazine [Compazine] 25 mg suppository 25 mg [place] BID PRN (Reason: nausea and vomiting) Qty: 12 1RF scopolamine base 1 mg over 3 days patch 3 day 1 patch transdermal Q72H PRN (Reason: nausea and vomiting) Qty: 4 0RF lorazepam 0.5 mg tablet 0.5 mg PO DAILY PRN (Reason: anxiety) trazodone 50 mg tablet 50 - 100 mg PO QHS PRN (Reason: sleep) sertraline 100 mg tablet 150 mg PO DAILY clonidine HCl 0.1 mg tablet 0.1 mg PO DAILY Primary Care Provider: Skyler Patino Referrals: Rianna Medley Ankita, PHARMACY CUSTOMER CARE SPECIALIST-C [[facility]] - 3-5 Days if not improving Activity Restrictions/Additional Instructions: Follow-up with your PCP and return for any worsening of your symptoms. Apply warm compresses to the area several times daily. Print Language: Portuguese Disposition Disposition: Home, Self Care Discharge Date/Time: 11/10/24 21:28
[2024-11-10] MEDS: Doxycycline 100 MG CAPSULE PO (21:20)
[2024-11-10 21:23] VITALS: PULSE 75; RESP 18; TEMP 36.6; O2SAT 97
== END 2024-11-10 21:28 | disposition home or self-care (01) ==
PROVIDERS: Emergency Provider Emergency Medicine; PCP Family Medicine; Visit Provider Emergency Medicine
DX: H60.01 Abscess of right external ear (principal); F17.210 Nicotine dependence, cigarettes, uncomplicated; F17.290 Nicotine dependence, other tobacco product, uncomplicated
CPT/HCPCS: 69000; 99282